=== PATIENT | female | born 1940 | race Caucasian/White ===

== ENCOUNTER → 2017-05-27 10:11 | Outpatient (CLI) | payer MEDICARE, OTHER, SELFPAY ==
[2017-05-27 11:05] LABS: AST(SGOT) 32 U/L (15-37); Alanine Aminotransfer ALT/SGPT 28 U/L (13-56); Albumin, Serum 3.4 g/dL (3.2-5.0); Alkaline Phosphatase 113 U/L (45-117); Bilirubin, Direct 0.37 mg/dL (0.00-0.30); Cholesterol 124 mg/dL (200); High Density Lipoprotein 49 mg/dL; Protein, Total 7.4 g/dL (6.4-8.2); Triglycerides 75 mg/dL; Very Low Density Lipoprotein 15 mg/dL (5-40)
== END ==
PROVIDERS: Family Provider Family Medicine; PCP Family Medicine; Visit Provider Physician Assistant Medical
DX: E78.5 Hyperlipidemia, unspecified (principal); E78.6 Lipoprotein deficiency; Z79.899 Other long term (current) drug therapy
CPT/HCPCS: 36415; 80061; 80076

== ENCOUNTER → 2018-02-17 11:39 | Outpatient (CLI) | payer MEDICARE, OTHER, SELFPAY ==
[2018-02-17 10:55] VITALS: BMI 27.2
[2018-02-17 13:39] LABS: Absolute Lymphocyte Count 1.34 X10^3/ul (0.83-4.51); Absolute Neutrophil Count 2.7 X10^3/uL (2.0-7.7); Basophil# 0.04 X10^3/uL; Basophil% 0.9 % (0-1); Eosinophil# 0.15 X10^3/uL; Eosinophils% 3.3 % (0-5); Hematocrit 37.4 % (37-47); Hemoglobin 12.2 g/dl (12.0-15.0); Lymphocyte # 1.34 X10^3/ul (4.0); Lymphocyte % 29.1 % (19-41); Mean Corp Hgb Conc 32.6 g/gl (32-36); Mean Corpuscular Hgb 30.6 pg (27.0-32.0); Mean Corpuscular Volume 93.7 fL (81-99); Mean Platelet Vol. 10.1 fl (6.2-12.0); Monocyte# 0.34 X10^3/uL; Monocyte% 7.4 % (0-10); Neutrophil # 2.73 X10^3/uL (2.7-7.7); Neutrophil % 59.1 % (47-70); Platelet Count 140 K/mm3 (150-450); RBC Distribution Width CV 13.7 % (11.6-14.6); RBC Distribution Width SD 47.4 fl (35.1-43.9); Red Blood Count 3.99 M/mm3 (4.2-5.4); White Blood Count 4.6 K/mm3 (4.4-11.0)
[2018-02-17 13:40] LABS: POSITIVE COUNT NO; POSITIVE DIFFERENTIAL NO; POSITIVE MORPHOLOGY NO
[2018-02-17 14:14] LABS: Anion Gap 6 (5-15); BUN 26 mg/dL (7-18); BUN/Creat Ratio 22.8 RATIO (10-20); Calcium,Total 9.2 mg/dL (8.5-10.1); Chloride 106 mmol/L (98-107); Creatinine, Serum 1.14 mg/dL (0.55-1.02); EST Glomerular Filtration Rate 49 mL/min (>60); Est Glom Filt Rate - Afr Amer 59 mL/min (>60); Glucose 143 mg/dL (74-106); Sodium Level 142 mmol/L (136-145)
--- OUTSIDE RECORDS SUMMARY | 2018-04-05 07:04 | XMS RPT_ITS ---
:1940 Author Organization OHIP Support Name Relationship Address Phone JOYCELYN LIEBERMAN Unavailable [address] + [place] [address] MIO BILL Unavailable . + ., . . R Unavailable Unavailable Unavailable DEBRAPEDRO REYNAENCE Unavailable [address] + [place] [address] MIO BILL Unavailable Unavailable + R Unavailable Unavailable Unavailable MIOPEDROJOYCELYN Unavailable [address] + [place] [address] MIO BILL Unavailable NA + [place], [place] R Unavailable Unavailable Unavailable DEBRAMARIBELL, JOYCELYN Unavailable [address] + [place] [address] MIO BILL Unavailable NA + [place], [place] R Unavailable Unavailable Unavailable MIOPEDROJOYCELYN Unavailable [address] + [place] [address] MIO BILL Unavailable NA + [place], [place] R Unavailable Unavailable Unavailable MIO, JOYCELYN Unavailable [address] + [place] [address] MIO BILL Unavailable NA + [place], [place] R Unavailable Unavailable Unavailable MIO, JOYCELYN Unavailable [address] + [place] [address] MIO BILL Unavailable NA + [place], [place] R Unavailable Unavailable Unavailable MIO, JOYCELYN Unavailable [address] + [place] [address] MIO BILL Unavailable NA + [place] R Unavailable Unavailable Unavailable GRASSMAN, JOYCELYN Unavailable [address] + [place] [address] MIO BILL Unavailable NA + [place], [place] R Unavailable Unavailable Unavailable JOYCELYN LIEBERMAN Unavailable [address] + [place] [address] MIO BILL Unavailable NA + [place], [place] R Unavailable Unavailable Unavailable Care Team Providers Name Role Phone Kortney Mike Attending Unavailable Cebul III, Salas Referring Unavailable Kortney Mike Attending Unavailable Kortney Mike Referring Unavailable Cebul III, Salas Primary Care Unavailable Millicent Fish Attending Unavailable Cebul III, Salas Referring Unavailable Cebul III, Salas Primary Care Unavailable Kortney Mike Attending Unavailable Kortney Mike Referring Unavailable Cebul III, Salas Primary Care Unavailable Conor Gilliland Attending Unavailable Millicent Fish Attending Unavailable Cebul III, Salas Referring Unavailable Chandu Ferro Attending Unavailable Cebul III, Salas Referring Unavailable Cebul III, Salas Primary Care Unavailable Millicent Fish Attending Unavailable Cebul III, Salas Referring Unavailable Cebul III, Salas Primary Care Unavailable Millicent Fish Attending Unavailable Cebul III, Salas Referring Unavailable Kortney Mike Attending Unavailable Cebul III, Salas Referring Unavailable PROBLEMS PROBLEMS DATE TYPE CONDITION / CODE ATTENDING STATUS SOURCE Unknown R74.8 - Abnormal levels [place] Mike 8 of other serum enzymes / [facility] R74.8(ICD-10) Hospital Repository Unknown I25.10 - Atherosclerotic Cee, Active [place] 8 heart disease of port lions [facility] coronary artery without Hospital angina pectoris / Repository I25.10(ICD-10) Unknown N18.3 - Chronic kidney Cee Active [place] 8 disease, stage 3 [facility] (moderate) / Hospital N18.3(ICD-10) Repository Unknown I48.2 - Chronic atrial Cee Active [place] 8 fibrillation / [facility] I48.2(ICD-10) Hospital Repository Unknown I50.22 - Chronic systolic Millicent Fish Active [place] (congestive) heart Community failure / I50.22(ICD-10) Hospital Repository Unknown I42.0 - Dilated Millicent Fish Active [place] cardiomyopathy / Community I42.0(ICD-10) Hospital Repository Unknown Z95.810 - Presence of Millicent Fish Active [place] automatic (implantable) Community cardiac defibrillator / Hospital Z95.810(ICD-10) Repository Unknown E78.00 - Pure Kasie, [place] Active [place] 8 hypercholesterolemia, Community unspecified / Hospital E78.00(ICD-10) Repository Unknown E78.0 - Pure Kasie, [place] Active [place] hypercholesterolemia / Community E78.0(ICD-10) Hospital Repository Unknown I10 - Essential (primary) Kasie, [place] Active [place] 8 hypertension / Community I10(ICD-10) Hospital Repository Unknown E78.5 - Hyperlipidemia, Mike, Active [place] unspecified / [facility] E78.5(ICD-10) Hospital Repository Unknown Z79.899 - Other skilled nursing Cee Active [place] 8 (current) drug therapy / [facility] Z79.899(ICD-10) Hospital Repository PROCEDURES PROCEDURES No Procedure Records FoundRESULTS RESULTS PACEMAKER CHECK Observed: 03/16/2018 Status: F Source: [place] 7:24 AM COUNT INCLUDES THE [facility] HOSPITAL REPOSITORY [facility] [address] [place] [address]. [address] [place] [address] Pacemaker Check Date of Service: 03/15/181357 MR#: [id number] Acct: [id number] Name: CHERYL LIEBERMAN Rep #: [id number] : 1940 From: Millicent Fish Age/Sex: 78/F Location: [facility] Status: Signed Billing Codes PM Device Codes: PM Dev Prog Eval, Dual 03/15/18 135 <Electronically signed by Millicent Fish > Date Millicent Fish 03/16/18 0724<Electronically signed by Chandu Ferro MD> Sun Signature: Date (if applicable) Chandu Ferro MD CC: CARDIOLOGY VISIT Observed: 02/22/2018 Status: F Source: [place] REPORT 12:54 PM [facility] REPOSITORY [facility] [address] [place] [address] OFFICE VISIT Date of Service: 02/17/18 MR#: [id number] Acct: [id number] Name: CHERYL LIEBEMRAN Rep #: [id number] : 1940 Provider: Kortney Mike Age/Sex: 78/F Location: [facility] Status: Signed HPI HPI Chief Complaint: Follow-up visit. Details: CHERYL LIEBERMAN, is a 78 F who presents to the office today for a cardiovascular follow-up. She has a history of coronary artery disease with stenting of a bifurcating LAD, 2nd diagonal vessel with a bare-metal stent in 2002. She also has a history of persistent atrial fibrillation and cardiomyopathy. She had been on aspirin and Plavix and Coumadin but had developed severe anemia and Coumadin was discontinued. Coumadin was initiated again in 2013 but developed bleeding again. She has remained on Plavix and aspirin every other day. In 2015 she underwent an ICD placement for prophylactic purposes. Patient is tolerating Eliquis without any difficulty. She is concerned about the cost of this medication. She is unaware of her atrial fibrillation. She has not had any other further symptoms that were concerning for a TIA. She does not have any chest discomfort or heaviness. She does not have any worsening shortness of breath. She does not have any lightheadedness or dizziness. She does not have any lower extremity edema. . Intake Vital Signs02/17/18 Height 5 ft 2 in 02/17/18 Weight: 149 lb 02/17/18 Body Mass Index (BMI) 27.2 02/17/18 Blood Pressure 118/54 L Intake Visit Reasons: 6 wk FU Voice Studies Director Required: No Accompanied by: None Is patient in pain?: No Allergies Jayddrl-Azm-Gqb Reductase Inhibitor Adverse Reaction (Verified 02/17/18 11:00) muscle aches warfarin [From Coumadin] Adverse Reaction (Verified 02/17/18 11:00) GI bleeds, profuse nosebleeds Medications carvedilol 12.5 mg tablet 12.5 mg PO BID #180 tab 04/22/17 [Rx Confirmed 02/17/18] furosemide 40 mg tablet 40 mg PO QDAY #90 tab 07/06/17 [Rx Confirmed 02/17/18] pravastatin 40 mg tablet 40 mg PO QDAY #90 tab 12/08/17 [Rx Confirmed 02/17/18] lisinopril 10 mg tablet 10 mg PO BID #180 tab 12/28/17 [Rx Confirmed 02/17/18] potassium chloride ER 20 mEq tablet,extended release(part/cryst) 20 meq PO DAILY #90 tab 12/28/17 [Rx Confirmed 02/17/18] apixaban 2.5 mg tablet 2.5 mg PO BID #60 tab 01/06/18 [Rx Confirmed 02/17/18] sertraline 50 mg tablet PO 30 Days #30 tab 02/17/18 [History Confirmed 02/17/18] Ejection fraction %: 25 to 29 PFSH Medical History Low serum HDL (Chronic) Chronic kidney disease, stage III (moderate) (Chronic) Atherosclerotic heart disease of port lions coronary artery without angina pectoris (Chronic) Chronic atrial fibrillation (Chronic) Chronic systolic congestive heart failure (Chronic) Bradycardia (Chronic) Dilated cardiomyopathy (Chronic) CAD (coronary artery disease) (Chronic) Hyperlipidemia (Chronic) HTN (hypertension) (Chronic) Surgical History History of coronary artery stent placement (Chronic) 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) History of varicose vein stripping (Resolved) Family History Grandfather Myocardial infarction Father Myocardial infarction Hypertension Brother Cancer Prostate cancer Sister Diabetes CVA (cerebral vascular accident) Hypertension Son Diabetes Son Hypertension Daughter Afib Social History Smoking Status: Never smoker alcohol intake: current alcohol intake frequency: 0-2 drinks per day Alcohol type: wine substance use type: does not use caffeine: Yes Type: carbonated beverages Number of servings: 1, coffee Number of servings: 1 what type of physical activity do you participate in: none seatbelt use: always do you feel safe at home: Yes ROS Const Const: Positive for fatigue; negative for body ache, fever(s), chills, night sweats, daytime sleepiness, difficulty sleeping, weight gain, weight loss, increased appetite, poor appetite, anorexia, other, frequent falls, headache(s), weakness or excessive sweating Eyes Eyes: Negative for blind spots, loss of peripheral vision, transient loss of vision, change in vision, floaters, tunnel vision, other, blurry vision or double vision ENT ENT: Negative for headache(s) or balance problems Cardio Chest Pain: No Palpitations: No Edema: Bilateral (lower extremity edema) Muscle aches with walking: None Resp Respiratory: Positive for SOB with activity; negative for SOB at rest, SOB orthopnea\SOB lying down, Cough, Coughing up blood/hemoptysis, chest congestion, pain on inspiration, snoring, stridor, wheezing, crackles, paroxysmal nocturnal dyspnea or other GI GI: Negative nausea, vomiting, heartburn, constipation, belching, bloating, cramping, vomiting blood/hematemesis, bright, red blood in stools, black,tarry stools, loose stools, Difficulty Swallowing or other : Negative for hematuria, frequent nighttime urination/ nocturia, erectile dysfunction or abnormal vaginal bleeding Musc Musc: Negative for muscle aches/ myalgia, muscle weakness, joint pain or balance problems Skin Skin: Negative redness, non-healing lesions, unusual bruising, skin ulcer, wounds, jaundice, other or rash Neuro Neuro: Negative for frequent falls, headache(s), weakness, blurry vision or double vision [place] Hematologic/Lymphatic: Negative for easy bleeding, easy bruising, enlarged lymph nodes or other Endo Endo: Positive for fatigue; negative for excessive sweating Psych Psych: Positive for anxiety and depression; negative for thoughts of harming anyone, thoughts of harming yourself, visual hallucinations, panic attacks or audible hallucinations Allergy Allergy/Immunology: Negative for rash Cardiology Exam Const Appearance: cooperative, healthy appearing, well developed, well groomed and no acute distress Nutritional Appearance: well nourished and average body habitus Orientation: alert, awake and oriented x3 Head Head: normal to inspection, normocephalic and atraumatic Ears: hearing grossly normal bilaterally and external ears normal Nose: external nose normal, nasal mucous membranes and turbinates normal, nares normal, septum normal, no nasal discharge Face and Sinus: face symmetric Mouth: oral mucosae normal, tongue normal, oropharynx normal and moist mucous membranes Teeth and gingiva: dentition normal Throat: posterior oropharynx normal, tonsils normal and uvula midline Eyes General: appearance normal, both eyes and all related structures Eyelids: eyelids normal Conjunctivae: conjunctivae normal Pupils: PERRL, normal by confrontation and accommodation normal EOM: EOM intact bilaterally Neck Neck: normal visual inspection, trachea midline and no JVD JVD: +5 Carotids: normal carotid upstroke and bounding pulses Chest Chest inspection: normal inspection of the chest, symmetric chest movement and normal respiratory effort Auscultation: Bilateral: Rales Cardio Palpation: normal PMI Rate: regular rate Rhythm: regular rhythm Heart sounds: S1 normal, S2 normal and normal, physiologic split S2; negative rub, gallop or murmur GI GI: normal to inspection, soft, no hepatosplenomegaly and bowel sounds present Neuro General: alert, awake, oriented x3, no focal sensory deficit, gait normal and moves all extremities Skin Skin: no rashes or lesions noted Extremities Lower Extremity Edema: +1: Bilateral Musculoskel Musculoskeletal: No joint tenderness Psych Psychological: normal affect Assessment AND Plan 1. Atherosclerosis of port lions coronary artery of port lions heart without angina pectoris I25.10 JONI Sandy Stable, from a cardiac standpoint patient does not have any symptoms of angina. We recommend that they continue with current aggressive medical management and risk factor modification. Orders Orders: 2. Chronic atrial fibrillation I48.2 Plan - JONI Barnes Patient will continue with her current rate limiting medication and factor Xa inhibitor. We have discussed cost of medication. Will fax over information to help with tear reduction of Eliquis. Orders Orders: 3. Essential hypertension I10 JONI Sandy Blood pressure is well controlled on current medications, we do not recommend any changes at this time. 4. Pure hypercholesterolemia E78.00 JONI Sandy Recent lipid profile has been reviewed. Patient will continue with his current dose of moderate intensity statin. 5. Dilated cardiomyopathy I42.0 Plan - JONI Barnes Patient does not have any symptoms of congestive heart failure. We will continue to monitor by history, exam and echocardiograms as deemed appropriate. 6. 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 We will continue to monitor with routine scheduled ICD interrogations. Patient has not had any discharges from their device. Plan Detail Other Orders Orders: Other Medications New: Additional Comments - JONI Barnes The above patient was discussed with Dr. Ferro, he agrees with plan of care. Thank you for allowing us to participate in patient's plan of care, if you have any questions please do not hesitate to call. This note was generated using a voice recognition system and there may be incorrect words, spelling or punctuation errors that were not noted when reviewing the office note prior to saving. Follow Up 02/17/18 (keep as is) Coding Level of Care Code Off vis,est,level 3 Diagnoses Atherosclerosis of port lions coronary artery of port lions heart without angina pectoris I25.10 [place] vs. transplanted heart: port lions heart Chronic atrial fibrillation I48.2 Essential hypertension I10 Hypertension type: essential hypertension Pure hypercholesterolemia E78.00 Hyperlipidemia type: pure hypercholesterolemia Dilated cardiomyopathy I42.0 Presence of automatic implantable cardioverter-defibrillator Z95.810 Coding Level of Care Code Off vis,est,level 3 Diagnoses Atherosclerosis of port lions coronary artery of port lions heart without angina pectoris I25.10 [place] vs. transplanted heart: port lions heart Chronic atrial fibrillation I48.2 Essential hypertension I10 Hypertension type: essential hypertension Pure hypercholesterolemia E78.00 Hyperlipidemia type: pure hypercholesterolemia Dilated cardiomyopathy I42.0 Presence of automatic implantable cardioverter-defibrillator Z95.810 02/21/18 1143 <Electronically signed by Kortney QUINONES> Date Kortney QUINONES 02/22/18 1254<Electronically signed by Chandu Ferro MD> Cosigner Signature: Date (if applicable) Chandu Ferro MD CC: [place]as Aguilar III, MD CBC W/DIFF, AUTOMATED Collected: 02/17/2018 Status: F Source: [place] 11:50 AM [facility] REPOSITORY TYPE CODE TESTS RESULT OUT OF RANGE REFERENCE UNITS LAB L100.1000 4.4-11.0 K/mm3 Normal WBC 4.6 LAB L100.1200 4.2-5.4 M/mm3 Low RBC 3.99 LAB L100.1300 12.0-15.0 g/dl Normal HGB 12.2 LAB L100.1400 37-47 % Normal HCT 37.4 LAB L100.1500 81-99 fL Normal MCV 93.7 LAB L100.1600 27.0-32.0 pg Normal MCH 30.6 LAB L100.1700 32-36 g/gl Normal MCHC 32.6 LAB L100.1810 11.6-14.6 % Normal RDW CV 13.7 LAB L100.1820 35.1-43.9 fl High RDW SD 47.4 LAB L100.1900 150-450 K/mm3 Low PLT 140 LAB L100.2000 6.2-12.0 fl Normal MPV 10.1 LAB L100.2100 47-70 % Normal NEUT% 59.1 LAB L100.2200 19-41 % Normal LY% 29.1 LAB L100.2300 0-10 % Normal MONO% 7.4 LAB L100.2400 0-5 % Normal EO% 3.3 LAB L100.2500 0-1 % Normal BASO% 0.9 LAB L100.2550 0.0-0.9 % Normal IM GRAN % 0.200 Result Comment: IG% - Immature Granulocytes (promyelocytes, myelocytes and metamyelocytes) > 1% indicates that a LEFT SHIFT is Present. LAB L100.2620 2.0-7.7 X10 3/uL Normal Absolute Neut 2.7 LAB L100.2720 0.83-4.51 X10 3/ul Normal Absolute Lymph 1.34 Performed By: #### L100.0100 #### [facility] [address] [place], [address] BASIC METABOLIC Collected: 02/17/2018 Status: F Source: [place] PROFILE (BMP) 11:50 AM [facility] REPOSITORY TYPE CODE TESTS RESULT OUT OF RANGE REFERENCE UNITS LAB L501.0100 74-106 mg/dL High GLU 143 Result Comment: Fasting Glucose result greater than or equal to 126 mg/dL suggests DIABETES MELLITUS per A.D.A. criteria. Please note revised GLUCOSE reference range effective 2017. LAB L501.1000 7-18 mg/dL High BUN 26 LAB L501.1100 0.55-1.02 mg/dL High CREAT,SERUM 1.14 Result Comment: The validity of the calculated GFR AND GFRAA in patients over 70 years has not been determined. Clinical correlation is essential. LAB L501.1110 >60 mL/min Low EST GFR 49 Result Comment: Non- GFR Calc LAB L501.1115 >60 mL/min Low EST GFR - AA 59 Result Comment: GFR Calc LAB L501.1300 10-20 RATIO High BUN/CRE 22.8 LAB L501.2200 8.5-10.1 mg/dL CA Normal 9.2 LAB L501.5300 136-145 mmol/L NA Normal 142 LAB L501.5600 3.5-5.1 mmol/L K Normal 4.0 LAB L501.5900 98-107 mmol/L CL Normal 106 LAB L501.6100 21.0-32.0 mmol/L Normal CO2 30.0 LAB L501.6200 5-15 Normal GAP 6 Performed By: #### L500.2500 #### [facility] [address] [place], [address] CARDIOLOGY VISIT Observed: 01/07/2018 Status: F Source: [place] REPORT 8:23 AM [facility] REPOSITORY [facility] [address] [place] [address] OFFICE VISIT Date of Service: 01/06/18 MR#: [id number] Acct: [id number] Name: CHERYL LIEBERMAN Rep #: [id number] : 1940 Provider: Kortney Mkie Age/Sex: 77/F Location: [facility] Status: Signed [facility] Chief Complaint: Follow-up visit. Details: CHERYL LIEBERMAN, is a 77 F who presents to the office today for a cardiovascular follow-up. She has a history of coronary artery disease with stenting of a bifurcating LAD, 2nd diagonal vessel with a bare-metal stent in 2002. She also has a history of persistent atrial fibrillation and cardiomyopathy. She had been on aspirin and Plavix and Coumadin but had developed severe anemia and Coumadin was discontinued. Coumadin was initiated again in 2013 but developed bleeding again. She has remained on Plavix and aspirin every other day. In 2015 she underwent an ICD placement for prophylactic purposes. ICD interogation does demonstrated Afib episodes. Pt sts that a few weeks ago, her family was concerned about some slurred speech. She thinks that it was related to anxiety. She sts that this lasted a few hours. She did not do anything about this. She did not note any palpitations. She did not have any lightheadedness/dizziness/syncope. She does not have any chest pain. She does not have any worsening SOB. She does have some edema. Intake Vital Signs01/06/18 Height 5 ft 2 in 01/06/18 Weight: 147 lb 01/06/18 Body Mass Index (BMI) 26.9 01/06/18 Blood Pressure 126/68 H 01/06/18 Blood Pressure Location Lt brachial Intake Visit Reasons: 6 M FU Voice Studies Director Required: No Accompanied by: Is patient in pain?: No Allergies Icsaqnd-Eyx-Mph Reductase Inhibitor Adverse Reaction (Verified 01/06/18 11:33) muscle aches warfarin [From Coumadin] Adverse Reaction (Verified 01/06/18 11:33) GI bleeds, profuse nosebleeds Medications carvedilol 12.5 mg tablet 12.5 mg PO BID #180 tab 04/22/17 [Rx Confirmed 01/06/18] furosemide 40 mg tablet 40 mg PO QDAY #90 tab 07/06/17 [Rx Confirmed 01/06/18] pravastatin 40 mg tablet 40 mg PO QDAY #90 tab 12/08/17 [Rx Confirmed 01/06/18] lisinopril 10 mg tablet 10 mg PO BID #180 tab 12/28/17 [Rx Confirmed 01/06/18] potassium chloride ER 20 mEq tablet,extended release(part/cryst) 20 meq PO DAILY #90 tab 12/28/17 [Rx Confirmed 01/06/18] apixaban 2.5 mg tablet 2.5 mg PO BID #60 tab 01/06/18 [Rx Confirmed 01/06/18] Ejection fraction %: 25 to 29 [facility] Medical History Low serum HDL (Chronic) Chronic kidney disease, stage III (moderate) (Chronic) Atherosclerotic heart disease of [place] lions coronary artery without angina pectoris (Chronic) Chronic atrial fibrillation (Chronic) Chronic systolic congestive heart failure (Chronic) Bradycardia (Chronic) Dilated cardiomyopathy (Chronic) CAD (coronary artery disease) (Chronic) Hyperlipidemia (Chronic) HTN (hypertension) (Chronic) Surgical History History of coronary artery stent placement (Chronic) 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) History of varicose vein stripping (Resolved) Family History Grandfather Myocardial infarction Father Myocardial infarction Hypertension Brother Cancer Prostate cancer Sister Diabetes CVA (cerebral vascular accident) Hypertension Son Diabetes Son Hypertension Daughter Afib Social History Smoking Status: Never smoker alcohol intake: current alcohol intake frequency: 0-2 drinks per day Alcohol type: wine substance use type: does not use caffeine: Yes Type: carbonated beverages Number of servings: 1, coffee Number of servings: 1 what type of physical activity do you participate in: none seatbelt use: always do you feel safe at home: Yes ROS Const Const: Positive for fatigue; negative for body ache, fever(s), chills, night sweats, daytime sleepiness, difficulty sleeping, weight gain, weight loss, increased appetite, poor appetite, anorexia, other, frequent falls, headache(s), weakness or excessive sweating Eyes Eyes: Negative for blind spots, loss of peripheral vision, transient loss of vision, change in vision, floaters, tunnel vision, other, blurry vision or double vision ENT ENT: Negative for headache(s) or balance problems Cardio Chest Pain: No Palpitations: No Edema: Bilateral (lower extremity edema) Muscle aches with walking: None Resp Respiratory: Positive for SOB with activity; negative for SOB at rest, SOB orthopnea\SOB lying down, Cough, Coughing up blood/hemoptysis, chest congestion, pain on inspiration, snoring, stridor, wheezing, crackles, paroxysmal nocturnal dyspnea or other GI GI: Negative nausea, vomiting, heartburn, constipation, belching, bloating, cramping, vomiting blood/hematemesis, bright, red blood in stools, black,tarry stools, loose stools, Difficulty Swallowing or other : Negative for hematuria, frequent nighttime urination/ nocturia, erectile dysfunction or abnormal vaginal bleeding Musc Musc: Negative for muscle aches/ myalgia, muscle weakness, joint pain or balance problems Skin Skin: Negative redness, non-healing lesions, unusual bruising, skin ulcer, wounds, jaundice, other or rash Neuro Neuro: Negative for frequent falls, headache(s), weakness, blurry vision or double vision [place] Hematologic/Lymphatic: Negative for easy bleeding, easy bruising, enlarged lymph nodes or other Endo Endo: Positive for fatigue; negative for excessive sweating Psych Psych: Positive for anxiety; negative for depression, thoughts of harming anyone, thoughts of harming yourself, visual hallucinations, panic attacks or audible hallucinations Allergy Allergy/Immunology: Negative for rash Cardiology Exam Const Appearance: cooperative, healthy appearing, well developed, well groomed and no acute distress Nutritional Appearance: well nourished and average body habitus Orientation: alert, awake and oriented x3 Head Head: normal to inspection, normocephalic and atraumatic Ears: hearing grossly normal bilaterally and external ears normal Nose: external nose normal, nasal mucous membranes and turbinates normal, nares normal, septum normal, no nasal discharge Face and Sinus: face symmetric Mouth: oral mucosae normal, tongue normal, oropharynx normal and moist mucous membranes Teeth and gingiva: dentition normal Throat: posterior oropharynx normal, tonsils normal and uvula midline Eyes General: appearance normal, both eyes and all related structures Eyelids: eyelids normal Conjunctivae: conjunctivae normal Pupils: PERRL, normal by confrontation and accommodation normal EOM: EOM intact bilaterally Neck Neck: normal visual inspection, trachea midline and no JVD JVD: +5 Carotids: normal carotid upstroke and bounding pulses Chest Chest inspection: normal inspection of the chest, symmetric chest movement and normal respiratory effort Auscultation: Bilateral: Rales Cardio Palpation: normal PMI Rate: regular rate Rhythm: regular rhythm Heart sounds: S1 normal, S2 normal and normal, physiologic split S2; negative rub, gallop or murmur GI GI: normal to inspection, soft, no hepatosplenomegaly and bowel sounds present Neuro General: alert, awake, oriented x3, no focal sensory deficit, gait normal and moves all extremities Skin Skin: no rashes or lesions noted Extremities Lower Extremity Edema: +1: Bilateral Musculoskel Musculoskeletal: No joint tenderness Psych Psychological: normal affect Supplemental Info Pharmacologic nuclear stress test in 2016 demonstrated evidence of small apical perfusion with no ischemia noted. Echocardiogram in 2016 demonstrated severe global left ventricular dysfunction with an ejection fraction of 25%. Severe global hypokinesis of the left ventricle. RVSP 34 mmHg Assessment AND Plan 1. Chronic atrial fibrillation I48.2 Plan - JONI Barnes Patient's slurred speech is concerning for a CVA. She did have issues with Coumadin however would like for her to stop her aspirin and Plavix and start Eliquis. This was reviewed with Dr. Ferro and he agrees with plan of care. She was advised to monitor for bleeding risks. Patient Instructions - JONI Barnes Stop your Aspirin and Plavix and start Eliquis- it will be twice a day 2. Dilated cardiomyopathy I42.0 Plan - JONI Barnes Patient does not have any symptoms of congestive heart failure. We will continue to monitor by history, exam and echocardiograms as deemed appropriate. 3. 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 We will continue to monitor with routine scheduled ICD interrogations. Patient has not had any discharges from their device. 4. Atherosclerosis of port lions coronary artery of port lions heart without angina pectoris I25.10 status post stents Plan - JONI Barnes Stable, from a cardiac standpoint patient does not have any symptoms of angina. We recommend that they continue with current aggressive medical management and risk factor modification. 5. Essential hypertension I10 Plan - JONI Barnes Blood pressure is well controlled on current medications, we do not recommend any changes at this time. 6. Pure hypercholesterolemia E78.00 Plan - JONI Barnes Patient will continue with current moderate intensity statin. Recent lipid profile demonstrates total cholesterol 124, HDL 49, LDL 60. Plan Detail Other Medications New: Additional Comments - JONI Barnes Thank you for allowing us to participate in patient's plan of care, if you have any questions please do not hesitate to call. This note was generated using a voice recognition system and there may be incorrect words, spelling or punctuation errors that were not noted when reviewing the office note prior to saving. 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 transplanted heart: port lions heart Essential hypertension I10 Hypertension type: essential hypertension Pure hypercholesterolemia E78.00 Hyperlipidemia type: pure hypercholesterolemia 01/06/18 1531 <Electronically signed by Kortney QUINONES> Date Kortney QUINONES 01/07/18 0823<Electronically signed by Chandu Ferro MD> Cosigner Signature: Date (if applicable) Chandu Ferro MD CC: Salas Aguilar III, MD PACEMAKER CHECK Observed: 12/14/2017 Status: F Source: [place] 11:00 AM [facility] [address] [place] [address]. [address] [place] [address] Pacemaker Check Date of Service: 12/13/17 1315 MR#: [id number] Acct: [id number] Name: CHERYL LIEBERMAN Rep #: [id number] : 1940 From: Millicent Fish Age/Sex: 77/F [place] [facility] [place] Status: Signed Billing Codes ICD Device Billing: ICD Dev Prog Darya, Single 12/13/17 1317 <Electronically signed by Millicent Fish > Date Millicent Fish 12/14/17 1100<Electronically signed by Chandu Ferro MD> Cosigner Signature: Date (if applicable) Chandu Ferro MD CC: PROGRESS Observed: 09/23/2017 Status: COMPLETED Source: [place] 9:30 AM [facility] REPOSITORY HNO ID: [id number] Author: Lynne Morales Service: (none) Author Type: Atmospheric Chemist Type: Progress Notes Filed: 09/23/2017 9:31 AM Note Text: Patient will call back to schedule her appointment. She taking care of that has cancer. Lynne Morales MA PROGRESS Observed: 09/20/2017 Status: COMPLETED Source: [place] 12:52 PM [facility] REPOSITORY HNO ID: [id number] Author: Lynne Morales Service: (none) Author Type: Atmospheric Chemist Type: Progress Notes Filed: 09/23/2017 9:31 AM Note Text: PHMA TEAMLET DOCUMENTATION Provider Action/FYI: Patient needs appointment, needs labs ordered, needs Foot and Eye exam. PSR Action/FYI: please schedule appointment Teamlet has identified patient by name and date of . Team: Dr. Carlo Aguilar III,, LUI Farmer, Lynne Morales MA, Kaleb Colon LPN, Suze Das, MARCELO, ? Last Office Visit:Visit date not found ? Next Office Visit: Visit date not found ? Last BP/Labs: Blood Pressure: Last 3 Encounter BP Readings: Date: BP: 02/15/2017 122/70 12/25/2016 100/72 07/22/2015 100/60 Lipids: Cholesterol, Total (mg/dL) Date Value 05/11/2013 155 12/06/2012 242 HDL Cholesterol (mg/dL) Date Value 05/11/2013 42 02/09/2013 37 LDL Cholesterol (mg/dL) Date Value 05/11/2013 82 12/06/2012 168 LDL Calculated (mg/dL) Date Value 02/09/2013 53 02/09/2013 65 Triglyceride (mg/dL) Date Value 05/11/2013 154 02/09/2013 70 HGB A1C: Lab Results Component Value Date HBA1C 7.0 07/22/2015 HBA1C 7.3 05/11/2013 HBA1C 6.5 10/24/2002 TSH: TSH (uU/mL) Date Value 12/06/2012 4.200 ) Care Gap: DM - Need Urine Albumin / NOT checked in last 12 months Needs dilated eye exam - HM overdue Plan: ? Confirm PCP / Status ? Type of appointment needed: Follow-up with Provider Kathyl ? Consultation Appointments: No patient outreach needed at this time ? Labs, HM and Immunization: Labs: Albumin Creatinine Urine CMP HGB A1C Fecal Occult Blood Test Lipids Colon Cancer Screening Diabetic Eye Exam Diabetic Foot Exam Lynne Morales MA CNPTOUTREACH Observed: 09/20/2017 Status: COMPLETED Source: [place] 12:00 AM [facility] REPOSITORY Patient Outreach (FAMPWS) CHERYL LIEBERMAN ([id number]) 1940 F Date Time Provider Department 09/20/17 LYNNE MORALES) FAMPWS During your visit today, we recorded the following information about you: Lynne Morales MA 09/23/2017 9:31 AM Signed PHMA TEAMLET DOCUMENTATION Provider Action/FYI: Patient needs appointment, needs labs ordered, needs Foot and Eye exam. PSR Action/FYI: please schedule appointment Teamlet has identified patient by name and date of . Team: Dr. Carlo Aguilar III, MD, LUI Farmer, Lynne Morales MA, Kaleb Colon LPN, Suze Das CMA, ? Last Office Visit:Visit date not found ? Next Office Visit: Visit date not found ? Last BP/Labs: Blood Pressure: Last 3 Encounter BP Readings: Date: BP: 02/15/2017 122/70 12/25/2016 100/72 07/22/2015 100/60 Lipids: Cholesterol, Total (mg/dL) Date Value 05/11/2013 155 12/06/2012 242 HDL Cholesterol (mg/dL) Date Value 05/11/2013 42 02/09/2013 37 LDL Cholesterol (mg/dL) Date Value 05/11/2013 82 12/06/2012 168 LDL Calculated (mg/dL) Date Value 02/09/2013 53 02/09/2013 65 Triglyceride (mg/dL) Date Value 05/11/2013 154 02/09/2013 70 HGB A1C: Lab Results Component Value Date HBA1C 7.0 07/22/2015 HBA1C 7.3 05/11/2013 HBA1C 6.5 10/24/2002 TSH: TSH (uU/mL) Date Value 12/06/2012 4.200 ) Care Gap: DM - Need Urine Albumin / NOT checked in last 12 months Needs dilated eye exam - HM overdue Plan: ? Confirm PCP / Status ? Type of appointment needed: Follow-up with Provider Lauren ? Consultation Appointments: No patient outreach needed at this time ? Labs, HM and Immunization: Labs: Albumin Creatinine Urine CMP HGB A1C Fecal Occult Blood Test Lipids Colon Cancer Screening Diabetic Eye Exam Diabetic Foot Exam IMANI Arzola MA 09/23/2017 9:31 AM Signed Patient will call back to schedule her appointment. She taking care of that has cancer. Lynne Morales MA Allergies As of Date: 09/20/2017 (No Known Allergies) Date Reviewed: 02/15/2017 Reviewed by: Norbert Fischer - Fully Assessed Reason for Visit: PHMA/Care Gap Outreach [[id number]] Primary Visit Diagnosis:Hyperlipidemia LDL goal <100 [E78.5] Other Visit Diagnoses:Type 2 diabetes mellitus with stage 3 chronic kidney disease, without long-term current use of insulin (HCC) [E11.22, N18.3] Essential hypertension, benign [I10] Encounter for screening fecal occult blood testing [Z12.11] Order(s):COMP METABOLIC PANEL [SQCMP] Order #: [id number] FUTURE LIPID PANEL BASIC [SQLIPB] Order #: [id number] FUTURE ALBUMIN/CREAT RATIO RND UR [SQUACR] Order #: [id number] FUTURE HGB A1C [FPTMY6O] Order #: [id number] FUTURE FECAL OCCULT BLOOD TEST [SQIFOBT] Order #: [id number] FUTURE Prescriptions as of 09/20/2017 Sig: BENZONATATE 100 MG CAPSULE Take 1 capsule by mouth three* CARVEDILOL 25 MG TABLET Take 1 tablet by mouth twice * POTASSIUM CHLORIDE ER 20 MEQ * Take 1 tablet by mouth once d* FUROSEMIDE 40 MG TABLET Take 1 tablet by mouth once d* SERTRALINE 50 MG TABLET Take 1 tablet by mouth once d* CLOPIDOGREL 75 MG TABLET Take 1 tablet by mouth once d* PRAVASTATIN 20 MG TABLET Take 1 tablet by mouth every * LISINOPRIL 20 MG-HYDROCHLOROT* Take 1 tablet by mouth as nee* NITROGLYCERIN 0.4 MG SUBLINGU* Dissolve 1 tablet under the t* ADULT LOW DOSE ASPIRIN 81 MG * Take one(1) tablet daily. Problem List As Of Date 09/20/2017 Noted Resolved BENIGN HYPERTENSION [I10] Venous (peripheral) insufficiency [I87.2] More... Hyperlipidemia LDL goal <100 [E78.5] OSTEOPOROSIS NOS [M81.0] INVALID FOR* DYSMETABOLIC SYNDROME X [E88.81] INVALID FOR* Left bundle branch block [I44.7] INVALID FOR* Impaired fasting glucose [R73.01] INVALID FOR* History of epistaxis [Z87.898] INVALID FOR* Atrial fibrillation [I48.91] INVALID FOR* CHF (congestive heart failure) [I50.9] INVALID FOR* ASHD (arteriosclerotic heart disease) [I25.10] INVALID FOR* Type 2 diabetes mellitus with stage 3 chronic k*INVALID FOR* Chronic anxiety [F41.9] INVALID FOR* Encounter Status:Closed by LYNNE MORALES on 09/23/17 PACEMAKER CHECK Observed: 09/09/2017 Status: F Source: [place] 4:34 PM [facility] REPOSITORY [facility] [address] [place] [address] Pacemaker Check Date of Service: 09/09/17 1347 MR#: [id number] Acct: [id number] Name: CHERYL LIEBERMAN Rep #: [id number] : 1940 From: Millicent Fish Age/Sex: 77/F Location: [facility] [place] Status: Signed Billing Codes ICD Device Billing: ICD Dev Prog Eval, Single 09/09/17 1348 <Electronically signed by Millicent Fish > Date Millicent Fish 09/09/17 1634<Electronically signed by Chandu Ferro MD> Cosign Signature: Date (if applicable) Chandu Ferro MD CC: CARDIOLOGY VISIT Observed: 07/06/2017 Status: F Source: [place] REPORT 11:32 AM [facility] REPOSITORY [facility] [address] [place] [address] OFFICE VISIT Date of Service: 07/06/17 MR#: [id number] Acct: [id number] Name: CHERYL LIEBERMAN Rep #: [id number] : 1940 Provider: Chandu Ferro MD Age/Sex: 77/F Location: [facility] Status: Signed [facility] Chief Complaint: Follow-up visit. Details: CHERYL LIEBERMAN, is a 77 F who presents to the office today for a follow-up visit. She is a lady with a history of coronary artery disease status post stenting of the bifurcating LAD and second diagonal vessel with a bare-metal stent in 2002. She also has a history of persistent atrial fibrillation and a cardiomyopathy. Her ejection fraction had declined from 35-25% and she underwent an ICD implantation. She says that her major complaint at this time is bilateral pitting edema and some shortness of breath with activity. She has had no neck arm or jaw discomfort suggest angina no dizziness or diaphoresis no near syncope or syncope. Her physical exam today demonstrates clear lung morris irregular regular heart rate and 1+ pitting edema. She says that her medications were changed taking out her lisinopril HCTZ. Intake Vital Signs07/06/17 Height 5 ft 2 in 07/06/17 Weight: 154 lb 07/06/17 Body Mass Index (BMI) 28.1 07/06/17 Blood Pressure 124/80 07/06/17 Blood Pressure Location Lt brachial Intake Visit Reasons: 6 M Voice Studies Director Required: No Accompanied by: Is patient in pain?: No Allergies Qyvuxpy-Twf-Usm Reductase Inhibitor Adverse Reaction (Verified 07/06/17 11:05) muscle aches warfarin [From Coumadin] Adverse Reaction (Verified 07/06/17 11:05) GI bleeds, profuse nosebleeds Medications Aspirin [Aspirin, Baby] 81 mg PO DAILY@0800 #30 tab.chew 02/06/13 [Rx Confirmed 07/06/17] carvedilol 12.5 mg tablet 12.5 mg PO BID #180 tab 04/22/17 [Rx Confirmed 07/06/17] potassium chloride ER 20 mEq tablet,extended release(part/cryst) 20 meq PO DAILY #90 tab 05/07/17 [Rx Confirmed 07/06/17] pravastatin 40 mg tablet 20 mg PO QDAY #90 tab 05/07/17 [Rx Confirmed 07/06/17] lisinopril 10 mg tablet 10 mg PO BID tab 07/02/17 [History Confirmed 07/06/17] clopidogrel 75 mg tablet 75 mg PO .COMPLEX tab 07/06/17 [History] furosemide 40 mg tablet 40 mg PO QDAY #90 tab 07/06/17 [Rx Confirmed 07/06/17] Ejection fraction %: 25 to 29 (25% per echo 03/18/2015 at [facility] Medical History Low serum HDL (Chronic) Chronic kidney disease, stage III (moderate) (Chronic) Atherosclerotic heart disease of port lions coronary artery without angina pectoris (Chronic) Chronic atrial fibrillation (Chronic) Chronic systolic congestive heart failure (Chronic) Bradycardia (Chronic) Dilated cardiomyopathy (Chronic) CAD (coronary artery disease) (Chronic) Hyperlipidemia (Chronic) HTN (hypertension) (Chronic) Surgical History History of coronary artery stent placement (Chronic) 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) Family History Grandfather Myocardial infarction Father Myocardial infarction Hypertension Brother Cancer Prostate cancer Sister Diabetes CVA (cerebral vascular accident) Hypertension Son Diabetes Son Hypertension Daughter Afib Social History Smoking Status: Never smoker alcohol intake: never substance use type: does not use caffeine: Yes Type: carbonated beverages what type of physical activity do you participate in: none seatbelt use: always do you feel safe at home: Yes ROS Const Const: Positive for fatigue; negative for body ache, fever(s), chills, night sweats, daytime sleepiness, difficulty sleeping, weight gain, weight loss, increased appetite, poor appetite, anorexia, other, frequent falls, headache(s), weakness or excessive sweating Eyes Eyes: Negative for blind spots, loss of peripheral vision, transient loss of vision, change in vision, floaters, tunnel vision, other, blurry vision or double vision ENT ENT: Negative for hearing loss, tinnitus, Nosebleed/epistaxis, post nasal drip, bleeding gums, hoarseness, neck pain, dry mouth, other, balance problems, dizziness, headache(s), tongue swelling or lip swelling Cardio Chest Pain: No Palpitations: No Edema: Bilateral (lower extremity edema) Muscle aches with walking: None Resp Respiratory: Positive for SOB with activity; negative for SOB at rest, SOB orthopnea\SOB lying down, Cough, Coughing up blood/hemoptysis, chest congestion, pain on inspiration, snoring, stridor, wheezing, crackles, paroxysmal nocturnal dyspnea or other GI GI: Negative nausea, vomiting, heartburn, constipation, belching, bloating, cramping, vomiting blood/hematemesis, bright, red blood in stools, black,tarry stools, loose stools, Difficulty Swallowing or other : Negative for hematuria, frequent nighttime urination/ nocturia, erectile dysfunction or abnormal vaginal bleeding Musc Musc: Negative for muscle aches/ myalgia, muscle weakness, joint pain or balance problems Skin Skin: Negative redness, non-healing lesions, unusual bruising, skin ulcer, wounds, jaundice, other or rash Neuro Neuro: Negative for dizziness, lightheadedness, near syncope, syncope, orthostatic symptoms, frequent falls, headache(s), weakness, confusion, memory loss, restless legs, blurry vision, double vision, vertigo, seizures, lack of coordination or other [place] Hematologic/Lymphatic: Negative for easy bleeding, easy bruising, enlarged lymph nodes or other Endo Endo: Positive for fatigue; negative for cold intolerance, heat intolerance, excessive sweating, flushing, increased thirst/drinking, increased hunger, hair loss, hair growth or other Psych Psych: Positive for anxiety; negative for depression, thoughts of harming anyone, thoughts of harming yourself, visual hallucinations, panic attacks or audible hallucinations Allergy Allergy/Immunology: Negative for throat swelling, Negative for tongue swelling, Negative for hives, Negative for rash, Negative for lip swelling Cardiology Exam Const Appearance: cooperative, healthy appearing, well developed, well groomed and no acute distress Nutritional Appearance: well nourished and average body habitus Orientation: alert, awake and oriented x3 Head Head: normal to inspection, normocephalic and atraumatic Ears: hearing grossly normal bilaterally and external ears normal Nose: external nose normal, nasal mucous membranes and turbinates normal, nares normal, septum normal, no nasal discharge Face and Sinus: face symmetric Mouth: oral mucosae normal, tongue normal, oropharynx normal and moist mucous membranes Teeth and gingiva: dentition normal Throat: posterior oropharynx normal, tonsils normal and uvula midline Eyes General: appearance normal, both eyes and all related structures Eyelids: eyelids normal Conjunctivae: conjunctivae normal Pupils: PERRL, normal by confrontation and accommodation normal EOM: EOM intact bilaterally Neck Neck: normal visual inspection, trachea midline and no JVD JVD: +5 Carotids: normal carotid upstroke and bounding pulses Chest Chest inspection: normal inspection of the chest, symmetric chest movement and normal respiratory effort Auscultation: Bilateral: Rales Cardio Palpation: normal PMI Rate: regular rate Rhythm: regular rhythm Heart sounds: S1 normal, S2 normal and normal, physiologic split S2; negative rub, gallop or murmur GI GI: normal to inspection, soft, no hepatosplenomegaly and bowel sounds present Neuro General: alert, awake, oriented x3, no focal sensory deficit, gait normal and moves all extremities Skin Skin: no rashes or lesions noted Extremities Lower Extremity Edema: +1: Bilateral Musculoskel Musculoskeletal: No joint tenderness Psych Psychological: normal affect Assessment AND Plan 1. Chronic systolic congestive heart failure I50.22 Plan She does have evidence of chronic systolic congestive heart failure with bilateral rales and pedal edema at this time my recommendation will be to increase her furosemide to 40 mg once a day continue her carvedilol at the same dose and continue her lisinopril at the same dose. 2. Chronic atrial fibrillation I48.2 Plan She does have evidence of chronic persistent atrial fibrillation she is unaware of this rhythm and as you know she has not been anticoagulated due to her history of anemia but remains on aspirin and Plavix. 3. Dilated cardiomyopathy I42.0 Plan She does have a history of a cardiomyopathy which is out of proportion to her coronary artery disease. She remains on the beta-jose eduardo and the CHARANJIT inhibitor. She is AHA class C based on her evaluation. 4. 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 Her last ICD interrogation demonstrated no evidence of VT or VF with the battery longevity of over 10 years. We will continue to monitor her closely. 5. Pure hypercholesterolemia E78.00; E78.0 Plan Her most recent lipid profile demonstrated total cholesterol 124 HDL 49 and LDL of 60. No other changes will be made. 6. Atherosclerosis of [place] lions coronary artery of [place] heart without angina pectoris I25.10 status post stents Plan She does have a history of previous coronary artery angioplasty and stenting. Her most recent stress test in July 2015 did not demonstrate any evidence of ischemia. Thank you for allowing me to participate in the care of your patient. Please don't hesitate to call if any issues arise 7. Essential hypertension I10 Plan She has been keeping track of her blood pressures and they have all been in the normotensive range she is quite meticulous about the above. Thank you for allowing me to participate in the care of your patient. Please don't hesitate to call if any issues arise Plan Detail Other Medications New: Discontinued: Follow Up 6 Months (mmm) Coding Level of Care Code Off vis,est,level 4 Diagnoses Chronic systolic congestive heart failure I50.22 Chronic atrial fibrillation I48.2 Dilated cardiomyopathy I42.0 Presence of automatic implantable cardioverter-defibrillator Z95.810 Pure hypercholesterolemia E78.00; E78.0 Hyperlipidemia type: pure hypercholesterolemia Atherosclerosis of [place] coronary artery of [place] heart without angina pectoris I25.10 Coronary Disease-Associated Artery/Lesion type: [place] artery [place] vs. transplanted heart: port lions heart Associated angina: without angina Essential hypertension I10 Hypertension type: essential hypertension Coding Level of Care Code Off vis,est,level 4 Diagnoses Chronic systolic congestive heart failure I50.22 Chronic atrial fibrillation I48.2 Dilated cardiomyopathy I42.0 Presence of automatic implantable cardioverter-defibrillator Z95.810 Pure hypercholesterolemia E78.00; E78.0 Hyperlipidemia type: pure hypercholesterolemia Atherosclerosis of [place] coronary artery of [place] heart without angina pectoris I25.10 Coronary Disease-Associated Artery/Lesion type: [place] artery [place] vs. transplanted heart: port lions heart Associated angina: without angina Essential hypertension I10 Hypertension type: essential hypertension 07/06/17 1132 <Electronically signed by Chandu Ferro MD> Date Chandu Ferro MD Cosigner Signature: Date (if applicable) CC: Salas Aguilar III, MD LIVER PROFILE Collected: 05/27/2017 Status: F Source: [place] 10:16 AM [facility] REPOSITORY Order Comment: Order Date: 11/16/16 Order Info: [id number] - *Hepatic Function Panel Order Info: [id number] - *Lipid Profile CC PCP Comments: 12 hours fasting, may have water. TYPE CODE TESTS RESULT OUT OF RANGE REFERENCE UNITS LAB L501.1500 6.4-8.2 g/dL Normal T PROT 7.4 LAB L501.1800 3.2-5.0 g/dL Normal ALB 3.4 LAB L501.1950 2.2-4.2 g/dL Normal GLOB 4.0 LAB L501.4100 15-37 U/L Normal AST 32 LAB L501.4305 45-117 U/L Normal ALK P 113 LAB L501.4405 13-56 U/L Normal ALT 28 Result Comment: Please note revised ALT reference range effective 2017. LAB L501.4600 0.20-1.00 mg/dL High T 1.20 BILI LAB L501.4700 0.00-0.30 mg/dL High D 0.37 BILI Performed By: #### L500.3400 #### [facility] [address] [place], [address] LIPID PROFILE Collected: 05/27/2017 Status: F Source: [place] 10:16 AM [facility] REPOSITORY Order Comment: Order Date: 11/16/16 Order Info: [id number] - *Hepatic Function Panel Order Info: [id number] - *Lipid Profile CC PCP Comments: 12 hours fasting, may have water. TYPE CODE TESTS RESULT OUT OF RANGE REFERENCE UNITS LAB L501.4900 200 mg/dL Normal CHOL 124 Result Comment: <200 mg/dL Desirable 200-240 mg/dL Borderline >240 mg/dL High Risk LAB L501.5000 mg/dL Normal TRIG 75 Result Comment: The drugs N-Acetylcysteine and Metamizole may falsely depress this assay. Serum Triglycerides Reference Interval Normal <150 mg/dL Borderline high 150 - 199 mg/dL High 200 - 499 mg/dL Very High > or = 500 mg/dL LAB L501.6400 mg/dL Normal HDL 49 Result Comment: The drugs N-Acetylcysteine and Metamizole may falsely depress this assay. Reference Range HDL <40 mg/dL Low HDL Cholesterol HDL >or= 60 mg/dL High HDL Cholesterol LAB L501.6500 0-130 mg/dL Normal LDL 60 LAB L501.6600 5-40 mg/dL Normal VLDL 15 Performed By: #### L500.4100 #### [facility] [address] [place], [address] PROGRESS Observed: 05/18/2017 Status: COMPLETED Source: [place] 5:55 PM [facility] REPOSITORY HNO ID: [id number] Author: Salas Aguilar III Service: (none) Author Type: Physician Type: Progress Notes Filed: 05/18/2017 5:55 PM Note Text: noted all Salas Aguilar III MD OFFICE VISIT REPORT Observed: 04/19/2017 Status: F Source: [place] 4:47 PM [facility] REPOSITORY [facility] [address] [place] [address] OFFICE VISIT Date of Service: 04/16/17 MR#: [id number] Acct: [id number] Patient: CHERYL LIEBERMAN Rep #: [id number] : 1940 Provider: Millicent Fish Age/Sex: 77/F Location: [facility] Status: Signed Comments Summary Comments: Single Chamber ICD Evaluation: Interrogation shows no VT/VF episodes since last check 11/30/16. Left pectoral pocket/incision w/o s/s of infection or erosion. Pt offers no cardiac complaints. Presenting rhythm shows atrial tachycardia @ 105 bpm. CORRECTIONAL OFFICER CHIEF=<1%. Battery longevity approx 12 yrs. Lead impedance, sensing and pace/sense threshold remain stable. No parameter changes made. Counters cleared. Next f/u appt scheduled for in 3 mos. Device Device Date Interviewed: 04/16/17 Follow-up Location: in office Interview Reason: routine follow up Professor Of Business Administration: [employer] Scientific Name: Inogen EL ICD IS-1/DF-1-VR Model: D141 Serial #: [id number] Implant Date: 08/22/15 Year(s): 1 Implant Physician: Dr. Cortes [place]ag[place]/ [facility] Patient Characteristics Atrial Indication: Atrial tachycardia (Chronic) Patient Substrate: Nonischemic cardiomyopathy Ejection fraction %: 25 to 29 (2016) By: Echo Underlying rhythm: Atrial fibrillation (chronic atrial tachycardia) Pacemaker Dependent: No Device Characteristics Device: Single Chamber Type: Implantable defibrillator Remote Follow-Up: No Device Physical Exam Yes Incision well healed Leads Lead #1 Professor Of Business Administration Lead 1: Danii Model Lead 1: 0180 Serial# Lead 1: [id number] Date Implanted Lead 1: 08/22/15 Position Lead 1: RV Diagnostics Pacing % RV Pacin Arrhythmias VF Episodes: 0 Fast VT Episodes: 0 Slow VT Episodes: 0 Non-Sust Episodes: 0 Measurements Battery Charge Time (Sec): 10 Battery Status: JULIO CESAR Predicted Remaining Longevity (months or years): 12 years RV Measurements Signal Amplitude (mV): 17.6 Impedance (Ohms): 476 Threshold Voltage: 0.7 @ PW(ms): 0.5 Shock Impedance (Ohms): 58 Tachy Settings Ventricular Fibrillation Detect Rate: 220 bpm Faster VT Detect Rate: 170 bpm Tachyarrhythmia Therapies Ventricular Fibrillation Therapy: Shock therapy Initial shock: 29 Joules Final shock: 41 Joules. Fast Ventricular Tachycardia Therapies: Antitachycardia pacing and shock therapy Initial shock: 29 Joules Final shock: 41 Joules. Tip Settings Bradycardia Mode and Timing Settings Pacemaker Mode: VVI Base Rate: 40 bpm Billing Codes ICD Device Billing: ICD Dev Prog Eval, Single Assessment AND Plan Problems 1. Chronic atrial fibrillation I48.2 2. Chronic systolic congestive heart failure I50.22 3. Bradycardia R00.1 4. Dilated cardiomyopathy I42.0 5. Presence of automatic implantable cardioverter-defibrillator Z95.810 04/18/17 1237 <Electronically signed by Millicent Fish > Date Millicent Fish 04/19/17 1647<Electronically signed by Chandu Ferro MD> Cosign Signature: Date (if applicable) Chandu Ferro MD CC: PROGRESS Observed: 03/19/2017 Status: COMPLETED Source: [place] 3:27 PM [facility] REPOSITORY HNO ID: [id number] Author: Kiran Chance (Rn) Service: (none) Author Type: Registered Nurse Type: Progress Notes Filed: 05/18/2017 5:11 PM Note Text: PRIMARY CARE COORDINATION CHART REVIEW Patient identified for Care Coordination from: [facility] High Risk Registry Last PCP office visit: 07/22/2015 Next OV: Visit date not found CHRONIC DX: DM, CHF, HTN, AFib CARE GAPS: Pcp Appt, Labs: Creat. LDL - Updated Hlth Maintenance LDL 79 UTILIZATION WITHIN THE LAST 12 MONTHS: Pt denies any any admissions in past year PRIMARY CARE COORDINATION OUTREACH PLAN: 1. Pt notes she is following up with Dr. Ferro every 6 mths- with multiple medications changes per Pt. 2. Call to Dr. Ferro's office spk with Kortney Aguirre who will fax the current medication list for Pcp review, received, forwarded to Dr. Aguilar for review 3. Pt states had [address] Mirza related to the tarry stools, the coumadin was stopped and she is on Plavix every other day, with a Baby ASA on the other days. 4. Pt confirmed Dr. Aguilar is Pcp, of course but she states keeps very busy with Dr. Ferro every 6 mths and has Defibrillator last check Apr 16 at [facility] and upcoming Appt for recheck July 232017. Encouraged a Pcp F/u, Provided Handyperson's phone number for scheduling. 5. Pt denies any Adm to hospital in past year 6. Pt states only get's out of breath, winded when she walks a long distance like going to the store. 7. Pt denies any needs or concerns at this time Thank You, Meron Beck RN March 19, 2017 4:05 PM Meron Beck RN May 18, 2017 3:31 PM CNPTOUTREAHARSHAL Observed: 03/19/2017 Status: COMPLETED Source: [place] 12:00 AM [facility] REPOSITORY Patient Outreach (FAMPWS) CHERYL LIEBERMAN ([id number]) 1940 F Date Time Provider Department 03/19/17 KIRAN CHANCE (RN) KENDELL During your visit today, we recorded the following information about you: Meron Beck RN 05/18/2017 5:11 PM Addendum PRIMARY CARE COORDINATION CHART REVIEW Patient identified for Care Coordination from: [facility] High Risk [facility] Last PCP office visit: 07/22/2015 Next OV: Visit date not found CHRONIC DX: DM, CHF, HTN, AFib CARE GAPS: Pcp Appt, Labs: Creat. LDL - Updated Hlth Maintenance LDL 79 UTILIZATION WITHIN THE LAST 12 MONTHS: Pt denies any any admissions in past year PRIMARY CARE COORDINATION OUTREACH PLAN: 1. Pt notes she is following up with Dr. Ferro every 6 mths- with multiple medications changes per Pt. 2. Call to Dr. Ferro's office spk with Kortney Aguirre who will fax the current medication list for Pcp review, received, forwarded to Dr. Aguilar for review 3. Pt states had [address] Mirza related to the tarry stools, the coumadin was stopped and she is on Plavix every other day, with a Baby ASA on the other days. 4. Pt confirmed Dr. Aguilar is Pcp, ANDquot;of courseANDquot; but she states keeps very busy with Dr. Ferro every 6 mths and has Defibrillator last check Apr 16 at [facility] and upcoming Appt for recheck July 232017. Encouraged a Pcp F/u, Provided Handyperson's phone number for scheduling. 5. Pt denies any Adm to hospital in past year 6. Pt states only get's ANDquot;out of breath, winded when she walks a long distance like going to the storeANDquot;. 7. Pt denies any needs or concerns at this time Thank You, Meron Beck RN March 19, 2017 4:05 PM Meron Beck RN May 18, 2017 3:31 PM Salas Agiular III MD 05/18/2017 5:55 PM Signed noted all Salas Aguilar III MD Allergies As of Date: 03/19/2017 (No Known Allergies) Date Reviewed: 02/15/2017 Reviewed by: Norbert Fischer - Fully Assessed Reason for Visit: Stripper [place] [facility] [3615] Cmt: [facility] HRR Prescriptions as of 03/19/2017 Sig: BENZONATATE 100 MG CAPSULE Take 1 capsule by mouth three* CARVEDILOL 25 MG TABLET Take 1 tablet by mouth twice * POTASSIUM CHLORIDE ER 20 MEQ * Take 1 tablet by mouth once d* SERTRALINE 50 MG TABLET Take 1 tablet by mouth once d* CLOPIDOGREL 75 MG TABLET Take 1 tablet by mouth once d* NITROGLYCERIN 0.4 MG SUBLINGU* Dissolve 1 tablet under the t* ADULT LOW DOSE ASPIRIN 81 MG * Take one(1) tablet daily. FUROSEMIDE 40 MG TABLET Take 1 tablet by mouth once d* PRAVASTATIN 20 MG TABLET Take 1 tablet by mouth every * LISINOPRIL 20 MG-HYDROCHLOROT* Take 1 tablet by mouth as nee* Problem List As Of Date 03/19/2017 Noted Resolved BENIGN HYPERTENSION [I10] Venous (peripheral) insufficiency [I87.2] More... Hyperlipidemia LDL goal <100 [E78.5] OSTEOPOROSIS NOS [M81.0] INVALID FOR* DYSMETABOLIC SYNDROME X [E88.81] INVALID FOR* Left bundle branch block [I44.7] INVALID FOR* Impaired fasting glucose [R73.01] INVALID FOR* History of epistaxis [Z87.898] INVALID FOR* Atrial fibrillation [I48.91] INVALID FOR* CHF (congestive heart failure) [I50.9] INVALID FOR* ASHD (arteriosclerotic heart disease) [I25.10] INVALID FOR* Type 2 diabetes mellitus with stage 3 chronic k*INVALID FOR* Chronic anxiety [F41.9] INVALID FOR* Encounter Status:Closed by ELIEZER NOONAN on 04/25/17 ALLERGIES ALLERGIES DATE TYPE / CODE NAME / CODE REACTION SEVERITY SOURCE 02/17/2018 Drug Ovdkkze-Vqo-Lfe MUSCLE ACHES Unknown Amy Allergy/416 [facility] 280511(SNOM Inhibitor/V33235 Hospital ED CT) 8183(RXNORM) Repository 02/17/2018 Drug warfarin/[id number] GI bleeds, Unknown Amy Allergy/416 084(RXNORM) [facility] 026514([facility] ED CT) Repository ENCOUNTERS ENCOUNTERS ADMIT/DISCHARGE ACCOUNT ADMITTING ENCOUNTER LOCATION SOURCE NUMBER CLASS 03/15/2018/ [id number] Ambulatory BMSBuilding:B [place] 9 4 [facility] Repository 02/17/2018 [id number] Ambulatory Amy Amy 8 [facility] ing:LAB Repository 02/17/2018/ [id number] Ambulatory BMSBuilding:B [place] 8 6 [facility] Repository 01/06/2018/ [id number] Ambulatory BMSBuilding:B [place] 8 0 [facility] Repository 12/13/2017/ [id number] Ambulatory BMSBuilding:B [place] 8 1 [facility] Repository 09/09/2017/ [id number] Ambulatory BMSBuilding:B [place] 8 5 [facility] Repository 07/06/2017/ [id number] Ambulatory BMSBuilding:B [place] 8 2 [facility] Repository 07/02/2017 [id number] Ambulatory BMSBuilding:B [place] 5 [facility] Repository 05/27/2017 [id number] Ambulatory [place] 8 [facility] ing:LAB Repository 04/16/2017/ [id number] Ambulatory BMSBuilding:B [place] 8 2 [facility] Repository PAYERS PAYERS ENCOUNTER GUARANTOR PAYER SUBSCRIBER SOURCE 03/15/2018 CHERYL Love Primary CHERYL Reyes [id number] S Insurance:MEDICARE GRASSMANDOB: [facility] [place], [facility] A [id number] [address]Yfb: Number: Repository [id number] () Date:2017-12-13 03/15/2018 Secondary CHERYL Reyes Insurance:AARPPolicy GRASSMANDOB: Community Number: [id number] Hospital [id number] Repository Date:2045-69-22AE [facility] [id number], [place] [address]SF: 03/15/2018 Tertiary NOT GIVENUNK [place] Insurance:SELF PAY [facility] Number: Effective Repository Date:2018-03-10 02/17/2018 CHERYL Love Primary CHERYL Reyes [id number] S Insurance:MEDICARE GRASSMANDOB: Community [facility], PART A [facility] [id number] Hospital [place] [address]Llh: Number: Repository [id number] (HP) Date:2018-02-17 02/17/2018 Secondary CHERYL L Amy Insurance:AARPPolicy GRASSMANDOB: Community Number: [id number] Hospital [id number] Repository Date:4860-13-60ST [address], [place] [address]YY: 02/17/2018 Tertiary NOT GIVENUNK Amy Insurance:SELF PAY [facility] Number: Effective Repository Date:2018-02-17 02/17/2018 CHERYL L Primary CHERYL Reyes [id number] S Insurance:MEDICARE GRASSMANDOB: Community FUNK PART A [facility] [id number] Number: Repository [id number]: 330 [id number] [phone] (HP) Date:2018-01-06 02/17/2018 Secondary CHERYL L Amy Insurance:AARPPolicy GRASSMANDOB: Community Number: [id number] Hospital [id number] Repository Date:7224-33-66[address], [place] [address]TN: 02/17/2018 Tertiary NOT GIVENUNK Amy Insurance:SELF PAY [facility] Number: Effective Repository Date:2018-02-17 01/06/2018 CHERYL L Primary CHERYL Reyes [id number] S Insurance:MEDICARE GRASSMANDOB: Community FUNK PART A [facility] [id number] Number: Repository [address]Vvd: 330 [id number] [phone] () Date:2017-07-06 01/06/2018 Secondary CHERYL L [place] Insurance:AARPPolicy GRASSMANDOB: Community Number: [id number] Hospital [id number] Repository Date:8261-26-11FR [facility] [address], [place] [address]ZG: 01/06/2018 Tertiary NOT GIVENUNK [place] Insurance:SELF PAY [facility] Number: Effective Repository Date:2018-01-05 12/13/2017 CHERYL L Primary CHERYL L [place] [id number] S Insurance:MEDICARE GRASSMANDOB: Community FUNK PART A [facility] [id number] Number: Repository [id number]: 330 [id number] [phone] () Date:2017-09-09 12/13/2017 Secondary CHERYL L Amy Insurance:AARPPolicy GRASSMANDOB: Community Number: [id number] Hospital [id number] Repository Date:8178-85-13[address], [place] [address]NQ: 12/13/2017 Tertiary NOT GIVENUNK [place] Insurance:SELF PAY [facility] Number: Effective Repository Date:2017-12-13 09/09/2017 CHERYL L Primary CHERYL L Amy [id number] S Insurance:MEDICARE GRASSMANDOB: Community FUNK PART A [facility] [id number] Number: Repository [address]Daf: 330 [id number] [phone] () Date:2017-04-16 09/09/2017 Secondary CHERYL L [place] Insurance:AARPPolicy GRASSMANDOB: Community Number: [id number] Hospital [id number] Repository Date:2890-09-36HB [facility] [address], [place] [address]DG: 09/09/2017 Tertiary NOT GIVENUNK [place] Insurance:SELF PAY [facility] Number: Effective Repository Date:2017-08-18 07/06/2017 CHERYL L Primary CHERYL L Amy [id number] S Insurance:MEDICARE GRASSMANDOB: Community FUNK PART A [facility] [id number] Number: Repository [id number]: [phone] [id number] [phone] (HP) Date:2017-02-15 07/06/2017 Secondary CHERYL L [place] Insurance:AARPPolicy GRASSMANDOB: Community Number: [id number] Hospital [id number] Repository Date:1856-46-70CS [facility] [address], [place] [address]KJ: 07/06/2017 Tertiary NOT GIVENUNK Amy Insurance:SELF PAY [facility] Number: Effective Repository Date:2017-07-06 07/02/2017 CHERYL L Primary CHERYL L Amy [id number] S Insurance:MEDICARE GRASSMANDOB: [facility] [id number] [facility] [address]Ikw: Number: Repository [id number] () Date:2017-07-02 07/02/2017 Secondary CHERYL L [place] Insurance:AARPPolicy GRASSMANDOB: Community Number: [id number] Hospital [id number] Repository Date:9953-43-41[address], [place] [address]WE: 07/02/2017 Tertiary NOT GIVENUNK [place] Insurance:SELF PAY [facility] Number: Effective Repository Date:2017-07-02 05/27/2017 CHERYL L Primary CHERYL L [place] [id number] S Insurance:MEDICARE GRASSMANDOB: [facility] [id number] McKinley [facility] Care Services [address]Osd: Number: Repository [id number] (HP) Date:2017-05-27 05/27/2017 Secondary CHERYL L Amy Insurance:AARPPolicy GRASSMANDOB: Community Number: [id number] Hospital [id number] Repository Date:5976-89-43[address]XW, [place] [address]IH: 05/27/2017 Tertiary NOT GIVENUNK [place] Insurance:SELF PAY [facility] Number: Effective Repository Date:2017-05-27 04/16/2017 CHERYL L Primary CHERYL Reyes [id number] S Insurance:MEDICARE GRASSMANDOB: Community [place], PART A BPolicy [id number] McKinley [facility] Health Care Services [address]Mnv: Number: Repository [id number] (HP) Date:2017-03-16 04/16/2017 Secondary CHERYL Reyes Insurance:AARPPolicy [facility]ASSHARBOR [facility] Number: [id number] Hospital [id number] Repository Date:7452-75-04MR [address]WF[place], [place] [address]PG: 04/16/2017 Tertiary NOT GIVENUNK Amy Insurance:SELF PAY [facility] Number: Effective Repository Date:2017-04-16
== END ==
PROVIDERS: Family Provider Family Medicine; PCP Family Medicine; Referring Provider Physician Assistant Medical; Visit Provider Physician Assistant Medical
DX: I25.10 Atherosclerotic heart disease of native coronary artery without angina pectoris (principal); I48.2 Chronic atrial fibrillation; N18.3 Chronic kidney disease, stage 3 (moderate); R74.8 Abnormal levels of other serum enzymes
CPT/HCPCS: 36415; 80048; 85025

== ENCOUNTER 2018-08-07 20:14 | Inpatient (IN) | payer MEDICARE, OTHER, SELFPAY ==
[2018-02-17 10:55] VITALS: BMI 27.2
[2018-08-07 20:15] VITALS: BP 150/100; PULSE 122; RESP 32; TEMP 36.9; O2SAT 97; BMI 29.7
--- NOTE | 2018-08-07 20:17 | ED.RN ---
CALLED FOR EKG PER RN REQUEST, PULLED OLD EKGS FOR
--- NOTE | 2018-08-07 20:25 | RAD_ITS ---
STUDY: X-RAY CHEST REASON FOR EXAM: Female, 78 years old. Shortness of breath and weakness TECHNIQUE: Frontal portable view of the chest was performed. COMPARISON: 22 September 2015 FINDINGS: There is severe enlargement of the cardiac silhouette, similar to prior. There is mild pulmonary edema. There is no pneumothorax or significant pleural effusions. Inspiratory volumes are low. There are no regional linear opacities. Pacemaker is present in the left upper chest with intact leads in the right ventricle. There is osteoporosis. RAD/Chest 1 View (Portable) IMPRESSION: 1. Severe cardiomegaly with mild pulmonary edema. Electronically Signed: Jose F Martinez, at 20:46 EDT Tel , Service support ,
--- NOTE | 2018-08-07 20:25 | EKG12_ITS ---
Test Reason : SOB Blood Pressure : / mmHG Vent. Rate : 122 BPM Atrial Rate : 119 BPM P-R Int : 000 ms QRS Dur : 146 ms QT Int : 308 ms P-R-T Axes : 000 -33 134 degrees QTc Int : 438 ms Atrial fibrillation with rapid ventricular response with premature ventricular or aberrantly conducte d complexes Left axis deviation Left bundle branch block Abnormal ECG Confirmed by SINTIA VALENZUELA, ENOC ([id number]), map editor ASHISH REED ([id number]) on 08/08/2018 11:53:18 AM Referred By: Francisco Birmingham Confirmed By:ENOC PATRICIO MD
[2018-08-07 20:34] VITALS: O2SAT 98
[2018-08-07 20:39] LABS: Absolute Lymphocyte Count 1.43 X10^3/ul (0.83-4.51); Absolute Neutrophil Count 6.2 X10^3/uL (2.0-7.7); Basophil# 0.02 X10^3/uL; Basophil% 0.2 % (0-1); Eosinophil# 0.05 X10^3/uL; Eosinophils% 0.5 % (0-5); Hematocrit 41.9 % (37-47); Hemoglobin 14.2 g/dl (12.0-15.0); Lymphocyte # 1.43 X10^3/ul (4.0); Lymphocyte % 15.7 % (19-41); Mean Corp Hgb Conc 33.9 g/gl (32-36); Mean Corpuscular Hgb 30.9 pg (27.0-32.0); Mean Corpuscular Volume 91.3 fL (81-99); Mean Platelet Vol. 10.6 fl (6.2-12.0); Monocyte# 1.39 X10^3/uL; Monocyte% 15.2 % (0-10); Neutrophil # 6.22 X10^3/uL (2.7-7.7); Neutrophil % 68.3 % (47-70); POSITIVE COUNT NO; POSITIVE DIFFERENTIAL NO; POSITIVE MORPHOLOGY NO; Platelet Count 170 K/mm3 (150-450); RBC Distribution Width CV 15.7 % (11.6-14.6); RBC Distribution Width SD 52.1 fl (35.1-43.9); Red Blood Count 4.59 M/mm3 (4.2-5.4); White Blood Count 9.1 K/mm3 (4.4-11.0)
[2018-08-07 20:54] LABS: Anion Gap 9 (5-15); BUN 14 mg/dL (7-18); BUN/Creat Ratio 12.5 RATIO (10-20); Calcium,Total 8.7 mg/dL (8.5-10.1); Chloride 103 mmol/L (98-107); Creatinine, Serum 1.12 mg/dL (0.55-1.02); EST Glomerular Filtration Rate 50 mL/min (>60); Est Glom Filt Rate - Afr Amer 60 mL/min (>60); Estimated Creatinine Clearance 31.69 ml/min; Glucose 182 mg/dL (74-106); Potassium 3.8 mmol/L (3.5-5.1); Sodium Level 136 mmol/L (136-145)
[2018-08-07 21:14] LABS: BNP,B-Type NATRIURETIC PEPTIDE 1354.1 pg/mL (0-100)
[2018-08-07] MEDS: Furosemide 40 MG/4 ML Vial IV (21:46)
[2018-08-07 22:25] VITALS: BP 151/107; PULSE 123; RESP 30; O2SAT 94; O2SAT 98
[2018-08-07 22:26] VITALS: O2SAT 94
[2018-08-07] MEDS: Aspirin 81 MG TAB.CHEW 324 MG PO (22:56)
[2018-08-07] MEDS: dilTIAZem 25 MG/5 ML Vial 20 MG IV BOLUS (23:00)
--- NOTE | 2018-08-07 23:08 | PCM.HP.STD ---
Problem List (1) Heart failure Status: Acute History of Present Illness Date of Admission: 08/07/18 Chief Complaint: SHORTNESS OF BREATH The patient is a 78 year old F with a significant history of chronic atrial fibrillation; CKD stage III; chronic systolic heart failure; hypertension; hyperlipidemia; CAD status post stent; ICD who presented to the emergency department with progressively worsening shortness of breath. Patient is unable to provide the exact time that shortness of breath started/reoccurred. She thinks she has been about 5 to 6 pounds in the last month. She reports orthopnea for which reason she said she sleeps in a recliner. She reports bilateral leg swelling. Patient was present to see her hand glass cutter, Dr. Ferro on August 19 2018 but she felt she could not wait this long because of her symptoms. Patient stated her symptoms is fatigue and generalized weakness. Further she reports loss of her voice. She also reports recent loss of a family member causing her to be stressed. At the emergency department patient found to have severely elevated BNP; elevated troponin and chest x-ray findings of pulmonary congestion. Patient was started on IV Lasix. On presentation patient was found in A. fib with RVR for which reason she was given Cardizem bolus with rapid heart rate into the normal range. Past Medical History Past Medical History (Chronic Problems): Chronic Problems (Last Reviewed 08/07/18 @ 23:58 by Francisco Birmingham MD) Low serum HDL (Chronic) Chronic kidney disease, stage III (moderate) (Chronic) History of coronary artery stent placement (Chronic) 01/18, PCI/bare metal stent to mid LAD and ostium of diag #2, PTCA to diag #1-02/09/13 Atherosclerotic heart disease of [place] coronary artery without angina pectoris (Chronic) Chronic atrial fibrillation (Chronic) Chronic systolic congestive heart failure (Chronic) Bradycardia (Chronic) Dilated cardiomyopathy (Chronic) 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) CAD (coronary artery disease) (Chronic) status post stents A-fib (Chronic) Hyperlipidemia (Chronic) HTN (hypertension) (Chronic) Medical History: Medical History (Last Reviewed 08/07/18 @ 23:58 by Francisco Birmingham MD) Low serum HDL (Chronic) R74.8 Chronic kidney disease, stage III (moderate) (Chronic) N18.3 Atherosclerotic heart disease of [place] coronary artery without angina pectoris (Chronic) I25.10 Chronic atrial fibrillation (Chronic) I48.2 Chronic systolic congestive heart failure (Chronic) I50.22 Bradycardia (Chronic) R00.1 Dilated cardiomyopathy (Chronic) I42.0 CAD (coronary artery disease) (Chronic) I25.10 status post stents Hyperlipidemia (Chronic) E78.5 HTN (hypertension) (Chronic) I10 Allergies Wiuasaz-Yll-Dty Reductase Inhibitor Adverse Reaction (Verified 08/07/18 20:24) muscle aches warfarin [From Coumadin] Adverse Reaction (Verified 08/07/18 20:24) GI bleeds, profuse nosebleeds Home Medications: Ambulatory Orders Medication Instructions Recorded carvedilol 12.5 mg tablet 12.5 mg PO BID #180 tab 04/22/17 pravastatin 40 mg tablet 40 mg PO QDAY #90 tab 12/08/17 lisinopril 10 mg tablet 10 mg PO BID #180 tab 12/28/17 potassium chloride ER 20 mEq 20 meq PO DAILY #90 tab 12/28/17 tablet,extended release(part/cryst) apixaban 2.5 mg tablet 2.5 mg PO BID #60 tab 01/06/18 sertraline 50 mg tablet 50 mg PO DAILY 30 Days #30 tab 02/17/18 furosemide 40 mg tablet 40 mg PO QDAY #90 tab 05/03/18 Surgical History: Surgical History (Last Reviewed 08/07/18 @ 23:58 by Francisco Birmingham MD) History of coronary artery stent placement (Chronic) Z95.5 01/18, PCI/bare metal stent to mid LAD and ostium of diag #2, PTCA to diag #1-02/09/13 Presence of automatic implantable cardioverter-defibrillator (Chronic) Onset Date: ~08/12/15 Z95.810 History of varicose vein stripping Z98.890 Surgical History: angioplasty Psychiatric History: No pertinent psych hx 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 Smoking Status: Never smoker - second handing smoking Alcohol: Occasional - *Family History Maternal Family History: Family History (Last Reviewed 08/07/18 @ 23:58 by Francisco Birmingham MD) Grandfather Myocardial infarction Father Myocardial infarction Hypertension Brother Cancer Sister Diabetes CVA (cerebral vascular accident) Hypertension Son Diabetes Son Hypertension Daughter Afib History Items: No pertinent history Paternal Family History: Family History (Last Reviewed 08/07/18 @ 23:58 by Francisco Birmingham MD) Grandfather Myocardial infarction Father Myocardial infarction Hypertension Brother Cancer Sister Diabetes CVA (cerebral vascular accident) Hypertension Son Diabetes Son Hypertension Daughter Afib History Items: No pertinent history Review of Systems Constitutional: Denies: Chills, Fever, Weight Change HEENT: Denies: Head Aches, Sinus Congestion, Sinus Drainage Cardiovascular: Denies: Chest Pain, Palpitations Respiratory: Denies: Cough, Shortness of breath at rest, Sputum production Gastrointestinal: Denies: Abdominal Pain, Nausea, Vomiting Genitourinary: Denies: Dysuria Musculoskeletal: Denies: Joint Pain, Joint Tenderness Skin: Denies: Rash, Wounds Neurological: Reports: Change in Speech - loss of voice. Denies: Focal weakness, Numbness, Tingling Psychiatric: Denies: Anxiety, Depression, Homicidal Ideations, Suicidal Ideations Hematologic/ Lymphatic: Denies: Easy Bruising, Easy Bleeding VTE Information - Inpt Only VTE Present on Admission: No VTE Mechan Device Prophylaxis: None VTE Pharm Prophylaxis ordered?: No Reason prophylaxis not ordered:: Treatment Not Indicated - Apixaban continued for Afib Patient Problems: Active and Suspected Problems (Last Reviewed 08/07/18 @ 23:58 by Francisco Birmingham MD) Congestive heart failure (Acute) Elevated troponin (Acute) Heart failure (Acute) - Physical Exam General: Alert, Oriented x3, Cooperative HEENT: Atraumatic, PERRLA, EOMI, Normocephalic Neck: Supple, No JVD, Negative Carotid Bruits Lungs: Tachypneic, - - Mild stridor Cardiovascular: Irregular Rate, Tachycardic Abdomen: Bowel Sounds Present, Soft, Non Tender Extremities: Capillary Refill Less than 3 Seconds, Edema - bilateral legs Skin: No rashes, No breakdown Musculoskeletal: No Tenderness to Palpation of Joints or Extremities Neurological: Cranial nerves II-XII grossly intact Psych/Mental Status: Normal Affect, Appropriate Vital Signs Temp Pulse Resp BP Pulse Ox 98.5 F 123 H 30 H 151/107 H 94 08/07/18 20:15 08/07/18 22:25 08/07/18 22:25 08/07/18 22:25 08/07/18 22:26 Oxygen Flow Rate (L/min) 2 Oxygen Delivery Method Nasal Cannula Weight: 73.8 kg Body Mass Index (BMI) 29.7 Laboratory Tests Past 24 Hrs 08/07/18 08/07/18 08/07/18 20:00 20:00 20:00 WBC 9.1 RBC 4.59 Hgb 14.2 Hct 41.9 MCV 91.3 MCH 30.9 MCHC 33.9 RDW 15.7 H RDW Differential 52.1 H Plt Count 170 MPV 10.6 Immature Gran % (Auto) 0.100 Neut % (Auto) 68.3 Lymph % (Auto) 15.7 L Wilkin % (Auto) 15.2 H Eos % (Auto) 0.5 Baso % (Auto) 0.2 Absolute Neuts (auto) 6.2 Absolute Lymphs (auto) 1.43 Total Counted Not Reportable Sodium 136 Potassium 3.8 Chloride 103 Carbon Dioxide 24.0 Anion Gap 9 BUN 14 Creatinine 1.12 H Estim Creat Clear Calc 31.69 Est GFR (MDRD) Af Amer 60 Est GFR (MDRD) Non-Af 50 L BUN/Creatinine Ratio 12.5 Glucose 182 H Calcium 8.7 Troponin I 0.116 H B-Natriuretic Peptide 1354.1 H Assessment/Plan All Active Problems (Last Reviewed 08/07/18 @ 23:58 by Francisco Birmingham MD) Congestive heart failure (Acute) Elevated troponin (Acute) Heart failure (Acute) The patient is a 78 year old F with a significant history of chronic atrial fibrillation; CKD stage III; chronic systolic heart failure; hypertension; hyperlipidemia; CAD status post stent; ICD who presented to the emergency department with progressively worsening shortness of breath; fatigue and generalized weakness and found to have severely elevated BNP; elevated troponin and radiographic evidence of pulmonary congestion and also was found in A. fib with RVR on presentation. Acute elevation of systolic heart failure Patient with elevated BNP and radiographic evidence of prior congestion. Received Lasix IV at the emergency department. We will schedule IV Lasix Lasix. Hold home p.o. Lasix. We will escalate home potassium supplementation. Echocardiogram ordered Strict intake and output Daily weights Ron wrap to bilateral extremity. Fluid restriction of 1500 mL's per hour 2 g cardiac diet. Consider discussing the case with Dr. Ferro since patient is a known patient of Dr. Ferro emergency room appointment scheduled on August 19, 2018. Lisinopril and Coreg continued. Pacemaker in place. A. fib with RVR Her heart rate dropped to below 100 with administration of Cardizem bolus. Admitted to PCU on telemetry TSH; and magnesium ordered. Echocardiogram as above Apixaban continued. Elevated troponin Patient received aspirin 325 mg at emergency department. Reportedly she is to be on aspirin but after starting Eliquis aspirin was stopped. Aspirin 81 mg daily for now. Trend troponin. Consider Cardiology consult. DVT prophylaxis Not indicated since patient is on apixaban for A. fib. Code Visit Inpatient E&M: 40264 Init Hosp L3
--- NOTE | 2018-08-07 23:11 | ED.DCSUM_ITS ---
- ER Visit Summary Date of Service: 08/07/18 Chief Complaint: Shortness of breath History of Present Illness: The patient is a 78 F who presents with shortness of breath that has been getting worse over the past 3 days. Patient states it is gradually gotten worse. Patient states she has gained 5 pounds over the past 3 days. Patient states her breathing is worse with any exertion. Patient admits to a cough but denies any sputum production. Patient denies any fevers or chills. Patient states she has had a recent upper respiratory infection and has a hoarse voice. Patient denies any chest pain. Patient admits to some increase in her leg swelling over the past couple days as well. Patient states this feels similar to prior episode of congestive heart failure. Physical Examination: Vital signs are stable except for tachycardia of 122 and a tachypnea of 32. Patient is afebrile. Patient is in no acute distress. Oral mucosa is pink and moist. Neck is supple. Trachea is midline. There is some JVD noted. Heart was irregularly irregular and tachycardic. Lungs showed rales in the bases bilaterally. Abdomen is soft. Bowel sounds are normal. There is no tenderness. Extremities are intact. There is 2+ edema of the lower extremities bilaterally. Cranial nerves II through XII are intact. There are no focal motor or sensory deficits noted. Test Results: EKG showed atrial fibrillation with a rate of 122. There is a left bundle branch block pattern. This was unchanged compared to previous EKG dated 07/15/2015. CBC was normal. Basic metabolic profile showed a slightly elevated creatinine of 1.12. Troponin was 0.116. BNP was elevated at 1354. Chest x-ray shows cardiomegaly with mild pulmonary edema. Emergency Department Course and Treatment: Patient was given Lasix. Patient was given a dose of Cardizem. Patient was given 4 baby aspirin. On reevaluation. Patient admitted to cutting her Lasix pills in half. Patient states she takes 1/2 pill daily. Patient states that sometimes when she remembers she takes the other half of the pill later in the day but this is not always the case. Patient states she urinated a large amount of urine but flushed it so it is unsure exactly how much she was able to diurese. Patient's heart rate improved after the Cardizem. Case was discussed with the hospitalist, Dr Birmingham. He will admit the patient to his service. Disposition: Admit to hospital Impression: 1. Congestive heart failure 2. Elevated troponin This note was generated with [employer] dictation software. It may contain incorrect words, spelling, and punctuation that were not noted in review of the chart prior to signing ED Disposition - Plan for ED Patient: Disposition: Acute Care Hospital [facility] Diagnosis: Congestive heart failure, Elevated troponin, Chronic atrial fibrillation, Chronic systolic congestive heart failure Referrals: Salas Aguilar III, MD [Primary Care Provider] -
[2018-08-08] VITALS (15 sets, daily range): BP systolic 125–159; BP diastolic 67–102; PULSE 72–90; RESP 16–27; TEMP 36.5–37.3; O2SAT 94–100; BMI 28.1; BMI 28.2
--- NOTE | 2018-08-08 00:08 | ECHOD_ITS ---
Reason For Study: DYSPNEA Procedure This was a 2D Doppler, Color Flow transthoracic echocardiogram. Exam performed portable in patient room. Left Ventricle Normal LV size. Moderate concentric left ventricular hypertrophy. The estimated ejection fraction is 25 %. Unable to assess diastolic dysfunction due to arrhythmia. There is severe global hypokinesis of the left ventricle. Right Ventricle Normal RV size. ICD or pacer leads identified within the right ventricle. Mild global right ventricular systolic dysfunction. Atria The left atrium is severely enlarged. The right atrium is severely enlarged. ICD or pacer leads identified within the right atrium. Patent foramen ovale. Mitral Valve Bileaflet diffuse mitral valve thickening. Moderate (2+) eccentric mitral valve insufficiency. Tricuspid Valve Normal tricuspid valve. Moderate (2+) tricuspid valve insufficiency. Pulmonary artery systolic pressure is 60 mmHg. Moderate pulmonary hypertension. Aortic Valve Trisinus/trileaflet aortic valve. Mild focal aortic valve calcification. Mild (1+) aortic valve insufficiency. Pulmonic Valve Normal pulmonic valve. Great Vessels Normal aortic root. The pulmonary artery is normal size. Plethoric inferior vena cava. The inferior vena cava is dilated. and does not collapse. Pericardium/Pleural Small pericardial effusion. There are no echocardiographic indications of cardiac tamponade. MMode/2D Measurements & Calculations LVIDd: 4.7 cm IVSd: 1.4 cm Ao root diam: 3.4 cm LVIDs: 4.3 cm LVPWd: 1.2 cm FS: 8.7 % LAV(MOD-bp): 131.7 ml LVAd ap4: 37.1 cm2 SV(MOD-sp4): 22.5 ml LAV(MOD-bp) Indexed: 75.2 ml/m2 EDV(MOD-sp4): 125.7 ml LAV(MOD-sp2): 146.6 ml EDV(sp4-el): 133.2 ml LAV(MOD-sp4): 118.4 ml LVAs ap4: 33.4 cm2 ESV(MOD-sp4): 103.1 ml ESV(sp4-el): 107.3 ml EF(MOD-sp4): 17.9 % EF(sp4-el): 19.4 % SV(sp4-el): 25.9 ml LA A4 area: 32.0 cm2 LA dimension(2D): 4.8 cm RA A4 area: 30.1 cm2 Doppler Measurements & Calculations Ao V2 max: 87.8 cm/sec LV V1 max: 61.2 cm/sec PA V2 max: 80.6 cm/sec Ao max P.1 mmHg LV V1 max P.5 mmHg PI end-d lucius: 129.1 cm/sec TR max lucius: 369.6 cm/sec TR max P.7 mmHg Interpretation Summary Normal LV size. Moderate concentric left ventricular hypertrophy. The estimated ejection fraction is 25 %. Unable to assess diastolic dysfunction due to arrhythmia. There is severe global hypokinesis of the left ventricle. Moderate (2+) eccentric mitral valve insufficiency. Moderate pulmonary hypertension. Small pericardial effusion. Compared to the previous the pulmonary pressures are worse Compared to previous study, the left ventricular systolic function is the same.. Ordering Physician: Francisco Birmingham Referring Physician: JUANITA CASAS Performed By: Madonna Crooks RDCS, RVT
[2018-08-08 01:02] LABS: Magnesium 1.5 mg/dL (1.6-2.6); Thyroid Stim Hormone (TSH) 2.44 uIU/mL (0.358-3.74)
[2018-08-08] MEDS: 0.9% NaCl Peripheral Flush Adult/Peds IV ×3 (06:29→18:05)
[2018-08-08 07:03] LABS: Anion Gap 8 (5-15); BUN 13 mg/dL (7-18); BUN/Creat Ratio 12.5 RATIO (10-20); Calcium,Total 8.4 mg/dL (8.5-10.1); Chloride 104 mmol/L (98-107); Creatinine, Serum 1.04 mg/dL (0.55-1.02); EST Glomerular Filtration Rate 54 mL/min (>60); Est Glom Filt Rate - Afr Amer 66 mL/min (>60); Estimated Creatinine Clearance 34.12 ml/min; Glucose 130 mg/dL (74-106); Potassium 3.7 mmol/L (3.5-5.1); Sodium Level 141 mmol/L (136-145)
[2018-08-08] MEDS: Aspirin E.C. 81 MG Tablet PO (09:13)
[2018-08-08] MEDS: Carvedilol 12.5 MG Tablet PO ×2 (09:13→21:04)
[2018-08-08] MEDS: APIXABAN 2.5 MG TABLET PO ×2 (09:14→21:04)
[2018-08-08] MEDS: Furosemide 40 MG/4 ML Vial IV ×2 (09:14→18:05)
[2018-08-08] MEDS: Lisinopril 10 MG Tablet PO ×2 (09:14→21:04)
[2018-08-08] MEDS: Sertraline 50 MG Tablet PO (09:14)
--- NOTE | 2018-08-08 09:27 | PCM.CONS.C ---
Reason for Consult Date of Consultation: 08/08/18 Reason for Consultation: Shortness of breath History of Present Illness: The patient is a 78 year old F [] CHERYL LIEBERMAN, is a 78 F who presented to the emergency room with complaints of progressive shortness of breath over the last few weeks. She has been under fair amount of stress because a grandson had a demise. She has noted that she has been short of breath with exertion and also with rest, she has developed pedal edema and has also gained 5 to 6 pounds over the previous month or so. She felt that she could not wait to have office follow-up so she presented to the emergency room. In the emergency room she was noted to be in atrial fibrillation with rapid ventricular response rate and her natruretic peptide was also noted to be elevated. She also had minimally elevated troponin elevation. She has a history of coronary artery disease with stenting of a bifurcating LAD, 2nd diagonal vessel with a bare-metal stent in 2002. She also has a history of persistent atrial fibrillation and cardiomyopathy. She had been on aspirin and Plavix and Coumadin but had developed severe anemia and Coumadin was discontinued. Coumadin was initiated again in 2013 but developed bleeding again. She has remained on Plavix and aspirin every other day. In 2015 she underwent an ICD placement for prophylactic purposes. She was subsequently placed on Eliquis. Her shortness of breath has improved marginally since admission. Past Medical History Allergies/Adverse Reactions: Allergies Hbbwwze-Tuy-Ydz Reductase Inhibitor Adverse Reaction (Verified 08/07/18 20:24) muscle aches warfarin [From Coumadin] Adverse Reaction (Verified 08/07/18 20:24) GI bleeds, profuse nosebleeds Home Medications: Ambulatory Orders Medication Instructions Recorded carvedilol 12.5 mg tablet 12.5 mg PO BID #180 tab 04/22/17 pravastatin 40 mg tablet 40 mg PO QDAY #90 tab 12/08/17 lisinopril 10 mg tablet 10 mg PO BID #180 tab 12/28/17 potassium chloride ER 20 mEq 20 meq PO DAILY #90 tab 12/28/17 tablet,extended release(part/cryst) apixaban 2.5 mg tablet 2.5 mg PO BID #60 tab 01/06/18 sertraline 50 mg tablet 50 mg PO DAILY 30 Days #30 tab 02/17/18 furosemide 40 mg tablet 40 mg PO QDAY #90 tab 05/03/18 Past Medical History (Chronic Problems): Chronic Problems (Last Reviewed 08/07/18 @ 23:58 by Francisco Birmingham MD) Low serum HDL (Chronic) Chronic kidney disease, stage III (moderate) (Chronic) History of coronary artery stent placement (Chronic) 01/18, PCI/bare metal stent to mid LAD and ostium of diag #2, PTCA to diag #1-02/09/13 Atherosclerotic heart disease of [place] coronary artery without angina pectoris (Chronic) Chronic atrial fibrillation (Chronic) Chronic systolic congestive heart failure (Chronic) Bradycardia (Chronic) Dilated cardiomyopathy (Chronic) 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) CAD (coronary artery disease) (Chronic) status post stents A-fib (Chronic) Hyperlipidemia (Chronic) HTN (hypertension) (Chronic) Surgical History: angioplasty Psychiatric History: No pertinent 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 - *Family History Maternal Family History: Family History (Last Reviewed 08/07/18 @ 23:58 by Francisco Birmingham MD) Grandfather Myocardial infarction Father Myocardial infarction Hypertension Brother Cancer Sister Diabetes CVA (cerebral vascular accident) Hypertension Son Diabetes Son Hypertension Daughter Afib History Items: No pertinent history Paternal Family History: Family History (Last Reviewed 08/07/18 @ 23:58 by Francisco Birmingham MD) Grandfather Myocardial infarction Father Myocardial infarction Hypertension Brother Cancer Sister Diabetes CVA (cerebral vascular accident) Hypertension Son Diabetes Son Hypertension Daughter Afib History Items: No pertinent history Smoking Status: Never smoker - second handing smoking Alcohol: Occasional Drugs: None Review of Systems - Review of Systems General: Reports: Fatigue. Denies: Fever, Night Sweats HEENT: Denies: Vision Change Cardiovascular: Reports: Shortness of Breath, Shortness of Breath at Rest, Shortness of Breath with Exertion, Orthopnea, Peripheral Edema. Denies: Chest Discomfort, PND, Palpitations, Lightheadedness, Dizziness, Near Syncope, Syncope Respiratory: Denies: Cough, Sputum Production, Hemoptysis Gastrointestinal: Denies: Hematemesis, Hematochezia, Melena Genitourinary: Denies: Dysuria, Hematuria Muscoloskeletal: Denies: Myalgias Skin: Denies: Rash Neurological: Denies: Dizziness Psychiatric: Denies: Anxiety Endocrine: Denies: Unexplained Weight Loss Hematologic/ Lymphatic: Reports: Anemia Subjectve: Pleasant lady in mild respiratory distress Objective: Vital Signs Temp Pulse Resp BP Pulse Ox 97.7 F L 87 24 H 159/102 H 98 08/08/18 09:02 08/08/18 09:02 08/08/18 09:02 08/08/18 09:02 08/08/18 09:02 Oxygen Flow Rate (L/min) 2 Oxygen Delivery Method Nasal Cannula Weight: 154 lb 1.65 oz Body Mass Index (BMI) 28.1 Intake and Output for Last 24 Hours 08/06/18 08/07/18 08/08/18 23:59 23:59 23:59 Intake Total 100 / 100 Output Total 300 / 300 Balance -200 / -200 General: Awake, Alert, Oriented x 3 HEENT: PERRL, EOMI, Sclera Non Icteric Neck: Supple, Good ROM, No Lymph Node Enlargement Lungs: Diminished Luis Bases Cardiovascular: Irregular Rhythm, Normal S1, Normal S2, No Murmurs, No Rubs, No Gallops Vascular: No Carotid Bruits, Normal Femoral Pulses, Normal Radial Pulses, Normal Dorsalis Pedal Pulse, Normal Posterior Tibial Pulses Abdomen: Bowel Sounds Present, Soft, Non Tender, No HSM, No Organomegaly Extremities: No Cyanosis, No Clubbing, Bilateral Edema +1 Musculoskeletal: No Erythema Skin: No Rashes Lymphatic: No Lymph Node Enlargement Neurological: No Focal Motor or Sensory Deficit Psych/Mental Status: Appropriate 08/07/18 20:00: B-Natriuretic Peptide 1354.1 H 08/07/18 20:00: WBC 9.1, RBC 4.59, Hgb 14.2, Hct 41.9, MCV 91.3, MCH 30.9, MCHC 33.9, RDW 15.7 H, RDW Differential 52.1 H, Plt Count 170, MPV 10.6, Immature Gran % (Auto) 0.100, Neut % (Auto) 68.3, Lymph % (Auto) 15.7 L, [place] % (Auto) 15.2 H, Eos % (Auto) 0.5, Baso % (Auto) 0.2, Absolute Neuts (auto) 6.2, Total Counted Not Reportable 08/07/18 20:00: Sodium 136, Potassium 3.8, Chloride 103, Carbon Dioxide 24.0, Anion Gap 9, BUN 14, Creatinine 1.12 H, Est GFR (MDRD) Af Amer 60, Est GFR (MDRD) Non-Af 50 L, BUN/Creatinine Ratio 12.5, Glucose 182 H, Calcium 8.7, Troponin I 0.116 H 08/08/18 00:20: Magnesium 1.5 L, Troponin I 0.157 H 08/08/18 03:10: Troponin I 0.178 H 08/08/18 06:00: Sodium 141, Potassium 3.7, Chloride 104, Carbon Dioxide 29.0, Anion Gap 8, BUN 13, Creatinine 1.04 H, Est GFR (MDRD) Af Amer 66, Est GFR (MDRD) Non-Af 54 L, BUN/Creatinine Ratio 12.5, Glucose 130 H, Calcium 8.4 L, Troponin I 0.167 H Rhythm: EKG: Atrial fibrillation with a rapid ventricular response rate of 122 bpm and a left bundle branch block Assessment/Plan 1. Congestive heart failure-acute systolic Appears to be in systolic heart failure. The above is likely precipitated by the atrial fibrillation with rapid ventricular response rate. Recommendation would be to control her rate further by increasing her beta-jose eduardo we may need to add oral Cardizem to this. Echocardiogram is being performed to assess left ventricular function Will need intravenous diuresis over the next 24 hours Depending on the findings further recommendations will be made. 2. Mild cardiac enzyme abnormality I suspect the above is secondary to demand ischemia. There is no significant rise and fall. We will continue to trend this at this particular time. 3. Cardiomyopathy Patient has a history of ischemic cardiomyopathy out of proportion to the amount of coronary artery disease. We will continue to optimize beta-jose eduardo and CHARANJIT inhibitor or ARB Continue diuretics 4. status post ICD implantation ICD was interrogated in June of this year and noted to be functioning well no VT or VF episodes. However patient was noted to be in persistent atrial flutter. 5. Atrial fibrillation flutter Patient still appears to be in atrial fibrillation flutter uncontrolled. The plan will be to increase the beta-jose eduardo to try and see whether one can control this. May need to add amiodarone to the regimen. Thank you for allowing me to participate in the care of your patient. Please don't hesitate to call if any issues arise
--- NOTE | 2018-08-08 09:34 | CON.PCM_ITS ---
Reason for Consult Date of Consultation: 08/08/18 Reason for Consultation: Shortness of breath History of Present Illness: The patient is a 78 year old F [] CHERYL LIEBERMAN, is a 78 F who presented to the emergency room with complaints of progressive shortness of breath over the last few weeks. She has been under fair amount of stress because a grandson had a demise. She has noted that she has been short of breath with exertion and also with rest, she has developed pe chrystal edema and has also gained 5 to 6 pounds over the previous month or so. She felt that she could not wait to have office follow-up so she presented to the emergency room. In the emergency room she was noted to be in atrial fibrillation with rapid ventricular response rate and her natruretic peptide was also noted to be elevated. She also had minimally elevated troponin elevation. She has a history of coronary artery disease with stenting of a bifurcating LAD, 2nd diagonal vessel with a bare-metal stent in 2002. She also has a history of persistent atrial fibrillation and cardiomyopathy. She had been on aspirin and Plavix and Coumadin but had developed severe anemia and Coumadin was discontinued. Coumadin was initiated again in 2013 but developed bleeding again. She has remained on Plavix and aspirin every other day. In 2015 she underwent an ICD placement for prophylactic purposes. She was subsequently placed on Eliquis. Her shortness of breath has improved marginally since admission. Past Medical History Allergies/Adverse Reactions: Allergies Dzverpl-Nrh-Wdr Reductase Inhibitor Adverse Reaction (Verified 08/07/18 20:24) muscle aches warfarin [From Coumadin] Adverse Reaction (Verified 08/07/18 20:24) GI bleeds, profuse nosebleeds Home Medications: Ambulatory Orders Medication Instructions Recorded carvedilol 12.5 mg tablet 12.5 mg PO BID #180 tab 04/22/17 pravastatin 40 mg tablet 40 mg PO QDAY #90 tab 12/08/17 lisinopril 10 mg tablet 10 mg PO BID #180 tab 12/28/17 potassium chloride ER 20 mEq 20 meq PO DAILY #90 tab 12/28/17 tablet,extended release(part/cryst) apixaban 2.5 mg tablet 2.5 mg PO BID #60 tab 01/06/18 sertraline 50 mg tablet 50 mg PO DAILY 30 Days #30 tab 02/17/18 furosemide 40 mg tablet 40 mg PO QDAY #90 tab 05/03/18 Past Medical History (Chronic Problems): Chronic Problems (Last Reviewed 08/07/18 @ 23:58 by Francisco Birmingham MD) Low serum HDL (Chronic) Chronic kidney disease, stage III (moderate) (Chronic) History of coronary artery stent placement (Chronic) 01/18, PCI/bare metal stent to mid LAD and ostium of diag #2, PTCA to diag #1-02/09/13 Atherosclerotic heart disease of [place] coronary artery without angina pectoris (Chronic) Chronic atrial fibrillation (Chronic) Chronic systolic congestive heart failure (Chronic) Bradycardia (Chronic) Dilated cardiomyopathy (Chronic) 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) CAD (coronary artery disease) (Chronic) status post stents A-fib (Chronic) Hyperlipidemia (Chronic) HTN (hypertension) (Chronic) Surgical History: angioplasty Psychiatric History: No pertinent psych hx 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 history - *Family History Maternal Family History: Family History (Last Reviewed 08/07/18 @ 23:58 by Francisco Birmingham MD) Grandfather Myocardial infarction Father Myocardial infarction Hypertension Brother Cancer Sister Diabetes CVA (cerebral vascular accident) Hypertension Son Diabetes Son Hypertension Daughter Afib History Items: No pertinent history Paternal Family History: Family History (Last Reviewed 08/07/18 @ 23:58 by Francisco Birmingham MD) Grandfather Myocardial infarction Father Myocardial infarction Hypertension Brother Cancer Sister Diabetes CVA (cerebral vascular accident) Hypertension Son Diabetes Son Hypertension Daughter Afib History Items: No pertinent history Smoking Status: Never smoker - second handing smoking Alcohol: Occasional Drugs: None Review of Systems - Review of Systems General: Reports: Fatigue. Denies: Fever, Night Sweats HEENT: Denies: Vision Change Cardiovascular: Reports: Shortness of Breath, Shortness of Breath at Rest, Shortness of Breath with Exertion, Orthopnea, Peripheral Edema. Denies: Chest Discomfort, PND, Palpitations, Lightheadedness, Dizziness, Near Syncope, Syncope Respiratory: Denies: Cough, Sputum Production, Hemoptysis Gastrointestinal: Denies: Hematemesis, Hematochezia, Melena Genitourinary: Denies: Dysuria, Hematuria Muscoloskeletal: Denies: Myalgias Skin: Denies: Rash Neurological: Denies: Dizziness Psychiatric: Denies: Anxiety Endocrine: Denies: Unexplained Weight Loss Hematologic/ Lymphatic: Reports: Anemia Subjectve: Pleasant lady in mild respiratory distress Objective: Vital Signs Temp Pulse Resp BP Pulse Ox 97.7 F L 87 24 H 159/102 H 98 08/08/18 09:02 08/08/18 09:02 08/08/18 09:02 08/08/18 09:02 08/08/18 09:02 Oxygen Flow Rate (L/min) 2 Oxygen Delivery Method Nasal Cannula Weight: 154 lb 1.65 oz Body Mass Index (BMI) 28.1 Intake and Output for Last 24 Hours 08/06/18 08/07/18 08/08/18 23:59 23:59 23:59 Intake Total 100 / 100 Output Total 300 / 300 Balance -200 / -200 General: Awake, Alert, Oriented x 3 HEENT: PERRL, EOMI, Sclera Non Icteric Neck: Supple, Good ROM, No Lymph Node Enlargement Lungs: Diminished Luis Bases Cardiovascular: Irregular Rhythm, Normal S1, Normal S2, No Murmurs, No Rubs, No Gallops Vascular: No Carotid Bruits, Normal Femoral Pulses, Normal Radial Pulses, Normal Dorsalis Pedal Pulse, Normal Posterior Tibial Pulses Abdomen: Bowel Sounds Present, Soft, Non Tender, No HSM, No Organomegaly Extremities: No Cyanosis, No Clubbing, Bilateral Edema +1 Musculoskeletal: No Erythema Skin: No Rashes Lymphatic: No Lymph Node Enlargement Neurological: No Focal Motor or Sensory Deficit Psych/Mental Status: Appropriate 08/07/18 20:00: B-Natriuretic Peptide 1354.1 H 08/07/18 20:00: WBC 9.1, RBC 4.59, Hgb 14.2, Hct 41.9, MCV 91.3, MCH 30.9, MCHC 33.9, RDW 15.7 H, RDW Differential 52.1 H, Plt Count 170, MPV 10.6, Immature Gran % (Auto) 0.100, Neut % (Auto) 68.3, Lymph % (Auto) 15.7 L, [place] % (Auto) 15.2 H, Eos % (Auto) 0.5, Baso % (Auto) 0.2, Absolute Neuts (auto) 6.2, Total Counted Not Reportable 08/07/18 20:00: Sodium 136, Potassium 3.8, Chloride 103, Carbon Dioxide 24.0, Anion Gap 9, BUN 14, Creatinine 1.12 H, Est GFR (MDRD) Af Amer 60, Est GFR (MDRD) Non-Af 50 L, BUN/Creatinine Ratio 12.5, Glucose 182 H, Calcium 8.7, Troponin I 0.116 H 08/08/18 00:20: Magnesium 1.5 L, Troponin I 0.157 H 08/08/18 03:10: Troponin I 0.178 H 08/08/18 06:00: Sodium 141, Potassium 3.7, Chloride 104, Carbon Dioxide 29.0, Anion Gap 8, BUN 13, Creatinine 1.04 H, Est GFR (MDRD) Af Amer 66, Est GFR (MDRD) Non-Af 54 L, BUN/Creatinine Ratio 12.5, Glucose 130 H, Calcium 8.4 L, Troponin I 0.167 H Rhythm: EKG: Atrial fibrillation with a rapid ventricular response rate of 122 bpm and a left bundle branch block Assessment/Plan 1. Congestive heart failure-acute systolic * Appears to be in systolic heart failure. The above is likely precipitated by the atrial fibrillation with rapid ventricular response rate. * Recommendation would be to control her rate further by increasing her beta- jose eduardo we may need to add oral Cardizem to this. * Echocardiogram is being performed to assess left ventricular function * Will need intravenous diuresis over the next 24 hours * Depending on the findings further recommendations will be made. * 2. Mild cardiac enzyme abnormality * I suspect the above is secondary to demand ischemia. There is no significant rise and fall. We will continue to trend this at this particular time. * 3. Cardiomyopathy * Patient has a history of ischemic cardiomyopathy out of proportion to the amount of coronary artery disease. * We will continue to optimize beta-jose eduardo and CHARANJIT inhibitor or ARB * Continue diuretics * 4. status post ICD implantation * ICD was interrogated in June of this year and noted to be functioning well no VT or VF episodes. However patient was noted to be in persistent atrial flutter. * * 5. Atrial fibrillation flutter * Patient still appears to be in atrial fibrillation flutter uncontrolled. The plan will be to increase the beta-jose eduardo to try and see whether one can control this. May need to add amiodarone to the regimen. * * * Thank you for allowing me to participate in the care of your patient. Please don't hesitate to call if any issues arise
--- NOTE | 2018-08-08 13:01 | CASEMGMT ---
LILIANA IVY assessment: Face to Face with patient for initial transition planning/care coordination assessment. LILIANA IVY introduced self and role at [facility], pt voices understanding and consents to assessment at this time. Pt is sitting up in bed in no distress at this time. Pt is A/Ox4 at this time and answers all questions appropriately at this time. Pt with 2 family members at bedside during assessment. Care providers, pharmacy, and demographics verified at this time. PCP: Lauren ALFORD Specialists: Kasie, sandra Preferred Pharmacy: [facility] Insurance: [facility] A/B, AARP Prescription Benefit: [employer] Living Will/HPOA: Pt states she is unsure if she has LW/HPOA at this time. Pt declines further info at this time. LNOK: Lucien Barrett, ; Mauricio Barrett, son Living Arrangements: Pt states lives in 2 story home with and states no concerns at home this time. Pt states is independent with ADL's and assists with care. Transportation: Pt states drives self and states no transportation concerns at this time. DME/HHC: Pt states has grab bars and shower chair but does not currently use. Pt states no need for any further DME at this time. Pt states that she would like to use [employer], if she would need home oxygen at discharge. Pt states no hx of HHC or SNF in the past. Pt states no concerns with going home at time of discharge. Pt states is retired. Pt states does not smoke but does drink 'a little bit wine' every night. Pt states no further concerns/needs at this time. CM to follow for home oxygen and for any further discharge planning/needs. Advised pt to ask for CM if any further questions/concerns/needs arise, voices understanding. Pt Goal: Home Plan: Home, pending PT/OT evals and home oxygen testing. [place] LILIANA IVY
--- NOTE | 2018-08-08 13:10 | PN_ITS ---
Addendum entered and electronically signed by JONI Melton 08/08/18 13:12: Code Visit add to problem list: CAD - hx of stents x 2. already on asa/statin/charanjit/bb. Original Note: <Paul Taylor - Last Filed: 08/08/18 13:11> Patient Problems: Active and Suspected Problems (Last Reviewed 08/07/18 @ 23:58 by Francisco Birmingham MD) Congestive heart failure (Acute) Elevated troponin (Acute) Heart failure (Acute) Subjective: Pt very tearful this AM, stating she has not been taking care of herself ever since her grandson of a sudden heart attack in April, in his mid 30s and in good health. She remains somewhat SOB with LE edema, SOB at rest and worse with exertion. She has flutter/fib however no sensation of palpitations, no dizziness, LH. She does report feeling pressure in her chest, midsternal. She is on eliquis for hx flutter and has an ICD - she has a known EF of 25% with mildly increased pulmonary arter pressures 34. No pacemaker. - Physical Exam General: Alert, Oriented x3, Cooperative, - - frail HEENT: Atraumatic, PERRLA, EOMI, Normocephalic Neck: Supple, No JVD, Negative Carotid Bruits Lungs: Clear to auscultation, Normal air movement Cardiovascular: No murmurs, Irregular Rate Abdomen: Bowel Sounds Present, Soft, Non Tender Extremities: Capillary Refill Less than 3 Seconds, Edema Skin: No rashes, No breakdown Musculoskeletal: No Tenderness to Palpation of Joints or Extremities Neurological: Cranial nerves II-XII grossly intact Psych/Mental Status: Depressed, Alert and oriented to time, place, person, mood and affect Vital Signs Temp Pulse Resp BP Pulse Ox 97.7 F L 87 24 H 159/102 H 98 08/08/18 09:02 08/08/18 09:02 08/08/18 09:02 08/08/18 09:02 08/08/18 09:02 Oxygen Flow Rate (L/min) 2 Oxygen Delivery Method Nasal Cannula Weight: 154 lb 1.65 oz Body Mass Index (BMI) 28.1 Intake and Output for Last 24 Hours 08/06/18 08/07/18 08/08/18 23:59 23:59 23:59 Intake Total 367 / 367 Output Total 300 / 300 Balance 67 / 67 Laboratory Tests Past 24 Hrs 08/07/18 08/07/18 08/07/18 20:00 20:00 20:00 WBC 9.1 RBC 4.59 Hgb 14.2 Hct 41.9 MCV 91.3 MCH 30.9 MCHC 33.9 RDW 15.7 H RDW Differential 52.1 H Plt Count 170 MPV 10.6 Immature Gran % (Auto) 0.100 Neut % (Auto) 68.3 Lymph % (Auto) 15.7 L [place] % (Auto) 15.2 H Eos % (Auto) 0.5 Baso % (Auto) 0.2 Absolute Neuts (auto) 6.2 Absolute Lymphs (auto) 1.43 Total Counted Not Reportable Sodium 136 Potassium 3.8 Chloride 103 Carbon Dioxide 24.0 Anion Gap 9 BUN 14 Creatinine 1.12 H Estim Creat Clear Calc 31.69 Est GFR (MDRD) Af Amer 60 Est GFR (MDRD) Non-Af 50 L BUN/Creatinine Ratio 12.5 Glucose 182 H Calcium 8.7 Magnesium Troponin I 0.116 H B-Natriuretic Peptide 1354.1 H TSH 08/08/18 08/08/18 08/08/18 00:20 03:10 06:00 WBC RBC Hgb Hct MCV MCH MCHC RDW RDW Differential Plt Count MPV Immature Gran % (Auto) Neut % (Auto) Lymph % (Auto) [place] % (Auto) Eos % (Auto) Baso % (Auto) Absolute Neuts (auto) Absolute Lymphs (auto) Total Counted Sodium 141 Potassium 3.7 Chloride 104 Carbon Dioxide 29.0 Anion Gap 8 BUN 13 Creatinine 1.04 H Estim Creat Clear Calc 34.12 Est GFR (MDRD) Af Amer 66 Est GFR (MDRD) Non-Af 54 L BUN/Creatinine Ratio 12.5 Glucose 130 H Calcium 8.4 L Magnesium 1.5 L Troponin I 0.157 H 0.178 H 0.167 H B-Natriuretic Peptide TSH 2.44 Medical Necessity - Tobacco Use Smoking Status: Never smoker - second handing smoking Assessment/Plan All Active Problems (Last Reviewed 08/07/18 @ 23:58 by Francisco Birmingham MD) Congestive heart failure (Acute) Elevated troponin (Acute) Heart failure (Acute) 1. Acute systolic CHF exacerbation, with ischemic cardiomyopathy - known EF 25%, mild pulmonary htn. Repeat echo. Continue lasix. BNP 1354. TSH normal. ICD in place. On CHARANJIT and BB already. 2. Elevated troponin with chest pressure - peak 0.178. EKG without acute is chemic changes. 3. Hx Afib/Flutter - rate has improved to <100. Eliquis on hold for possible cath. Continue beta jose eduardo, possibly add cardizem. 4. Hypomagnesemia - repleted. 5. CKD III - stable 6. HTN - somewhat elevated, will trend and adjust medications as appropriate. 7. Depression - on zoloft. DVT ppx: SCDs DC planning: needs further diuresis possibly further cardiac intervention. Pt weak and lives alone, PTOT evals. This patient was seen by Paul Taylor PA-C under the supervision of Doctor Angelica. <Nani Domignuez - Last Filed: 08/08/18 15:18> - Physical Exam Vital Signs Temp Pulse Resp BP Pulse Ox 97.7 F L 87 24 H 159/102 H 98 08/08/18 09:02 08/08/18 09:02 08/08/18 09:02 08/08/18 09:02 08/08/18 09:02 Oxygen Flow Rate (L/min) 2 Oxygen Delivery Method Nasal Cannula Weight: 154 lb 1.65 oz Body Mass Index (BMI) 28.1 Intake and Output for Last 24 Hours 08/06/18 08/07/18 08/08/18 23:59 23:59 23:59 Intake Total 367 / 367 Output Total 300 / 300 Balance 67 / 67 Laboratory Tests Past 24 Hrs 08/07/18 08/07/18 08/07/18 20:00 20:00 20:00 WBC 9.1 RBC 4.59 Hgb 14.2 Hct 41.9 MCV 91.3 MCH 30.9 MCHC 33.9 RDW 15.7 H RDW Differential 52.1 H Plt Count 170 MPV 10.6 Immature Gran % (Auto) 0.100 Neut % (Auto) 68.3 Lymph % (Auto) 15.7 L [place] % (Auto) 15.2 H Eos % (Auto) 0.5 Baso % (Auto) 0.2 Absolute Neuts (auto) 6.2 Absolute Lymphs (auto) 1.43 Total Counted Not Reportable Sodium 136 Potassium 3.8 Chloride 103 Carbon Dioxide 24.0 Anion Gap 9 BUN 14 Creatinine 1.12 H Estim Creat Clear Calc 31.69 Est GFR (MDRD) Af Amer 60 Est GFR (MDRD) Non-Af 50 L BUN/Creatinine Ratio 12.5 Glucose 182 H Calcium 8.7 Magnesium Troponin I 0.116 H B-Natriuretic Peptide 1354.1 H TSH 08/08/18 08/08/18 08/08/18 00:20 03:10 06:00 WBC RBC Hgb Hct MCV MCH MCHC RDW RDW Differential Plt Count MPV Immature Gran % (Auto) Neut % (Auto) Lymph % (Auto) [place] % (Auto) Eos % (Auto) Baso % (Auto) Absolute Neuts (auto) Absolute Lymphs (auto) Total Counted Sodium 141 Potassium 3.7 Chloride 104 Carbon Dioxide 29.0 Anion Gap 8 BUN 13 Creatinine 1.04 H Estim Creat Clear Calc 34.12 Est GFR (MDRD) Af Amer 66 Est GFR (MDRD) Non-Af 54 L BUN/Creatinine Ratio 12.5 Glucose 130 H Calcium 8.4 L Magnesium 1.5 L Troponin I 0.157 H 0.178 H 0.167 H B-Natriuretic Peptide TSH 2.44 Assessment/Plan Patient seen by Paul Taylor PA-C under my supervision Patient was admitted with a complaint of shortness of breath, orthopnea and PND and found to been acute exacerbation of heart failure with preserved ejection fraction. BNP was thousand 354 known EF is 25%. She is been diuresed with IV Lasix. Repeat echo is pending. Patient seen and examined. Shortness of breath has improved. PND has also improved and lower extremity swelling. Patient states is not been taking care of herself since she lost her grandson a few months ago. Review of systems otherwise negative. Labs and vitals reviewed. o/e: Vital Signs Height 5 ft 2 in Weight: 154 lb 1.65 oz Weight in Pounds 154.1 lbs Pulse Ox 98 Temperature 97.7 F Pulse Rate 87 Respiratory Rate 24 Blood Pressure [BP] 137/80 Blood Pressure 159/102 Blood Pressure Position [BP] Semi-Fowlers Blood Pressure Position Semi-Fowlers - Physical Exam General: Alert, Oriented x3, Cooperative HEENT: Atraumatic, PERRLA, EOMI, Normocephalic Neck: Supple, No JVD, Negative Carotid Bruits Lungs: Tachypneic, - has mildly decreased breath sounds bibasally, no wheezes or rhonchi Cardiovascular: Irregular Rate, normal S1 adn S2, no murmurs Abdomen: Bowel Sounds Present, Soft, Non Tender Extremities: Capillary Refill Less than 3 Seconds, mild bipedal pitting edema Skin: No rashes, No breakdown Musculoskeletal: No Tenderness to Palpation of Joints or Extremities Neurological: Cranial nerves II-XII grossly intact Psych/Mental Status: Normal Affect, Appropriate Plan is continue diuresing with IV Lasix. Monitor intake and output. Repeat 2D echo showed EF of 25% and unable to assess diastolic dysfunction due to arrhythmia. Severe global hypokinesis of left ventricle. Normal right ventricular size and ICD in place with a right ventricle. PA pressure 60 mmHg. Cardiology on board. Eloy currently on hold for possible cath tomorrow. She had hypomagnesemia on board which resolved with correction Rest of management as per Paul Taylor PA-C's note which I reviewed and endorsed. Code Visit Inpatient E&M: 55896 Subs Hosp L3
[2018-08-08] MEDS: Pravastatin 40 MG Tablet PO (21:04)
[2018-08-09] VITALS (10 sets, daily range): BP systolic 119–143; BP diastolic 66–85; PULSE 76–90; RESP 16–20; TEMP 36.4–36.9; O2SAT 93–99
[2018-08-09] MEDS: Acetaminophen 325 MG Tablet 650 MG PO (02:26)
--- NOTE | 2018-08-09 08:37 | PN.CARD_ITS ---
Subjectve: Patient seen and evaluated and appears to be breathing better this morning. Still somewhat short of breath though. Objective: Vital Signs Temp Pulse Resp BP Pulse Ox 98.4 F 83 20 H 143/73 H 96 08/09/18 03:00 08/09/18 07:00 08/09/18 03:00 08/09/18 03:00 08/09/18 03:00 Oxygen Flow Rate (L/min) 2 Oxygen Delivery Method Nasal Cannula Weight: 146 lb 6.191 oz Body Mass Index (BMI) 28.1 Intake and Output for Last 24 Hours 08/07/18 08/08/18 08/09/18 23:59 23:59 23:59 Intake Total 757 / 757 100 / 100 Output Total 300 / 300 Balance 457 / 457 100 / 100 General: Awake, Alert, Oriented x 3 HEENT: PERRL, EOMI, Sclera Non Icteric Neck: Supple, Good ROM, No Lymph Node Enlargement Lungs: Diminished Luis Bases Cardiovascular: Irregular Rhythm, Normal S1, Normal S2, No Murmurs, No Rubs, No Gallops Vascular: No Carotid Bruits, Normal Femoral Pulses, Normal Radial Pulses, Normal Dorsalis Pedal Pulse, Normal Posterior Tibial Pulses Abdomen: Bowel Sounds Present, Soft, Non Tender, No HSM, No Organomegaly Extremities: No Cyanosis, No Clubbing, Bilateral Edema +1 Musculoskeletal: No Erythema Skin: No Rashes Lymphatic: No Lymph Node Enlargement Neurological: No Focal Motor or Sensory Deficit Psych/Mental Status: Appropriate Rhythm: EKG: ECHO: Stress Test: Cardiac Cath: PCI: CT Surgery: Holter monitor: EPS: PPM: CXR: Chest CT Scan: Medical Necessity - Tobacco Use Smoking Status: Never smoker - second handing smoking Assessment/Plan 1. Congestive heart failure-acute systolic * Appears to be in systolic heart failure. The above is likely precipitated by the atrial fibrillation with rapid ventricular response rate. * Recommendation would be to control her rate further by increasing her beta- jose eduardo we may need to add oral Cardizem to this. * Echocardiogram demonstrated ejection fraction of 20 to 25% essentially unchanged from before. * Will need intravenous diuresis over the next 24 hours * Depending on the findings further recommendations will be made. * 2. Mild cardiac enzyme abnormality * I suspect the above is secondary to demand ischemia. There is no significant rise and fall. We will continue to trend this at this particular time. * 3. Cardiomyopathy * Patient has a history of ischemic cardiomyopathy out of proportion to the amount of coronary artery disease. * We will continue to optimize beta-jose eduardo and CHARANJIT inhibitor or ARB * Continue diuretics * 4. status post ICD implantation * ICD was interrogated in June of this year and noted to be functioning well no VT or VF episodes. However patient was noted to be in persistent atrial flutter. * * 5. Atrial fibrillation flutter * Patient still appears to be in atrial fibrillation flutter uncontrolled. The plan will be to increase the beta-jose eduardo to try and see whether one can control this. May need to add amiodarone to the regimen. * * * Thank you for allowing me to participate in the care of your patient. Please don't hesitate to call if any issues arise
[2018-08-09 09:26] LABS: Anion Gap 8 (5-15); BUN 18 mg/dL (7-18); BUN/Creat Ratio 20.2 RATIO (10-20); Calcium,Total 8.4 mg/dL (8.5-10.1); Chloride 104 mmol/L (98-107); Creatinine, Serum 0.89 mg/dL (0.55-1.02); EST Glomerular Filtration Rate 65 mL/min (>60); Est Glom Filt Rate - Afr Amer 78 mL/min (>60); Estimated Creatinine Clearance 39.87 ml/min; Glucose 144 mg/dL (74-106); Magnesium 1.8 mg/dL (1.6-2.6); Phosphorus 2.9 mg/dL (2.5-4.9); Potassium 3.2 mmol/L (3.5-5.1); Sodium Level 143 mmol/L (136-145)
[2018-08-09] MEDS: Aspirin E.C. 81 MG Tablet PO (10:31)
[2018-08-09] MEDS: Carvedilol 12.5 MG Tablet PO ×2 (10:31→21:27)
[2018-08-09] MEDS: APIXABAN 2.5 MG TABLET PO ×2 (10:32→21:28)
[2018-08-09] MEDS: Sertraline 50 MG Tablet PO (10:32)
[2018-08-09] MEDS: Lisinopril 10 MG Tablet PO ×2 (10:32→21:27)
[2018-08-09] MEDS: Furosemide 40 MG/4 ML Vial IV ×2 (10:32→17:26)
[2018-08-09] MEDS: 0.9% NaCl Peripheral Flush Adult/Peds IV ×2 (10:34→17:26)
[2018-08-09] MEDS: Amiodarone 200 MG Tablet PO ×2 (10:34→21:27)
--- NOTE | 2018-08-09 13:37 | CASEMGMT ---
SW spoke with patient as per RN she was thinking about going to TCU. Patient said she was not sure what to do. She said she is worried about her children as they are doing everything for patient's . SW asked her that if she were to go home right now would she be able to care for herself and her . She said she would not as she is too wiped out. SW told her to talk with her children. SW told her SW can put her name on the TCU list. SW explained that way if she decides to go to TCU she will have a bed. She was in agreement with this plan. VINCE called [facility] in TCU and she would have a bed for patient. SW to follow. Chantal PIZARRO MSW
--- NOTE | 2018-08-09 15:04 | PCM.PROGNOTE ---
<Paul Taylor - Last Filed: 08/09/18 15:04> Patient Problems: Active and Suspected Problems (Last Reviewed 08/07/18 @ 23:58 by Francisco Birmingham MD) Congestive heart failure (Acute) Elevated troponin (Acute) Heart failure (Acute) Subjective: Patient is resting comfortably in chair at bedside. No acute distress. Her lower extremity edema has significantly improved. She also has had almost full resolution of her at rest shortness of breath. She still remains short of breath with mild exertion, walking to the bathroom in the room. She denies chest pain, tightness, heaviness, pressure, lightheadedness or dizziness, palpitations. - Physical Exam General: Alert, Oriented x3, Cooperative, - - Frail HEENT: Atraumatic, PERRLA, EOMI, Normocephalic Neck: Supple, No JVD, Negative Carotid Bruits Lungs: Rales - Diffuse rales throughout on posterior exam Cardiovascular: Regular rate, No murmurs Abdomen: Bowel Sounds Present, Soft, Non Tender Extremities: Capillary Refill Less than 3 Seconds, Edema - 1-2+ pitting edema bilateral lower extremities Skin: No rashes, No breakdown Musculoskeletal: No Tenderness to Palpation of Joints or Extremities Neurological: Cranial nerves II-XII grossly intact Psych/Mental Status: Normal Affect, Appropriate, Alert and oriented to time, place, person, mood and affect Vital Signs Temp Pulse Resp BP Pulse Ox 97.7 F L 90 18 134/66 H 99 08/09/18 10:00 08/09/18 15:00 08/09/18 10:00 08/09/18 10:00 08/09/18 10:00 Oxygen Flow Rate (L/min) 2 Oxygen Delivery Method Nasal Cannula Weight: 146 lb 6.191 oz Body Mass Index (BMI) 28.1 Intake and Output for Last 24 Hours 08/07/18 08/08/18 08/09/18 23:59 23:59 23:59 Intake Total 757 / 757 340 / 340 Output Total 300 / 300 Balance 457 / 457 339 / 339 Laboratory Tests Past 24 Hrs 08/09/18 08:55 Sodium 143 Potassium 3.2 L Chloride 104 Carbon Dioxide 31.0 Anion Gap 8 BUN 18 Creatinine 0.89 Estim Creat Clear Calc 39.87 Est GFR (MDRD) Af Amer 78 Est GFR (MDRD) Non-Af 65 BUN/Creatinine Ratio 20.2 H Glucose 144 H Calcium 8.4 L Phosphorus 2.9 Magnesium 1.8 Medical Necessity - Tobacco Use Smoking Status: Never smoker - second handing smoking Assessment/Plan All Active Problems (Last Reviewed 08/07/18 @ 23:58 by Francisco Birmingham MD) Congestive heart failure (Acute) Elevated troponin (Acute) Heart failure (Acute) 1. Acute systolic CHF exacerbation, with ischemic cardiomyopathy - known EF 25%, mild pulmonary htn. Repeat echo demonstrates EF of 25%, severe global hypokinesis of the left ventricle, severely enlarged left atrium, 2+ TBI with PASP of 60 mmHg consistent with pulmonary hypertension, mild 1+ SHELBY. Continue lasix. BNP 1354. TSH normal. ICD in place. On CHARANJIT and BB already. Diuresing well with good improvement in her symptoms day-to-day. 2. Elevated troponin with chest pressure - peak 0.178. EKG without acute ischemic changes. Probably secondary to acute systolic CHF exacerbation and underlying CKD stage III 3. Hx Afib/Flutter -on Eliquis, amiodarone, Coreg. Rate less than 100 now.. 4. Hypomagnesemia and hypokalemia- repleted. 5. CKD III - stable 6. HTN -stable 7. Depression - on zoloft. DVT ppx: SCDs DC planning: Pt weak and lives alone, PTOT evals. This patient was seen by Paul Taylor PA-C under the supervision of Doctor Angelica. <Nani Dominguez - Last Filed: 08/09/18 16:13> - Physical Exam Vital Signs Temp Pulse Resp BP Pulse Ox 97.6 F L 84 16 119/85 H 99 08/09/18 15:44 08/09/18 15:44 08/09/18 15:44 08/09/18 15:44 08/09/18 15:44 Oxygen Flow Rate (L/min) 2 Oxygen Delivery Method Nasal Cannula Weight: 146 lb 6.191 oz Body Mass Index (BMI) 28.1 Intake and Output for Last 24 Hours 08/07/18 08/08/18 08/09/18 23:59 23:59 23:59 Intake Total 757 / 757 340 / 340 Output Total 300 / 300 Balance 457 / 457 339 / 339 Laboratory Tests Past 24 Hrs 08/09/18 08:55 Sodium 143 Potassium 3.2 L Chloride 104 Carbon Dioxide 31.0 Anion Gap 8 BUN 18 Creatinine 0.89 Estim Creat Clear Calc 39.87 Est GFR (MDRD) Af Amer 78 Est GFR (MDRD) Non-Af 65 BUN/Creatinine Ratio 20.2 H Glucose 144 H Calcium 8.4 L Phosphorus 2.9 Magnesium 1.8 Assessment/Plan Patient seen by Paul Taylor PA-C under my supervision Patient seen and examined today. Shortness of breath has improved after she remains on 2 L of oxygen. Denies any palpitations or dizziness and swelling her lower extremities has gone down. Review of systems otherwise negative. Labs and vitals reviewed. Weight is noted to be down to 146 pounds from 162 pounds on admission. o/e: Vital Signs Height 5 ft 2 in Weight: 146 lb 6.191 oz Weight in Pounds 146.4 lbs Pulse Ox 99 Temperature 97.6 F Pulse Rate 84 Respiratory Rate 16 Blood Pressure [BP] 137/80 Blood Pressure 119/85 Blood Pressure Position [BP] Semi-Fowlers Blood Pressure Position Sitting General: Alert, Oriented x3, Cooperative HEENT: Atraumatic, PERRLA, EOMI, Normocephalic Neck: Supple, No JVD, Negative Carotid Bruits Lungs: Tachypneic, - has mildly decreased breath sounds bibasally, no wheezes or rhonchi Cardiovascular: Irregular Rate, normal S1 and S2, no murmurs Abdomen: Bowel Sounds Present, Soft, Non Tender Extremities: Capillary Refill Less than 3 Seconds, mild bipedal pitting edema Skin: No rashes, No breakdown Musculoskeletal: No Tenderness to Palpation of Joints or Extremities Neurological: Cranial nerves II-XII grossly intact Psych/Mental Status: Normal Affect, Appropriate Plan is continue diuresing with IV Lasix. Monitor intake and output. Repeat 2D echo showed EF of 25% and unable to assess diastolic dysfunction due to arrhythmia. Severe global hypokinesis of left ventricle. Normal right ventricular size and ICD in place with a right ventricle. PA pressure 60 mmHg. Cardiology on board. Eliquis currently on hold for possible cath by cardiology. Rest of management as per Paul Taylor PA-C's note which I reviewed and endorsed. Code Visit Inpatient E&M: 57552 Subs Hosp L2
[2018-08-09] MEDS: Magnesium Oxide 400 MG Tablet 800 MG PO (16:02)
[2018-08-09] MEDS: Pravastatin 40 MG Tablet PO (21:27)
[2018-08-10] VITALS (8 sets, daily range): BP systolic 119–123; BP diastolic 65; PULSE 76–92; RESP 18; TEMP 36.6–36.9; O2SAT 89–96
[2018-08-10] MEDS: Acetaminophen 325 MG Tablet 650 MG PO (00:36)
[2018-08-10] MEDS: Aspirin E.C. 81 MG Tablet PO (08:11)
[2018-08-10 08:27] LABS: Anion Gap 5 (5-15); BUN 21 mg/dL (7-18); BUN/Creat Ratio 25.6 RATIO (10-20); Calcium,Total 8.7 mg/dL (8.5-10.1); Chloride 104 mmol/L (98-107); Creatinine, Serum 0.82 mg/dL (0.55-1.02); EST Glomerular Filtration Rate 71 mL/min (>60); Est Glom Filt Rate - Afr Amer 86 mL/min (>60); Estimated Creatinine Clearance 43.28 ml/min; Glucose 148 mg/dL (74-106); Potassium 3.7 mmol/L (3.5-5.1); Sodium Level 140 mmol/L (136-145)
[2018-08-10] MEDS: Amiodarone 200 MG Tablet PO (09:47)
[2018-08-10] MEDS: APIXABAN 2.5 MG TABLET PO (09:47)
[2018-08-10] MEDS: Sertraline 50 MG Tablet PO (09:47)
[2018-08-10] MEDS: Carvedilol 12.5 MG Tablet PO (09:47)
[2018-08-10] MEDS: Lisinopril 10 MG Tablet PO (09:48)
[2018-08-10] MEDS: Furosemide 40 MG/4 ML Vial IV (09:48)
--- NOTE | 2018-08-10 10:39 | PCM.EXTCARCO ---
- Diet 08/08/18 09:28 Diet: 2 Gram Sodium Is pt able to select menu?: Yes - Routine Orders/Code Status Suppository Type: Dulcolax 10mg Suppository Frequency: Daily PRN O2 Frequency: PRN Keep PO Greater than or Equal to (%): 90 Routine Lab Work: CBC - 1 week, BMP - 3 days - Therapies Physical Therapy: Eval and Treat Occupational Therapy: Eval and Treat - Problem/Diagnosis (1) Congestive heart failure Status: Acute Current Visit: Yes (2) Elevated troponin Status: Chronic Current Visit: Yes (3) Chronic atrial fibrillation Status: Chronic Current Visit: Yes (4) CAD (coronary artery disease) Status: Chronic Comment: status post stents Current Visit: No (5) Chronic kidney disease, stage III (moderate) Status: Chronic Current Visit: No (6) Dilated cardiomyopathy Status: Chronic Current Visit: No (7) HTN (hypertension) Status: Chronic Current Visit: No (8) History of coronary artery stent placement Status: Chronic Comment: 01/18, PCI/bare metal stent to mid LAD and ostium of diag #2, PTCA to diag #1-02/09/13 Current Visit: No (9) Hyperlipidemia Status: Chronic Current Visit: No (10) Presence of automatic implantable cardioverter-defibrillator Status: Chronic Current Visit: No - Allergies/Procedures Done in Hospital Allergies/Adverse Reactions: Allergies Tlkoxak-Tqd-Aoo Reductase Inhibitor Adverse Reaction (Verified 08/07/18 20:24) muscle aches warfarin [From Coumadin] Adverse Reaction (Verified 08/07/18 20:24) GI bleeds, profuse nosebleeds Procedures: 2-D Echocardiogram - Type of Care/Length of Stay Estimated LOS: Convalescent Care Less Than 30 days Type of Care Needed: Skilled Rehab Potential: Fair Prognosis: Fair - Additional Orders/Day of Discharge Day of Discharge: 08/10/18 - Dietary and Speech Recommendations Dietitian Recommendations/Changes: Suggest diet change to Cardiac/low sodium. Continue ensure enlive on medpass as tolerated. - Follow Up Care Primary Care Physician: Salas Aguilar III, MD [Primary Care Provider] - Please follow up with your Primary Care Physician in: 1-2 weeks Please Follow Up With: Chandu Ferro MD When: as directed
--- NOTE | 2018-08-10 13:09 | DS.PCM_ITS ---
<Paul Taylor - Last Filed: 08/10/18 13:03> Discharge Date and Diagnosis Date of Admission: 08/07/18 Date of Discharge: 08/10/18 - Primary Discharge Diagnosis Active and Suspected Problems (Last Reviewed 08/07/18 @ 23:58 by Francisco Birmingham MD) Acute exacerbation of chronic systolic congestive heart failure Ischemic cardiomyopathy Elevated troponin secondary to CHF exacerbation and CKD stage III Chronic atrial fibrillation/flutter Hypomagnesemia, hypokalemia Hypertension Depression - Secondary Discharge Diagnosis Chronic Problems (Last Reviewed 08/07/18 @ 23:58 by Francisco Birmingham MD) Elevated troponin (Chronic) Low serum HDL (Chronic) Chronic kidney disease, stage III (moderate) (Chronic) History of coronary artery stent placement (Chronic) 01/18, PCI/bare metal stent to mid LAD and ostium of diag #2, PTCA to diag #1-02/09/13 Atherosclerotic heart disease of [place] coronary artery without angina pectoris (Chronic) Chronic atrial fibrillation (Chronic) Chronic systolic congestive heart failure (Chronic) Bradycardia (Chronic) Dilated cardiomyopathy (Chronic) 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) CAD (coronary artery disease) (Chronic) status post stents A-fib (Chronic) Hyperlipidemia (Chronic) HTN (hypertension) (Chronic) Hospital Course and Treatment Imaging Results: RAD/Chest 1 View (Portable) IMPRESSION: 1. Severe cardiomegaly with mild pulmonary edema. Echo: Interpretation Summary Normal LV size. Moderate concentric left ventricular hypertrophy. The estimated ejection fraction is 25 %. Unable to assess diastolic dysfunction due to arrhythmia. There is severe global hypokinesis of the left ventricle. Moderate (2+) eccentric mitral valve insufficiency. Moderate pulmonary hypertension. Small pericardial effusion. Compared to the previous the pulmonary pressures are worse Compared to previous study, the left ventricular systolic function is the same.. Consults: Kasie - Cardiology Operations: None Procedures: 2-D Echocardiogram Summary of Care Provided: [facility]: The patient is a 78 year old F with a past medical history of systolic congestive heart failure, cardiomyopathy with a known EF of 30% and ICD in place, hypertension, CKD stage III, who presented to the emergency room with complaints of increased shortness of breath at home. Heart rate was rapid at 122, respiratory rate was 32, she maintain good sats on 2 L/min oxygen. Her chest x-ray was consistent with congestive heart failure, and she had severe lower extremity edema. She was admitted to the PCU and placed on telemetry, given IV Lasix. She had some chest pressure and mildly elevated troponins so cardiology was consulted. EKG was unremarkable, no events on telemetry. The patient improved with IV Lasix with significant diuresis, improvement in her breathing, decreased oxygen demand, and decreased lower extremity edema, no further chest discomfort. Repeat echocardiogram was obtained which demonstrated EF of 25% again, normal LV size, LVH, severe global hypokinesis, 2+ TBI, moderate pulmonary hypertension with a PASP of 60 mmHg. TSH was normal. Cardiology did not feel that further invasive cardiac work-up was needed. The patient remained significantly debilitated and required PRN oxygen. We recommended residential, she was agreeable, and she was discharged to residential in stable condition. She will need follow-up blood work to assess her electrolytes and kidney function in the next 3 days, and possibly need her Lasix further adjusted. I recommend she follow-up with her PCP in 1 to 2 weeks, and follow-up with cardiology as directed. This patient was seen by Paul Taylor PA-C under the supervision of Doctor Prasad. [] - Physical Exam General: Alert, Oriented x3, Cooperative HEENT: Atraumatic, PERRLA, EOMI, Normocephalic Neck: Supple, No JVD, Negative Carotid Bruits Lungs: Rales Cardiovascular: Regular rate, No murmurs Abdomen: Bowel Sounds Present, Soft, Non Tender Extremities: Capillary Refill Less than 3 Seconds, Edema Skin: No rashes, No breakdown Musculoskeletal: No Tenderness to Palpation of Joints or Extremities Neurological: Cranial nerves II-XII grossly intact Psych/Mental Status: Normal Affect, Appropriate, Alert and oriented to time, place, person, mood and affect Vital Signs Temp Pulse Resp BP Pulse Ox 98.5 F 92 18 123/65 H 96 08/10/18 12:58 08/10/18 12:58 08/10/18 12:58 08/10/18 12:58 08/10/18 12:58 Oxygen Flow Rate (L/min) 1 Oxygen Delivery Method Nasal Cannula Weight: 145 lb 15.136 oz Body Mass Index (BMI) 28.1 Intake and Output for Last 24 Hours 08/08/18 08/09/18 08/10/18 23:59 23:59 23:59 Intake Total 757 / 757 640 / 640 240 / 240 Output Total 300 / 300 2 / 2 250 / 250 Balance 457 / 457 638 / 638 -10 / -10 Laboratory Tests Past 24 Hrs 08/10/18 08:00 Sodium 140 Potassium 3.7 Chloride 104 Carbon Dioxide 31.0 Anion Gap 5 BUN 21 H Creatinine 0.82 Estim Creat Clear Calc 43.28 Est GFR (MDRD) Af Amer 86 Est GFR (MDRD) Non-Af 71 BUN/Creatinine Ratio 25.6 H Glucose 148 H Calcium 8.7 Discharge Diet: Low fat/ Low Cholesterol, 2000 mg Sodium Diet Discharge Activity: Return to Normal Activity Home Medications: Medications to take at Discharge sertraline 50 mg tablet 50 mg PO DAILY 30 Days #30 tab 02/17/18 Acetaminophen [Tylenol Tablet] 650 mg PO Q6H PRN PRN tablet 08/10/18 Amiodarone HCl [Cordarone] 200 mg PO BID 08/10/18 Apixaban [Eliquis] 2.5 mg PO BID 08/10/18 Aspirin E.C. [Ecotrin] 81 mg PO DAILY@0800 08/10/18 Carvedilol 12.5 mg PO BID 08/10/18 Ensure Enlive 60 ml PO 4X/DAY 08/10/18 Lisinopril [Prinivil] 10 mg PO BID 08/10/18 Potassium Chloride [K-Dur] 40 meq PO DAILYCM 08/10/18 Pravastatin Sodium 40 mg PO QDAY 08/10/18 Primary Care Physician: Salas Aguilar III, MD [Primary Care Provider] - Please follow up with your Primary Care Physician in: 1-2 weeks Please Follow Up With: Chandu Ferro MD When: as directed Disposition: [facility] facility Minutes spent on discharge:: 35 Patient Condition:: Stable Medical Necessity - Tobacco Use Smoking Status: Never smoker - second handing smoking Meaningful Use Info Meaningful Use Diagnoses (Choose all that apply): CHF - CHF CHARANJIT/ARB ordered at discharge?: Yes Documented LVEF (%): 25 <Nani Dominguez - Last Filed: 08/10/18 15:00> Discharge Date and Diagnosis - Secondary Discharge Diagnosis Chronic Problems (Last Reviewed 08/07/18 @ 23:58 by Francisco Birmingham MD) Elevated troponin (Chronic) Low serum HDL (Chronic) Chronic kidney disease, stage III (moderate) (Chronic) History of coronary artery stent placement (Chronic) 01/18, PCI/bare metal stent to mid LAD and ostium of diag #2, PTCA to diag #1-02/09/13 Atherosclerotic heart disease of [place] coronary artery without angina pectoris (Chronic) Chronic atrial fibrillation (Chronic) Chronic systolic congestive heart failure (Chronic) Bradycardia (Chronic) Dilated cardiomyopathy (Chronic) 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) CAD (coronary artery disease) (Chronic) status post stents A-fib (Chronic) Hyperlipidemia (Chronic) HTN (hypertension) (Chronic) Hospital Course and Treatment Summary of Care Provided: Patient seen by Paul Taylor PA-C under my supervision The patient is a 78 year old F with a past medical history as listed. She was admitted to the ED with a complaint of shortness of breath with assisted orthopnea and PND. BNP was markedly elevated at over thousand 600. She was admitted and managed for acute exacerbation of heart failure with reduced ejection fraction as well as acute hypoxic respiratory insufficiency due to heart failure exacerbation. Patient had a known EF of 30% with an ICD in place. Patient was diuresed with IV Lasix. Repeat echocardiogram showed EF of 25% with severe global hypokinesis and pulmonary artery systolic pressure of 60 mmHg. Cardiology was consulted but did not feel that any further invasive work- up was needed. At time of discharge, patient was noted to desaturate to 89% on room air went up to 95% on 1 L of oxygen. She therefore qualify for home oxygen. She remained stable and was discharged to a snf with 1 L of oxygen and with a prescription for p.o. Lasix 48 mg twice daily. Her stay was also completed by hypokalemia which resolved with replacement. She is to follow-up with her primary care doctor and cardiology. Patient seen and examined prior to discharge. Shortness of breath had improved significantly though she remained on 1 L of oxygen. She denied any fever chills, palpitations or dizziness, chest pain, diarrhea vomiting. Patient was into mind about going home going to a rehab unit because she feels she had to take care of her at home. However family convinced patient that she had to take care of herself and goes to the rehab unit to get her strength back. Review of systems otherwise negative. Labs and vitals reviewed. Home medication reviewed on and reconciled. o/e: Vital Signs Height 5 ft 2 in Weight: 145 lb 15.136 oz Weight in Pounds 145.9 lbs Pulse Ox 96 Temperature 98.5 F Pulse Rate 92 Respiratory Rate 18 Blood Pressure [BP] 137/80 Blood Pressure 123/65 Blood Pressure Position [BP] Semi-Fowlers Blood Pressure Position Sitting [] General: Alert, Oriented x3, Cooperative HEENT: Atraumatic, PERRLA, EOMI, Normocephalic Neck: Supple, No JVD, Negative Carotid Bruits Lungs: Tachypneic, - has mildly decreased breath sounds bibasally, no wheezes or rhonchi Cardiovascular: Irregular Rate, normal S1 and S2, no murmurs Abdomen: Bowel Sounds Present, Soft, Non Tender Extremities: Capillary Refill Less than 3 Seconds, mild bipedal pitting edema Skin: No rashes, No breakdown Musculoskeletal: No Tenderness to Palpation of Joints or Extremities Neurological: Cranial nerves II-XII grossly intact Psych/Mental Status: Normal Affect, Appropriate Plan as above. Rest of management as per Paul Taylor PA-C's note which I have reviewed and endorsed. - Physical Exam Vital Signs Temp Pulse Resp BP Pulse Ox 98.5 F 92 18 123/65 H 96 08/10/18 12:58 08/10/18 12:58 08/10/18 12:58 08/10/18 12:58 08/10/18 12:58 Oxygen Flow Rate (L/min) 1 Oxygen Delivery Method Nasal Cannula Weight: 145 lb 15.136 oz Body Mass Index (BMI) 28.1 Intake and Output for Last 24 Hours 08/08/18 08/09/18 08/10/18 23:59 23:59 23:59 Intake Total 757 / 757 640 / 640 240 / 240 Output Total 300 / 300 2 / 2 250 / 250 Balance 457 / 457 638 / 638 -10 / -10 Laboratory Tests Past 24 Hrs 08/10/18 08:00 Sodium 140 Potassium 3.7 Chloride 104 Carbon Dioxide 31.0 Anion Gap 5 BUN 21 H Creatinine 0.82 Estim Creat Clear Calc 43.28 Est GFR (MDRD) Af Amer 86 Est GFR (MDRD) Non-Af 71 BUN/Creatinine Ratio 25.6 H Glucose 148 H Calcium 8.7 Code Visit Inpatient E&M: 24739 Disch Hosp
== END 2018-08-10 13:16 | disposition skilled nursing facility (03) | DRG 291 ==
LOC: ED 23:11 → PCU 23:42
PROVIDERS: Physician Assistant; Admitting Provider Hospitalist; Emergency Provider Emergency Medicine; Family Provider Family Medicine; PCP Family Medicine; Referring Provider Hospitalist; Visit Provider Student in an Organized Health Care Education/Training Program
DX: I13.0 Hypertensive heart and chronic kidney disease with heart failure and stage 1 through stage 4 chronic kidney disease, or unspecified chronic kidney disease (principal); I50.23 Acute on chronic systolic (congestive) heart failure; I48.92 Unspecified atrial flutter; N18.3 Chronic kidney disease, stage 3 (moderate); I48.2 Chronic atrial fibrillation; I25.10 Atherosclerotic heart disease of native coronary artery without angina pectoris; Z95.5 Presence of coronary angioplasty implant and graft; E78.5 Hyperlipidemia, unspecified; I42.0 Dilated cardiomyopathy; I43 Cardiomyopathy in diseases classified elsewhere; Z95.810 Presence of automatic (implantable) cardiac defibrillator; Z79.899 Other long term (current) drug therapy; Z79.02 Long term (current) use of antithrombotics/antiplatelets; R74.8 Abnormal levels of other serum enzymes; I25.5 Ischemic cardiomyopathy; I27.20 Pulmonary hypertension, unspecified; E83.42 Hypomagnesemia; F32.9 Major depressive disorder, single episode, unspecified; E87.6 Hypokalemia; R06.89 Other abnormalities of breathing
CPT/HCPCS: 36415; 71045; 80048; 83735; 83880; 84100; 84443; 84484; 85025; 93005; 93306; 97162; 97166; 97530; 97802; 99285; J7030; J7040; A4216; J1940

== ENCOUNTER 2018-08-10 13:32 | Inpatient (IN) | payer MEDICARE, OTHER, SELFPAY ==
[2018-08-08 00:24] VITALS: BMI 28.1
[2018-08-10 13:44] VITALS: BP 135/75; PULSE 68; RESP 20; RESP 22; TEMP 35.8; O2SAT 98; BMI 26.6
--- NOTE | 2018-08-10 14:15 | NURSING ---
Patient admitted to room 8 via wheelchair from PCU. Oriented to room and call light system explained.
[2018-08-10] MEDS: Lisinopril 10 MG Tablet PO (17:08)
[2018-08-10] MEDS: APIXABAN 2.5 MG TABLET PO (17:08)
[2018-08-10] MEDS: Amiodarone 200 MG Tablet PO (17:08)
[2018-08-10] MEDS: Carvedilol 12.5 MG Tablet PO (17:08)
--- NOTE | 2018-08-10 18:02 | RAD_ITS ---
STUDY: X-RAY CHEST REASON FOR EXAM: Female, 78 years old. cough TECHNIQUE: PA and lateral views of the chest COMPARISON: None. FINDINGS: Left chest pacemaker is present. There is no consolidation. Bibasilar alectasis is present. There are trace bilateral pleural effusions. There is no pneumothorax. The heart is enlarged. The visualized osseous structures are within normal limits. RAD/Chest PA and Lateral IMPRESSION: No acute thoracic pathology. Cardiomegaly. Bibasilar atelectasis. Trace bilateral pleural effusions. Electronically Signed: Zac Romero, at 21:24 EDT Tel , Service support ,
--- NOTE | 2018-08-10 19:18 | NURSING ---
Patient came with a black purse with $600 dollars, refused to have nursing staff lock up in safe. Daughter came in, took most of money. Patient still has $88 dollars in purse.
[2018-08-10] MEDS: Magnesium Citrate 300 ML PO (20:34)
[2018-08-10] MEDS: Pravastatin 40 MG Tablet PO (20:34)
--- NOTE | 2018-08-10 21:00 | PCM.HP.STD ---
Problem List (1) Shortness of breath Status: Acute (2) Acute on chronic systolic (congestive) heart failure Status: Acute (3) Atrial fibrillation with rapid ventricular response Status: Acute (4) Coronary artery disease Status: Chronic (5) Hypokalemia Status: Chronic (6) Depression Status: Chronic (7) Bronchitis Status: Acute (8) Chronic kidney disease, stage III (moderate) Status: Chronic (9) Hyperlipidemia Status: Chronic Qualifiers: (10) HTN (hypertension) Status: Chronic Qualifiers: History of Present Illness Date of Admission: 08/10/18 Chief Complaint: Here for rehabilitation, strengthening, prior to discharge home with spouse. The patient is a 78 year old Female with below past medical history presented to [facility] Emergency Department 08/07/2018 with shortness of breath. 08/07/2018 EKG atrial fibrillation with rapid ventricular response, premature ventricular or aberrantly conducted complexes, left axis deviation, left bundle branch block. Shortness of breath x 3 days, 5 pound weight gain. Dyspnea on exertion, recent upper respiratory infection. Increasing leg edema, feels like congestive heart failure. CBC okay, BMP Cr 1.12, Troponin 0.116, BNP 1354. Chest X-ray showed cardiomegaly, mild pulmonary edema. Lasix, Cardizem, Aspirin given, heart rate improved. 08/07/2018 Admit to Hospital. IV Lasix, fluid restriction for systolic congestive heart failure. CHARANJIT wraps to bilateral lower extremity. Consider cardiology consult for elevated troponin. 08/08/2018 Dr. Ferro thought elevated troponin secondary to demand ischemia. Invasive cardiac evaluation not warranted. 08/08/2018 Echo Normal LV size Moderate concentric LVH. EF 25%. Severe global hypokinesis of LV. Moderate pulmonary hypertension. IV Lasix helpful. Patient now requiring oxygen to maintain saturations. 08/10/2018 Admit to TCU with debility, here for rehabilitation, strengthening, prior to discharge home with spouse. Resident with cough productive of yellow, red sputum. Antibiotics, steroids, aerosols ordered. Magnesium citrate 300ML PO x 1 dose for constipation, incomplete evacuation. Past Medical History Past Medical History (Chronic Problems): Chronic Problems (Last Reviewed 08/07/18 @ 23:58 by Francisco Birmingham MD) Elevated troponin (Chronic) Coronary artery disease (Chronic) Hypokalemia (Chronic) Depression (Chronic) Low serum HDL (Chronic) Chronic kidney disease, stage III (moderate) (Chronic) History of coronary artery stent placement (Chronic) 01/18, PCI/bare metal stent to mid LAD and ostium of diag #2, PTCA to diag #1-02/09/13 Atherosclerotic heart disease of [place] coronary artery without angina pectoris (Chronic) Chronic atrial fibrillation (Chronic) Chronic systolic congestive heart failure (Chronic) Bradycardia (Chronic) Dilated cardiomyopathy (Chronic) 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) CAD (coronary artery disease) (Chronic) status post stents A-fib (Chronic) Hyperlipidemia (Chronic) HTN (hypertension) (Chronic) Medical History: Medical History (Last Reviewed 08/07/18 @ 23:58 by Francisco Birmingham MD) Low serum HDL (Chronic) R74.8 Chronic kidney disease, stage III (moderate) (Chronic) N18.3 Atherosclerotic heart disease of [place] coronary artery without angina pectoris (Chronic) I25.10 Chronic atrial fibrillation (Chronic) I48.2 Chronic systolic congestive heart failure (Chronic) I50.22 Bradycardia (Chronic) R00.1 Dilated cardiomyopathy (Chronic) I42.0 CAD (coronary artery disease) (Chronic) I25.10 status post stents Hyperlipidemia (Chronic) E78.5 HTN (hypertension) (Chronic) I10 Allergies Olyfrlq-Awq-Pmg Reductase Inhibitor Adverse Reaction (Verified 08/07/18 20:24) muscle aches warfarin [From Coumadin] Adverse Reaction (Verified 08/07/18 20:24) GI bleeds, profuse nosebleeds Home Medications: Ambulatory Orders Medication Instructions Recorded sertraline 50 mg tablet 50 mg PO DAILY 30 Days #30 tab 02/17/18 Acetaminophen [Tylenol Tablet] 650 mg PO Q6H PRN PRN tablet 08/10/18 Amiodarone HCl [Cordarone] 200 mg PO BID 08/10/18 Apixaban [Eliquis] 2.5 mg PO BID 08/10/18 Aspirin E.C. [Ecotrin] 81 mg PO DAILY@0800 08/10/18 Carvedilol 12.5 mg PO BID 08/10/18 Ensure Enlive 60 ml PO 4X/DAY 08/10/18 Lisinopril [Prinivil] 10 mg PO BID 08/10/18 Potassium Chloride [K-Dur] 40 meq PO DAILYCM 08/10/18 Pravastatin Sodium 40 mg PO QDAY 08/10/18 Surgical History: Surgical History (Last Reviewed 08/07/18 @ 23:58 by Francisco Birmingham MD) History of coronary artery stent placement (Chronic) Z95.5 01/18, PCI/bare metal stent to mid LAD and ostium of diag #2, PTCA to diag #1-02/09/13 Presence of automatic implantable cardioverter-defibrillator (Chronic) Onset Date: ~08/12/15 Z95.810 History of varicose vein stripping Z98.890 Surgical History: angioplasty, - - ICD. 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 Tobacco Use: Non-smoker Alcohol: Occasional Drugs: None - *Family History Maternal Family History: Family History (Last Reviewed 08/07/18 @ 23:58 by Francisco Birmingham MD) Grandfather Myocardial infarction Father Myocardial infarction Hypertension Brother Cancer Sister Diabetes CVA (cerebral vascular accident) Hypertension Son Diabetes Son Hypertension Daughter Afib History Items: No pertinent history Paternal Family History: Family History (Last Reviewed 08/07/18 @ 23:58 by Francisco Birmingham MD) Grandfather Myocardial infarction Father Myocardial infarction Hypertension Brother Cancer Sister Diabetes CVA (cerebral vascular accident) Hypertension Son Diabetes Son Hypertension Daughter Afib History Items: No pertinent history Review of Systems Constitutional: Reports: Weakness. Denies: Chills, Fever, Weight Change HEENT: Denies: Head Aches, Sinus Congestion, Sinus Drainage Cardiovascular: Denies: Chest Pain, Palpitations Respiratory: Reports: Cough, Shortness of breath at rest, Shortness of breath upon exertion, Sputum production Gastrointestinal: Denies: Abdominal Pain, Nausea, Vomiting Genitourinary: Denies: Dysuria Musculoskeletal: Denies: Joint Pain, Joint Tenderness Skin: Denies: Rash, Wounds Neurological: Denies: Numbness, Tingling, Focal weakness Psychiatric: Denies: Anxiety, Depression, Homicidal Ideations, Suicidal Ideations Hematologic/ Lymphatic: Denies: Easy Bruising, Easy Bleeding VTE Information - Inpt Only VTE Present on Admission: No VTE Mechan Device Prophylaxis: Knee High COLETTE Hose VTE Pharm Prophylaxis ordered?: No Reason prophylaxis not ordered:: Treatment Not Indicated Patient Problems: Active and Suspected Problems (Last Reviewed 08/07/18 @ 23:58 by Francisco Birmingham MD) Shortness of breath (Acute) Acute on chronic systolic (congestive) heart failure (Acute) Atrial fibrillation with rapid ventricular response (Acute) Bronchitis (Acute) - Physical Exam General: Alert, Oriented x3, Cooperative HEENT: Atraumatic, PERRLA, EOMI, Normocephalic Neck: Supple, No JVD, Negative Carotid Bruits Lungs: Normal air movement, Rales - Left mid lung field, bibasilar crackles. Cardiovascular: Regular rate, No murmurs Abdomen: Bowel Sounds Present, Soft, Non Tender Extremities: Capillary Refill Less than 3 Seconds, Edema - 1+ pitting edema. Skin: No rashes, No breakdown Musculoskeletal: No Tenderness to Palpation of Joints or Extremities Neurological: Cranial nerves II-XII grossly intact Psych/Mental Status: Normal Affect, Appropriate Vital Signs Temp Pulse Resp BP Pulse Ox 96.5 F L 68 20 H 135/75 H 98 08/10/18 13:44 08/10/18 13:44 08/10/18 13:44 08/10/18 13:44 08/10/18 13:44 Oxygen Flow Rate (L/min) 2 Oxygen Delivery Method Nasal Cannula Weight: 66.2 kg Body Mass Index (BMI) 26.6 Assessment/Plan All Active Problems (Last Reviewed 08/07/18 @ 23:58 by Francisco Birmingham MD) Congestive heart failure (Acute) Heart failure (Acute) Shortness of breath (Acute) Acute on chronic systolic (congestive) heart failure (Acute) Atrial fibrillation with rapid ventricular response (Acute) Bronchitis (Acute) 78 year old female with below past medical history hospitalized for acute on chronic systolic congestive heart failure secondary to atrial fibrillation with rapid ventricular response, complicated by NSTEMI from demand ischemia, admitted to TCU with debility, here for rehabilitation, strengthening, prior to discharge home with spouse. Debility - PT/OT. Pain - Tylenol 1000MG Q6H PRN mild pain. Bowel - Miralax 17GM daily, Senna/colace 1 tablet BID, Dulcolax 10MG daily PRN, Magnesium citrate 300ML PO x 1 dose. Pneumonia vaccination - Administer Prevnar 13 and/or Pneumovax 23 as necessary. DVT prophylaxis - Not necessary, already on Eliquis. Acute bronchitis - Cefdinir 300MG Q12H thru 08/18/2018, Medrol Dose pack, Duoneb 3ML Q6HWA, Albuterol 2.5MG Q2H PRN. Atrial Fibrillation - Coreg 12.5MG twice daily, Amiodarone 200MG twice daily, Eliquis 2.5MG twice daily. Coronary artery disease status post - Coreg 12.5MG twice daily, Lisinopril 10MG twice daily, Aspirin 81MG daily (risk of bleeding outweigh risk of blockage, consider stopping aspirin) Acute on chronic systolic congestive heart failure EF 25%, Coreg 12.5MG twice daily, Lisinopril 10MG twice daily, Lasix 40MG daily, contact Dr. Ferro to consider stopping Lisinopril and starting low dose Entresto to decrease risk of sudden , hospitalization from systolic congestive heart failure, resident is monitored closely on TCU, and would be a safe place to try new medication. Nutrition - Ensure Enlive 60ML 4x/day. Hypokalemia - KCL 40MEQ daily. Depression - Sertraline 50MG daily.
--- NOTE | 2018-08-10 21:09 | HP.PCM_ITS ---
Problem List (1) Shortness of breath Status: Acute (2) Acute on chronic systolic (congestive) heart failure Status: Acute (3) Atrial fibrillation with rapid ventricular response Status: Acute (4) Coronary artery disease Status: Chronic (5) Hypokalemia Status: Chronic (6) Depression Status: Chronic (7) Bronchitis Status: Acute (8) Chronic kidney disease, stage III (moderate) Status: Chronic (9) Hyperlipidemia Status: Chronic Qualifiers: (10) HTN (hypertension) Status: Chronic Qualifiers: History of Present Illness Date of Admission: 08/10/18 Chief Complaint: Here for rehabilitation, strengthening, prior to discharge home with spouse. The patient is a 78 year old Female with below past medical history presented to [facility] Emergency Department 08/07/2018 with shortness of breath. 08/07/2018 EKG atrial fibrillation with rapid ventricular response, premature ventricular or aberrantly conducted complexes, left axis deviation, left bundle branch block. Shortness of breath x 3 days, 5 pound weight gain. Dyspnea on exertion, recent upper respiratory infection. Increasing leg edema, feels like congestive heart failure. CBC okay, BMP Cr 1.12, Troponin 0.116, BNP 1354. Chest X-ray showed cardiomegaly, mild pulmonary edema. Lasix, Cardizem, Aspirin given, heart rate improved. 08/07/2018 Admit to Hospital. IV Lasix, fluid restriction for systolic congestive heart failure. CHARANJIT wraps to bilateral lower extremity. Consider cardiology consult for elevated troponin. 08/08/2018 Dr. Ferro thought elevated troponin secondary to demand ischemia. Invasive cardiac evaluation not warranted. 08/08/2018 Echo Normal LV size Moderate concentric LVH. EF 25%. Severe global hypokinesis of LV. Moderate pulmonary hypertension. IV Lasix helpful. Patient now requiring oxygen to maintain saturations. 08/10/2018 Admit to TCU with debility, here for rehabilitation, strengthening, prior to discharge home with spouse. Resident with cough productive of yellow, red sputum. Antibiotics, steroids, aerosols ordered. Magnesium citrate 300ML PO x 1 dose for constipation, incomplete evacuation. Past Medical History Past Medical History (Chronic Problems): Chronic Problems (Last Reviewed 08/07/18 @ 23:58 by Francisco Birmingham MD) Elevated troponin (Chronic) Coronary artery disease (Chronic) Hypokalemia (Chronic) Depression (Chronic) Low serum HDL (Chronic) Chronic kidney disease, stage III (moderate) (Chronic) History of coronary artery stent placement (Chronic) 01/18, PCI/bare metal stent to mid LAD and ostium of diag #2, PTCA to diag #1-02/09/13 Atherosclerotic heart disease of [place] coronary artery without angina pectoris (Chronic) Chronic atrial fibrillation (Chronic) Chronic systolic congestive heart failure (Chronic) Bradycardia (Chronic) Dilated cardiomyopathy (Chronic) 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) CAD (coronary artery disease) (Chronic) status post stents A-fib (Chronic) Hyperlipidemia (Chronic) HTN (hypertension) (Chronic) Medical History: Medical History (Last Reviewed 08/07/18 @ 23:58 by Francisco Birmingham MD) Low serum HDL (Chronic) R74.8 Chronic kidney disease, stage III (moderate) (Chronic) N18.3 Atherosclerotic heart disease of [place] coronary artery without angina pectoris (Chronic) I25.10 Chronic atrial fibrillation (Chronic) I48.2 Chronic systolic congestive heart failure (Chronic) I50.22 Bradycardia (Chronic) R00.1 Dilated cardiomyopathy (Chronic) I42.0 CAD (coronary artery disease) (Chronic) I25.10 status post stents Hyperlipidemia (Chronic) E78.5 HTN (hypertension) (Chronic) I10 Allergies Fkauoro-Jft-Iqt Reductase Inhibitor Adverse Reaction (Verified 08/07/18 20:24) muscle aches warfarin [From Coumadin] Adverse Reaction (Verified 08/07/18 20:24) GI bleeds, profuse nosebleeds Home Medications: Ambulatory Orders Medication Instructions Recorded sertraline 50 mg tablet 50 mg PO DAILY 30 Days #30 tab 02/17/18 Acetaminophen [Tylenol Tablet] 650 mg PO Q6H PRN PRN tablet 08/10/18 Amiodarone HCl [Cordarone] 200 mg PO BID 08/10/18 Apixaban [Eliquis] 2.5 mg PO BID 08/10/18 Aspirin E.C. [Ecotrin] 81 mg PO DAILY@0800 08/10/18 Carvedilol 12.5 mg PO BID 08/10/18 Ensure Enlive 60 ml PO 4X/DAY 08/10/18 Lisinopril [Prinivil] 10 mg PO BID 08/10/18 Potassium Chloride [K-Dur] 40 meq PO DAILYCM 08/10/18 Pravastatin Sodium 40 mg PO QDAY 08/10/18 Surgical History: Surgical History (Last Reviewed 08/07/18 @ 23:58 by Francisco Birmingham MD) History of coronary artery stent placement (Chronic) Z95.5 01/18, PCI/bare metal stent to mid LAD and ostium of diag #2, PTCA to diag #1-02/09/13 Presence of automatic implantable cardioverter-defibrillator (Chronic) Onset Date: ~08/12/15 Z95.810 History of varicose vein stripping Z98.890 Surgical History: angioplasty, - - ICD. 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 Tobacco Use: Non-smoker Alcohol: Occasional Drugs: None - *Family History Maternal Family History: Family History (Last Reviewed 08/07/18 @ 23:58 by Francisco Birmingham MD) Grandfather Myocardial infarction Father Myocardial infarction Hypertension Brother Cancer Sister Diabetes CVA (cerebral vascular accident) Hypertension Son Diabetes Son Hypertension Daughter Afib History Items: No pertinent history Paternal Family History: Family History (Last Reviewed 08/07/18 @ 23:58 by Francisco Birmingham MD) Grandfather Myocardial infarction Father Myocardial infarction Hypertension Brother Cancer Sister Diabetes CVA (cerebral vascular accident) Hypertension Son Diabetes Son Hypertension Daughter Afib History Items: No pertinent history Review of Systems Constitutional: Reports: Weakness. Denies: Chills, Fever, Weight Change HEENT: Denies: Head Aches, Sinus Congestion, Sinus Drainage Cardiovascular: Denies: Chest Pain, Palpitations Respiratory: Reports: Cough, Shortness of breath at rest, Shortness of breath upon exertion, Sputum production Gastrointestinal: Denies: Abdominal Pain, Nausea, Vomiting Genitourinary: Denies: Dysuria Musculoskeletal: Denies: Joint Pain, Joint Tenderness Skin: Denies: Rash, Wounds Neurological: Denies: Numbness, Tingling, Focal weakness Psychiatric: Denies: Anxiety, Depression, Homicidal Ideations, Suicidal Ideations Hematologic/ Lymphatic: Denies: Easy Bruising, Easy Bleeding VTE Information - Inpt Only VTE Present on Admission: No VTE Mechan Device Prophylaxis: Knee High COLETTE Hose VTE Pharm Prophylaxis ordered?: No Reason prophylaxis not ordered:: Treatment Not Indicated Patient Problems: Active and Suspected Problems (Last Reviewed 08/07/18 @ 23:58 by Francisco Birmingham MD) Shortness of breath (Acute) Acute on chronic systolic (congestive) heart failure (Acute) Atrial fibrillation with rapid ventricular response (Acute) Bronchitis (Acute) - Physical Exam General: Alert, Oriented x3, Cooperative HEENT: Atraumatic, PERRLA, EOMI, Normocephalic Neck: Supple, No JVD, Negative Carotid Bruits Lungs: Normal air movement, Rales - Left mid lung field, bibasilar crackles. Cardiovascular: Regular rate, No murmurs Abdomen: Bowel Sounds Present, Soft, Non Tender Extremities: Capillary Refill Less than 3 Seconds, Edema - 1+ pitting edema. Skin: No rashes, No breakdown Musculoskeletal: No Tenderness to Palpation of Joints or Extremities Neurological: Cranial nerves II-XII grossly intact Psych/Mental Status: Normal Affect, Appropriate Vital Signs Temp Pulse Resp BP Pulse Ox 96.5 F L 68 20 H 135/75 H 98 08/10/18 13:44 08/10/18 13:44 08/10/18 13:44 08/10/18 13:44 08/10/18 13:44 Oxygen Flow Rate (L/min) 2 Oxygen Delivery Method Nasal Cannula Weight: 66.2 kg Body Mass Index (BMI) 26.6 Assessment/Plan All Active Problems (Last Reviewed 08/07/18 @ 23:58 by Francisco Birmingham MD) Congestive heart failure (Acute) Heart failure (Acute) Shortness of breath (Acute) Acute on chronic systolic (congestive) heart failure (Acute) Atrial fibrillation with rapid ventricular response (Acute) Bronchitis (Acute) 78 year old female with below past medical history hospitalized for acute on chronic systolic congestive heart failure secondary to atrial fibrillation with rapid ventricular response, complicated by NSTEMI from demand ischemia, admitted to TCU with debility, here for rehabilitation, strengthening, prior to discharge home with spouse. * Debility - PT/OT. * Pain - Tylenol 1000MG Q6H PRN mild pain. * Bowel - Miralax 17GM daily, Senna/colace 1 tablet BID, Dulcolax 10MG daily PRN, Magnesium citrate 300ML PO x 1 dose. * Pneumonia vaccination - Administer Prevnar 13 and/or Pneumovax 23 as necessar y. * DVT prophylaxis - Not necessary, already on Eliquis. * Acute bronchitis - Cefdinir 300MG Q12H thru 08/18/2018, Medrol Dose pack, Duoneb 3ML Q6HWA, Albuterol 2.5MG Q2H PRN. * Atrial Fibrillation - Coreg 12.5MG twice daily, Amiodarone 200MG twice daily, Eliquis 2.5MG twice daily. * Coronary artery disease status post - Coreg 12.5MG twice daily, Lisinopril 10MG twice daily, Aspirin 81MG daily (risk of bleeding outweigh risk of blockage, consider stopping aspirin) * Acute on chronic systolic congestive heart failure EF 25%, Coreg 12.5MG twice daily, Lisinopril 10MG twice daily, Lasix 40MG daily, contact Dr. Ferro to consider stopping Lisinopril and starting low dose Entresto to decrease risk of sudden , hospitalization from systolic congestive heart failure, resident is monitored closely on TCU, and would be a safe place to try new medication. * Nutrition - Ensure Enlive 60ML 4x/day. * Hypokalemia - KCL 40MEQ daily. * Depression - Sertraline 50MG daily.
[2018-08-10] MEDS: MethylPREDNISolone DosePak 4 MG BOX PO (21:44)
[2018-08-11 05:53] LABS: Anion Gap 5 (5-15); BUN 26 mg/dL (7-18); BUN/Creat Ratio 25.7 RATIO (10-20); Calcium,Total 8.7 mg/dL (8.5-10.1); Chloride 102 mmol/L (98-107); Creatinine, Serum 1.01 mg/dL (0.55-1.02); EST Glomerular Filtration Rate 56 mL/min (>60); Est Glom Filt Rate - Afr Amer 68 mL/min (>60); Estimated Creatinine Clearance 35.14 ml/min; Glucose 256 mg/dL (74-106); Potassium 4.4 mmol/L (3.5-5.1); Sodium Level 140 mmol/L (136-145)
[2018-08-11 06:17] LABS: Absolute Lymphocyte Count 0.58 X10^3/ul (0.83-4.51); Absolute Neutrophil Count 3.8 X10^3/uL (2.0-7.7); Basophil# 0.01 X10^3/uL; Basophil% 0.2 % (0-1); Hematocrit 41.3 % (37-47); Hemoglobin 13.2 g/dl (12.0-15.0); Lymphocyte # 0.58 X10^3/ul (4.0); Lymphocyte % 12.2 % (19-41); Mean Corpuscular Hgb 29.9 pg (27.0-32.0); Mean Corpuscular Volume 93.4 fL (81-99); Mean Platelet Vol. 10.8 fl (6.2-12.0); Monocyte% 8.4 % (0-10); Neutrophil # 3.76 X10^3/uL (2.7-7.7); Platelet Count 137 K/mm3 (150-450); RBC Distribution Width CV 15.7 % (11.6-14.6); RBC Distribution Width SD 52.3 fl (35.1-43.9); Red Blood Count 4.42 M/mm3 (4.2-5.4); White Blood Count 4.8 K/mm3 (4.4-11.0)
[2018-08-11] MEDS: Amiodarone 200 MG Tablet PO ×2 (06:19→16:52)
[2018-08-11] MEDS: Senna/Docusate Sodium 1 Tablet PO ×2 (06:19→16:53)
[2018-08-11] MEDS: Sertraline 50 MG Tablet PO (06:19)
[2018-08-11] MEDS: Lisinopril 10 MG Tablet PO (06:19)
[2018-08-11] MEDS: Cefdinir 300 MG Capsule PO ×2 (06:19→16:53)
[2018-08-11] MEDS: Furosemide 40 MG Tablet PO (06:19)
[2018-08-11] MEDS: APIXABAN 2.5 MG TABLET PO ×2 (06:19→16:53)
[2018-08-11] MEDS: Polyethylene Glycol 3350 17 GM PACKET PO (06:20)
[2018-08-11 06:26] LABS: Differential Indicated SCAN CRITERIA MET; POSITIVE COUNT NO; POSITIVE DIFFERENTIAL YES; POSITIVE MORPHOLOGY NO
--- NOTE | 2018-08-11 06:44 | NURSING ---
Pt noted to have purple bracelet on with DNRCC. Pt A&Ox4. This nurse discussed code status with pt. Pt wishing to be a DNRCC. Paper signed.
[2018-08-11] MEDS: MethylPREDNISolone DosePak 4 MG BOX PO ×4 (08:42→21:03)
[2018-08-11] MEDS: Aspirin E.C. 81 MG Tablet PO (08:44)
[2018-08-11] MEDS: Carvedilol 12.5 MG Tablet PO ×2 (08:45→16:52)
[2018-08-11 10:00] VITALS: PULSE 76; RESP 20; O2SAT 96
--- NOTE | 2018-08-11 12:42 | PCM.PN.RX ---
<Rick Frye D - Last Filed: 08/11/18 12:42> Progress Note - Pharmacy Subjective: TCU Admission Objective: Allergies Birzgfd-Skw-Itu Reductase Inhibitor Adverse Reaction (Verified 08/07/18 20:24) muscle aches warfarin [From Coumadin] Adverse Reaction (Verified 08/07/18 20:24) GI bleeds, profuse nosebleeds Current Medications Generic Name Dose Route Start Last Admin Trade Name Freq PRN Reason Stop Dose Admin Acetaminophen 1,000 mg 08/10/18 21:22 Tylenol PO Q6H PRN PRN MILD PAIN (1-310) Albuterol Sulfate 2.5 mg 08/10/18 19:43 Ventolin Aerosols INHALATION Q2H PRN PRN SHORTNESS OF BREATH Albuterol/Ipratropium 3 ml 08/10/18 19:45 08/11/18 07:05 Duoneb INHALATION Not Given Q6HWA.RT RAHUL Amiodarone HCl 200 mg 08/10/18 18:00 08/11/18 06:19 Cordarone PO 200 mg BID RAHUL Administration Apixaban 2.5 mg 08/10/18 18:00 08/11/18 06:19 Eliquis PO 2.5 mg BID RAHUL Administration Aspirin 81 mg 08/11/18 08:00 08/11/18 08:44 Ecotrin PO 81 mg DAILY@0800 RAHUL Administration Bisacodyl 10 mg 08/10/18 14:28 Dulcolax PO DAILY PRN Constipation Carvedilol 12.5 mg 08/10/18 17:00 08/11/18 08:45 Coreg PO 12.5 mg BIDCM RAHUL Administration Cefdinir 300 mg 08/11/18 06:00 08/11/18 06:19 Omnicef [Equiv] PO 08/18/18 06:01 300 mg Q12 RAHUL Administration Furosemide 40 mg 08/11/18 06:00 08/11/18 06:19 Lasix PO 40 mg DAILY RAHUL Administration Methylprednisolone 4 mg 08/10/18 22:00 08/11/18 12:10 Medrol Dosepak PO 08/15/18 08:59 4 mg 0800,1200,1700 RAHUL Administration Taper Nutritional Formula (Lactose Free) 60 ml 08/10/18 17:00 08/11/18 11:15 Ensure Enlive PO Not Given 4X/DAY RAHUL Polyethylene Glycol 17 gm 08/11/18 06:00 08/11/18 06:20 Miralax PO 17 gm DAILY RAHUL Administration Potassium Chloride 40 meq 08/11/18 08:00 08/11/18 08:43 K-Dur PO 40 meq DAILYCM RAHUL Administration Pravastatin Sodium 40 mg 08/10/18 22:00 08/10/18 20:34 Pravachol PO 40 mg QHS RAHUL Administration Senna/Docusate Sodium 1 tablet 08/11/18 06:00 08/11/18 06:19 Senokot-S, Gissel-Colace PO 1 tablet BID RAHUL Administration Sertraline HCl 50 mg 08/11/18 06:00 08/11/18 06:19 Zoloft PO 50 mg DAILY RAHUL Administration Tuberculin PPD 5 tu 08/18/18 10:00 Tubersol, Aplisol, Ppd ID 08/18/18 10:01 X1 ONE Problem List (Last Reviewed 08/07/18 @ 23:58 by Francisco Birmingham MD) Shortness of breath (Acute) Acute on chronic systolic (congestive) heart failure (Acute) Atrial fibrillation with rapid ventricular response (Acute) Coronary artery disease (Chronic) Hypokalemia (Chronic) Depression (Chronic) Bronchitis (Acute) Vital Signs Temp Pulse Resp BP Pulse Ox 96.5 F L 68 20 H 135/75 H 98 08/10/18 13:44 08/10/18 13:44 08/10/18 13:44 08/10/18 13:44 08/10/18 13:44 Oxygen Flow Rate (L/min) 2 Oxygen Delivery Method Nasal Cannula Weight: 66.2 kg Body Mass Index (BMI) 26.6 Sodium 140 mmol/L (136-145) 08/11/18 05:15 Potassium 4.4 mmol/L (3.5-5.1) 08/11/18 05:15 Chloride 102 mmol/L (98-107) 08/11/18 05:15 Carbon Dioxide 33.0 mmol/L (21.0-32.0) H 08/11/18 05:15 Anion Gap 5 (5-15) 08/11/18 05:15 BUN 26 mg/dL (7-18) H 08/11/18 05:15 Creatinine 1.01 mg/dL (0.55-1.02) 08/11/18 05:15 Est GFR (MDRD) Af Amer 68 mL/min (>60) 08/11/18 05:15 Est GFR (MDRD) Non-Af 56 mL/min (>60) L 08/11/18 05:15 BUN/Creatinine Ratio 25.7 RATIO (10-20) H 08/11/18 05:15 Glucose 256 mg/dL (74-106) H 08/11/18 05:15 Assessment/Plan: 1) Pain APAP for mild pain. Continue to monitor prn medication use, daily pain scores. 2) Pulm Duoneb aerosols scheduled, prn albuterol, Medrol pack, cefdinir thru 08/18. Continue to monitor prn medication use, for shortness of breath. 3) AFib/CHF/ASA Amiodarone, apixaban, ASA, carvedilol, Entresto, pravastatin, furosemide/KCl. Continue to monitor electrolytes, swelling, BP/HR, renal function, for bleeding/clot. Psychotropic Medications: 4) Depression Sertraline. Continue to monitor s/s depression. Unnecessary Medications: None Bowel Regimen: 5) Senna/s, PEG, prn bisacodyl. Continue to monitor prn medication use, for constipation/diarrhea. Date of Note:: 08/11/18 - Provider Comments Provider responsibility: Provider responsible to enter orders to implement recommendations <Santy Ortega Chi - Last Filed: 08/11/18 17:53> Progress Note - Pharmacy Subjective: [] Objective: Allergies Bkygvdt-Jdh-Zvq Reductase Inhibitor Adverse Reaction (Verified 08/07/18 20:24) muscle aches warfarin [From Coumadin] Adverse Reaction (Verified 08/07/18 20:24) GI bleeds, profuse nosebleeds Current Medications Generic Name Dose Route Start Last Admin Trade Name Freq PRN Reason Stop Dose Admin Acetaminophen 1,000 mg 08/10/18 21:22 Tylenol PO Q6H PRN PRN MILD PAIN (1-3/10) Albuterol Sulfate 2.5 mg 08/10/18 19:43 Ventolin Aerosols INHALATION Q2H PRN PRN SHORTNESS OF BREATH Albuterol/Ipratropium 3 ml 08/10/18 19:45 08/11/18 13:30 Duoneb INHALATION 3 ml Q6HWA.RT RAHUL Administration Amiodarone HCl 200 mg 08/10/18 18:00 08/11/18 16:52 Cordarone PO 200 mg BID RAHUL Administration Apixaban 2.5 mg 08/10/18 18:00 08/11/18 16:53 Eliquis PO 2.5 mg BID RAHUL Administration Aspirin 81 mg 08/11/18 08:00 08/11/18 08:44 Ecotrin PO 81 mg DAILY@0800 RAHUL Administration Bisacodyl 10 mg 08/10/18 14:28 Dulcolax PO DAILY PRN Constipation Carvedilol 12.5 mg 08/10/18 17:00 08/11/18 16:52 Coreg PO 12.5 mg BIDCM RAHUL Administration Cefdinir 300 mg 08/11/18 06:00 08/11/18 16:53 Omnicef [Equiv] PO 08/18/18 06:01 300 mg Q12 RAHUL Administration Furosemide 40 mg 08/11/18 06:00 08/11/18 06:19 Lasix PO 40 mg DAILY RAHUL Administration Methylprednisolone 4 mg 08/10/18 22:00 08/11/18 16:51 Medrol Dosepak PO 08/15/18 08:59 4 mg 0800,1200,1700 RAHUL Administration Taper Polyethylene Glycol 17 gm 08/11/18 06:00 08/11/18 06:20 Miralax PO 17 gm DAILY RAHUL Administration Potassium Chloride 40 meq 08/11/18 08:00 08/11/18 08:43 K-Dur PO 40 meq DAILYCM RAHUL Administration Pravastatin Sodium 40 mg 08/10/18 22:00 08/10/18 20:34 Pravachol PO 40 mg QHS RAHUL Administration Senna/Docusate Sodium 1 tablet 08/11/18 06:00 08/11/18 16:53 Senokot-S, Gissel-Colace PO 1 tablet BID RAHUL Administration Sertraline HCl 50 mg 08/11/18 06:00 08/11/18 06:19 Zoloft PO 50 mg DAILY RAHUL Administration Tuberculin PPD 5 tu 08/18/18 10:00 Tubersol, Aplisol, Ppd ID 08/18/18 10:01 X1 ONE Problem List (Last Reviewed 08/07/18 @ 23:58 by Francisco Birmingham MD) Shortness of breath (Acute) Acute on chronic systolic (congestive) heart failure (Acute) Atrial fibrillation with rapid ventricular response (Acute) Coronary artery disease (Chronic) Hypokalemia (Chronic) Depression (Chronic) Bronchitis (Acute) Vital Signs Temp Pulse Resp BP Pulse Ox 97.3 F L 73 16 124/73 H 96 08/11/18 15:59 08/11/18 15:59 08/11/18 15:59 08/11/18 15:59 08/11/18 15:59 Oxygen Flow Rate (L/min) 2 Oxygen Delivery Method Room Air Weight: 66.253 kg Body Mass Index (BMI) 26.6 Sodium 140 mmol/L (136-145) 08/11/18 05:15 Potassium 4.4 mmol/L (3.5-5.1) 08/11/18 05:15 Chloride 102 mmol/L (98-107) 08/11/18 05:15 Carbon Dioxide 33.0 mmol/L (21.0-32.0) H 08/11/18 05:15 Anion Gap 5 (5-15) 08/11/18 05:15 BUN 26 mg/dL (7-18) H 08/11/18 05:15 Creatinine 1.01 mg/dL (0.55-1.02) 08/11/18 05:15 Est GFR (MDRD) Af Amer 68 mL/min (>60) 08/11/18 05:15 Est GFR (MDRD) Non-Af 56 mL/min (>60) L 08/11/18 05:15 BUN/Creatinine Ratio 25.7 RATIO (10-20) H 08/11/18 05:15 Glucose 256 mg/dL (74-106) H 08/11/18 05:15 Assessment/Plan: Psychotropic Medications: Unnecessary Medications: Bowel Regimen: - Provider Comments Provider responsibility: Provider responsible to enter orders to implement recommendations Provider Comments to Recommendations by Pharmacy: Agree
[2018-08-11 13:30] VITALS: PULSE 84; RESP 18; O2SAT 95
[2018-08-11] MEDS: Ipratropium/Albuterol Sulfate 3 ML AMPUL.NEB INHALATION ×2 (13:30→19:38)
[2018-08-11] MEDS: Tuberculin,Purif.prot.deriv. 50 TU/ML Vial 5 ML ID (13:38)
[2018-08-11 15:59] VITALS: BP 124/73; PULSE 73; RESP 16; TEMP 36.3; O2SAT 96
[2018-08-11 19:38] VITALS: PULSE 69; RESP 17
[2018-08-11] MEDS: Pravastatin 40 MG Tablet PO (21:04)
[2018-08-12] VITALS (7 sets, daily range): BP systolic 129–144; BP diastolic 91–92; PULSE 76–95; RESP 16–18; TEMP 36.6; O2SAT 94–98
[2018-08-12] MEDS: Polyethylene Glycol 3350 17 GM PACKET PO (05:58)
[2018-08-12] MEDS: Cefdinir 300 MG Capsule PO ×2 (05:58→17:02)
[2018-08-12] MEDS: Amiodarone 200 MG Tablet PO ×2 (05:58→17:02)
[2018-08-12] MEDS: Furosemide 40 MG Tablet PO (05:59)
[2018-08-12] MEDS: APIXABAN 2.5 MG TABLET PO ×2 (05:59→17:02)
[2018-08-12] MEDS: Senna/Docusate Sodium 1 Tablet PO (05:59)
[2018-08-12] MEDS: Sertraline 50 MG Tablet PO (05:59)
[2018-08-12] MEDS: Ipratropium/Albuterol Sulfate 3 ML AMPUL.NEB INHALATION ×3 (06:45→20:15)
[2018-08-12] MEDS: Carvedilol 12.5 MG Tablet PO ×2 (08:34→17:02)
[2018-08-12] MEDS: Aspirin E.C. 81 MG Tablet PO (08:34)
[2018-08-12] MEDS: MethylPREDNISolone DosePak 4 MG BOX PO ×4 (08:34→21:00)
--- NOTE | 2018-08-12 09:38 | NURSING ---
PT STATED TO THIS NURSE THAT SHE HAS BEEN HAVING DIARRHEA AND IS REALLY THIRSTY BUT EVERY TIME SHE EATS OR DRINKS SHE IS RUNNING TO THE BATH ROOM FOR A BM. REPORTED TO LILIANA SALDANA
--- NOTE | 2018-08-12 16:27 | NURSING ---
PT HAD SMALL NOSE BLEED. PT STATED HER NOSE WAS DRY. THIS NURSE APPLIED MOISTURE TO O2. REPORTED TO LILIANA SALDANA
[2018-08-12] MEDS: Pravastatin 40 MG Tablet PO (21:02)
[2018-08-13] MEDS: Sertraline 50 MG Tablet PO (06:11)
[2018-08-13] MEDS: Cefdinir 300 MG Capsule PO ×2 (06:12→17:52)
[2018-08-13] MEDS: Amiodarone 200 MG Tablet PO ×2 (06:12→17:52)
[2018-08-13] MEDS: APIXABAN 2.5 MG TABLET PO ×2 (06:12→17:52)
[2018-08-13] MEDS: SACUBITRIL/VALSARTAN 24/26 MG TABLET 1 EACH PO ×2 (06:13→17:52)
[2018-08-13] MEDS: Furosemide 40 MG Tablet PO (06:13)
[2018-08-13 07:01] VITALS: PULSE 79; RESP 20; O2SAT 97
[2018-08-13] MEDS: Ipratropium/Albuterol Sulfate 3 ML AMPUL.NEB INHALATION ×3 (07:01→19:25)
[2018-08-13 07:25] VITALS: PULSE 80; RESP 20; O2SAT 98
[2018-08-13] MEDS: Carvedilol 12.5 MG Tablet PO ×2 (08:35→17:52)
[2018-08-13] MEDS: MethylPREDNISolone DosePak 4 MG BOX PO ×3 (08:35→20:13)
[2018-08-13] MEDS: Aspirin E.C. 81 MG Tablet PO (08:35)
[2018-08-13 13:15] VITALS: PULSE 73; RESP 16
[2018-08-13 15:09] VITALS: BP 135/66; PULSE 79; RESP 18; TEMP 37.1; O2SAT 95
[2018-08-13 19:30] VITALS: PULSE 75; RESP 18
[2018-08-13] MEDS: Pravastatin 40 MG Tablet PO (20:16)
[2018-08-14] MEDS: Furosemide 40 MG Tablet PO (06:07)
[2018-08-14] MEDS: Cefdinir 300 MG Capsule PO ×2 (06:07→17:30)
[2018-08-14] MEDS: Amiodarone 200 MG Tablet PO ×2 (06:07→17:30)
[2018-08-14] MEDS: SACUBITRIL/VALSARTAN 24/26 MG TABLET 1 EACH PO ×2 (06:07→17:30)
[2018-08-14] MEDS: APIXABAN 2.5 MG TABLET PO ×2 (06:07→17:30)
[2018-08-14] MEDS: Sertraline 50 MG Tablet PO (06:07)
[2018-08-14 06:34] VITALS: PULSE 70; RESP 22; O2SAT 94
[2018-08-14] MEDS: Ipratropium/Albuterol Sulfate 3 ML AMPUL.NEB INHALATION ×3 (06:34→18:31)
[2018-08-14] MEDS: Aspirin E.C. 81 MG Tablet PO (07:53)
[2018-08-14] MEDS: Carvedilol 12.5 MG Tablet PO ×2 (07:53→17:29)
[2018-08-14] MEDS: MethylPREDNISolone DosePak 4 MG BOX PO ×2 (07:54→20:11)
[2018-08-14 10:00] VITALS: PULSE 84; RESP 18; O2SAT 97
[2018-08-14 13:12] VITALS: PULSE 69; RESP 18
[2018-08-14 14:58] VITALS: BP 143/72; PULSE 66; RESP 16; TEMP 36.5; O2SAT 97
[2018-08-14 18:31] VITALS: PULSE 88; RESP 16; O2SAT 97
[2018-08-14 19:52] VITALS: O2SAT 89
[2018-08-14] MEDS: Pravastatin 40 MG Tablet PO (20:11)
[2018-08-14] MEDS: Menthol/Lanolin/Calamine/Znox 113 GM Tube 1 APPLIC TOPICAL (20:19)
[2018-08-15] MEDS: Cefdinir 300 MG Capsule PO ×2 (06:02→17:49)
[2018-08-15] MEDS: SACUBITRIL/VALSARTAN 24/26 MG TABLET 1 EACH PO ×2 (06:02→17:48)
[2018-08-15] MEDS: Sertraline 50 MG Tablet PO (06:02)
[2018-08-15] MEDS: Furosemide 40 MG Tablet PO (06:02)
[2018-08-15] MEDS: Amiodarone 200 MG Tablet PO ×2 (06:02→17:49)
[2018-08-15] MEDS: APIXABAN 2.5 MG TABLET PO ×2 (06:03→17:48)
[2018-08-15] MEDS: Menthol/Lanolin/Calamine/Znox 113 GM Tube 1 APPLIC TOPICAL ×3 (06:03→20:50)
[2018-08-15 06:39] VITALS: PULSE 87; RESP 18
[2018-08-15] MEDS: Ipratropium/Albuterol Sulfate 3 ML AMPUL.NEB INHALATION ×2 (06:39→13:10)
[2018-08-15] MEDS: Carvedilol 12.5 MG Tablet PO ×2 (08:39→17:49)
[2018-08-15] MEDS: MethylPREDNISolone DosePak 4 MG BOX PO (08:39)
[2018-08-15] MEDS: Aspirin E.C. 81 MG Tablet PO (08:39)
[2018-08-15 08:42] VITALS: BP 125/74; PULSE 91
[2018-08-15 13:10] VITALS: PULSE 82; RESP 16; O2SAT 95
[2018-08-15 15:13] VITALS: BP 126/65; PULSE 74; RESP 17; TEMP 36.8; O2SAT 94
[2018-08-15] MEDS: Pravastatin 40 MG Tablet PO (20:50)
[2018-08-15 21:00] VITALS: PULSE 67; RESP 18; O2SAT 96
[2018-08-16] MEDS: Sertraline 50 MG Tablet PO (06:21)
[2018-08-16] MEDS: APIXABAN 2.5 MG TABLET PO ×2 (06:21→17:21)
[2018-08-16] MEDS: SACUBITRIL/VALSARTAN 24/26 MG TABLET 1 EACH PO ×2 (06:21→17:20)
[2018-08-16] MEDS: Amiodarone 200 MG Tablet PO ×2 (06:21→17:21)
[2018-08-16] MEDS: Furosemide 40 MG Tablet PO (06:21)
[2018-08-16] MEDS: Menthol/Lanolin/Calamine/Znox 113 GM Tube 1 APPLIC TOPICAL ×3 (06:22→20:00)
[2018-08-16] MEDS: Cefdinir 300 MG Capsule PO ×2 (06:23→17:21)
[2018-08-16] MEDS: Ipratropium/Albuterol Sulfate 3 ML AMPUL.NEB INHALATION ×3 (06:47→18:25)
[2018-08-16 06:48] VITALS: PULSE 82; RESP 20; O2SAT 93
[2018-08-16] MEDS: Carvedilol 12.5 MG Tablet PO ×2 (09:18→17:21)
[2018-08-16] MEDS: Aspirin E.C. 81 MG Tablet PO (09:18)
[2018-08-16 09:19] VITALS: BP 133/61; PULSE 83; O2SAT 98
[2018-08-16 13:37] VITALS: PULSE 60; RESP 20
[2018-08-16 16:00] VITALS: BP 124/66; PULSE 80; RESP 16; TEMP 36.4; O2SAT 99
[2018-08-16 17:55] VITALS: PULSE 74; RESP 16
[2018-08-16 18:25] VITALS: PULSE 82; RESP 20
[2018-08-16] MEDS: Pravastatin 40 MG Tablet PO (20:00)
[2018-08-17] MEDS: Acetaminophen 500 MG Tablet 1000 MG PO (06:24)
[2018-08-17] MEDS: Furosemide 40 MG Tablet PO (06:25)
[2018-08-17] MEDS: SACUBITRIL/VALSARTAN 24/26 MG TABLET 1 EACH PO ×2 (06:25→17:36)
[2018-08-17] MEDS: Sertraline 50 MG Tablet PO (06:25)
[2018-08-17] MEDS: Amiodarone 200 MG Tablet PO ×2 (06:25→17:36)
[2018-08-17] MEDS: Cefdinir 300 MG Capsule PO ×2 (06:25→17:36)
[2018-08-17] MEDS: APIXABAN 2.5 MG TABLET PO ×2 (06:26→17:36)
[2018-08-17] MEDS: Menthol/Lanolin/Calamine/Znox 113 GM Tube 1 APPLIC TOPICAL ×3 (06:27→21:49)
[2018-08-17 06:42] VITALS: PULSE 70; RESP 16; O2SAT 97
[2018-08-17] MEDS: Ipratropium/Albuterol Sulfate 3 ML AMPUL.NEB INHALATION (06:42)
[2018-08-17] MEDS: Carvedilol 12.5 MG Tablet PO ×2 (08:37→17:36)
[2018-08-17] MEDS: Aspirin E.C. 81 MG Tablet PO (08:37)
--- NOTE | 2018-08-17 09:57 | CASEMGMT ---
Social Work IDT met with patient and all 4 children for care plan meeting. Patient continuing to progress well with therapy - supervision with ADLs, walking without a device and completed 5 steps. Patient reporting depressive symptoms and grief from loss of grandchild in March. Pt on medication. Nursing educated patient on preventing CHF exacerbation, taking medications regularly at home, and allowing children to assist with laundry, etc. at home. Pt reluctantly agreed and understood. Provided counseling resources for depression and grief. Have seen pt several times throughout stay and provided emotional support for grief - allowing time for pt to express feelings. Discharge planning remains ongoing. Will continue to follow. ASHANTI BenedictW
[2018-08-17 16:00] VITALS: BP 104/64; PULSE 66; RESP 18; TEMP 36.3; O2SAT 95
--- NOTE | 2018-08-17 17:39 | NURSING ---
This nurse monitored SpO2 throughout shift. Pt fluctuating between 96-97% on RA. Will continue to monitor.
[2018-08-17] MEDS: Pravastatin 40 MG Tablet PO (21:38)
[2018-08-17 22:46] VITALS: PULSE 76; RESP 18; O2SAT 97
[2018-08-18] MEDS: Cefdinir 300 MG Capsule PO (05:36)
[2018-08-18] MEDS: Amiodarone 200 MG Tablet PO ×2 (05:36→17:27)
[2018-08-18] MEDS: Sertraline 50 MG Tablet PO (05:36)
[2018-08-18] MEDS: APIXABAN 2.5 MG TABLET PO ×2 (05:36→17:27)
[2018-08-18] MEDS: SACUBITRIL/VALSARTAN 24/26 MG TABLET 1 EACH PO ×2 (05:36→17:27)
[2018-08-18] MEDS: Furosemide 40 MG Tablet PO (05:37)
[2018-08-18] MEDS: Menthol/Lanolin/Calamine/Znox 113 GM Tube 1 APPLIC TOPICAL ×3 (05:38→21:02)
[2018-08-18 05:46] LABS: Absolute Lymphocyte Count 1.54 X10^3/ul (0.83-4.51); Absolute Neutrophil Count 7.2 X10^3/uL (2.0-7.7); Basophil# 0.01 X10^3/uL; Basophil% 0.1 % (0-1); Eosinophil# 0.17 X10^3/uL; Eosinophils% 1.7 % (0-5); Hematocrit 42.8 % (37-47); Hemoglobin 14.3 g/dl (12.0-15.0); Lymphocyte # 1.54 X10^3/ul (4.0); Lymphocyte % 15.3 % (19-41); Mean Corp Hgb Conc 33.4 g/gl (32-36); Mean Corpuscular Hgb 30.4 pg (27.0-32.0); Mean Corpuscular Volume 91.1 fL (81-99); Mean Platelet Vol. 10.1 fl (6.2-12.0); Monocyte# 0.94 X10^3/uL; Monocyte% 9.3 % (0-10); Neutrophil # 7.18 X10^3/uL (2.7-7.7); Neutrophil % 71.4 % (47-70); Platelet Count 202 K/mm3 (150-450); RBC Distribution Width CV 15.3 % (11.6-14.6); RBC Distribution Width SD 50.3 fl (35.1-43.9); White Blood Count 10.1 K/mm3 (4.4-11.0)
[2018-08-18 06:08] LABS: Anion Gap 5 (5-15); BUN 27 mg/dL (7-18); BUN/Creat Ratio 24.3 RATIO (10-20); Calcium,Total 8.8 mg/dL (8.5-10.1); Chloride 101 mmol/L (98-107); Creatinine, Serum 1.11 mg/dL (0.55-1.02); EST Glomerular Filtration Rate 50 mL/min (>60); Est Glom Filt Rate - Afr Amer 61 mL/min (>60); Estimated Creatinine Clearance 31.97 ml/min; Glucose 185 mg/dL (74-106); POSITIVE COUNT YES; POSITIVE DIFFERENTIAL NO; POSITIVE MORPHOLOGY YES; Sodium Level 139 mmol/L (136-145)
[2018-08-18 06:50] VITALS: O2SAT 93
[2018-08-18] MEDS: Aspirin E.C. 81 MG Tablet PO (08:10)
[2018-08-18] MEDS: Carvedilol 12.5 MG Tablet PO ×2 (08:10→17:27)
[2018-08-18] MEDS: Tuberculin,Purif.prot.deriv. 50 TU/ML Vial 5 ML ID (09:52)
[2018-08-18 13:32] LABS: Pathologist Review Reviewed
[2018-08-18 14:04] VITALS: BP 116/51; PULSE 79; RESP 16; TEMP 37.3; O2SAT 94
--- NOTE | 2018-08-18 16:15 | CHAPLAIN ---
Type of Pastoral Visit _x__ Initial Visit ___ Follow-up Visit ___ On-call Visit ___ General Patient Visit ___ Spiritual Assessment ___ Family Conference ___ Bereavement ___ Rapid Response ___ Code Blue ___ Other (describe below) Pastoral Care Referral From _x__ Patient ___ Family ___ Nurse ___ Physician ___ Plastic Mould Maker ___ Analytical Laboratory Technician ___ Other (describe below) Sacrament/Intervention _x__ Active listening ___ Anointing ___ Pentecostalism ___ Bereavement ___ Communion ___ Tracy exploration ___ _x__ Life review _x__ Prayer ___ Reconciliation ___ Sacrament of Sick ___ Supportive presence ___ Wedding ___ Other (describe below) Pastoral Comments good life review time
[2018-08-18] MEDS: Pravastatin 40 MG Tablet PO (21:02)
[2018-08-19] MEDS: Sertraline 50 MG Tablet PO (05:12)
[2018-08-19] MEDS: Amiodarone 200 MG Tablet PO ×2 (05:12→17:32)
[2018-08-19] MEDS: SACUBITRIL/VALSARTAN 24/26 MG TABLET 1 EACH PO ×2 (05:12→17:32)
[2018-08-19] MEDS: APIXABAN 2.5 MG TABLET PO ×2 (05:12→17:32)
[2018-08-19] MEDS: Furosemide 40 MG Tablet PO ×2 (05:12→17:32)
[2018-08-19] MEDS: Senna/Docusate Sodium 1 Tablet PO (05:14)
[2018-08-19] MEDS: Menthol/Lanolin/Calamine/Znox 113 GM Tube 1 APPLIC TOPICAL ×3 (05:16→20:52)
[2018-08-19 06:32] VITALS: O2SAT 91
[2018-08-19] MEDS: Carvedilol 12.5 MG Tablet PO ×2 (08:29→17:32)
[2018-08-19] MEDS: Aspirin E.C. 81 MG Tablet PO (08:29)
[2018-08-19 08:32] VITALS: BP 119/53; PULSE 85; O2SAT 97
--- NOTE | 2018-08-19 11:59 | NURSING ---
PT REFUSED TEDHOSE.
[2018-08-19 13:10] VITALS: PULSE 73; RESP 18; O2SAT 95
[2018-08-19 15:32] VITALS: BP 122/76; PULSE 65; RESP 18; O2SAT 94
[2018-08-19] MEDS: Pravastatin 40 MG Tablet PO (20:51)
[2018-08-20] MEDS: Sertraline 50 MG Tablet PO (04:59)
[2018-08-20] MEDS: Amiodarone 200 MG Tablet PO ×2 (04:59→17:06)
[2018-08-20] MEDS: SACUBITRIL/VALSARTAN 24/26 MG TABLET 1 EACH PO ×2 (05:00→17:07)
[2018-08-20] MEDS: APIXABAN 2.5 MG TABLET PO ×2 (05:00→17:06)
[2018-08-20] MEDS: Menthol/Lanolin/Calamine/Znox 113 GM Tube 1 APPLIC TOPICAL ×3 (05:02→20:49)
[2018-08-20 07:12] VITALS: O2SAT 94
[2018-08-20] MEDS: Carvedilol 12.5 MG Tablet PO ×2 (09:53→17:06)
[2018-08-20] MEDS: Furosemide 40 MG Tablet PO ×2 (09:53→17:07)
[2018-08-20] MEDS: Aspirin E.C. 81 MG Tablet PO (09:54)
[2018-08-20 16:00] VITALS: BP 112/64; PULSE 68; RESP 18; TEMP 36.5; O2SAT 96
[2018-08-20] MEDS: Pravastatin 40 MG Tablet PO (20:49)
[2018-08-21] MEDS: SACUBITRIL/VALSARTAN 24/26 MG TABLET 1 EACH PO ×2 (06:01→17:00)
[2018-08-21] MEDS: Amiodarone 200 MG Tablet PO ×2 (06:01→17:00)
[2018-08-21] MEDS: APIXABAN 2.5 MG TABLET PO ×2 (06:02→17:01)
[2018-08-21] MEDS: Menthol/Lanolin/Calamine/Znox 113 GM Tube 1 APPLIC TOPICAL ×3 (06:02→20:45)
[2018-08-21] MEDS: Sertraline 50 MG Tablet PO (06:03)
[2018-08-21] MEDS: Furosemide 40 MG Tablet PO ×2 (08:15→17:05)
[2018-08-21] MEDS: Carvedilol 12.5 MG Tablet PO ×2 (08:15→17:00)
[2018-08-21] MEDS: Aspirin E.C. 81 MG Tablet PO (08:15)
[2018-08-21 15:58] VITALS: BP 115/66; PULSE 69; RESP 16; TEMP 36.2; O2SAT 97
[2018-08-21] MEDS: Pravastatin 40 MG Tablet PO (20:44)
[2018-08-21 21:00] VITALS: PULSE 76; RESP 17; O2SAT 95
[2018-08-22] MEDS: Menthol/Lanolin/Calamine/Znox 113 GM Tube 1 APPLIC TOPICAL ×3 (06:50→20:44)
[2018-08-22] MEDS: Amiodarone 200 MG Tablet PO ×2 (06:50→17:03)
[2018-08-22] MEDS: SACUBITRIL/VALSARTAN 24/26 MG TABLET 1 EACH PO ×2 (06:50→17:03)
[2018-08-22] MEDS: APIXABAN 2.5 MG TABLET PO ×2 (06:50→17:03)
[2018-08-22] MEDS: Sertraline 50 MG Tablet PO (06:50)
[2018-08-22] MEDS: Carvedilol 12.5 MG Tablet PO ×2 (08:24→17:03)
[2018-08-22] MEDS: Aspirin E.C. 81 MG Tablet PO (08:24)
[2018-08-22 10:00] VITALS: O2SAT 96
[2018-08-22] MEDS: Furosemide 40 MG Tablet PO ×2 (10:07→17:03)
--- NOTE | 2018-08-22 10:35 | MDS.RN ---
Information for the mds was obtained from review of the clinical record, interview of resident, staff, and direct observation of resident's care.
[2018-08-22 15:13] VITALS: BP 109/50; PULSE 67; RESP 18; TEMP 36.6; O2SAT 98
[2018-08-22] MEDS: Pravastatin 40 MG Tablet PO (20:45)
[2018-08-23] MEDS: Amiodarone 200 MG Tablet PO ×2 (05:30→17:11)
[2018-08-23] MEDS: SACUBITRIL/VALSARTAN 24/26 MG TABLET 1 EACH PO ×2 (05:30→17:11)
[2018-08-23] MEDS: APIXABAN 2.5 MG TABLET PO ×2 (05:30→17:11)
[2018-08-23] MEDS: Menthol/Lanolin/Calamine/Znox 113 GM Tube 1 APPLIC TOPICAL ×3 (05:30→21:00)
[2018-08-23] MEDS: Sertraline 50 MG Tablet PO (05:30)
[2018-08-23] MEDS: Carvedilol 12.5 MG Tablet PO ×2 (08:06→17:11)
[2018-08-23] MEDS: Aspirin E.C. 81 MG Tablet PO (08:06)
[2018-08-23 08:08] VITALS: BP 117/76; PULSE 74
[2018-08-23] MEDS: Furosemide 40 MG Tablet PO ×2 (09:08→17:11)
--- NOTE | 2018-08-23 13:58 | CASEMGMT ---
Social Work IDT recommending pt discharge 08/26 with outpatient PT. No DME needs. Spoke with pt about DC date - patient satisfied and ready to go home with spouse. Children to support with any needs. Pt agreeable to [facility]. Plan: DC home with spouse and [facility] 08/26. ASHANTI BenedictW
[2018-08-23 15:08] VITALS: O2SAT 91
[2018-08-23 15:22] VITALS: BP 130/58; PULSE 65; RESP 16; TEMP 36.4; O2SAT 95
[2018-08-23 20:45] VITALS: BP 123/60; PULSE 59; RESP 18; TEMP 36.9; O2SAT 100
--- NOTE | 2018-08-23 20:55 | PCM.DC ---
- Discharge Diagnoses Current Active Problems: Current Active and Chronic Problems (Last Reviewed 08/19/18 @ 14:29 by Chandu Ferro MD) Shortness of breath (Acute) Acute on chronic systolic (congestive) heart failure (Acute) Atrial fibrillation with rapid ventricular response (Acute) Coronary artery disease (Chronic) Hypokalemia (Chronic) Depression (Chronic) Bronchitis (Acute) You will use the following diet at home:: No restrictions, Regular Your food should be the consistency of: Regular Your liquids should be the consistency of: Regular/Thin Discharge Activity: Return to Normal Activity, May Shower, Use Walker Weight Bearing Status: Weight bearing as tolerated Call your doctor if you observe: Fever of 101 or Higher, Inability to urinate, Inability to have a bowel movement, Shortness of breath, Chest pain, Uncontrolled pain Allergies/Adverse Reactions: Allergies Tnjprux-Pjo-Utu Reductase Inhibitor Adverse Reaction (Verified 08/19/18 13:46) muscle aches warfarin [From Coumadin] Adverse Reaction (Verified 08/19/18 13:46) GI bleeds, profuse nosebleeds Medications to take at Discharge sertraline 50 mg tablet 50 mg PO DAILY 30 Days #30 tab 02/17/18 Apixaban [Eliquis] 2.5 mg PO BID 08/10/18 Aspirin E.C. [Ecotrin] 81 mg PO DAILY@0800 08/10/18 Carvedilol 12.5 mg PO BID 08/10/18 Potassium Chloride [K-Dur] 40 meq PO DAILYCM 08/10/18 Pravastatin Sodium 40 mg PO QDAY 08/10/18 Acetaminophen [Tylenol] 1,000 mg PO Q6H PRN PRN tablet 08/23/18 Amiodarone HCl [Cordarone] 200 mg PO BID #60 tab 08/23/18 Furosemide [Lasix] 40 mg PO BID@1000,1800 #60 tab 08/23/18 Menthol/Lanolin/Calamine/Znox [Calmoseptine Ointment] 1 applic TOPICAL TID tube 08/23/18 Sacubitril/Valsartan 49-51 mg [Entresto 49 mg-51 mg Tablet] 1 ea PO BID #30 tab 08/23/18 The following prescriptions were given: Amiodarone HCl [Cordarone] 200 mg PO BID #60 tab Transmission Status: Pending to [facility]30 Sacubitril/Valsartan 49-51 mg [Entresto 49 mg-51 mg Tablet] 1 ea PO BID #30 tab Transmission Status: Pending to [facility] #30 Furosemide [Lasix] 40 mg PO BID@1000,1800 #60 tab Transmission Status: Pending to [facility] #30 Primary Care Physician: Salas Aguilar III, MD [Primary Care Provider] - Please follow up with your Primary Care Physician in: 1 week. Test Results: Test results from this visit will be discussed in further detail at your follow-up appointment, if applicable. Please Follow Up With: Dr. Aguilar PCP Please Follow Up With: Dr. Ferro Please Follow Up With: [facility] When: Office will call to schedule Proposed Discharge Date: 08/26/18
--- NOTE | 2018-08-23 20:56 | DS.PCM_ITS ---
Discharge Date and Diagnosis - Problem List Patient Problems: Active and Suspected Problems (Last Reviewed 08/19/18 @ 14:29 by Chandu Ferro MD) Shortness of breath (Acute) Acute on chronic systolic (congestive) heart failure (Acute) Atrial fibrillation with rapid ventricular response (Acute) Bronchitis (Acute) Date of Admission: 08/10/18 Date of Discharge: 08/26/18 - Primary Discharge Diagnosis Active and Suspected Problems (Last Reviewed 08/19/18 @ 14:29 by Chandu Ferro MD) Shortness of breath (Acute) Acute on chronic systolic (congestive) heart failure (Acute) Atrial fibrillation with rapid ventricular response (Acute) Bronchitis (Acute) - Secondary Discharge Diagnosis Chronic Problems (Last Reviewed 08/19/18 @ 14:29 by Chandu Ferro MD) Elevated troponin (Chronic) Coronary artery disease (Chronic) Hypokalemia (Chronic) Depression (Chronic) Low serum HDL (Chronic) Chronic kidney disease, stage III (moderate) (Chronic) History of coronary artery stent placement (Chronic) 01/18, PCI/bare metal stent to mid LAD and ostium of diag #2, PTCA to diag #1-02/09/13 Atherosclerotic heart disease of [place] coronary artery without angina pectoris (Chronic) Chronic atrial fibrillation (Chronic) Chronic systolic congestive heart failure (Chronic) Bradycardia (Chronic) Dilated cardiomyopathy (Chronic) 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) CAD (coronary artery disease) (Chronic) status post stents A-fib (Chronic) Hyperlipidemia (Chronic) HTN (hypertension) (Chronic) Hospital Course and Treatment Imaging Results: 08/10/18 14:26 Diet: Cardiac/Low Cholesterol Food consistency:: Regular Liquid Consistency:: Regular/Thin Is pt able to select menu?: Yes Diet Comments: 2 gram sodium Clinical Impression(s) from Imaging Studies Chest X-Ray 08/10/18 18:02 IMPRESSION: No acute thoracic pathology. Cardiomegaly. Bibasilar atelectasis. Trace bilateral pleural effusions. Electronically Signed: Zac Romero, at 21:24 EDT Tel , Service support , Operations: None Procedures: None Summary of Care Provided: The patient is a 78 year old Female with below past medical history hospitalized for acute on chronic systolic congestive heart failure secondary to atrial fibrillation with rapid ventricular response, complicated by NSTEMI from demand ischemia, admitted to TCU with debility, here for rehabilitation, strengthening, prior to discharge home with spouse. Amiodarone added for rate/rhythm control. On TCU, Dr. Ferro increased Lasix to 40MG twice daily for improved diuresis. Resident started on Entresto for systolic heart failure to decrease risk of sudden , decrease risk of hospitalization, and improve her functional status. Resident will be discharged on Entresto 49/51MG twice daily thru 09/11/2018. Recommend titrating Entresto to 97/103MG twice daily starting 09/12/2018. Discharge home with spouse, outpatient PT at [facility] 08/26/2018. Patient Problems: Active and Suspected Problems (Last Reviewed 08/19/18 @ 14:29 by Chandu Ferro MD) Shortness of breath (Acute) Acute on chronic systolic (congestive) heart failure (Acute) Atrial fibrillation with rapid ventricular response (Acute) Bronchitis (Acute) - Physical Exam Vital Signs Temp Pulse Resp BP Pulse Ox 97.5 F L 65 16 130/58 H 95 08/23/18 15:22 08/23/18 15:22 08/23/18 15:22 08/23/18 15:22 08/23/18 15:22 Oxygen Flow Rate (L/min) 1 Oxygen Delivery Method Room Air Weight: 63.616 kg Body Mass Index (BMI) 26.6 Intake and Output for Last 24 Hours 08/21/18 08/22/18 08/23/18 23:59 23:59 23:59 Intake Total 1080 / 1080 1320 / 1320 1220 / 1220 Balance 1080 / 1080 1320 / 1320 1220 / 1220 Discharge Diet: No Restrictions Discharge Activity: Return to Normal Activity, May Shower, Use Walker Weight Bearing Status: Weight bearing as tolerated Call your doctor if you observe: Fever of 101 or Higher, Inability to urinate, Inability to have a bowel movement, Shortness of breath, Chest pain, Uncontrolled pain Home Medications: Medications to take at Discharge sertraline 50 mg tablet 50 mg PO DAILY 30 Days #30 tab 02/17/18 Apixaban [Eliquis] 2.5 mg PO BID 08/10/18 Aspirin E.C. [Ecotrin] 81 mg PO DAILY@0800 08/10/18 Carvedilol 12.5 mg PO BID 08/10/18 Potassium Chloride [K-Dur] 40 meq PO DAILYCM 08/10/18 Pravastatin Sodium 40 mg PO QDAY 08/10/18 Acetaminophen [Tylenol] 1,000 mg PO Q6H PRN PRN tablet 08/23/18 Amiodarone HCl [Cordarone] 200 mg PO BID #60 tab 08/23/18 Furosemide [Lasix] 40 mg PO BID@1000,1800 #60 tab 08/23/18 Menthol/Lanolin/Calamine/Znox [Calmoseptine Ointment] 1 applic TOPICAL TID tube 08/23/18 Sacubitril/Valsartan 49-51 mg [Entresto 49 mg-51 mg Tablet] 1 ea PO BID #30 tab 08/23/18 Following Prescrptions Were Given to Patient: Amiodarone HCl [Cordarone] 200 mg PO BID #60 tab Transmission Status: Pending to [facility] #30 Sacubitril/Valsartan 49-51 mg [Entresto 49 mg-51 mg Tablet] 1 ea PO BID #30 tab Transmission Status: Pending to [facility] #30 Furosemide [Lasix] 40 mg PO BID@1000,1800 #60 tab Transmission Status: Pending to [facility] #30 Primary Care Physician: Salas Aguilar III, MD [Primary Care Provider] - Please follow up with your Primary Care Physician in: 1 week. Please Follow Up With: Dr. Aguilar PCP Please Follow Up With: Dr. Ferro Please Follow Up With: [facility] When: Office will call to schedule Disposition: Home Minutes spent on discharge:: 30 Patient Condition:: Stable Medical Necessity - Tobacco Use Smoking Status: Never smoker Tobacco Use: Non-smoker Meaningful Use Info Meaningful Use Diagnoses (Choose all that apply): None applicable
[2018-08-23] MEDS: Pravastatin 40 MG Tablet PO (20:57)
[2018-08-24] MEDS: Sertraline 50 MG Tablet PO (05:53)
[2018-08-24] MEDS: Amiodarone 200 MG Tablet PO ×2 (05:53→17:09)
[2018-08-24] MEDS: SACUBITRIL/VALSARTAN 24/26 MG TABLET 1 EACH PO ×2 (05:53→17:09)
[2018-08-24] MEDS: APIXABAN 2.5 MG TABLET PO ×2 (05:53→17:09)
[2018-08-24] MEDS: Menthol/Lanolin/Calamine/Znox 113 GM Tube 1 APPLIC TOPICAL ×3 (05:56→21:22)
[2018-08-24 07:48] VITALS: BP 141/82; PULSE 67; O2SAT 96
[2018-08-24] MEDS: Aspirin E.C. 81 MG Tablet PO (07:48)
[2018-08-24] MEDS: Carvedilol 12.5 MG Tablet PO ×2 (07:49→17:09)
[2018-08-24] MEDS: Furosemide 40 MG Tablet PO ×2 (09:54→17:09)
[2018-08-24 14:30] VITALS: BP 121/57; PULSE 63; RESP 16; TEMP 36.9; O2SAT 94
[2018-08-24] MEDS: Pravastatin 40 MG Tablet PO (21:21)
[2018-08-24 21:23] VITALS: O2SAT 96
[2018-08-25] MEDS: Sertraline 50 MG Tablet PO (05:10)
[2018-08-25] MEDS: SACUBITRIL/VALSARTAN 24/26 MG TABLET 1 EACH PO ×2 (05:10→17:45)
[2018-08-25] MEDS: APIXABAN 2.5 MG TABLET PO ×2 (05:11→17:45)
[2018-08-25] MEDS: Amiodarone 200 MG Tablet PO ×2 (05:11→17:44)
[2018-08-25] MEDS: Menthol/Lanolin/Calamine/Znox 113 GM Tube 1 APPLIC TOPICAL ×3 (05:12→20:41)
[2018-08-25 06:17] LABS: Absolute Lymphocyte Count 1.52 X10^3/ul (0.83-4.51); Absolute Neutrophil Count 3.5 X10^3/uL (2.0-7.7); Basophil# 0.02 X10^3/uL; Basophil% 0.3 % (0-1); Eosinophil# 0.14 X10^3/uL; Eosinophils% 2.4 % (0-5); Hemoglobin 12.8 g/dl (12.0-15.0); Lymphocyte # 1.52 X10^3/ul (4.0); Lymphocyte % 26.4 % (19-41); Mean Corp Hgb Conc 32.8 g/gl (32-36); Mean Corpuscular Hgb 29.8 pg (27.0-32.0); Mean Corpuscular Volume 90.9 fL (81-99); Mean Platelet Vol. 10.5 fl (6.2-12.0); Monocyte# 0.53 X10^3/uL; Monocyte% 9.2 % (0-10); Neutrophil # 3.52 X10^3/uL (2.7-7.7); Neutrophil % 61.4 % (47-70); Platelet Count 203 K/mm3 (150-450); RBC Distribution Width CV 15.4 % (11.6-14.6); RBC Distribution Width SD 50.9 fl (35.1-43.9); Red Blood Count 4.29 M/mm3 (4.2-5.4); White Blood Count 5.8 K/mm3 (4.4-11.0)
[2018-08-25 06:18] LABS: POSITIVE COUNT NO; POSITIVE DIFFERENTIAL NO; POSITIVE MORPHOLOGY NO
[2018-08-25 06:30] LABS: Anion Gap 7 (5-15); BUN 29 mg/dL (7-18); BUN/Creat Ratio 24.6 RATIO (10-20); Calcium,Total 8.6 mg/dL (8.5-10.1); Chloride 103 mmol/L (98-107); Creatinine, Serum 1.18 mg/dL (0.55-1.02); EST Glomerular Filtration Rate 47 mL/min (>60); Est Glom Filt Rate - Afr Amer 57 mL/min (>60); Estimated Creatinine Clearance 30.07 ml/min; Glucose 153 mg/dL (74-106); Potassium 3.8 mmol/L (3.5-5.1); Sodium Level 140 mmol/L (136-145)
[2018-08-25] MEDS: Carvedilol 12.5 MG Tablet PO ×2 (07:46→17:44)
[2018-08-25] MEDS: Aspirin E.C. 81 MG Tablet PO (07:46)
[2018-08-25] MEDS: Furosemide 40 MG Tablet PO ×2 (07:46→17:45)
[2018-08-25 07:49] VITALS: BP 127/1; PULSE 79
[2018-08-25 15:52] VITALS: BP 119/59; PULSE 74; RESP 16; TEMP 37.1; O2SAT 97
--- NOTE | 2018-08-25 18:12 | NURSING ---
Beautician notified this nurse of pt having lump size of quarter raised to back of neck. Dr singh updated, NNO's just monitor.
[2018-08-25 20:30] VITALS: PULSE 71; RESP 18; O2SAT 97
[2018-08-25] MEDS: Pravastatin 40 MG Tablet PO (20:40)
[2018-08-26] MEDS: SACUBITRIL/VALSARTAN 24/26 MG TABLET 1 EACH PO (05:27)
[2018-08-26] MEDS: Amiodarone 200 MG Tablet PO (05:27)
[2018-08-26] MEDS: Sertraline 50 MG Tablet PO (05:27)
[2018-08-26] MEDS: APIXABAN 2.5 MG TABLET PO (05:27)
[2018-08-26] MEDS: Menthol/Lanolin/Calamine/Znox 113 GM Tube 1 APPLIC TOPICAL (05:29)
[2018-08-26 05:44] VITALS: PULSE 71; RESP 18; O2SAT 97
[2018-08-26] MEDS: Carvedilol 12.5 MG Tablet PO (07:40)
[2018-08-26] MEDS: Aspirin E.C. 81 MG Tablet PO (07:40)
[2018-08-26] MEDS: Furosemide 40 MG Tablet PO (09:19)
[2018-08-26 11:08] VITALS: BP 121/56; PULSE 76; RESP 18; TEMP 37; O2SAT 95
== END 2018-08-26 11:12 | disposition home or self-care (01) | DRG 947 ==
PROVIDERS: Admitting Provider Family Medicine Geriatric Medicine; Family Provider Family Medicine; PCP Family Medicine; Referring Provider Family Medicine Geriatric Medicine; Visit Provider Family Medicine Geriatric Medicine
DX: R53.81 Other malaise (principal); I21.A1 Myocardial infarction type 2; I50.22 Chronic systolic (congestive) heart failure; I13.0 Hypertensive heart and chronic kidney disease with heart failure and stage 1 through stage 4 chronic kidney disease, or unspecified chronic kidney disease; F32.9 Major depressive disorder, single episode, unspecified; E87.6 Hypokalemia; I25.10 Atherosclerotic heart disease of native coronary artery without angina pectoris; J20.9 Acute bronchitis, unspecified; N18.3 Chronic kidney disease, stage 3 (moderate); E78.5 Hyperlipidemia, unspecified; I48.2 Chronic atrial fibrillation
CPT/HCPCS: 36415; 71046; 80048; 85025; 92610; 94640; 97110; 97116; 97163; 97166; 97530; 97535; 97802

== ENCOUNTER → 2018-08-29 | Outpatient (CLI) | payer MEDICARE, OTHER, SELFPAY ==
[2018-08-19 13:46] VITALS: BMI 26.5
[2018-08-29 16:05] LABS: Absolute Lymphocyte Count 1.79 X10^3/ul (0.83-4.51); Absolute Neutrophil Count 3.2 X10^3/uL (2.0-7.7); Basophil# 0.03 X10^3/uL; Basophil% 0.5 % (0-1); Eosinophil# 0.19 X10^3/uL; Eosinophils% 3.3 % (0-5); Hematocrit 38.9 % (37-47); Hemoglobin 12.7 g/dl (12.0-15.0); Lymphocyte # 1.79 X10^3/ul (4.0); Lymphocyte % 30.7 % (19-41); Mean Corp Hgb Conc 32.6 g/gl (32-36); Mean Corpuscular Hgb 30.2 pg (27.0-32.0); Mean Corpuscular Volume 92.4 fL (81-99); Mean Platelet Vol. 10.4 fl (6.2-12.0); Monocyte# 0.62 X10^3/uL; Monocyte% 10.6 % (0-10); Neutrophil % 54.7 % (47-70); Platelet Count 195 K/mm3 (150-450); RBC Distribution Width CV 15.5 % (11.6-14.6); RBC Distribution Width SD 52.6 fl (35.1-43.9); Red Blood Count 4.21 M/mm3 (4.2-5.4); White Blood Count 5.8 K/mm3 (4.4-11.0)
[2018-08-29 16:10] LABS: POSITIVE COUNT NO; POSITIVE DIFFERENTIAL NO; POSITIVE MORPHOLOGY NO
[2018-08-29 16:26] LABS: ALB/GLOB Ratio 0.7 RATIO (0.9-2.4); AST(SGOT) 33 U/L (15-37); Alanine Aminotransfer ALT/SGPT 47 U/L (13-56); Alkaline Phosphatase 135 U/L (45-117); Anion Gap 9 (5-15); BUN 25 mg/dL (7-18); BUN/Creat Ratio 17.2 RATIO (10-20); Calcium,Total 8.3 mg/dL (8.5-10.1); Chloride 103 mmol/L (98-107); Creatinine, Serum 1.45 mg/dL (0.55-1.02); EST Glomerular Filtration Rate 37 mL/min (>60); Est Glom Filt Rate - Afr Amer 45 mL/min (>60); Globulin 4.2 g/dL (2.2-4.2); Glucose 154 mg/dL (74-106); Potassium 3.9 mmol/L (3.5-5.1); Protein, Total 7.2 g/dL (6.4-8.2); Sodium Level 140 mmol/L (136-145)
== END | disposition home or self-care (01) ==
LOC: POLAB3 13:33
PROVIDERS: Family Provider Family Medicine; PCP Family Medicine; Visit Provider Family Medicine Geriatric Medicine
DX: I10 Essential (primary) hypertension (principal); E55.9 Vitamin D deficiency, unspecified
CPT/HCPCS: 36415; 80053; 82306; 84443; 85025

== ENCOUNTER → 2018-09-09 | Outpatient (CLI) | payer MEDICARE, OTHER, SELFPAY ==
[2018-08-19 13:46] VITALS: BMI 26.5
[2018-09-09 13:09] LABS: Anion Gap 9 (5-15); BUN 16 mg/dL (7-18); BUN/Creat Ratio 12.9 RATIO (10-20); Calcium,Total 8.9 mg/dL (8.5-10.1); Chloride 105 mmol/L (98-107); Creatinine, Serum 1.24 mg/dL (0.55-1.02); EST Glomerular Filtration Rate 44 mL/min (>60); Est Glom Filt Rate - Afr Amer 53 mL/min (>60); Glucose 199 mg/dL (74-106); Potassium 3.8 mmol/L (3.5-5.1); Sodium Level 142 mmol/L (136-145)
== END | disposition home or self-care (01) ==
LOC: POLAB3 11:44
PROVIDERS: Family Provider Family Medicine; PCP Family Medicine; Visit Provider Family Medicine Geriatric Medicine
DX: E03.9 Hypothyroidism, unspecified (principal); E87.6 Hypokalemia
CPT/HCPCS: 36415; 80048; 84443

== ENCOUNTER → 2018-09-27 | Outpatient (CLI) | payer MEDICARE, OTHER, SELFPAY ==
[2018-08-19 13:46] VITALS: BMI 26.5
[2018-09-27 13:08] LABS: Thyroid Stim Hormone (TSH) 8.57 uIU/mL (0.358-3.74)
== END | disposition home or self-care (01) ==
LOC: POLAB3 11:51
PROVIDERS: Family Provider Family Medicine; PCP Family Medicine; Visit Provider Family Medicine Geriatric Medicine
DX: E03.9 Hypothyroidism, unspecified (principal)
CPT/HCPCS: 36415; 84443

== ENCOUNTER 2018-09-28 15:00 | Outpatient (RCR) | payer MEDICARE, OTHER, SELFPAY ==
[2018-08-19 13:46] VITALS: BMI 26.5
--- NOTE | 2018-09-01 16:52 | HP.PTEVAL_ITS ---
Patient's Visit Information CHERYL LIEBERMAN is a 78 year old F referred to Physical Therapy by Santy Ortega MD with a diagnosis of ACUTE EXACERBATION CHF. Date of Evaluation: 09/01/18 Physical Therapist: Donato Winter, PT, Cert MDT, OCS - Visit Plan Frequency: 2x /Week Duration: 3 Weeks Plan: PT INTERVENTION WITH PROGRESSIVE BALANCE PROGRAM ,STRENGTHENING EX'S BLE,ENDURANCE PROGRAM - Subjective Findings: This 78 y/o female presents to physical therapy with acute exacerbation of CHF. Patient admiited to [facility] due to CHF with weakness founf also to found to have bronchitis. Patient was on PCU then transferred to TCU for 08/10/18 Rehab then d/c 08/23/18 to home. Patient recommended PT for strengthening. Pateint major concerns with weakness and generalized fatigue with ADL'S and housework task. Patient does do steps on step time. Condition affects QOL and function. PMH: Diffibulator/pacemaker,stents. SOCIAL: . VOCATION: retired - Objective POSTURE: mild foward posture. GAIT: ambulates with reciprocal pattern slow alejandro. NEURO: denies parathesai/tingling,intact. EDEMA: 2+ lower legs. MMT: quads/hams /hip flexion 4-/5,hip abd 3+/5 hipa abd ,4/5 DF. BALANCE: good -. STAIRS: one step at time with rail - Balance Scores Functional Gait Assessment Score: 17 % Disability: 43.3400 CATSIB Score (Max score 120 seconds): 75 - Goals Goal 1:: Independant with HEP. Goal Time Frame: 4-6 Weeks Goal 2:: Patient to improve functional endurance to good, Goal Time Frame: 4-6 Weeks Goal 3:: Patient increase BLE strengtg quads/hams/hip 4/5 to improve function. Goal Time Frame: 4-6 Weeks Goal 4:: Patient function gait assessment score by 5 points to improve gait Goal Time Frame: 4-6 Weeks Goal 5:: Patient to inmprove LFES score by 5 points to improve QOL. - Rehabilitation Potential Physical Therapy Diagnosis: This patient is deconditioned for ADL'S and generalized weakness impairs gait and housework tasks thus benifit from skiled PT Rehabilitation Potential: Good - Anticipated Interventions Patient/Client Instruction: Educate patient on: Condition, Plan of Care For the Purpose of:: To improve muscle performance and motor function, To improve ability to perform ADL's, To increase tolerance to activity/condition/position, To improve performance and independence with ADL's, To improve ability of physical actions for home/community/work/leisure, To improve gait and locomotor functions, To improve endurance, To improve balance, To improve ability to perform tasks related to life management Therapeutic Exercise to Include: Strength training, Endurance training, Balance training, Flexibilty training Comment: BLE For the Purpose of:: To improve muscle performance and motor function, To improve ability to perform ADL's, To increase tolerance to activity/condition/position, To improve performance and independence with ADL's, To improve ability of physical actions for home/community/work/leisure, To improve endurance, To improve balance, To improve ability to perform tasks related to life management Thank you for the opportunity to evaluate your patient. For Medicare and Medicare HMO plans, please review the plan of care and approve it. It will need to be FAXED BACK to us at [phone] for Medicare purposes. For Medicare only, by signing this I certify the plan of care. Please let me know if there are questions or concerns regarding this plan of care. Physician Swathi meraz: Date:
--- NOTE | 2018-09-28 15:30 | HP.PTDCSUM ---
HP - PT D/C Summary It has been my pleasure to treat CHERYL LIEBERMAN under orders from Santy Ortega MD, for the diagnosis of ACUTE EXACERBATION CHF for a total of 7 visit(s). Discharge Date: 09/28/18 Please see the following information for a summary of their discharge status. - Subjective Subjective: Patient reports alot better able to do more ADL'S with yardwork and housework tasks.Cooler weather helps.Seen DR [facility]. - Overall Improvement % Improvement: 80 - Objective Objective/Function: POSTURE: WFL. EDEMA: 1+ edema. GAIT: normal alejandro reciprocal pattern. MMT: quads/hams/hip 4/5,ankle 4/5 - Goals Goal 1:: Independant with HEP. Goal Progress: Goal Met Goal 2:: Patient to improve functional endurance to good, Goal Progress: Goal Met Goal 3:: Patient increase BLE strengtg quads/hams/hip 4/5 to improve function. Goal Progress: Goal Met Goal 4:: Patient function gait assessment score by 5 points to improve gait Goal Progress: Goal Met Goal 5:: Patient to inmprove LFES score by 5 points to improve QOL. Goal Progress: Goal Met - Plan Plan: D/C to HEP - D/C Information Discharge Comments: [facility] If there are questions or concerns regarding this patient's physical therapy, please feel free to call me at [phone]. Thank you for the referral of this patient. Sincerely, Donato Winter, PT, Cert MDT, OCS
== END 2018-09-28 19:00 | disposition home or self-care (01) ==
LOC: PT 15:00
PROVIDERS: Family Provider Family Medicine; PCP Family Medicine; Referring Provider Family Medicine Geriatric Medicine; Visit Provider Family Medicine Geriatric Medicine
DX: I50.9 Heart failure, unspecified (principal)
CPT/HCPCS: 97110; 97162; 97530

== ENCOUNTER 2018-11-05 19:27 | Inpatient (IN) | payer MEDICARE, OTHER, SELFPAY ==
[2018-08-19 13:46] VITALS: BMI 26.5
[2018-11-05 19:28] VITALS: BP 166/100; PULSE 114; RESP 24; TEMP 37.8; O2SAT 92; BMI 26.6
--- NOTE | 2018-11-05 19:46 | EKG12_ITS ---
Test Reason : SOB Blood Pressure : / mmHG Vent. Rate : 114 BPM Atrial Rate : 055 BPM P-R Int : 000 ms QRS Dur : 162 ms QT Int : 392 ms P-R-T Axes : 000 -44 112 degrees QTc Int : 540 ms Atrial fibrillation with rapid ventricular response Left axis deviation Left bundle branch block Abnormal ECG Confirmed by FLY VALENZUELA, FELA ([id number]), video effects editor [place]O ([id number]) on 11/08/2018 11:04:57 AM Referred By: MARKO Confirmed By:FELA BILL MD
--- NOTE | 2018-11-05 19:55 | RAD_ITS ---
STUDY: X-RAY CHEST REASON FOR EXAM: Female, 78 years old. Fatigue and nausea TECHNIQUE: Single AP portable view of the chest. COMPARISON: 08/10/2018 FINDINGS: There is hyperinflation of the lungs consistent with chronic obstructive lung disease (COPD). No acute airspace disease. Stable mild chronic interstitial thickening. There is mild cardiac enlargement. Stable left chest wall pacing device. Normal mediastinum and maribel. Normal visualized pulmonary arteries. Normal visualized aortic arch and descending thoracic aorta. Normal visualized thoracic spine. Normal visualized ribs, clavicles, and shoulders. There is no demonstrated abnormality of the visualized soft tissue structures of the upper abdomen. RAD/Chest 1 View (Portable) IMPRESSION: No acute cardiopulmonary disease Electronically Signed: Jose Deluca DO at 20:16 EDT Tel , Service support ,
[2018-11-05 19:57] LABS: Absolute Lymphocyte Count 1.65 X10^3/uL (0.83-4.51); Absolute Neutrophil Count 7.5 X10^3/uL (2.0-7.7); Basophil# 0.06 X10^3/uL; Basophil% 0.6 % (0-1); Eosinophil# 0.41 X10^3/uL; Eosinophils% 3.8 % (0-5); Hematocrit 34.7 % (37-47); Hemoglobin 11.6 g/dL (12.0-15.0); Lymphocyte # 1.65 X10^3/ul (4.0); Lymphocyte % 15.3 % (19-41); Mean Corp Hgb Conc 33.4 g/dL (32-36); Mean Corpuscular Hgb 30.6 pg (27.0-32.0); Mean Corpuscular Volume 91.6 fL (81-99); Mean Platelet Vol. 9.7 fl (6.2-12.0); Monocyte# 1.05 X10^3/uL; Monocyte% 9.7 % (0-10); NRBC Flagged by Analyzer 0 % (0-5); Neutrophil # 7.53 X10^3/uL (2.7-7.7); Neutrophil % 69.6 % (47-70); Platelet Count 238 K/mm3 (150-450); RBC Distribution Width CV 14.5 % (11.6-14.6); RBC Distribution Width SD 48.7 fl (35.1-43.9); Red Blood Count 3.79 M/mm3 (4.2-5.4); White Blood Count 10.8 K/mm3 (4.4-11.0)
[2018-11-05] MEDS: 0.9% Normal Saline 1,000 ML 15 ML IV (20:06)
[2018-11-05 20:17] LABS: Anion Gap 9 (5-15); BUN 21 mg/dL (7-18); BUN/Creat Ratio 17.6 RATIO (10-20); Calcium,Total 8.8 mg/dL (8.5-10.1); Chloride 102 mmol/L (98-107); Creatinine, Serum 1.19 mg/dL (0.55-1.02); EST Glomerular Filtration Rate 46 mL/min (>60); Est Glom Filt Rate - Afr Amer 56 mL/min (>60); Estimated Creatinine Clearance 28.45 ml/min; Glucose 231 mg/dL (74-106); Potassium 4.1 mmol/L (3.5-5.1); Sodium Level 135 mmol/L (136-145)
[2018-11-05 20:19] LABS: Color, Urine Yellow (Yellow); Glucose, Dipstick Normal (Normal); Ketone-Dipstick Negative (Negative); Leukocyte Esterase-Dipstick 100 /ul (Negative); Nitrite-Dipstick Negative (Negative); Occult Blood-Urine 50 /ul (Negative); Protein-Dipstick 100 mg/dl (Negative); Specific Gravity, Urine 1.015 (1.002-1.030); Urine Bilirubin Dipstick Negative (Negative); Urine Clarity Clear (Clear); Urine Urobilinogen 4 mg/dl (Normal)
[2018-11-05 20:22] LABS: Lactic Acid 2.6 mmol/L (0.4-2.0)
[2018-11-05 21:08] VITALS: BP 148/83; PULSE 97; RESP 20; TEMP 37.7; O2SAT 96
--- NOTE | 2018-11-05 21:29 | PCM.HP.STD ---
Problem List (1) SIRS (systemic inflammatory response syndrome) Status: Acute (2) Congestive heart failure Status: Chronic Qualifiers: Heart failure type: systolic Heart failure chronicity: chronic Qualified Code(s): I50.22 - Chronic systolic (congestive) heart failure (3) Coronary artery disease Status: Chronic Qualifiers: Coronary Disease-Associated Artery/Lesion type: unspecified vessel or lesion type [place] vs. transplanted heart: unspecified whether [place] or transplanted heart Associated angina: angina presence unspecified Qualified Code(s): I25.10 - Atherosclerotic heart disease of [place] coronary artery without angina pectoris (4) Chronic kidney disease, stage III (moderate) Status: Chronic (5) History of coronary artery stent placement Status: Chronic Comment: 01/18, PCI/bare metal stent to mid LAD and ostium of diag #2, PTCA to diag #1-02/09/13 (6) Chronic atrial fibrillation Status: Chronic (7) Chronic systolic congestive heart failure Status: Chronic (8) Dilated cardiomyopathy Status: Chronic (9) Presence of automatic implantable cardioverter-defibrillator Status: Chronic (10) Hyperlipidemia Status: Chronic Qualifiers: Hyperlipidemia type: moderate mixed hyperlipidemia not requiring statin therapy Qualified Code(s): E78.2 - Mixed hyperlipidemia (11) HTN (hypertension) Status: Chronic Qualifiers: Hypertension type: essential hypertension History of Present Illness Date of Admission: 11/05/18 Chief Complaint: Fatigue, malaise, nausea The patient is a 78 y/o F w/ PMHx: CAD s/p PCI, Chronic Atrial Fibrillation, HTN, HLD, Chronic Systolic CHF/Dilated Cardiomyopathy s/p AICD, CKD stage III, Hypothyroidism, Anxiety and Depression who presents to the [facility] ED on 11/05/18 with several day history of progressively worsening fatigue, weakness, poor oral intake secondary to nausea in addition to hoarse voice but no markedly productive cough and worsening dyspnea. She denies any recent market weight gain, lower extremity edema and notes that she chronically sleeps upright in a chair and has for nearly 2 decades. 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 She also admits to having been feverish x 48 hours. Work-up in the ED included T1 100.1, heart rate 114, BP 166/100, respiratory rate 24, 92% on room air, CBC with W BC 10.8, hemoglobin 11.6, platelet 238 without market left shift evident, BMP with sodium 135, BUN/creatinine 21/1.19, glucose 231, lactic acid 2.6, troponin 0.45, urinalysis with specific gravity 1.015, protein 100, occult blood 50, urobilinogen 4, leukocyte esterase 100 with pending RBC, WBC, scams epithelial cell components, chest x-ray with no acute cardioulmonary findings, blood culture x2 pending per ED. in the ED patient administered normal saline as well as 12.5 mg p.o. x1 Coreg regimen. Past Medical History Past Medical History (Chronic Problems): Chronic Problems (Last Reviewed 08/19/18 @ 14:29 by Chandu Ferro MD) Congestive heart failure (Chronic) Elevated troponin (Chronic) Coronary artery disease (Chronic) Hypokalemia (Chronic) Depression (Chronic) Low serum HDL (Chronic) Chronic kidney disease, stage III (moderate) (Chronic) History of coronary artery stent placement (Chronic) 01/18, PCI/bare metal stent to mid LAD and ostium of diag #2, PTCA to diag #1-02/09/13 Atherosclerotic heart disease of [place] coronary artery without angina pectoris (Chronic) Chronic atrial fibrillation (Chronic) Chronic systolic congestive heart failure (Chronic) Bradycardia (Chronic) Dilated cardiomyopathy (Chronic) 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) CAD (coronary artery disease) (Chronic) status post stents A-fib (Chronic) Hyperlipidemia (Chronic) HTN (hypertension) (Chronic) Medical History: Medical History (Last Reviewed 08/19/18 @ 14:29 by Chandu Ferro MD) Low serum HDL (Chronic) R74.8 Chronic kidney disease, stage III (moderate) (Chronic) N18.3 Atherosclerotic heart disease of [place] coronary artery without angina pectoris (Chronic) I25.10 Chronic atrial fibrillation (Chronic) I48.2 Chronic systolic congestive heart failure (Chronic) I50.22 Bradycardia (Chronic) R00.1 Dilated cardiomyopathy (Chronic) I42.0 CAD (coronary artery disease) (Chronic) I25.10 status post stents Hyperlipidemia (Chronic) E78.5 HTN (hypertension) (Chronic) I10 Allergies Axabtnd-Oct-Psm Reductase Inhibitor Adverse Reaction (Verified 08/19/18 13:46) muscle aches warfarin [From Coumadin] Adverse Reaction (Verified 08/19/18 13:46) GI bleeds, profuse nosebleeds Home Medications: Ambulatory Orders Medication Instructions Recorded sertraline 50 mg tablet 50 mg PO DAILY 30 Days #30 tab 02/17/18 Apixaban [Eliquis] 2.5 mg PO BID 08/10/18 Acetaminophen [Tylenol] 1,000 mg PO Q6H PRN PRN tab 08/23/18 Amiodarone HCl [Cordarone] 200 mg PO BID #60 tab 08/23/18 Furosemide [Lasix] 40 mg PO BID@1000,1800 #60 tab 08/23/18 Menthol/Lanolin/Calamine/Znox 1 applic TOPICAL TID tube 08/23/18 [Calmoseptine Ointment] Sacubitril/Valsartan 49-51 mg 1 ea PO BID #30 tab 08/23/18 [Entresto 49 mg-51 mg Tablet] carvedilol 12.5 mg tablet 12.5 mg PO BID #180 tab 09/09/18 pravastatin 40 mg tablet 40 mg PO QDAY #90 tab 10/14/18 Levothyroxine [Synthroid] 25 mcg PO DAILY 11/05/18 Potassium Chloride 40 meq PO BID 11/05/18 Surgical History: Surgical History (Last Reviewed 08/19/18 @ 14:29 by Chandu Ferro MD) History of coronary artery stent placement (Chronic) Z95.5 01/18, PCI/bare metal stent to mid LAD and ostium of diag #2, PTCA to diag #1-02/09/13 Presence of automatic implantable cardioverter-defibrillator (Chronic) Onset Date: ~08/12/15 Z95.810 History of varicose vein stripping Z98.890 Surgical History: angioplasty, - - ICD. 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 Paternal Family History: Family History (Last Reviewed 08/19/18 @ 14:29 by Chandu Ferro MD) Grandfather Myocardial infarction Father Myocardial infarction Hypertension Brother Cancer Sister Diabetes CVA (cerebral vascular accident) Hypertension Son Diabetes Son Hypertension Daughter Afib History Items: Heart Disease, Hypertension Sibling Family History: Family History (Last Reviewed 08/19/18 @ 14:29 by Chandu Ferro MD) Grandfather Myocardial infarction Father Myocardial infarction Hypertension Brother Cancer Sister Diabetes CVA (cerebral vascular accident) Hypertension Son Diabetes Son Hypertension Daughter Afib History Items: Cancer, Diabetes, Heart Disease, Stroke Offspring Family History: Family History (Last Reviewed 08/19/18 @ 14:29 by Chandu Ferro MD) Grandfather Myocardial infarction Father Myocardial infarction Hypertension Brother Cancer Sister Diabetes CVA (cerebral vascular accident) Hypertension Son Diabetes Son Hypertension Daughter Afib History Items: Diabetes, Heart Disease, Hypertension Review of Systems Constitutional: Reports: Anorexia, Fever, Malaise, Weakness, Fatigue. Denies: Chills, Weight Change HEENT: Reports: Visual Changes, - - Hoarse voice.. Denies: Head Aches, Sinus Congestion, Sinus Drainage Cardiovascular: Denies: Chest Pain, Light Headedness, Orthopnea, Palpitations, Syncope Respiratory: Reports: Shortness of Breath, Shortness of breath at rest, Shortness of breath upon exertion. Denies: Cough, Sputum production, Wheezing Gastrointestinal: Reports: Nausea, Vomiting. Denies: Abdominal Pain, Diarrhea Genitourinary: Reports: - - Decreased urine output.. Denies: Dysuria Musculoskeletal: Reports: Joint Pain. Denies: Joint Tenderness Skin: Denies: Rash, Wounds Neurological: Denies: Numbness, Tingling, Focal weakness Psychiatric: Denies: Anxiety, Depression, Homicidal Ideations, Suicidal Ideations Hematologic/ Lymphatic: Reports: Easy Bruising, Easy Bleeding VTE Information - Inpt Only VTE Present on Admission: No VTE Mechan Device Prophylaxis: SCD's VTE Pharm Prophylaxis ordered?: No Reason prophylaxis not ordered:: Treatment Not Indicated - Patient already on anticoagulant therapy for chronic atrial fibrillation, will continue. Patient Problems: Active and Suspected Problems (Last Reviewed 08/19/18 @ 14:29 by Chandu Ferro MD) SIRS (systemic inflammatory response syndrome) (Acute) Subjective: Seated upright in the ED bed, fatigued appearance, mildly ill-appearing, holding emesis bag. Objective: Physical Examination: General: awake, alert, oriented x 3 and cooperative, seated upright in the ED bed, fatigued and ill-appearing. Skin: normal color, turgor, no icterus, cyanosis. HEENT: AT/NC, EOMI, PERRLA, dry MM, no carotid bruits or JVD noted, mildly hoarse voice, normal appearing OP. Lungs: Mildly diminished breath sounds bases, moderate effort, mild rales bilateral bases, no rhonchi or wheezing, mildly hoarse voice. Heart: Irregular regular; no gallop, rub audible. Abdomen: soft, NTTP, ND, normal BS, no HSM. Extremities: no cyanosis, clubbing, mild ankle edema chronic, stable per patient discussion. Neurological: patient awake, alert, oriented x 3; cognitive function intact; pupils equally reactive to light and accomodation; cranial nerves II-XII grossly normal, moving all 4 extremities, no focal deficits, strength severely global decrease secondary to acute presentation. Psychiatric: affect appears fatigued, ill-appearing, no acute evidence of depressive or anxiety feelings. - Physical Exam Vital Signs Temp Pulse Resp BP Pulse Ox 99.9 F H 97 20 H 148/83 H 96 11/05/18 21:08 11/05/18 21:08 11/05/18 21:08 11/05/18 21:08 11/05/18 21:08 Oxygen Flow Rate (L/min) 2 Oxygen Delivery Method Nasal Cannula Weight: 140 lb 14.006 oz Body Mass Index (BMI) 26.6 Laboratory Tests Past 24 Hrs 11/05/18 11/05/18 11/05/18 19:35 19:35 19:35 WBC 10.8 RBC 3.79 L Hgb 11.6 L Hct 34.7 L MCV 91.6 MCH 30.6 MCHC 33.4 RDW Std Deviation 48.7 H RDW Coeff of Elton 14.5 Plt Count 238 MPV 9.7 Immature Gran % (Auto) 1.000 H Neut % (Auto) 69.6 Lymph % (Auto) 15.3 L [place] % (Auto) 9.7 Eos % (Auto) 3.8 Baso % (Auto) 0.6 Absolute Neuts (auto) 7.5 Absolute Lymphs (auto) 1.65 Nucleated RBC % 0 Sodium 135 L Potassium 4.1 Chloride 102 Carbon Dioxide 24.0 Anion Gap 9 BUN 21 H Creatinine 1.19 H Estim Creat Clear Calc 28.45 Est GFR (MDRD) Af Amer 56 L Est GFR (MDRD) Non-Af 46 L BUN/Creatinine Ratio 17.6 Glucose 231 H Lactic Acid 2.6 H Calcium 8.8 Troponin I 0.045 Urine Color Urine Clarity Urine pH Ur Specific [place] Urine Protein Urine Glucose (UA) Urine Ketones Urine Occult Blood Urine Nitrite Urine Bilirubin Urine Urobilinogen Ur Leukocyte Esterase Urine RBC Urine WBC Ur Squamous Epith Cells Ur Transition Epith Cell Ur Renal Epithelial Cell Calcium Oxalate Crystal Uric Acid Crystals Triple Phos Crystals Other Crystals Amorphous Sediment Urine Bacteria Hyaline Casts Fine Granular Casts Coarse Granular Casts Waxy Casts RBC Casts WBC Casts Urine Mucus Urine Trichomonas Urine Yeast 11/05/18 20:00 WBC RBC Hgb Hct MCV MCH MCHC RDW Std Deviation RDW Coeff of [place] Plt Count MPV Immature Gran % (Auto) Neut % (Auto) Lymph % (Auto) [place] % (Auto) Eos % (Auto) Baso % (Auto) Absolute Neuts (auto) Absolute Lymphs (auto) Nucleated RBC % Sodium Potassium Chloride Carbon Dioxide Anion Gap BUN Creatinine Estim Creat Clear Calc Est GFR (MDRD) Af Amer Est GFR (MDRD) Non-Af BUN/Creatinine Ratio Glucose Lactic Acid Calcium Troponin I Urine Color Yellow Urine Clarity Clear Urine pH 5.0 Ur Specific [place] 1.015 Urine Protein 100 H Urine Glucose (UA) Normal Urine Ketones Negative Urine Occult Blood 50 H Urine Nitrite Negative Urine Bilirubin Negative Urine Urobilinogen 4 H Ur Leukocyte Esterase 100 H Urine RBC Cancelled Urine WBC Cancelled Ur Squamous Epith Cells Cancelled Ur Transition Epith Cell Cancelled Ur Renal Epithelial Cell Cancelled Calcium Oxalate Crystal Cancelled Uric Acid Crystals Cancelled Triple Phos Crystals Cancelled Other Crystals Cancelled Amorphous Sediment Cancelled Urine Bacteria Cancelled Hyaline Casts Cancelled Fine Granular Casts Cancelled Coarse Granular Casts Cancelled Waxy Casts Cancelled RBC Casts Cancelled WBC Casts Cancelled Urine Mucus Cancelled Urine Trichomonas Cancelled Urine Yeast Cancelled Assessment/Plan All Active Problems (Last Reviewed 08/19/18 @ 14:29 by Chandu Ferro MD) Heart failure (Acute) Shortness of breath (Acute) Acute on chronic systolic (congestive) heart failure (Acute) Atrial fibrillation with rapid ventricular response (Acute) Bronchitis (Acute) SIRS (systemic inflammatory response syndrome) (Acute) The patient is a 78 y/o F w/ PMHx: CAD s/p PCI, Chronic Atrial Fibrillation, HTN, HLD, Chronic Systolic CHF/Dilated Cardiomyopathy s/p AICD, CKD stage III, Hypothyroidism, Anxiety and Depression who presents to the [facility] ED on 11/05/18 with several day history of progressively worsening fatigue, weakness, poor oral intake secondary to nausea in addition to hoarse voice but no markedly productive cough and worsening dyspnea, episode of worsened dyspnea, nausea with emesis, diaphoresis as well as fever x 48 hours. The patient is a 78 y/o F w/ PMHx: CAD s/p PCI, Chronic Atrial Fibrillation, HTN, HLD, Chronic Systolic CHF/Dilated Cardiomyopathy s/p AICD, CKD stage III, Hypothyroidism, Anxiety and Depression who presents to the [facility] ED on 11/05/18 with several day history of progressively worsening fatigue, weakness, poor oral intake secondary to nausea in addition to hoarse voice but no markedly productive cough and worsening dyspnea. She denies any recent market weight gain, lower extremity edema and notes that she chronically sleeps upright in a chair and has for nearly 2 decades. 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 She also admits to having been feverish x 48 hours. Work-up in the ED included T1 100.1, heart rate 114, BP 166/100, respiratory rate 24, 92% on room air, CBC with W BC 10.8, hemoglobin 11.6, platelet 238 without market left shift evident, BMP with sodium 135, BUN/creatinine 21/1.19, glucose 231, lactic acid 2.6, troponin 0.45, urinalysis with specific gravity 1.015, protein 100, occult blood 50, urobilinogen 4, leukocyte esterase 100 with pending RBC, WBC, scams epithelial cell components, chest x-ray with no acute cardioulmonary findings, blood culture x2 pending per ED. in the ED patient administered normal saline as well as 12.5 mg p.o. x1 Coreg regimen. 1. SIRS, Unclear Specific Etiology with Possible Early Developing PNA versus UTI (complete UA unable to be obtained secondary to poor volume sample): Will admit to PCU given atypical presentation, unclear exact diagnosis, maintain on oxygen with wean as tolerated to room air, PRN albuterol, maintained on IV Rocephin and Azithromycin w/ de-escalation if repeat CXR in AM without overt findings following overnight hydration and repeat UA with attempted complete sample, HOB, IS parameters, requested respiratory viral panel, sputum cultures and urine antigens. Bld cx x 2 obtained in the ED. BNP pending although lower suspicion for CHF exacerbation as dyspnea etiology. 2. Hyperglycemia: Admission glucose 231, possibly stress response but notably elevated, hemoglobin A1c pending. 3. Chronic Atrial Fibrillation: Rate increased to 114 in the ED, given her evening coreg regimen. Will continue home Eliquis, amiodarone, Coreg regimen. 4. CAD: 01/18 PCI/bare metal stent to mid LAD and ostium of diag #2, 02/17 PTCA to diag #1, will maintain on home Eliquis, Coreg, Entresto, pravastatin. 5. Hypertension: Continue home regimen including Coreg, Lasix, Entresto, PRN hydralazine. 6. Hyperlipidemia: Continue home statin regimen. 7. Chronic Systolic CHF/Dilated Cardiomyopathy: s/p AICD, will continue home regimen Eliquis, Coreg, Lasix, Entresto. 10/08/18 ECHO w/ normal LV size, moderate concentric LVH, EF 25%, severe global hypokinesis LV, moderate MVI, moderate pulmonary hypertension, small pericardial effusion noted to be worsened than prior study. 8. Chronic Kidney Disease Stage III: Admission BUN/Cr 28/03., baseline renal function 1.1-1.3, stable although mildly increased SG in UA, repeat BMP in AM. 9. Hypothyroidism: Continue home synthroid regimen, TSH and FT4 pending. 10. Anxiety and Depression: Continue home sertraline regimen. 11. DVT prophylaxis: SCDs, continue home Eliquis regimen. 12. CODE status: Son present for conversations. Encourage patient to have healthcare power of sausage grinder set up as well as living will. Discussed CODE status at length including difference between FULL code, DNR-CCA and DNR-CC status. Following discussions about the differences in these status, requested DNR-CCA, no intubation status. Advanced Care Planning Face to Face Time: 16 minutes. Code Visit Inpatient E&M: 44537 Init Hosp L3 Procedures: 06566 Advncd Care Plan 30 Min
--- NOTE | 2018-11-05 21:30 | ED.VISSUMM ---
- ER Visit Summary Date of Service: 11/05/18 Chief Complaint: [Shortness of breath] History of Present Illness: The patient is a 78 F [presents to the emergency department not feeling well for about an hour. Patient states that she has been feeling somewhat short of breath over the last 2 months. Patient was admitted recently for CHF and was started on Entresto. Patient today went to the restroom and upon coming out was very short of breath and diaphoretic. Patient felt like she needed to vomit. She denied syncope or feeling like she was in a pass out. She denies any chest pain. Patient tells me she has history of coronary artery disease with prior cardiac stent. Patient has history of A. fib and CHF. She denies recent travel or surgery.] Patient has not been gaining weight. She has been compliant with her medications. Physical Examination: [HEENT-PERRLA, EOMI. Cranial nerves II through XII grossly intact. TMs clear. Mucous membranes moist. No adenopathy. Cardiovascular-regular rate and rhythm without murmur or ectopy Lungs-good aeration bilaterally with few faint rales in the bases. No accessory muscle use or retractions. Abdomen-normoactive bowel sounds, soft, nontender, no rebound or rigidity, no peritoneal signs. Extremities-intact ?4, normal range of motion, normal pulses, atraumatic] Test Results: [EKG obtained on arrival showed atrial fibrillation with a rapid ventricular response of 114 bpm. Patient was noted to have a left bundle branch block. CBC with differential obtained showed a white count of 10.8, hemoglobin 11.6, hematocrit 35, placed 238. History is unremarkable. BUN was 21 creatinine 1.19. Troponin was 0.045. Lactate was 2.6. Blood cultures ordered and pending. Urinalysis pending.] Emergency Department Course and Treatment: [IV line was established at KVO. Patient was placed on a cardiac catheterization technologist. She was ordered carvedilol 12.5 mg p.o.] Treatment Plan: [Admit] Disposition: [Admit] Impression: [Dyspnea-rule out acute coronary syndrome A. fib RVR] This note was generated with [employer] software. It may contain incorrect words, spelling, and punctuation that were not noted in review of the chart prior to signing ED Disposition - Plan for ED Patient: Referrals: Santy Ortega Chi, MD [Primary Care Provider] -
[2018-11-05 21:55] VITALS: BP 156/99; PULSE 110; RESP 18; O2SAT 98
[2018-11-05] MEDS: Carvedilol 12.5 MG Tablet PO ×2 (22:13→23:34)
[2018-11-05 22:30] VITALS: BMI 24.9
[2018-11-05 22:34] VITALS: PULSE 100
[2018-11-05 22:45] VITALS: BMI 24.9
[2018-11-05 22:58] LABS: Magnesium 1.8 mg/dL (1.6-2.6); T4 Free Direct 1.91 ng/dL (0.76-1.46); Thyroid Stim Hormone (TSH) 5.23 uIU/mL (0.358-3.74)
[2018-11-05 23:05] VITALS: BP 127/50; PULSE 79; RESP 22; TEMP 37; O2SAT 98
[2018-11-05 23:07] VITALS: BP 110/57
[2018-11-05] MEDS: 0.9% Normal Saline 1,000 ML 100 ML IV (23:13)
[2018-11-05] MEDS: Ceftriaxone 1 GM/50 ML BAG IV (23:14)
[2018-11-05 23:20] LABS: Hemoglobin A1c 8.2 % (4.2-6.3)
[2018-11-05] MEDS: 0.9% NaCl Peripheral Flush Adult/Peds IV (23:31)
[2018-11-05] MEDS: APIXABAN 2.5 MG TABLET PO (23:34)
[2018-11-05] MEDS: Amiodarone 200 MG Tablet PO (23:34)
[2018-11-05] MEDS: Pravastatin 40 MG Tablet PO (23:35)
[2018-11-05 23:53] LABS: Reflex Lactate? Y
[2018-11-06] VITALS (13 sets, daily range): BP systolic 103–136; BP diastolic 52–72; PULSE 57–82; RESP 16–20; TEMP 36.3–36.7; O2SAT 96–100
[2018-11-06 00:37] LABS: Lactic Acid 1.3 mmol/L (0.4-2.0)
[2018-11-06] MEDS: 0.9% Normal Saline 1,000 ML 75 ML IV (02:12)
--- NOTE | 2018-11-06 05:55 | EKG12_ITS ---
Test Reason : AM Blood Pressure : / mmHG Vent. Rate : 053 BPM Atrial Rate : 044 BPM P-R Int : 000 ms QRS Dur : 164 ms QT Int : 532 ms P-R-T Axes : 000 -41 161 degrees QTc Int : 499 ms Atrial fibrillation with slow ventricular response with occasional ventricular-paced complexes Left axis deviation Left bundle branch block Abnormal ECG When compared with ECG of 05-NOV-2018 19:36, MANUAL COMPARISON REQUIRED, DATA IS UNCONFIRMED Confirmed by GWYN PATTERSON ([id number]), editor city [place] ([id number]) on 11/10/2018 1:58:38 PM Referred By: KAJAL Confirmed By:GWYN PATTERSON
--- NOTE | 2018-11-06 06:00 | RAD_ITS ---
STUDY: X-RAY CHEST REASON FOR EXAM: Female, 78 years old. Shortness of breath. TECHNIQUE: Single AP portable view of the chest. COMPARISON: None. FINDINGS: Left pacer placement with leads overlying the right ventricle. Chronic interstitial markings are present with likely underlying COPD related changes. There is no demonstrated pleural abnormality. There is moderate cardiac enlargement. Normal mediastinum and maribel. Normal visualized pulmonary arteries. There is atherosclerotic calcification of the aortic arch with tortuosity. There is demineralization of the osseous structures. Normal visualized ribs, clavicles, and shoulders. There is no demonstrated abnormality of the visualized soft tissue structures of the upper abdomen. RAD/Chest PA and Lateral IMPRESSION: Chronic interstitial markings and likely underlying COPD related changes. Underlying superimposed areas of basilar airspace disease cannot be completely excluded. Electronically Signed: Willian Ivory DO at 13:37 EDT , Service support ,
[2018-11-06 06:55] LABS: Absolute Lymphocyte Count 1.07 X10^3/uL (0.83-4.51); Basophil# 0.03 X10^3/uL; Basophil% 0.4 % (0-1); Eosinophil# 0.05 X10^3/uL; Eosinophils% 0.7 % (0-5); Hematocrit 29.5 % (37-47); Hemoglobin 9.6 g/dL (12.0-15.0); Lymphocyte # 1.07 X10^3/ul (4.0); Lymphocyte % 15.7 % (19-41); Mean Corp Hgb Conc 32.5 g/dL (32-36); Mean Corpuscular Volume 92.2 fL (81-99); Mean Platelet Vol. 10.1 fl (6.2-12.0); Monocyte# 0.57 X10^3/uL; Monocyte% 8.3 % (0-10); NRBC Flagged by Analyzer 0 % (0-5); Neutrophil # 5.03 X10^3/uL (2.7-7.7); Neutrophil % 73.7 % (47-70); Platelet Count 174 K/mm3 (150-450); RBC Distribution Width CV 14.6 % (11.6-14.6); RBC Distribution Width SD 49.4 fl (35.1-43.9); White Blood Count 6.8 K/mm3 (4.4-11.0)
[2018-11-06] MEDS: Insulin Lispro 100 UNIT/ML INSULN.PEN SC ×4 (06:59→22:06)
[2018-11-06] MEDS: Levothyroxine 25 MCG TABLET PO (06:59)
[2018-11-06 07:14] LABS: ALB/GLOB Ratio 0.6 RATIO (0.9-2.4); AST(SGOT) 69 U/L (15-37); Alanine Aminotransfer ALT/SGPT 52 U/L (13-56); Albumin, Serum 2.3 g/dL (3.2-5.0); Alkaline Phosphatase 153 U/L (45-117); Anion Gap 7 (5-15); BUN 18 mg/dL (7-18); BUN/Creat Ratio 17.5 RATIO (10-20); Calcium,Total 8.2 mg/dL (8.5-10.1); Chloride 106 mmol/L (98-107); Creatinine, Serum 1.03 mg/dL (0.55-1.02); EST Glomerular Filtration Rate 55 mL/min (>60); Est Glom Filt Rate - Afr Amer 66 mL/min (>60); Estimated Creatinine Clearance 34.45 ml/min; Globulin 3.7 g/dL (2.2-4.2); Glucose 193 mg/dL (74-106); Potassium 4.2 mmol/L (3.5-5.1); Sodium Level 138 mmol/L (136-145)
[2018-11-06 07:30] LABS: Bedside Glucose 176 mg/dL (70-110)
[2018-11-06 07:53] LABS: Bacteria 0 SEEN /hpf (None Seen); Mucous, Urine 0 SEEN /hpf (<or=2+); Red Blood Cells-Urine 0 SEEN /hpf (0-5); Squamous Epithelial Cells - UA 0 SEEN /hpf (5-10)
[2018-11-06 07:59] LABS: Color, Urine Yellow (Yellow); Glucose, Dipstick Normal (Normal); Ketone-Dipstick 5 mg/dl (Negative); Leukocyte Esterase-Dipstick 100 /ul (Negative); Nitrite-Dipstick Negative (Negative); Occult Blood-Urine 10 /ul (Negative); Protein-Dipstick 30 mg/dl (Negative); Urine Bilirubin Dipstick Negative (Negative); Urine Clarity Sl. Cloudy (Clear); Urine Urobilinogen 1 mg/dl (Normal)
[2018-11-06 08:07] LABS: White Blood Cells 0-5 SEEN /hpf (0-5)
[2018-11-06] MEDS: APIXABAN 2.5 MG TABLET PO ×2 (09:10→22:05)
[2018-11-06] MEDS: Amiodarone 200 MG Tablet PO ×2 (09:10→22:05)
[2018-11-06] MEDS: Carvedilol 12.5 MG Tablet PO ×2 (09:10→22:05)
[2018-11-06] MEDS: Furosemide 40 MG Tablet PO (09:12)
[2018-11-06] MEDS: Sertraline 50 MG Tablet PO ×2 (09:12→22:08)
[2018-11-06] MEDS: 0.9% NaCl Peripheral Flush Adult/Peds IV ×2 (09:52→17:03)
[2018-11-06] MEDS: SACUBITRIL/VALSARTAN 97-103 MG TABLET 1 EACH PO ×2 (09:52→22:08)
[2018-11-06] MEDS: Furosemide 100 MG/10 ML Vial 60 MG IV (09:52)
--- NOTE | 2018-11-06 11:04 | PN_ITS ---
<Jaclyn Marley - Last Filed: 11/06/18 11:25> Patient Problems: Active and Suspected Problems (Last Reviewed 08/19/18 @ 14:29 by Chandu Ferro MD) SIRS (systemic inflammatory response syndrome) (Acute) Subjective: Patient seen and examined. Continues to complain of shortness of breath. Denies cough, fever or chills. Reports she feels rundown. - Physical Exam General: Alert, Oriented x3, Cooperative HEENT: Atraumatic, PERRLA, EOMI, Normocephalic Neck: Supple, No JVD, Negative Carotid Bruits Lungs: Diminished, Rales Cardiovascular: - - Atrial fibrillation, rate controlled. Abdomen: Bowel Sounds Present, Soft, Non Tender, Non-Distended Extremities: No clubbing, No cyanosis, No edema, Capillary Refill Less than 3 Seconds Skin: No rashes, No breakdown Musculoskeletal: No Tenderness to Palpation of Joints or Extremities Neurological: Cranial nerves II-XII grossly intact, Neuro grossly intact Psych/Mental Status: Normal Affect, Appropriate Vital Signs Temp Pulse Resp BP Pulse Ox 97.3 F L 78 16 113/52 L 100 11/06/18 10:20 11/06/18 10:20 11/06/18 10:20 11/06/18 10:20 11/06/18 10:20 Oxygen Flow Rate (L/min) 2 Oxygen Delivery Method Nasal Cannula Weight: 138 lb 10.732 oz Body Mass Index (BMI) 24.9 Intake and Output for Last 24 Hours 11/04/18 11/05/18 11/06/18 23:59 23:59 23:59 Intake Total 496.42 / 496.42 965.42 / 965.42 Output Total 0 / 0 Balance 496.42 / 496.42 965.42 / 965.42 Microbiology Past 72 Hours 11/06/18 07:37 Legionella Antigen - Final Urine, Clean Catch 11/06/18 07:37 Streptococcus pneumoniae Antigen (M - Final Urine, Clean Catch Laboratory Tests Past 24 Hrs 11/05/18 11/05/18 11/05/18 19:35 19:35 19:35 WBC 10.8 RBC 3.79 L Hgb 11.6 L Hct 34.7 L MCV 91.6 MCH 30.6 MCHC 33.4 RDW Std Deviation 48.7 H RDW Coeff of Elton 14.5 Plt Count 238 MPV 9.7 Immature Gran % (Auto) 1.000 H Neut % (Auto) 69.6 Lymph % (Auto) 15.3 L Scott % (Auto) 9.7 Eos % (Auto) 3.8 Baso % (Auto) 0.6 Absolute Neuts (auto) 7.5 Absolute Lymphs (auto) 1.65 Nucleated RBC % 0 Sodium 135 L Potassium 4.1 Chloride 102 Carbon Dioxide 24.0 Anion Gap 9 BUN 21 H Creatinine 1.19 H Estim Creat Clear Calc 28.45 Est GFR (MDRD) Af Amer 56 L Est GFR (MDRD) Non-Af 46 L BUN/Creatinine Ratio 17.6 Glucose 231 H Hemoglobin A1c Lactic Acid 2.6 H Calcium 8.8 Magnesium Total Bilirubin AST ALT Alkaline Phosphatase Troponin I 0.045 B-Natriuretic Peptide Total Protein Albumin Globulin Albumin/Globulin Ratio TSH Free T4 Urine Color Urine Clarity Urine pH Ur Specific [place] Urine Protein Urine Glucose (UA) Urine Ketones Urine Occult Blood Urine Nitrite Urine Bilirubin Urine Urobilinogen Ur Leukocyte Esterase Urine RBC Urine WBC Ur Squamous Epith Cells Ur Transition Epith Cell Ur Renal Epithelial Cell Calcium Oxalate Crystal Uric Acid Crystals Triple Phos Crystals Other Crystals Amorphous Sediment Urine Bacteria Hyaline Casts Fine Granular Casts Coarse Granular Casts Waxy Casts RBC Casts WBC Casts Urine Mucus Urine Trichomonas Urine Yeast 11/05/18 11/05/18 11/05/18 19:35 19:35 20:00 WBC RBC Hgb Hct MCV MCH MCHC RDW Std Deviation RDW Coeff of Elton Plt Count MPV Immature Gran % (Auto) Neut % (Auto) Lymph % (Auto) Scott % (Auto) Eos % (Auto) Baso % (Auto) Absolute Neuts (auto) Absolute Lymphs (auto) Nucleated RBC % Sodium Potassium Chloride Carbon Dioxide Anion Gap BUN Creatinine Estim Creat Clear Calc Est GFR (MDRD) Af Amer Est GFR (MDRD) Non-Af BUN/Creatinine Ratio Glucose Hemoglobin A1c Lactic Acid Calcium Magnesium 1.8 Total Bilirubin AST ALT Alkaline Phosphatase Troponin I B-Natriuretic Peptide 1681.8 H Total Protein Albumin Globulin Albumin/Globulin Ratio TSH 5.23 H Free T4 1.91 H Urine Color Yellow Urine Clarity Clear Urine pH 5.0 Ur Specific [place] 1.015 Urine Protein 100 H Urine Glucose (UA) Normal Urine Ketones Negative Urine Occult Blood 50 H Urine Nitrite Negative Urine Bilirubin Negative Urine Urobilinogen 4 H Ur Leukocyte Esterase 100 H Urine RBC Cancelled Urine WBC Cancelled Ur Squamous Epith Cells Cancelled Ur Transition Epith Cell Cancelled Ur Renal Epithelial Cell Cancelled Calcium Oxalate Crystal Cancelled Uric Acid Crystals Cancelled Triple Phos Crystals Cancelled Other Crystals Cancelled Amorphous Sediment Cancelled Urine Bacteria Cancelled Hyaline Casts Cancelled Fine Granular Casts Cancelled Coarse Granular Casts Cancelled Waxy Casts Cancelled RBC Casts Cancelled WBC Casts Cancelled Urine Mucus Cancelled Urine Trichomonas Cancelled Urine Yeast Cancelled 11/05/18 11/05/18 11/06/18 22:40 22:40 00:03 WBC RBC Hgb Hct MCV MCH MCHC RDW Std Deviation RDW Coeff of El[place] Plt Count MPV Immature Gran % (Auto) Neut % (Auto) Lymph % (Auto) Scott % (Auto) Eos % (Auto) Baso % (Auto) Absolute Neuts (auto) Absolute Lymphs (auto) Nucleated RBC % Sodium Potassium Chloride Carbon Dioxide Anion Gap BUN Creatinine Estim Creat Clear Calc Est GFR (MDRD) Af Amer Est GFR (MDRD) Non-Af BUN/Creatinine Ratio Glucose Hemoglobin A1c 8.2 H Lactic Acid 1.3 Calcium Magnesium Total Bilirubin AST ALT Alkaline Phosphatase Troponin I 0.078 H B-Natriuretic Peptide Total Protein Albumin Globulin Albumin/Globulin Ratio TSH Free T4 Urine Color Urine Clarity Urine pH Ur Specific [place] Urine Protein Urine Glucose (UA) Urine Ketones Urine Occult Blood Urine Nitrite Urine Bilirubin Urine Urobilinogen Ur Leukocyte Esterase Urine RBC Urine WBC Ur Squamous Epith Cells Ur Transition Epith Cell Ur Renal Epithelial Cell Calcium Oxalate Crystal Uric Acid Crystals Triple Phos Crystals Other Crystals Amorphous Sediment Urine Bacteria Hyaline Casts Fine Granular Casts Coarse Granular Casts Waxy Casts RBC Casts WBC Casts Urine Mucus Urine Trichomonas Urine Yeast 11/06/18 11/06/18 11/06/18 01:35 05:15 05:15 WBC 6.8 RBC 3.20 L Hgb 9.6 L Hct 29.5 L MCV 92.2 MCH 30.0 MCHC 32.5 RDW Std Deviation 49.4 H RDW Coeff of Elton 14.6 Plt Count 174 MPV 10.1 Immature Gran % (Auto) 1.200 H Neut % (Auto) 73.7 H Lymph % (Auto) 15.7 L Scott % (Auto) 8.3 Eos % (Auto) 0.7 Baso % (Auto) 0.4 Absolute Neuts (auto) 5.0 Absolute Lymphs (auto) 1.07 Nucleated RBC % 0 Sodium 138 Potassium 4.2 Chloride 106 Carbon Dioxide 25.0 Anion Gap 7 BUN 18 Creatinine 1.03 H Estim Creat Clear Calc 34.45 Est GFR (MDRD) Af Amer 66 Est GFR (MDRD) Non-Af 55 L BUN/Creatinine Ratio 17.5 Glucose 193 H Hemoglobin A1c Lactic Acid Calcium 8.2 L Magnesium Total Bilirubin 0.80 AST 69 H ALT 52 Alkaline Phosphatase 153 H Troponin I 0.095 H B-Natriuretic Peptide Total Protein 6.0 L Albumin 2.3 L Globulin 3.7 Albumin/Globulin Ratio 0.6 L TSH Free T4 Urine Color Urine Clarity Urine pH Ur Specific [place] Urine Protein Urine Glucose (UA) Urine Ketones Urine Occult Blood Urine Nitrite Urine Bilirubin Urine Urobilinogen Ur Leukocyte Esterase Urine RBC Urine WBC Ur Squamous Epith Cells Ur Transition Epith Cell Ur Renal Epithelial Cell Calcium Oxalate Crystal Uric Acid Crystals Triple Phos Crystals Other Crystals Amorphous Sediment Urine Bacteria Hyaline Casts Fine Granular Casts Coarse Granular Casts Waxy Casts RBC Casts WBC Casts Urine Mucus Urine Trichomonas Urine Yeast 11/06/18 07:37 WBC RBC Hgb Hct MCV MCH MCHC RDW Std Deviation RDW Coeff of [place] Plt Count MPV Immature Gran % (Auto) Neut % (Auto) Lymph % (Auto) Scott % (Auto) Eos % (Auto) Baso % (Auto) Absolute Neuts (auto) Absolute Lymphs (auto) Nucleated RBC % Sodium Potassium Chloride Carbon Dioxide Anion Gap BUN Creatinine Estim Creat Clear Calc Est GFR (MDRD) Af Amer Est GFR (MDRD) Non-Af BUN/Creatinine Ratio Glucose Hemoglobin A1c Lactic Acid Calcium Magnesium Total Bilirubin AST ALT Alkaline Phosphatase Troponin I B-Natriuretic Peptide Total Protein Albumin Globulin Albumin/Globulin Ratio TSH Free T4 Urine Color Yellow Urine Clarity Sl. Cloudy Urine pH 5.0 Ur Specific [place] 1.020 Urine Protein 30 H Urine Glucose (UA) Normal Urine Ketones 5 H Urine Occult Blood 10 H Urine Nitrite Negative Urine Bilirubin Negative Urine Urobilinogen 1 H Ur Leukocyte Esterase 100 H Urine RBC 0 SEEN Urine WBC 0-5 SEEN Ur Squamous Epith Cells 0 SEEN Ur Transition Epith Cell Ur Renal Epithelial Cell Calcium Oxalate Crystal Uric Acid Crystals Triple Phos Crystals Other Crystals Amorphous Sediment Urine Bacteria 0 SEEN Hyaline Casts Fine Granular Casts Coarse Granular Casts Waxy Casts RBC Casts WBC Casts Urine Mucus 0 SEEN Urine Trichomonas Urine Yeast POC Glucose 11/06/18 06:54 POC Glucose 176 H Medical Necessity - Tobacco Use Smoking Status: Never smoker Tobacco Use: Secondhand Assessment/Plan All Active Problems (Last Reviewed 08/19/18 @ 14:29 by Chandu Ferro MD) Heart failure (Acute) Shortness of breath (Acute) Acute on chronic systolic (congestive) heart failure (Acute) Atrial fibrillation with rapid ventricular response (Acute) Bronchitis (Acute) SIRS (systemic inflammatory response syndrome) (Acute) 1. Acute on chronic systolic CHF/dilated cardiomyopathy status post AICD- echocardiogram 10/08/2018 with moderate concentric LVH, EF 25%, severe global hypokinesis left ventricle, moderate MVI, moderate pulmonary hypertension and small pericardial effusion. BNP on admission 1681. Chest x-ray admission without acute process, repeat chest x-ray pending. Patient reports shortness of breath and general fatigue. Denies cough, fever, chills. No leukocytosis. Fever resolved. Pneumonia/sepsis ruled out. Discontinue antibiotics. IV Lasix 40 mg twice daily. Strict I&O. 2. Elevated troponin, suspect demand ischemia as a result of #1-denies chest pain. No EKG changes. History of elevated troponin with previous CHF exacerbation. Troponin in August 2018 as high as 0.17. 3. New diagnosis type 2 diabetes mellitus-hemoglobin A1c 8.2%. Accu-Cheks before meals at bedtime with sliding scale insulin. 4. CAD with history of stents-continue statin, beta-jose eduardo, Entresto. 5. Chronic atrial fibrillation-rate controlled. Continue Eliquis, amiodarone, Coreg regimen. 6. Chronic kidney disease stage III-at baseline, trend BMP. 7. Hypertension-stable, continue home Coreg, Lasix, Entresto regimen. 8. Anxiety/Depression-continue Zoloft regimen. 9. Hypothyroidism-continue home Synthroid regimen. TSH 5.23. Free T4 1.91. Recommend repeat labs as outpatient. 10. Hyperlipidemia-continue statin regimen. DVT prophylaxis-Eliquis This patient was seen by GONZALEZ Lam under the supervision of Dr. Prasad. <Blayne Prasad - Last Filed: 11/06/18 11:30> - Physical Exam Vital Signs Temp Pulse Resp BP Pulse Ox 97.3 F L 78 16 113/52 L 100 11/06/18 10:20 11/06/18 10:20 11/06/18 10:20 11/06/18 10:20 11/06/18 10:20 Oxygen Flow Rate (L/min) 2 Oxygen Delivery Method Nasal Cannula Weight: 62.9 kg Body Mass Index (BMI) 24.9 Intake and Output for Last 24 Hours 11/04/18 11/05/18 11/06/18 23:59 23:59 23:59 Intake Total 496.42 / 496.42 965.42 / 965.42 Output Total 0 / 0 Balance 496.42 / 496.42 965.42 / 965.42 Microbiology Past 72 Hours 11/06/18 07:37 Legionella Antigen - Final Urine, Clean Catch 11/06/18 07:37 Streptococcus pneumoniae Antigen (M - Final Urine, Clean Catch Laboratory Tests Past 24 Hrs 11/05/18 11/05/18 11/05/18 19:35 19:35 19:35 WBC 10.8 RBC 3.79 L Hgb 11.6 L Hct 34.7 L MCV 91.6 MCH 30.6 MCHC 33.4 RDW Std Deviation 48.7 H RDW Coeff of Elton 14.5 Plt Count 238 MPV 9.7 Immature Gran % (Auto) 1.000 H Neut % (Auto) 69.6 Lymph % (Auto) 15.3 L Scott % (Auto) 9.7 Eos % (Auto) 3.8 Baso % (Auto) 0.6 Absolute Neuts (auto) 7.5 Absolute Lymphs (auto) 1.65 Nucleated RBC % 0 Sodium 135 L Potassium 4.1 Chloride 102 Carbon Dioxide 24.0 Anion Gap 9 BUN 21 H Creatinine 1.19 H Estim Creat Clear Calc 28.45 Est GFR (MDRD) Af Amer 56 L Est GFR (MDRD) Non-Af 46 L BUN/Creatinine Ratio 17.6 Glucose 231 H Hemoglobin A1c Lactic Acid 2.6 H Calcium 8.8 Magnesium Total Bilirubin AST ALT Alkaline Phosphatase Troponin I 0.045 B-Natriuretic Peptide Total Protein Albumin Globulin Albumin/Globulin Ratio TSH Free T4 Urine Color Urine Clarity Urine pH Ur Specific [place] Urine Protein Urine Glucose (UA) Urine Ketones Urine Occult Blood Urine Nitrite Urine Bilirubin Urine Urobilinogen Ur Leukocyte Esterase Urine RBC Urine WBC Ur Squamous Epith Cells Ur Transition Epith Cell Ur Renal Epithelial Cell Calcium Oxalate Crystal Uric Acid Crystals Triple Phos Crystals Other Crystals Amorphous Sediment Urine Bacteria Hyaline Casts Fine Granular Casts Coarse Granular Casts Waxy Casts RBC Casts WBC Casts Urine Mucus Urine Trichomonas Urine Yeast 11/05/18 11/05/18 11/05/18 19:35 19:35 20:00 WBC RBC Hgb Hct MCV MCH MCHC RDW Std Deviation RDW Coeff of [place] Plt Count MPV Immature Gran % (Auto) Neut % (Auto) Lymph % (Auto) Scott % (Auto) Eos % (Auto) Baso % (Auto) Absolute Neuts (auto) Absolute Lymphs (auto) Nucleated RBC % Sodium Potassium Chloride Carbon Dioxide Anion Gap BUN Creatinine Estim Creat Clear Calc Est GFR (MDRD) Af Amer Est GFR (MDRD) Non-Af BUN/Creatinine Ratio Glucose Hemoglobin A1c Lactic Acid Calcium Magnesium 1.8 Total Bilirubin AST ALT Alkaline Phosphatase Troponin I B-Natriuretic Peptide 1681.8 H Total Protein Albumin Globulin Albumin/Globulin Ratio TSH 5.23 H Free T4 1.91 H Urine Color Yellow Urine Clarity Clear Urine pH 5.0 Ur Specific [place] 1.015 Urine Protein 100 H Urine Glucose (UA) Normal Urine Ketones Negative Urine Occult Blood 50 H Urine Nitrite Negative Urine Bilirubin Negative Urine Urobilinogen 4 H Ur Leukocyte Esterase 100 H Urine RBC Cancelled Urine WBC Cancelled Ur Squamous Epith Cells Cancelled Ur Transition Epith Cell Cancelled Ur Renal Epithelial Cell Cancelled Calcium Oxalate Crystal Cancelled Uric Acid Crystals Cancelled Triple Phos Crystals Cancelled Other Crystals Cancelled Amorphous Sediment Cancelled Urine Bacteria Cancelled Hyaline Casts Cancelled Fine Granular Casts Cancelled Coarse Granular Casts Cancelled Waxy Casts Cancelled RBC Casts Cancelled WBC Casts Cancelled Urine Mucus Cancelled Urine Trichomonas Cancelled Urine Yeast Cancelled 11/05/18 11/05/18 11/06/18 22:40 22:40 00:03 WBC RBC Hgb Hct MCV MCH MCHC RDW Std Deviation RDW Coeff of El[place] Plt Count MPV Immature Gran % (Auto) Neut % (Auto) Lymph % (Auto) Scott % (Auto) Eos % (Auto) Baso % (Auto) Absolute Neuts (auto) Absolute Lymphs (auto) Nucleated RBC % Sodium Potassium Chloride Carbon Dioxide Anion Gap BUN Creatinine Estim Creat Clear Calc Est GFR (MDRD) Af Amer Est GFR (MDRD) Non-Af BUN/Creatinine Ratio Glucose Hemoglobin A1c 8.2 H Lactic Acid 1.3 Calcium Magnesium Total Bilirubin AST ALT Alkaline Phosphatase Troponin I 0.078 H B-Natriuretic Peptide Total Protein Albumin Globulin Albumin/Globulin Ratio TSH Free T4 Urine Color Urine Clarity Urine pH Ur Specific [place] Urine Protein Urine Glucose (UA) Urine Ketones Urine Occult Blood Urine Nitrite Urine Bilirubin Urine Urobilinogen Ur Leukocyte Esterase Urine RBC Urine WBC Ur Squamous Epith Cells Ur Transition Epith Cell Ur Renal Epithelial Cell Calcium Oxalate Crystal Uric Acid Crystals Triple Phos Crystals Other Crystals Amorphous Sediment Urine Bacteria Hyaline Casts Fine Granular Casts Coarse Granular Casts Waxy Casts RBC Casts WBC Casts Urine Mucus Urine Trichomonas Urine Yeast 11/06/18 11/06/18 11/06/18 01:35 05:15 05:15 WBC 6.8 RBC 3.20 L Hgb 9.6 L Hct 29.5 L MCV 92.2 MCH 30.0 MCHC 32.5 RDW Std Deviation 49.4 H RDW Coeff of Elton 14.6 Plt Count 174 MPV 10.1 Immature Gran % (Auto) 1.200 H Neut % (Auto) 73.7 H Lymph % (Auto) 15.7 L Scott % (Auto) 8.3 Eos % (Auto) 0.7 Baso % (Auto) 0.4 Absolute Neuts (auto) 5.0 Absolute Lymphs (auto) 1.07 Nucleated RBC % 0 Sodium 138 Potassium 4.2 Chloride 106 Carbon Dioxide 25.0 Anion Gap 7 BUN 18 Creatinine 1.03 H Estim Creat Clear Calc 34.45 Est GFR (MDRD) Af Amer 66 Est GFR (MDRD) Non-Af 55 L BUN/Creatinine Ratio 17.5 Glucose 193 H Hemoglobin A1c Lactic Acid Calcium 8.2 L Magnesium Total Bilirubin 0.80 AST 69 H ALT 52 Alkaline Phosphatase 153 H Troponin I 0.095 H B-Natriuretic Peptide Total Protein 6.0 L Albumin 2.3 L Globulin 3.7 Albumin/Globulin Ratio 0.6 L TSH Free T4 Urine Color Urine Clarity Urine pH Ur Specific [place] Urine Protein Urine Glucose (UA) Urine Ketones Urine Occult Blood Urine Nitrite Urine Bilirubin Urine Urobilinogen Ur Leukocyte Esterase Urine RBC Urine WBC Ur Squamous Epith Cells Ur Transition Epith Cell Ur Renal Epithelial Cell Calcium Oxalate Crystal Uric Acid Crystals Triple Phos Crystals Other Crystals Amorphous Sediment Urine Bacteria Hyaline Casts Fine Granular Casts Coarse Granular Casts Waxy Casts RBC Casts WBC Casts Urine Mucus Urine Trichomonas Urine Yeast 11/06/18 07:37 WBC RBC Hgb Hct MCV MCH MCHC RDW Std Deviation RDW Coeff of [place] Plt Count MPV Immature Gran % (Auto) Neut % (Auto) Lymph % (Auto) Scott % (Auto) Eos % (Auto) Baso % (Auto) Absolute Neuts (auto) Absolute Lymphs (auto) Nucleated RBC % Sodium Potassium Chloride Carbon Dioxide Anion Gap BUN Creatinine Estim Creat Clear Calc Est GFR (MDRD) Af Amer Est GFR (MDRD) Non-Af BUN/Creatinine Ratio Glucose Hemoglobin A1c Lactic Acid Calcium Magnesium Total Bilirubin AST ALT Alkaline Phosphatase Troponin I B-Natriuretic Peptide Total Protein Albumin Globulin Albumin/Globulin Ratio TSH Free T4 Urine Color Yellow Urine Clarity Sl. Cloudy Urine pH 5.0 Ur Specific [place] 1.020 Urine Protein 30 H Urine Glucose (UA) Normal Urine Ketones 5 H Urine Occult Blood 10 H Urine Nitrite Negative Urine Bilirubin Negative Urine Urobilinogen 1 H Ur Leukocyte Esterase 100 H Urine RBC 0 SEEN Urine WBC 0-5 SEEN Ur Squamous Epith Cells 0 SEEN Ur Transition Epith Cell Ur Renal Epithelial Cell Calcium Oxalate Crystal Uric Acid Crystals Triple Phos Crystals Other Crystals Amorphous Sediment Urine Bacteria 0 SEEN Hyaline Casts Fine Granular Casts Coarse Granular Casts Waxy Casts RBC Casts WBC Casts Urine Mucus 0 SEEN Urine Trichomonas Urine Yeast POC Glucose 11/06/18 06:54 POC Glucose 176 H Assessment/Plan This patient was seen in conjunction with GONZALEZ Lam . I have independently interviewed and examined the patient and reviewed pertinent historical, laboratory, and other data. Please refer to GONZALEZ Lam note for details of this patient's presentation, findings, and recommendations. I have reviewed GONZALEZ Lam note and concur with documented findings. In brief, patient is an 78-year-old lady admitted with progressive shortness of breath and generalized weakness. An assessment of acute on chronic systolic heart failure made admitted to a monitored bed where patient is currently being managed. There was an initial suspicion of an infectious etiology however work- up is so far been negative patient antibiotics discontinued. Did receive additional doses of Lasix in view of worsening respiratory status as a result of having received fluids for suspected sepsis Physical Examination: GENERAL: Dyspneic at rest HEENT: Atraumatic; EYES; Anicteric, a NECK; supple, normal thyroid, RESPIRATORY: Diminished to auscultation with bilateral rhonchi CARDIOVASCULAR: Irregular S1 S2, GI: soft, non-tender, normoactive bowel sounds, : No Renal angle tenderness; EXTREMITIES: trace edema, no clubbing, no cyanosis. NEURO: Awake; no lateralizing signs. SKIN: No Rash PSYCH; Normal affect Assessment: 1. Acute on chronic systolic heart failure 2. Demand ischemia with elevated troponin 3. Dyslipidemia 4. Hypothyroidism 5. Acute bronchitis 6. Newly diagnosed diabetes mellitus type 2 7. Chronic A. fib 8. Coronary artery disease with previous stent placement Recommendations: 1. I have discussed the results of my overview and impressions with the patient 2. Options for management were reviewed Code Visit Inpatient E&M: 16764 Subs Hosp L3
[2018-11-06] MEDS: Glucerna Shake 120 ML LIQUID PO ×2 (11:45→17:03)
[2018-11-06 12:41] LABS: Bedside Glucose 160 mg/dL (70-110)
[2018-11-06 16:41] LABS: Bedside Glucose 209 mg/dL (70-110)
[2018-11-06] MEDS: Furosemide 40 MG/4 ML Vial IV (17:03)
[2018-11-06] MEDS: Pravastatin 40 MG Tablet PO (22:07)
[2018-11-06 22:20] LABS: Bedside Glucose 184 mg/dL (70-110)
[2018-11-07] VITALS (9 sets, daily range): BP systolic 116–145; BP diastolic 57–76; PULSE 78–92; RESP 16–18; TEMP 36.6–36.9; O2SAT 95–98
[2018-11-07 05:29] LABS: Absolute Lymphocyte Count 1.18 X10^3/uL (0.83-4.51); Absolute Neutrophil Count 6.4 X10^3/uL (2.0-7.7); Basophil# 0.05 X10^3/uL; Basophil% 0.6 % (0-1); Eosinophil# 0.36 X10^3/uL; Eosinophils% 4.1 % (0-5); Hematocrit 34.4 % (37-47); Hemoglobin 11.2 g/dL (12.0-15.0); Lymphocyte # 1.18 X10^3/ul (4.0); Lymphocyte % 13.3 % (19-41); Mean Corp Hgb Conc 32.6 g/dL (32-36); Mean Corpuscular Hgb 30.4 pg (27.0-32.0); Mean Corpuscular Volume 93.5 fL (81-99); Mean Platelet Vol. 9.7 fl (6.2-12.0); Monocyte# 0.75 X10^3/uL; Monocyte% 8.5 % (0-10); NRBC Flagged by Analyzer 0 % (0-5); Neutrophil # 6.44 X10^3/uL (2.7-7.7); Neutrophil % 72.5 % (47-70); Platelet Count 198 K/mm3 (150-450); RBC Distribution Width CV 14.7 % (11.6-14.6); RBC Distribution Width SD 50.4 fl (35.1-43.9); Red Blood Count 3.68 M/mm3 (4.2-5.4); White Blood Count 8.9 K/mm3 (4.4-11.0)
[2018-11-07 05:46] LABS: Anion Gap 8 (5-15); BUN 23 mg/dL (7-18); BUN/Creat Ratio 22.5 RATIO (10-20); Calcium,Total 8.6 mg/dL (8.5-10.1); Chloride 108 mmol/L (98-107); Creatinine, Serum 1.02 mg/dL (0.55-1.02); EST Glomerular Filtration Rate 55 mL/min (>60); Est Glom Filt Rate - Afr Amer 67 mL/min (>60); Estimated Creatinine Clearance 34.79 ml/min; Glucose 190 mg/dL (74-106); Magnesium 1.8 mg/dL (1.6-2.6); Potassium 4.4 mmol/L (3.5-5.1); Sodium Level 142 mmol/L (136-145)
[2018-11-07] MEDS: Levothyroxine 25 MCG TABLET PO (06:40)
[2018-11-07] MEDS: Insulin Lispro 100 UNIT/ML INSULN.PEN SC ×3 (06:40→21:27)
[2018-11-07 06:51] LABS: Bedside Glucose 174 mg/dL (70-110)
[2018-11-07] MEDS: Sertraline 50 MG Tablet PO ×2 (09:22→21:27)
[2018-11-07] MEDS: Carvedilol 12.5 MG Tablet PO ×2 (09:22→21:28)
[2018-11-07] MEDS: APIXABAN 2.5 MG TABLET PO ×2 (09:22→21:27)
[2018-11-07] MEDS: SACUBITRIL/VALSARTAN 97-103 MG TABLET 1 EACH PO ×2 (09:22→21:27)
[2018-11-07] MEDS: Furosemide 40 MG/4 ML Vial IV ×2 (09:22→17:11)
[2018-11-07] MEDS: Amiodarone 200 MG Tablet PO ×2 (09:22→21:27)
[2018-11-07] MEDS: Glucerna Shake 120 ML LIQUID PO ×2 (09:25→17:11)
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
[2018-11-07 11:50] LABS: Bedside Glucose 259 mg/dL (70-110)
[2018-11-07 17:25] LABS: Bedside Glucose 132 mg/dL (70-110)
[2018-11-07] MEDS: Pravastatin 40 MG Tablet PO (21:27)
[2018-11-08 00:11] LABS: Bedside Glucose 207 mg/dL (70-110)
[2018-11-08 02:47] VITALS: PULSE 75
[2018-11-08] MEDS: 0.9% NaCl Peripheral Flush Adult/Peds IV (03:13)
[2018-11-08] MEDS: Levothyroxine 25 MCG TABLET PO (03:13)
[2018-11-08 03:15] VITALS: BP 130/79; PULSE 87; RESP 16; TEMP 36.6; O2SAT 97
[2018-11-08] MEDS: Insulin Lispro 100 UNIT/ML INSULN.PEN SC ×2 (06:41→12:34)
[2018-11-08 06:46] LABS: Anion Gap 8 (5-15); BUN 22 mg/dL (7-18); BUN/Creat Ratio 21.4 RATIO (10-20); Calcium,Total 8.9 mg/dL (8.5-10.1); Chloride 107 mmol/L (98-107); Creatinine, Serum 1.03 mg/dL (0.55-1.02); EST Glomerular Filtration Rate 55 mL/min (>60); Est Glom Filt Rate - Afr Amer 66 mL/min (>60); Estimated Creatinine Clearance 34.45 ml/min; Glucose 159 mg/dL (74-106); Potassium 4.4 mmol/L (3.5-5.1); Sodium Level 142 mmol/L (136-145)
[2018-11-08 07:01] LABS: Bedside Glucose 165 mg/dL (70-110)
[2018-11-08 07:04] VITALS: O2SAT 91
[2018-11-08 07:11] VITALS: PULSE 90
[2018-11-08] MEDS: Glucerna Shake 120 ML LIQUID PO ×2 (08:48→12:40)
[2018-11-08 09:15] VITALS: BP 125/51; PULSE 67; RESP 16; TEMP 36.8; O2SAT 94
[2018-11-08] MEDS: Sertraline 50 MG Tablet PO (10:44)
[2018-11-08] MEDS: SACUBITRIL/VALSARTAN 97-103 MG TABLET 1 EACH PO (10:44)
[2018-11-08] MEDS: Amiodarone 200 MG Tablet PO (10:45)
[2018-11-08] MEDS: Furosemide 40 MG Tablet PO (10:45)
[2018-11-08] MEDS: APIXABAN 2.5 MG TABLET PO (10:45)
[2018-11-08] MEDS: Carvedilol 12.5 MG Tablet PO (10:45)
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
--- NOTE | 2018-11-08 11:46 | PCM.EXTCARCO ---
- Diet 11/06/18 09:32 Diabetic [Diet: Calorie Controlled] Is pt able to select menu?: Yes How many daily calories?: 1800 calorie - Routine Orders/Code Status Enema Type: Fleetz Enema Frequency: Daily PRN Suppository Type: Dulcolax 10mg Suppository Frequency: Daily PRN O2 Liters per Minute: 1-2 O2 Frequency: Continuous Keep PO Greater than or Equal to (%): 90 - Amb pulse O2 prior to DC Routine Lab Work: CBC, BMP, - - Q Week Code Status: DNRCC-A - Suggestions for Active Care Change Position every (hours): 2 Times a day to sit in chair: 3 - Therapies Physical Therapy: Eval and Treat Occupational Therapy: Eval and Treat - Problem/Diagnosis (1) Acute on chronic systolic (congestive) heart failure Status: Acute Current Visit: Yes (2) Atrial fibrillation with rapid ventricular response Status: Chronic Current Visit: No (3) Coronary artery disease Status: Chronic Current Visit: No (4) Depression Status: Chronic Current Visit: No (5) Hyperlipidemia Status: Chronic Current Visit: No (6) HTN (hypertension) Status: Chronic Current Visit: No - Allergies/Procedures Done in Hospital Allergies/Adverse Reactions: Allergies Yrjakiw-Dvt-Vuv Reductase Inhibitor Adverse Reaction (Verified 08/19/18 13:46) muscle aches warfarin [From Coumadin] Adverse Reaction (Verified 08/19/18 13:46) GI bleeds, profuse nosebleeds Procedures: None - Type of Care/Length of Stay Estimated LOS: Convalescent Care Less Than 30 days Type of Care Needed: Skilled Rehab Potential: Fair Prognosis: Fair - Additional Orders/Day of Discharge H&P will serve as current which was dated: 11/05/18 Day of Discharge: 11/08/18 - Dietary and Speech Recommendations Dietitian Recommendations/Changes: Recommend diet change to 1600 calorie controlled, low sodium w/ fluid restriction as indicated. Continue Glucerna 120 mL TID. - Follow Up Care Primary Care Physician: Santy Ortega Chi, MD [Primary Care Provider] - Please follow up with your Primary Care Physician in: 1 Week Please Follow Up With: Chandu Ferro MD When: As scheduled, 11/22/2018
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
--- NOTE | 2018-11-08 11:54 | NURSING ---
Called behavioral health and let them know that the MD would like for one of the counselers to see her. She will be moving to [facility] so they can follow up with her there.
[2018-11-08] MEDS: Furosemide 20 MG/2 ML VIAL IV (12:36)
[2018-11-08 12:41] LABS: Bedside Glucose 196 mg/dL (70-110)
--- NOTE | 2018-11-08 13:21 | NURSING ---
Called report to TCU RN, no questions, OK to send to bed 15.
--- NOTE | 2018-11-08 14:14 | NURSING ---
Reviewed Mikala Bean's charting.
== END 2018-11-08 13:41 | disposition skilled nursing facility (03) | DRG 291 ==
LOC: ED 21:44 → PCU 21:58
PROVIDERS: Internal Medicine; Admitting Provider Family Medicine; Emergency Provider Emergency Medicine; Family Provider Family Medicine Geriatric Medicine; PCP Family Medicine Geriatric Medicine; Visit Provider Internal Medicine
DX: I13.0 Hypertensive heart and chronic kidney disease with heart failure and stage 1 through stage 4 chronic kidney disease, or unspecified chronic kidney disease (principal); I50.23 Acute on chronic systolic (congestive) heart failure; I24.8 Other forms of acute ischemic heart disease; I42.0 Dilated cardiomyopathy; I25.10 Atherosclerotic heart disease of native coronary artery without angina pectoris; I48.2 Chronic atrial fibrillation; Z95.5 Presence of coronary angioplasty implant and graft; Z79.01 Long term (current) use of anticoagulants; Z95.810 Presence of automatic (implantable) cardiac defibrillator; N18.3 Chronic kidney disease, stage 3 (moderate); E03.9 Hypothyroidism, unspecified; E11.22 Type 2 diabetes mellitus with diabetic chronic kidney disease; F32.9 Major depressive disorder, single episode, unspecified; F41.9 Anxiety disorder, unspecified
CPT/HCPCS: 36415; 71045; 71046; 80048; 80053; 81001; 81002; 82962; 83036; 83605; 83735; 83880; 84439; 84443; 84484; 85025; 87040; 87449; 87633; 93005; 97162; 97165; 97530; 97802; 99285; J7030; J7050; A4216; J1940

== ENCOUNTER 2018-11-08 13:50 | Inpatient (IN) | payer MEDICARE, OTHER, SELFPAY ==
[2018-11-08 14:01] VITALS: BP 116/73; PULSE 94; RESP 16; TEMP 36.8; O2SAT 97
[2018-11-08 14:21] VITALS: BMI 25.9
[2018-11-08 14:25] VITALS: BMI 25.9
[2018-11-08 14:53] VITALS: BP 114/71; PULSE 85; RESP 18; TEMP 36.6; O2SAT 98
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
[2018-11-08 15:19] VITALS: PULSE 84
[2018-11-08 15:24] VITALS: O2SAT 97
--- NOTE | 2018-11-08 15:34 | NURSING ---
ALL CARE PROVIDED IN ROOM D/T DROPLET PRECAUTIONS.
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
[2018-11-08 16:56] LABS: Bedside Glucose 206 mg/dL (70-110)
[2018-11-08] MEDS: metFORMIN (XR) 500 MG Tablet PO (17:22)
[2018-11-08] MEDS: Furosemide 40 MG Tablet PO (17:22)
[2018-11-08] MEDS: Amiodarone 200 MG Tablet PO (17:22)
[2018-11-08] MEDS: SACUBITRIL/VALSARTAN 97-103 MG TABLET 1 EACH PO (17:22)
[2018-11-08] MEDS: Carvedilol 12.5 MG Tablet PO (17:22)
[2018-11-08] MEDS: Sertraline 50 MG Tablet PO (17:22)
[2018-11-08] MEDS: APIXABAN 2.5 MG TABLET PO (17:23)
[2018-11-08] MEDS: Pravastatin 40 MG Tablet PO (20:15)
[2018-11-08] MEDS: Menthol/Lanolin/Calamine/Znox 113 GM Tube 1 APPLIC TOPICAL (20:18)
[2018-11-08] MEDS: Nystatin Powder 15gm Bottle 1 APPLIC TOPICAL (20:18)
[2018-11-08 21:11] LABS: Bedside Glucose 247 mg/dL (70-110)
--- NOTE | 2018-11-08 21:11 | PCM.HP.STD ---
Problem List (1) Diabetes mellitus Status: Acute (2) Shortness of breath Status: Acute (3) Acute on chronic systolic (congestive) heart failure Status: Acute (4) Atrial fibrillation with rapid ventricular response Status: Acute (5) Coronary artery disease Status: Chronic Qualifiers: (6) Hypokalemia Status: Chronic (7) Depression Status: Chronic (8) SIRS (systemic inflammatory response syndrome) Status: Acute (9) Hyperlipidemia Status: Chronic Qualifiers: (10) HTN (hypertension) Status: Chronic Qualifiers: History of Present Illness Date of Admission: 11/08/18 Chief Complaint: Here for rehabilitation, strengthening, prior to discharge to Assisted Living Facility. The patient is a 78 year old Female with below past medical history presented to [facility] Emergency Department 11/05/2018 with shortness of breath. 11/05/2018 EKG showed atrial fibrillation with rapid ventricular response, left axis deviation, right bundle branch block. Shortness of breath x 2 months, worse over 1 hour. Recent admission for CHF, started on Entresto. WBC 10.8, Hemoglobin 11.6, Hematocrit 35, Platelet 238. Fever 100.1 BUN 21, Cr 1.19, Troponin 0.045, Lactate 2.6. Blood culture sent, UA pending. Coreg 12.5MG PO x 1 dose given. 11/05/2018 Admit to Hospital. Rocephin IV, Zithromax IV given for pneumonia versus urinary tract infection. Pneumonia/sepsis ruled out. BNP 1681, but patient on Entresto which can elevated BNP. Shortness of breath improved with IV Lasix, transitioned to PO Lasix. Elevated troponin secondary to demand ischemia New onset Diabetes Mellitus II, A1c 8.2, Metformin 500MG daily started. 11/08/2018 Admit to TCU with debility, here for rehabilitation, strengthening, prior to discharge to Assisted Living Facility. She has 3cm abscess under left scapula, not currently draining, nontender, will treat with warm compresses every shift. Past Medical History Past Medical History (Chronic Problems): Chronic Problems (Last Reviewed 08/19/18 @ 14:29 by Chandu Ferro MD) Congestive heart failure (Chronic) Elevated troponin (Chronic) Coronary artery disease (Chronic) Hypokalemia (Chronic) Depression (Chronic) Low serum HDL (Chronic) Chronic kidney disease, stage III (moderate) (Chronic) History of coronary artery stent placement (Chronic) 01/18, PCI/bare metal stent to mid LAD and ostium of diag #2, PTCA to diag #1-02/09/13 Atherosclerotic heart disease of [place] coronary artery without angina pectoris (Chronic) Chronic atrial fibrillation (Chronic) Chronic systolic congestive heart failure (Chronic) Bradycardia (Chronic) Dilated cardiomyopathy (Chronic) 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0 CAD (coronary artery disease) (Chronic) I25.10 status post stents Hyperlipidemia (Chronic) E78.5 HTN (hypertension) (Chronic) I10 Allergies [place]-Lhj-Tlm Reductase Inhibitor Adverse Reaction (Verified 08/19/18 13:46) muscle aches warfarin [From Coumadin] Adverse Reaction (Verified 08/19/18 13:46) GI bleeds, profuse nosebleeds Home Medications: Ambulatory Orders Medication Instructions Recorded Apixaban [Eliquis] 2.5 mg PO BID 08/10/18 Acetaminophen [Tylenol] 1,000 mg PO Q6H PRN PRN tab 08/23/18 Amiodarone HCl [Cordarone] 200 mg PO BID #60 tab 08/23/18 carvedilol 12.5 mg tablet 12.5 mg PO BID #180 tab 09/09/18 pravastatin 40 mg tablet 40 mg PO QDAY #90 tab 10/14/18 Levothyroxine [Synthroid] 25 mcg PO DAILY 11/05/18 Potassium Chloride 40 meq PO BID 11/05/18 Sacubitril/Valsartan 97-103 mg 1 tab PO BID 11/05/18 [Entresto 97 mg-103 mg Tablet] Albuterol Aerosols [Ventolin 2.5 mg INHALATION Q2H PRN PRN 11/08/18 Aerosols] vial.neb. Furosemide [Lasix] 40 mg PO BID@1000,1800 11/08/18 Menthol/Lanolin/Calamine/Znox 1 applic TOPICAL TID 11/08/18 [Calmoseptine Ointment] Sertraline HCl [Zoloft] 50 mg PO BID #30 tab 11/08/18 metFORMIN (XR) [Glucophage Xr] 500 mg PO DAILY 11/08/18 Surgical History: Surgical History (Last Reviewed 08/19/18 @ 14:29 by Chandu Ferro MD) History of coronary artery stent placement (Chronic) Z95.5 01/18, PCI/bare metal stent to mid LAD and ostium of diag #2, PTCA to diag #1-02/09/13 Presence of automatic implantable cardioverter-defibrillator (Chronic) Onset Date: ~08/12/15 Z95.810 History of varicose vein stripping Z98.890 Surgical History: angioplasty - Stent., - - ICD, varicose vein stripping. 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 Tobacco Use: Non-smoker Alcohol: Occasional Drugs: None - *Family History Maternal Family History: Family History (Last Reviewed 08/19/18 @ 14:29 by Chandu Ferro MD) Grandfather Myocardial infarction Father Myocardial infarction Hypertension Brother Cancer Sister Diabetes CVA (cerebral vascular accident) Hypertension Son Diabetes Son Hypertension Daughter Afib History Items: - - Patient with no market maternal family history including heart disease, diabetes or cancer. Paternal Family History: Family History (Last Reviewed 08/19/18 @ 14:29 by Chandu Ferro MD) Grandfather Myocardial infarction Father Myocardial infarction Hypertension Brother Cancer Sister Diabetes CVA (cerebral vascular accident) Hypertension Son Diabetes Son Hypertension Daughter Afib History Items: Heart Disease, Hypertension Sibling Family History: Family History (Last Reviewed 08/19/18 @ 14:29 by Chandu Ferro MD) Grandfather Myocardial infarction Father Myocardial infarction Hypertension Brother Cancer Sister Diabetes CVA (cerebral vascular accident) Hypertension Son Diabetes Son Hypertension Daughter Afib History Items: Cancer, Diabetes, Heart Disease, Stroke Offspring Family History: Family History (Last Reviewed 08/19/18 @ 14:29 by Chandu Ferro MD) Grandfather Myocardial infarction Father Myocardial infarction Hypertension Brother Cancer Sister Diabetes CVA (cerebral vascular accident) Hypertension Son Diabetes Son Hypertension Daughter Afib History Items: Diabetes, Heart Disease, Hypertension Review of Systems Constitutional: Denies: Chills, Fever, Weight Change HEENT: Denies: Head Aches, Sinus Congestion, Sinus Drainage Cardiovascular: Denies: Chest Pain, Palpitations Respiratory: Denies: Cough, Shortness of breath at rest, Sputum production Gastrointestinal: Denies: Abdominal Pain, Nausea, Vomiting Genitourinary: Denies: Dysuria Musculoskeletal: Denies: Joint Pain, Joint Tenderness Skin: Denies: Rash, Wounds Neurological: Denies: Numbness, Tingling, Focal weakness Psychiatric: Denies: Anxiety, Depression, Homicidal Ideations, Suicidal Ideations Hematologic/ Lymphatic: Denies: Easy Bruising, Easy Bleeding VTE Information - Inpt Only VTE Present on Admission: No VTE Mechan Device Prophylaxis: Knee High COLETTE Hose VTE Pharm Prophylaxis ordered?: No Reason prophylaxis not ordered:: Treatment Not Indicated Patient Problems: Active and Suspected Problems (Last Reviewed 08/19/18 @ 14:29 by Chandu Ferro MD) Diabetes mellitus (Acute) - Physical Exam General: Alert, Oriented x3, Cooperative HEENT: Atraumatic, PERRLA, EOMI, Normocephalic Neck: Supple, No JVD, Negative Carotid Bruits Lungs: Normal air movement, Rhonchi - Bibasilar. Cardiovascular: Regular rate, No murmurs Abdomen: Bowel Sounds Present, Soft, Non Tender Extremities: No edema, Capillary Refill Less than 3 Seconds Skin: No rashes, No breakdown Musculoskeletal: No Tenderness to Palpation of Joints or Extremities Neurological: Cranial nerves II-XII grossly intact Psych/Mental Status: Normal Affect, Appropriate Vital Signs Temp Pulse Resp BP Pulse Ox 97.9 F 84 18 114/71 97 11/08/18 14:53 11/08/18 15:19 11/08/18 14:53 11/08/18 14:53 11/08/18 15:24 Oxygen Flow Rate (L/min) 1 Oxygen Delivery Method Nasal Cannula Weight: 62.142 kg Body Mass Index (BMI) 25.9 Intake and Output for Last 24 Hours 11/06/18 11/07/18 11/08/18 23:59 23:59 23:59 Intake Total 480 / 480 Balance 480 / 480 POC Glucose 11/08/18 16:51 POC Glucose 206 H Assessment/Plan All Active Problems (Last Reviewed 08/19/18 @ 14:29 by Chandu Ferro MD) Diabetes mellitus (Acute) Heart failure (Acute) Shortness of breath (Acute) Acute on chronic systolic (congestive) heart failure (Acute) Atrial fibrillation with rapid ventricular response (Acute) Bronchitis (Acute) SIRS (systemic inflammatory response syndrome) (Acute) 78 year old female with below past medical history hospitalized for shortness of breath secondary to acute on chronic systolic congestive heart failure, complicated by atrial fibrillation with rapid ventricular response, elevated troponin secondary to demand ischemia, new onset diabetes mellitus, sepsis ruled out, admitted to TCU with debility, here for rehabilitation, strengthening, prior to discharge to assisted living facility. Debility - PT/OT. Pain - Tylenol 1000MG Q6H PRN mild pain. Bowel - Miralax 17GM daily, Senna/colace 1 tablet BID, Dulcolax 10MG [place] daily PRN. Pneumonia vaccination - Administer Prevnar 13 and/or Pneumovax 23 as necessary. DVT prophylaxis - Not necessary, already on Eliquis. Shortness of breath - Albuterol 2.MG Q2H PRN. Atrial Fibrillation - Coreg 12.5MG BID, Amiodarone 200MG BID, Eliquis 2.5MG BID. Coronary Artery Disease - Coreg 12.5MG BID, Eliquis 2.5MG BID. Chronic systolic congestive heart failure - Coreg 12.5MG BID, Entresto 97/103MG BID, Lasix 40MG BID. Nutrition - Glucerna 120ML TIDCM. Hypothyroidism - Levothyroxine 25MCG daily. Skin irritation - Calmoseptine TID. New onset Diabetes Mellitus II - A1c 8.2, Metformin 500MG daily, may need insulin if her pancreas no longer makes insulin. Tinea Corporis - Nystatin powder BID. Hypokalemia - K-Dur 40MEQ BID. Hyperlipidemia - Pravastatin 40MG QHS. Depression - Sertraline 50MG BID.
[2018-11-09 05:17] VITALS: BP 132/67; PULSE 75
[2018-11-09] MEDS: Sertraline 50 MG Tablet PO ×2 (05:32→17:13)
[2018-11-09] MEDS: SACUBITRIL/VALSARTAN 97-103 MG TABLET 1 EACH PO ×2 (05:32→17:15)
[2018-11-09] MEDS: Levothyroxine 25 MCG TABLET PO (05:32)
[2018-11-09] MEDS: Carvedilol 12.5 MG Tablet PO ×2 (05:33→17:15)
[2018-11-09] MEDS: APIXABAN 2.5 MG TABLET PO ×2 (05:33→17:15)
[2018-11-09] MEDS: Nystatin Powder 15gm Bottle 1 APPLIC TOPICAL ×2 (05:34→17:20)
[2018-11-09] MEDS: Menthol/Lanolin/Calamine/Znox 113 GM Tube 1 APPLIC TOPICAL ×3 (05:34→20:49)
[2018-11-09] MEDS: Amiodarone 200 MG Tablet PO ×2 (05:34→17:15)
[2018-11-09 06:08] LABS: Absolute Lymphocyte Count 1.57 X10^3/uL (0.83-4.51); Absolute Neutrophil Count 5.7 X10^3/uL (2.0-7.7); Basophil# 0.07 X10^3/uL; Basophil% 0.8 % (0-1); Eosinophil# 0.49 X10^3/uL; Eosinophils% 5.6 % (0-5); Hematocrit 35.2 % (37-47); Hemoglobin 11.3 g/dL (12.0-15.0); Lymphocyte # 1.57 X10^3/ul (4.0); Lymphocyte % 18.1 % (19-41); Mean Corp Hgb Conc 32.1 g/dL (32-36); Mean Corpuscular Hgb 30.4 pg (27.0-32.0); Mean Corpuscular Volume 94.6 fL (81-99); Mean Platelet Vol. 9.5 fl (6.2-12.0); Monocyte# 0.74 X10^3/uL; Monocyte% 8.5 % (0-10); NRBC Flagged by Analyzer 0 % (0-5); Neutrophil # 5.69 X10^3/uL (2.7-7.7); Neutrophil % 65.5 % (47-70); Platelet Count 214 K/mm3 (150-450); RBC Distribution Width CV 14.8 % (11.6-14.6); RBC Distribution Width SD 51.5 fl (35.1-43.9); Red Blood Count 3.72 M/mm3 (4.2-5.4); White Blood Count 8.7 K/mm3 (4.4-11.0)
[2018-11-09 06:25] LABS: Anion Gap 6 (5-15); BUN 20 mg/dL (7-18); BUN/Creat Ratio 17.9 RATIO (10-20); Calcium,Total 8.5 mg/dL (8.5-10.1); Chloride 106 mmol/L (98-107); Creatinine, Serum 1.12 mg/dL (0.55-1.02); EST Glomerular Filtration Rate 50 mL/min (>60); Est Glom Filt Rate - Afr Amer 60 mL/min (>60); Estimated Creatinine Clearance 30.23 ml/min; Glucose 155 mg/dL (74-106); Potassium 4.1 mmol/L (3.5-5.1); Sodium Level 142 mmol/L (136-145)
[2018-11-09 06:31] LABS: Bedside Glucose 154 mg/dL (70-110)
--- NOTE | 2018-11-09 06:49 | NURSING ---
ALL CARE PROVIDED IN ROOM D/T DROPLET PRECAUTIONS.
[2018-11-09 07:04] VITALS: O2SAT 96
[2018-11-09] MEDS: Furosemide 40 MG Tablet PO ×2 (09:09→17:15)
[2018-11-09] MEDS: Glucerna Shake 120 ML LIQUID PO ×3 (09:10→17:19)
[2018-11-09] MEDS: Tuberculin,Purif.prot.deriv. 50 TU/ML Vial 5 ML ID (09:12)
--- NOTE | 2018-11-09 15:28 | CHAPLAIN ---
Type of Pastoral Visit _x__ Initial Visit ___ Follow-up Visit ___ On-call Visit ___ General Patient Visit ___ Spiritual Assessment ___ Family Conference ___ Bereavement ___ Rapid Response ___ Code Blue ___ Other (describe below) Pastoral Care Referral From _x__ Patient ___ Family ___ Nurse ___ Physician ___ Doctor Of Chiropractic ___ [employer]inerator [employer] General Supervisor ___ Other (describe below) Sacrament/Intervention _x__ Active listening ___ Anointing ___ Advent ___ Bereavement ___ Communion ___ Tracy exploration ___ _x__ Life review _x__ Prayer ___ Reconciliation ___ Sacrament of Sick _x__ Supportive presence ___ Wedding ___ Other (describe below) Pastoral Comments 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
[2018-11-09 16:00] VITALS: BP 134/70; PULSE 84; RESP 18; TEMP 37.3; O2SAT 97
--- NOTE | 2018-11-09 16:31 | CON.PCM_ITS ---
Reason for Consult Date of Consultation: 11/09/18 Reason for Consultation: Toenails History of Present Illness: The patient is a 78 year old female with elongated, thickened painful toenails 1-5 bilateral and needs to be reduced. Patient also relates to a chronic callus on the bottom of the right foot which sometimes causes her pain when it builds up, she relates she reduces it herself normally but has not recently. No other foot/ankle complaints. Past Medical History Past Medical History (Chronic Problems): Chronic Problems (Last Reviewed 08/19/18 @ 14:29 by Chandu Ferro MD) Congestive heart failure (Chronic) Elevated troponin (Chronic) Coronary artery disease (Chronic) Hypokalemia (Chronic) Depression (Chronic) Low serum HDL (Chronic) Chronic kidney disease, stage III (moderate) (Chronic) History of coronary artery stent placement (Chronic) 01/18, PCI/bare metal stent to mid LAD and ostium of diag #2, PTCA to diag #1-02/09/13 Atherosclerotic heart disease of [place] coronary artery without angina pectoris (Chronic) Chronic atrial fibrillation (Chronic) Chronic systolic congestive heart failure (Chronic) Bradycardia (Chronic) Dilated cardiomyopathy (Chronic) 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) CAD (coronary artery disease) (Chronic) status post stents A-fib (Chronic) Hyperlipidemia (Chronic) HTN (hypertension) (Chronic) Medical History: Medical History (Last Reviewed 08/19/18 @ 14:29 by Chandu Ferro MD) Low serum HDL (Chronic) R74.8 Chronic kidney disease, stage III (moderate) (Chronic) N18.3 Atherosclerotic heart disease of [place] coronary artery without angina pectoris (Chronic) I25.10 Chronic atrial fibrillation (Chronic) I48.2 Chronic systolic congestive heart failure (Chronic) I50.22 Bradycardia (Chronic) R00.1 Dilated cardiomyopathy (Chronic) I42.0 CAD (coronary artery disease) (Chronic) I25.10 status post stents Hyperlipidemia (Chronic) E78.5 HTN (hypertension) (Chronic) I10 Allergies Jfqoflq-Tfu-Jdb Reductase Inhibitor Adverse Reaction (Verified 08/19/18 13:46) muscle aches warfarin [From Coumadin] Adverse Reaction (Verified 08/19/18 13:46) GI bleeds, profuse nosebleeds Home Medications: Ambulatory Orders Medication Instructions Recorded Apixaban [Eliquis] 2.5 mg PO BID 08/10/18 Acetaminophen [Tylenol] 1,000 mg PO Q6H PRN PRN tab 08/23/18 Amiodarone HCl [Cordarone] 200 mg PO BID #60 tab 08/23/18 carvedilol 12.5 mg tablet 12.5 mg PO BID #180 tab 09/09/18 pravastatin 40 mg tablet 40 mg PO QDAY #90 tab 10/14/18 Levothyroxine [Synthroid] 25 mcg PO DAILY 11/05/18 Potassium Chloride 40 meq PO BID 11/05/18 Sacubitril/Valsartan 97-103 mg 1 tab PO BID 11/05/18 [Entresto 97 mg-103 mg Tablet] Albuterol Aerosols [Ventolin 2.5 mg INHALATION Q2H PRN PRN 11/08/18 Aerosols] vial.neb. Furosemide [Lasix] 40 mg PO BID@1000,1800 11/08/18 Menthol/Lanolin/Calamine/Znox 1 applic TOPICAL TID 11/08/18 [Calmoseptine Ointment] Sertraline HCl [Zoloft] 50 mg PO BID #30 tab 11/08/18 metFORMIN (XR) [Glucophage Xr] 500 mg PO DAILY 11/08/18 Surgical History: Surgical History (Last Reviewed 08/19/18 @ 14:29 by Chandu Ferro MD) History of coronary artery stent placement (Chronic) Z95.5 01/18, PCI/bare metal stent to mid LAD and ostium of diag #2, PTCA to diag #1-02/09/13 Presence of automatic implantable cardioverter-defibrillator (Chronic) Onset Date: ~08/12/15 Z95.810 History of varicose vein stripping Z98.890 Surgical History: angioplasty - Stent., - - ICD, varicose vein stripping. 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 Tobacco Use: Non-smoker Alcohol: Occasional Drugs: None - *Family History Maternal Family History: Family History (Last Reviewed 08/19/18 @ 14:29 by Chandu Ferro MD) Grandfather Myocardial infarction Father Myocardial infarction Hypertension Brother Cancer Sister Diabetes CVA (cerebral vascular accident) Hypertension Son Diabetes Son Hypertension Daughter Afib History Items: - - Patient with no market maternal family history including heart disease, diabetes or cancer. Paternal Family History: Family History (Last Reviewed 08/19/18 @ 14:29 by Chandu Ferro MD) Grandfather Myocardial infarction Father Myocardial infarction Hypertension Brother Cancer Sister Diabetes CVA (cerebral vascular accident) Hypertension Son Diabetes Son Hypertension Daughter Afib History Items: Heart Disease, Hypertension Sibling Family History: Family History (Last Reviewed 08/19/18 @ 14:29 by Chandu Ferro MD) Grandfather Myocardial infarction Father Myocardial infarction Hypertension Brother Cancer Sister Diabetes CVA (cerebral vascular accident) Hypertension Son Diabetes Son Hypertension Daughter Afib History Items: Cancer, Diabetes, Heart Disease, Stroke Offspring Family History: Family History (Last Reviewed 08/19/18 @ 14:29 by Chandu Ferro MD) Grandfather Myocardial infarction Father Myocardial infarction Hypertension Brother Cancer Sister Diabetes CVA (cerebral vascular accident) Hypertension Son Diabetes Son Hypertension Daughter Afib History Items: Diabetes, Heart Disease, Hypertension Review of Systems Constitutional: Denies: Chills, Fever Gastrointestinal: Denies: Nausea, Vomiting Musculoskeletal: Reports: Foot Pain - toenails and callus as noted above, otherwise no other foot/ankle pain. Denies: Joint Pain, Leg Pain, Muscle pain Patient Problems: Active and Suspected Problems (Last Reviewed 08/19/18 @ 14:29 by Chandu Ferro MD) Diabetes mellitus (Acute) - Physical Exam General: Alert, Oriented x3, Cooperative, No apparent distress Extremities: No clubbing, Capillary Refill Less than 3 Seconds, No Calf Tenderness, - - Toenails 1-5 bilateral are elongated, thickened, dystrophic, yellow with subungual debris and painful. There is a callus lesion plantar forefoot under metatarsal head right foot. There are no open lesions, no erythema, no ecchymosis, no cyanosis, no fluctuance, no streaking, no crepitus, no maloder bilateral foot/ankle. CFT < 2 seconds to all toes, normal temperatre to foot bilateral. No evidence of acute ischemia to the foot or ankle. Sensation intact to light touch bilateral foot. Skin is thin and atrophic c/w patient's age bilateral foot. No m/s POP or pain on ROM to the foot/ankle bilateral. Musculoskeletal: No Tenderness to Palpation of Joints or Extremities Psych/Mental Status: Normal Affect, Alert and oriented to time, place, person, mood and affect Vital Signs Temp Pulse Resp BP Pulse Ox 97.9 F 75 18 132/67 H 96 11/08/18 14:53 11/09/18 05:17 11/08/18 14:53 11/09/18 05:17 11/09/18 07:04 Oxygen Flow Rate (L/min) 1 Oxygen Delivery Method Nasal Cannula Weight: 62.142 kg Body Mass Index (BMI) 25.9 Intake and Output for Last 24 Hours 11/07/18 11/08/18 11/09/18 23:59 23:59 23:59 Intake Total 480 / 480 480 / 480 Balance 480 / 480 480 / 480 Laboratory Tests Past 24 Hrs 11/09/18 11/09/18 05:40 05:40 WBC 8.7 RBC 3.72 L Hgb 11.3 L Hct 35.2 L MCV 94.6 MCH 30.4 MCHC 32.1 RDW Std Deviation 51.5 H RDW Coeff of [place] 14.8 H Plt Count 214 MPV 9.5 Immature Gran % (Auto) 1.500 H Neut % (Auto) 65.5 Lymph % (Auto) 18.1 L [place] % (Auto) 8.5 Eos % (Auto) 5.6 H Baso % (Auto) 0.8 Absolute Neuts (auto) 5.7 Absolute Lymphs (auto) 1.57 Nucleated RBC % 0 Sodium 142 Potassium 4.1 Chloride 106 Carbon Dioxide 30.0 Anion Gap 6 BUN 20 H Creatinine 1.12 H Estim Creat Clear Calc 30.23 Est GFR (MDRD) Af Amer 60 Est GFR (MDRD) Non-Af 50 L BUN/Creatinine Ratio 17.9 Glucose 155 H Calcium 8.5 POC Glucose 11/09/18 11/08/18 11/08/18 06:11 21:03 16:51 POC Glucose 154 H 247 H 206 H Assessment/Plan All Active Problems (Last Reviewed 08/19/18 @ 14:29 by Chandu Ferro MD) Diabetes mellitus (Acute) Heart failure (Acute) Shortness of breath (Acute) Acute on chronic systolic (congestive) heart failure (Acute) Atrial fibrillation with rapid ventricular response (Acute) Bronchitis (Acute) SIRS (systemic inflammatory response syndrome) (Acute) Onychomyosis/Dystrophic toenails 1-5 bilateral Callus plantar right foot Pain in toe right and left Reviewed conditions and treatment options. Debrided toenails 1-5 bilateral using a nail nipper, this was done without incident. Debrided callus from the plantar right foot using a 15 blade, this was done without incident. Reviewed proper foot care. Patient to follow up at [facility] for [facility] care in 2 months, sooner if needed.
[2018-11-09 17:11] LABS: Bedside Glucose 144 mg/dL (70-110)
[2018-11-09] MEDS: buPROPion 75 MG Tablet PO (17:13)
[2018-11-09] MEDS: metFORMIN (XR) 500 MG Tablet PO (17:14)
[2018-11-09] MEDS: Pravastatin 40 MG Tablet PO (20:47)
[2018-11-09 21:11] LABS: Bedside Glucose 248 mg/dL (70-110)
[2018-11-10] MEDS: buPROPion 75 MG Tablet PO ×2 (05:54→17:10)
[2018-11-10] MEDS: Levothyroxine 25 MCG TABLET PO (05:54)
[2018-11-10] MEDS: SACUBITRIL/VALSARTAN 97-103 MG TABLET 1 EACH PO ×2 (05:55→17:09)
[2018-11-10] MEDS: APIXABAN 2.5 MG TABLET PO ×2 (05:55→17:10)
[2018-11-10] MEDS: Amiodarone 200 MG Tablet PO ×2 (05:55→17:09)
[2018-11-10] MEDS: Sertraline 50 MG Tablet PO ×2 (05:55→17:10)
[2018-11-10] MEDS: Carvedilol 12.5 MG Tablet PO ×2 (05:55→17:09)
[2018-11-10 05:56] VITALS: BP 120/74; PULSE 86
[2018-11-10] MEDS: Menthol/Lanolin/Calamine/Znox 113 GM Tube 1 APPLIC TOPICAL ×3 (05:57→20:41)
[2018-11-10] MEDS: Nystatin Powder 15gm Bottle 1 APPLIC TOPICAL ×2 (05:57→17:08)
[2018-11-10 06:25] LABS: Bedside Glucose 175 mg/dL (70-110)
[2018-11-10 07:15] VITALS: O2SAT 97
[2018-11-10] MEDS: Furosemide 40 MG Tablet PO ×2 (07:48→17:09)
[2018-11-10] MEDS: Glucerna Shake 120 ML LIQUID PO (07:49)
[2018-11-10 11:16] LABS: Bedside Glucose 279 mg/dL (70-110)
[2018-11-10 15:30] VITALS: BP 117/67; PULSE 73; RESP 18; TEMP 37.2; O2SAT 98
[2018-11-10 16:55] LABS: Bedside Glucose 135 mg/dL (70-110)
[2018-11-10] MEDS: metFORMIN (XR) 500 MG Tablet PO (17:10)
[2018-11-10] MEDS: Pravastatin 40 MG Tablet PO (20:41)
[2018-11-10 22:41] LABS: Bedside Glucose 117 mg/dL (70-110)
[2018-11-11 06:00] LABS: Bedside Glucose 130 mg/dL (70-110)
[2018-11-11] MEDS: Menthol/Lanolin/Calamine/Znox 113 GM Tube 1 APPLIC TOPICAL ×2 (06:15→20:17)
[2018-11-11] MEDS: APIXABAN 2.5 MG TABLET PO ×2 (06:16→17:45)
[2018-11-11] MEDS: buPROPion 75 MG Tablet PO ×2 (06:16→17:45)
[2018-11-11] MEDS: Nystatin Powder 15gm Bottle 1 APPLIC TOPICAL ×2 (06:16→17:49)
[2018-11-11] MEDS: SACUBITRIL/VALSARTAN 97-103 MG TABLET 1 EACH PO ×2 (06:17→17:44)
[2018-11-11] MEDS: Amiodarone 200 MG Tablet PO ×2 (06:17→17:46)
[2018-11-11] MEDS: Levothyroxine 25 MCG TABLET PO (06:17)
[2018-11-11] MEDS: Sertraline 50 MG Tablet PO ×2 (06:17→17:46)
[2018-11-11] MEDS: Carvedilol 12.5 MG Tablet PO ×2 (06:17→17:45)
[2018-11-11] MEDS: Glucerna Shake 120 ML LIQUID PO ×3 (08:38→17:48)
[2018-11-11] MEDS: Furosemide 40 MG Tablet PO ×2 (08:39→17:44)
--- NOTE | 2018-11-11 11:03 | PCM.PN.RX ---
<Mati Flores C - Last Filed: 11/14/18 08:16> Progress Note - Pharmacy Subjective: [] TCU Admission Objective: Allergies Bdzfzof-Pwo-Mkr Reductase Inhibitor Adverse Reaction (Verified 08/19/18 13:46) muscle aches warfarin [From Coumadin] Adverse Reaction (Verified 08/19/18 13:46) GI bleeds, profuse nosebleeds Current Medications Generic Name Dose Route Start Last Admin Trade Name Freq PRN Reason Stop Dose Admin Acetaminophen 1,000 mg 11/08/18 14:23 Tylenol PO Q6H PRN PRN MILD PAIN (1-10) Albuterol Sulfate 2.5 mg 11/08/18 14:23 Ventolin Aerosols INHALATION Q2H PRN PRN dyspnea, wheezing Amiodarone HCl 200 mg 11/08/18 18:00 11/11/18 06:17 Cordarone PO 200 mg BID RAHUL Administration Apixaban 2.5 mg 11/08/18 18:00 11/11/18 06:16 Eliquis PO 2.5 mg BID RAHUL Administration Bisacodyl 10 mg 11/08/18 14:28 Dulcolax RECTAL DAILY PRN Constipation Bupropion HCl 75 mg 11/09/18 18:00 11/11/18 06:16 Wellbutrin Tablets PO 75 mg BID RAHUL Administration Calamine/Phenol 1 applic 11/08/18 22:00 11/11/18 06:15 Calmoseptine Ointment TOPICAL 1 applicatio TID RAHUL Administration Protocol Carvedilol 12.5 mg 11/08/18 18:00 11/11/18 06:17 Coreg PO 12.5 mg BID RAHUL Administration Furosemide 40 mg 11/08/18 18:00 11/11/18 08:39 Lasix PO 40 mg BID@1000,1800 RAHUL Administration Levothyroxine Sodium 25 mcg 11/09/18 06:00 11/11/18 06:17 Synthroid PO 25 mcg DAILY RAHUL Administration Metformin HCl 500 mg 11/08/18 17:00 11/10/18 17:10 Glucophage Xr PO 500 mg DAILY@1700 RAHUL Administration Nutritional Formula (Lactose Free) 120 ml 11/08/18 17:45 11/11/18 08:38 Glucerna Shake PO 120 ml TIDCM RAHUL Administration Nystatin 1 applic 11/08/18 22:00 11/11/18 06:16 Mycostatin Powder TOPICAL 1 applicatio BID RAHUL Administration Protocol Potassium Chloride 40 meq 11/08/18 17:00 11/11/18 08:38 K-Dur PO 40 meq BIDCM RAHUL Administration Pravastatin Sodium 40 mg 11/08/18 22:00 11/10/18 20:41 Pravachol PO 40 mg QHS RAHUL Administration Sacubitril/Valsartan 1 each 11/08/18 18:00 11/11/18 06:17 Entresto 97 Mg-103 Mg Tablet PO 1 each BID RAHUL Administration Sertraline HCl 50 mg 11/08/18 18:00 11/11/18 06:17 Zoloft PO 50 mg BID RAHUL Administration Problem List (Last Reviewed 08/19/18 @ 14:29 by Chandu Ferro MD) Diabetes mellitus (Acute) Vital Signs Temp Pulse Resp BP Pulse Ox 98.9 F 73 18 117/67 98 11/10/18 15:30 11/10/18 15:30 11/10/18 15:30 11/10/18 15:30 11/10/18 15:30 Oxygen Flow Rate (L/min) 2 Oxygen Delivery Method Nasal Cannula Weight: 62.142 kg Body Mass Index (BMI) 25.9 Sodium 142 mmol/L (136-145) 11/09/18 05:40 Potassium 4.1 mmol/L (3.5-5.1) 11/09/18 05:40 Chloride 106 mmol/L (98-107) 11/09/18 05:40 Carbon Dioxide 30.0 mmol/L (21.0-32.0) 11/09/18 05:40 Anion Gap 6 (5-15) 11/09/18 05:40 BUN 20 mg/dL (7-18) H 11/09/18 05:40 Creatinine 1.12 mg/dL (0.55-1.02) H 11/09/18 05:40 Est GFR (MDRD) Af Amer 60 mL/min (>60) 11/09/18 05:40 Est GFR (MDRD) Non-Af 50 mL/min (>60) L 11/09/18 05:40 BUN/Creatinine Ratio 17.9 RATIO (10-20) 11/09/18 05:40 Glucose 155 mg/dL (74-106) H 11/09/18 05:40 Assessment/Plan: 1) Pain: Acetaminophen 1000mg po q6h prn for mild pain. Please continue to monitor prn usage and for signs/symptoms of increased/decreased pain *2) Hyperlipidemia: Pravastatin 40mg po qhs. I could not find a recent Lipid panel in the pt's chart. Please consider a yearly Lipid panel while the pt is taking a statin. Thanks 3) Hypothyroidism: Levothyroxine 25mcg po daily. Pt's last TSH was slightly elevated. Please continue to monitor 4) AFib, CAD: Coreg 12.5mg po bid, Eliquis 2.5mg po bid, Amiodarone 200mg po bid. Pt's pulse is irregular. Please continue to monitor. Pt's blood pressure is 122.2/70.3. Please continue to monitor. 5) CHF: Coreg 12.5mg po bid, Entresto 97/103mg bid, Lasix 40mg po bid. Pt's Na is 142, K+ is 4.1, SrCr is 1.12. Please continue to monitor. Pt's weight is currently steady at 62kg. Please continue to monitor. Psychotropic Medications: Sertraline 50mg po bid for depression. GDR not appropriate at this time due to ongoing depression. Buproprion 75mg po bid added 11/09/18 due to ongoing/increased depression Unnecessary Medications: Bowel Regimen: Bisacodyl 10mg rectally daily prn for constipation. Please continue to monitor prn usage and for signs/symptoms of constipation/diarrhea Date of Note:: 11/11/18 - Provider Comments Provider responsibility: Provider responsible to enter orders to implement recommendations <Santy Ortega Chi - Last Filed: 11/14/18 17:09> Progress Note - Pharmacy Subjective: [] Objective: Allergies Ixfvife-Bpa-Oai Reductase Inhibitor Adverse Reaction (Verified 08/19/18 13:46) muscle aches warfarin [From Coumadin] Adverse Reaction (Verified 08/19/18 13:46) GI bleeds, profuse nosebleeds Current Medications Generic Name Dose Route Start Last Admin Trade Name Freq PRN Reason Stop Dose Admin Acetaminophen 1,000 mg 11/08/18 14:23 Tylenol PO Q6H PRN PRN MILD PAIN (1-3/10) Albuterol Sulfate 2.5 mg 11/08/18 14:23 Ventolin Aerosols INHALATION Q2H PRN PRN dyspnea, wheezing Amiodarone HCl 200 mg 11/08/18 18:00 11/14/18 04:48 Cordarone PO 200 mg BID RAHUL Administration Apixaban 2.5 mg 11/08/18 18:00 11/14/18 04:48 Eliquis PO 2.5 mg BID RAHUL Administration Bisacodyl 10 mg 11/08/18 14:28 Dulcolax RECTAL DAILY PRN Constipation Bupropion HCl 75 mg 11/09/18 18:00 11/14/18 04:48 Wellbutrin Tablets PO 75 mg BID RAHUL Administration Calamine/Phenol 1 applic 11/12/18 18:00 11/14/18 04:48 Calmoseptine Ointment TOPICAL 1 applicatio BID RAHUL Administration Protocol Carvedilol 12.5 mg 11/08/18 18:00 11/14/18 04:48 Coreg PO 12.5 mg BID RAHUL Administration Furosemide 40 mg 11/08/18 18:00 11/14/18 08:32 Lasix PO 40 mg BID@1000,1800 RAHUL Administration Levothyroxine Sodium 25 mcg 11/09/18 06:00 11/14/18 04:48 Synthroid PO 25 mcg DAILY RAHUL Administration Metformin HCl 500 mg 11/08/18 17:00 11/13/18 16:49 Glucophage Xr PO 500 mg DAILY@1700 RAHUL Administration Nutritional Formula (Lactose Free) 120 ml 11/08/18 17:45 11/14/18 12:59 Glucerna Shake PO 120 ml TIDCM RAHUL Administration Nystatin 1 applic 11/08/18 22:00 11/14/18 04:48 Mycostatin Powder TOPICAL 1 applicatio BID RAHUL Administration Protocol Potassium Chloride 40 meq 11/08/18 17:00 11/14/18 08:32 K-Dur PO 40 meq BIDCM RAHUL Administration Pravastatin Sodium 40 mg 11/08/18 22:00 11/13/18 20:15 Pravachol PO 40 mg QHS RAHUL Administration Sacubitril/Valsartan 1 each 11/08/18 18:00 11/14/18 04:48 Entresto 97 Mg-103 Mg Tablet PO 1 each BID RAHUL Administration Sertraline HCl 50 mg 11/08/18 18:00 11/14/18 04:48 Zoloft PO 50 mg BID RAHUL Administration Problem List (Last Reviewed 08/19/18 @ 14:29 by Chandu Ferro MD) Diabetes mellitus (Acute) Vital Signs Temp Pulse Resp BP Pulse Ox 98.3 F 75 18 102/62 96 11/14/18 15:46 11/14/18 15:46 11/14/18 15:46 11/14/18 15:46 11/14/18 15:46 Oxygen Flow Rate (L/min) 0.5 Oxygen Delivery Method Room Air Weight: 62.142 kg Body Mass Index (BMI) 25.9 Sodium 142 mmol/L (136-145) 11/09/18 05:40 Potassium 4.1 mmol/L (3.5-5.1) 11/09/18 05:40 Chloride 106 mmol/L (98-107) 11/09/18 05:40 Carbon Dioxide 30.0 mmol/L (21.0-32.0) 11/09/18 05:40 Anion Gap 6 (5-15) 11/09/18 05:40 BUN 20 mg/dL (7-18) H 11/09/18 05:40 Creatinine 1.12 mg/dL (0.55-1.02) H 11/09/18 05:40 Est GFR (MDRD) Af Amer 60 mL/min (>60) 11/09/18 05:40 Est GFR (MDRD) Non-Af 50 mL/min (>60) L 11/09/18 05:40 BUN/Creatinine Ratio 17.9 RATIO (10-20) 11/09/18 05:40 Glucose 155 mg/dL (74-106) H 11/09/18 05:40 Assessment/Plan: Psychotropic Medications: Unnecessary Medications: Bowel Regimen: - Provider Comments Provider responsibility: Provider responsible to enter orders to implement recommendations Provider Comments to Recommendations by Pharmacy: Agree
[2018-11-11 11:06] LABS: Bedside Glucose 176 mg/dL (70-110)
[2018-11-11 12:44] VITALS: O2SAT 96
--- NOTE | 2018-11-11 13:44 | MDS.RN ---
Pain interview for maryam 11/15/18 completed.
[2018-11-11 15:04] VITALS: BP 114/67; PULSE 76; RESP 18; TEMP 36.6; O2SAT 98
--- NOTE | 2018-11-11 16:01 | CHAPLAIN ---
Type of Pastoral Visit ___ Initial Visit _x__ Follow-up Visit ___ On-call Visit ___ General Patient Visit ___ Spiritual Assessment ___ Family Conference ___ Bereavement ___ Rapid Response ___ Code Blue ___ Other (describe below) Pastoral Care Referral From _x__ Patient ___ Family ___ Nurse ___ Physician ___ Maintenance Supervisor 2Nd Shift ___ Gear Room Keeper ___ Other (describe below) Sacrament/Intervention _x__ Active listening ___ Anointing ___ Pentecostalism ___ Bereavement ___ Communion ___ Tracy exploration ___ _x__ Life review _x__ Prayer ___ Reconciliation ___ Sacrament of Sick _x__ Supportive presence ___ Wedding ___ Other (describe below) Pastoral Comments
[2018-11-11 17:16] LABS: Bedside Glucose 101 mg/dL (70-110)
[2018-11-11] MEDS: metFORMIN (XR) 500 MG Tablet PO (17:46)
[2018-11-11] MEDS: Pravastatin 40 MG Tablet PO (20:16)
[2018-11-12] MEDS: SACUBITRIL/VALSARTAN 97-103 MG TABLET 1 EACH PO ×2 (05:14→17:29)
[2018-11-12] MEDS: Sertraline 50 MG Tablet PO ×2 (05:14→17:29)
[2018-11-12] MEDS: Carvedilol 12.5 MG Tablet PO ×2 (05:14→17:28)
[2018-11-12] MEDS: buPROPion 75 MG Tablet PO ×2 (05:14→17:29)
[2018-11-12] MEDS: Levothyroxine 25 MCG TABLET PO (05:14)
[2018-11-12] MEDS: APIXABAN 2.5 MG TABLET PO ×2 (05:14→17:30)
[2018-11-12] MEDS: Amiodarone 200 MG Tablet PO ×2 (05:15→17:29)
[2018-11-12] MEDS: Nystatin Powder 15gm Bottle 1 APPLIC TOPICAL (05:25)
[2018-11-12] MEDS: Menthol/Lanolin/Calamine/Znox 113 GM Tube 1 APPLIC TOPICAL ×3 (05:26→18:37)
[2018-11-12 06:41] LABS: Bedside Glucose 152 mg/dL (70-110)
[2018-11-12 06:50] VITALS: O2SAT 96
[2018-11-12] MEDS: Glucerna Shake 120 ML LIQUID PO ×2 (08:12→12:20)
[2018-11-12] MEDS: Furosemide 40 MG Tablet PO ×2 (08:12→17:29)
[2018-11-12 12:50] LABS: Bedside Glucose 165 mg/dL (70-110)
[2018-11-12 13:23] VITALS: RESP 18; O2SAT 97
[2018-11-12 16:00] VITALS: BP 122/74; PULSE 80; RESP 18; TEMP 36.2; O2SAT 98
[2018-11-12 17:16] LABS: Bedside Glucose 97 mg/dL (70-110)
[2018-11-12] MEDS: metFORMIN (XR) 500 MG Tablet PO (17:30)
[2018-11-12] MEDS: Pravastatin 40 MG Tablet PO (20:22)
[2018-11-12 21:06] LABS: Bedside Glucose 173 mg/dL (70-110)
[2018-11-13] MEDS: buPROPion 75 MG Tablet PO ×2 (04:49→16:51)
[2018-11-13] MEDS: Carvedilol 12.5 MG Tablet PO ×2 (04:49→16:50)
[2018-11-13] MEDS: Sertraline 50 MG Tablet PO ×2 (04:49→16:52)
[2018-11-13] MEDS: APIXABAN 2.5 MG TABLET PO ×2 (04:50→16:51)
[2018-11-13] MEDS: Amiodarone 200 MG Tablet PO ×2 (04:50→16:50)
[2018-11-13] MEDS: SACUBITRIL/VALSARTAN 97-103 MG TABLET 1 EACH PO ×2 (04:50→16:51)
[2018-11-13] MEDS: Levothyroxine 25 MCG TABLET PO (04:50)
[2018-11-13] MEDS: Nystatin Powder 15gm Bottle 1 APPLIC TOPICAL ×2 (04:51→16:53)
[2018-11-13] MEDS: Menthol/Lanolin/Calamine/Znox 113 GM Tube 1 APPLIC TOPICAL ×2 (04:51→16:53)
[2018-11-13 06:26] LABS: Bedside Glucose 103 mg/dL (70-110)
[2018-11-13 07:00] VITALS: O2SAT 96
[2018-11-13] MEDS: Furosemide 40 MG Tablet PO ×2 (07:27→16:51)
[2018-11-13] MEDS: Glucerna Shake 120 ML LIQUID PO ×3 (07:27→16:49)
[2018-11-13 11:36] LABS: Bedside Glucose 129 mg/dL (70-110)
--- NOTE | 2018-11-13 15:08 | NURSING ---
pt assisted to BR then back to chair, O2 was at 0.5liters, sat 96-97%. removed and checked pt on room air after return to recliner sat 95% on Room air will cont to monitor.
[2018-11-13 15:25] VITALS: PULSE 78; RESP 18; O2SAT 98
--- NOTE | 2018-11-13 15:42 | NURSING ---
Warm compress to abscess just below LT scapula applied per order.
[2018-11-13 16:00] VITALS: BP 103/62; PULSE 76; RESP 18; TEMP 36.8; O2SAT 95
[2018-11-13 16:31] LABS: Bedside Glucose 102 mg/dL (70-110)
[2018-11-13] MEDS: metFORMIN (XR) 500 MG Tablet PO (16:49)
[2018-11-13] MEDS: Pravastatin 40 MG Tablet PO (20:15)
[2018-11-13 21:16] LABS: Bedside Glucose 137 mg/dL (70-110)
[2018-11-14] MEDS: APIXABAN 2.5 MG TABLET PO ×2 (04:48→17:46)
[2018-11-14] MEDS: buPROPion 75 MG Tablet PO ×2 (04:48→17:46)
[2018-11-14] MEDS: Amiodarone 200 MG Tablet PO ×2 (04:48→17:46)
[2018-11-14] MEDS: SACUBITRIL/VALSARTAN 97-103 MG TABLET 1 EACH PO ×2 (04:48→17:46)
[2018-11-14] MEDS: Nystatin Powder 15gm Bottle 1 APPLIC TOPICAL ×2 (04:48→20:07)
[2018-11-14] MEDS: Carvedilol 12.5 MG Tablet PO ×2 (04:48→17:46)
[2018-11-14] MEDS: Levothyroxine 25 MCG TABLET PO (04:48)
[2018-11-14] MEDS: Menthol/Lanolin/Calamine/Znox 113 GM Tube 1 APPLIC TOPICAL ×2 (04:48→17:49)
[2018-11-14] MEDS: Sertraline 50 MG Tablet PO ×2 (04:48→17:46)
[2018-11-14 06:36] LABS: Bedside Glucose 144 mg/dL (70-110)
[2018-11-14] MEDS: Furosemide 40 MG Tablet PO ×2 (08:32→17:46)
[2018-11-14] MEDS: Glucerna Shake 120 ML LIQUID PO ×3 (08:32→17:47)
[2018-11-14 11:55] LABS: Bedside Glucose 121 mg/dL (70-110)
--- NOTE | 2018-11-14 13:23 | CASEMGMT ---
Social Work BIMS and PHQ-9 completed for MDS assessment. Devorah De La Rosa, BLOCK PRESS OPERATOR FARO DEALER
[2018-11-14 15:46] VITALS: BP 102/62; PULSE 75; RESP 18; TEMP 36.8; O2SAT 96
[2018-11-14 17:01] LABS: Bedside Glucose 103 mg/dL (70-110)
[2018-11-14] MEDS: metFORMIN (XR) 500 MG Tablet PO (17:46)
[2018-11-14] MEDS: Pravastatin 40 MG Tablet PO (20:06)
[2018-11-14 21:15] LABS: Bedside Glucose 165 mg/dL (70-110)
[2018-11-15 04:51] VITALS: BP 125/77; PULSE 75
[2018-11-15] MEDS: Sertraline 50 MG Tablet PO ×2 (04:52→17:02)
[2018-11-15] MEDS: SACUBITRIL/VALSARTAN 97-103 MG TABLET 1 EACH PO ×2 (04:52→17:02)
[2018-11-15] MEDS: Levothyroxine 25 MCG TABLET PO (04:52)
[2018-11-15] MEDS: Amiodarone 200 MG Tablet PO ×2 (04:52→17:02)
[2018-11-15] MEDS: APIXABAN 2.5 MG TABLET PO ×2 (04:53→17:02)
[2018-11-15] MEDS: buPROPion 75 MG Tablet PO ×2 (04:53→17:02)
[2018-11-15] MEDS: Carvedilol 12.5 MG Tablet PO ×2 (04:53→17:02)
[2018-11-15] MEDS: Nystatin Powder 15gm Bottle 1 APPLIC TOPICAL ×2 (04:55→17:04)
[2018-11-15] MEDS: Menthol/Lanolin/Calamine/Znox 113 GM Tube 1 APPLIC TOPICAL ×2 (04:55→17:03)
[2018-11-15 05:52] LABS: Cholesterol 111 mg/dL (200); High Density Lipoprotein 49 mg/dL; Triglycerides 87 mg/dL; Very Low Density Lipoprotein 17 mg/dL (5-40)
[2018-11-15 06:40] LABS: Bedside Glucose 112 mg/dL (70-110)
[2018-11-15] MEDS: Glucerna Shake 120 ML LIQUID PO ×3 (09:14→17:03)
[2018-11-15] MEDS: Furosemide 40 MG Tablet PO ×2 (09:15→17:02)
[2018-11-15 11:21] LABS: Bedside Glucose 157 mg/dL (70-110)
[2018-11-15 16:00] VITALS: BP 129/76; PULSE 69; RESP 18; TEMP 36.9; O2SAT 97
[2018-11-15 17:00] LABS: Bedside Glucose 124 mg/dL (70-110)
[2018-11-15] MEDS: metFORMIN (XR) 500 MG Tablet PO (17:02)
[2018-11-15] MEDS: Pravastatin 40 MG Tablet PO (20:41)
[2018-11-15 21:11] LABS: Bedside Glucose 158 mg/dL (70-110)
[2018-11-16] MEDS: Levothyroxine 25 MCG TABLET PO (05:23)
[2018-11-16] MEDS: APIXABAN 2.5 MG TABLET PO ×2 (05:23→17:40)
[2018-11-16] MEDS: Sertraline 50 MG Tablet PO ×2 (05:23→17:40)
[2018-11-16] MEDS: Menthol/Lanolin/Calamine/Znox 113 GM Tube 1 APPLIC TOPICAL ×2 (05:23→17:46)
[2018-11-16] MEDS: Carvedilol 12.5 MG Tablet PO ×2 (05:23→17:41)
[2018-11-16] MEDS: Amiodarone 200 MG Tablet PO ×2 (05:23→17:40)
[2018-11-16] MEDS: buPROPion 75 MG Tablet PO ×2 (05:23→17:41)
[2018-11-16] MEDS: SACUBITRIL/VALSARTAN 97-103 MG TABLET 1 EACH PO ×2 (05:23→17:41)
[2018-11-16] MEDS: Nystatin Powder 15gm Bottle 1 APPLIC TOPICAL ×2 (05:24→17:47)
[2018-11-16 06:06] LABS: Absolute Lymphocyte Count 1.33 X10^3/uL (0.83-4.51); Absolute Neutrophil Count 4.5 X10^3/uL (2.0-7.7); Basophil# 0.04 X10^3/uL; Basophil% 0.6 % (0-1); Eosinophil# 0.27 X10^3/uL; Hematocrit 33.8 % (37-47); Hemoglobin 10.8 g/dL (12.0-15.0); Lymphocyte # 1.33 X10^3/ul (4.0); Lymphocyte % 19.6 % (19-41); Mean Corpuscular Hgb 30.1 pg (27.0-32.0); Mean Corpuscular Volume 94.2 fL (81-99); Mean Platelet Vol. 10.1 fl (6.2-12.0); Monocyte# 0.52 X10^3/uL; Monocyte% 7.7 % (0-10); NRBC Flagged by Analyzer 0 % (0-5); Neutrophil # 4.53 X10^3/uL (2.7-7.7); Neutrophil % 66.9 % (47-70); Platelet Count 204 K/mm3 (150-450); RBC Distribution Width CV 15.1 % (11.6-14.6); RBC Distribution Width SD 51.8 fl (35.1-43.9); Red Blood Count 3.59 M/mm3 (4.2-5.4); White Blood Count 6.8 K/mm3 (4.4-11.0)
[2018-11-16 06:20] LABS: Bedside Glucose 119 mg/dL (70-110)
[2018-11-16 06:28] LABS: Anion Gap 4 (5-15); BUN 33 mg/dL (7-18); BUN/Creat Ratio 24.4 RATIO (10-20); Calcium,Total 8.9 mg/dL (8.5-10.1); Chloride 107 mmol/L (98-107); Creatinine, Serum 1.35 mg/dL (0.55-1.02); EST Glomerular Filtration Rate 40 mL/min (>60); Est Glom Filt Rate - Afr Amer 48 mL/min (>60); Estimated Creatinine Clearance 25.08 ml/min; Glucose 133 mg/dL (74-106); Potassium 4.1 mmol/L (3.5-5.1); Sodium Level 141 mmol/L (136-145)
[2018-11-16] MEDS: Furosemide 40 MG Tablet PO ×2 (07:49→17:40)
[2018-11-16] MEDS: Glucerna Shake 120 ML LIQUID PO ×3 (07:49→17:47)
[2018-11-16 11:16] LABS: Bedside Glucose 116 mg/dL (70-110)
--- NOTE | 2018-11-16 14:04 | CASEMGMT ---
Social Work IDT met with patient and daughter for care plan meeting. Discussed patient's progress in therapy. Patient is adlib and requires no device to walk or assistance with ADLs. Discussed patient accepting help with housekeeping tasks from children or aides, pt refuses to accept assistance. Pt is choosing to discharge home. Denies needs for HHC or outpatient or DME. Plan: DC home with 11/22 with no needs. ASHANTI BenedictW
[2018-11-16 16:00] VITALS: BP 119/63; PULSE 74; RESP 18; TEMP 36.7; O2SAT 96
[2018-11-16 16:51] LABS: Bedside Glucose 90 mg/dL (70-110)
[2018-11-16] MEDS: metFORMIN (XR) 500 MG Tablet PO (17:41)
[2018-11-16] MEDS: Pravastatin 40 MG Tablet PO (19:56)
--- NOTE | 2018-11-16 20:08 | DCINST_ITS ---
- Discharge Diagnoses Current Active Problems: Current Active and Chronic Problems (Last Reviewed 08/19/18 @ 14:29 by Chandu Ferro MD) Diabetes mellitus (Acute) You will use the following diet at home:: No restrictions, Regular Your food should be the consistency of: Regular Your liquids should be the consistency of: Regular/Thin Discharge Activity: Return to Normal Activity Weight Bearing Status: Weight bearing as tolerated Call your doctor if you observe: Fever of 101 or Higher, Inability to urinate, Inability to have a bowel movement, Shortness of breath, Chest pain, Uncontrolled pain Allergies/Adverse Reactions: Allergies Bkasazy-Jqf-Bxc Reductase Inhibitor Adverse Reaction (Verified 08/19/18 13:46) muscle aches warfarin [From Coumadin] Adverse Reaction (Verified 08/19/18 13:46) GI bleeds, profuse nosebleeds Medications to take at Discharge Apixaban [Eliquis] 2.5 mg PO BID 08/10/18 Acetaminophen [Tylenol] 1,000 mg PO Q6H PRN PRN tab 08/23/18 Amiodarone HCl [Cordarone] 200 mg PO BID #60 tab 08/23/18 carvedilol 12.5 mg tablet 12.5 mg PO BID #180 tab 09/09/18 pravastatin 40 mg tablet 40 mg PO QDAY #90 tab 10/14/18 Levothyroxine [Synthroid] 25 mcg PO DAILY 11/05/18 Potassium Chloride 40 meq PO BID 11/05/18 Sacubitril/Valsartan 97-103 mg [Entresto 97 mg-103 mg Tablet] 1 tab PO BID 11/05/18 Furosemide [Lasix] 40 mg PO BID@1000,1800 11/08/18 Menthol/Lanolin/Calamine/Znox [Calmoseptine Ointment] 1 applic TOPICAL TID 11/08/18 Sertraline HCl [Zoloft] 50 mg PO BID #30 tab 11/08/18 Nystatin Powder [Mycostatin Powder] 1 applic TOPICAL BID bottle 11/16/18 buPROPion tablets [Wellbutrin tablets] 75 mg PO BID #60 tab 11/16/18 metFORMIN (XR) [Glucophage Xr] 500 mg PO DAILY #30 tab 11/16/18 The following prescriptions were given: metFORMIN (XR) [Glucophage Xr] 500 mg PO DAILY #30 tab Transmission Status: Pending to [facility] #30 buPROPion tablets [Wellbutrin tablets] 75 mg PO BID #60 tab Transmission Status: Pending to [facility] #30 Primary Care Physician: Santy Ortega Chi, MD [Primary Care Provider] - Please follow up with your Primary Care Physician in: 1 week. Test Results: Test results from this visit will be discussed in further detail at your follow- up appointment, if applicable. Please Follow Up With: Chandu Ferro MD Please Follow Up With: Santy Ortega Chi, MD Proposed Discharge Date: 11/22/18
--- NOTE | 2018-11-16 20:10 | PCM.DC.SUM ---
Discharge Date and Diagnosis - Problem List Patient Problems: Active and Suspected Problems (Last Reviewed 08/19/18 @ 14:29 by Chandu Ferro MD) Diabetes mellitus (Acute) Date of Admission: 11/08/18 Date of Discharge: 11/22/18 - Primary Discharge Diagnosis Active and Suspected Problems (Last Reviewed 08/19/18 @ 14:29 by Chandu Ferro MD) Diabetes mellitus (Acute) - Secondary Discharge Diagnosis Chronic Problems (Last Reviewed 08/19/18 @ 14:29 by Chandu Ferro MD) Congestive heart failure (Chronic) Elevated troponin (Chronic) Coronary artery disease (Chronic) Hypokalemia (Chronic) Depression (Chronic) Low serum HDL (Chronic) Chronic kidney disease, stage III (moderate) (Chronic) History of coronary artery stent placement (Chronic) 01/18, PCI/bare metal stent to mid LAD and ostium of diag #2, PTCA to diag #1-02/09/13 Atherosclerotic heart disease of [place] coronary artery without angina pectoris (Chronic) Chronic atrial fibrillation (Chronic) Chronic systolic congestive heart failure (Chronic) Bradycardia (Chronic) Dilated cardiomyopathy (Chronic) 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) CAD (coronary artery disease) (Chronic) status post stents A-fib (Chronic) Hyperlipidemia (Chronic) HTN (hypertension) (Chronic) Hospital Course and Treatment Imaging Results: 11/08/18 14:28 Diabetic [Diet: Calorie Controlled] Food consistency:: Regular Liquid Consistency:: Regular/Thin Is pt able to select menu?: Yes How many daily calories?: 1800 calorie Labs (Last 48 Hours) 11/14/18 11/15/18 11/15/18 21:08 05:05 06:34 WBC RBC Hgb Hct MCV MCH MCHC RDW Std Deviation RDW Coeff of [place] Plt Count MPV Immature Gran % (Auto) Neut % (Auto) Lymph % (Auto) [place] % (Auto) Eos % (Auto) Baso % (Auto) Absolute Neuts (auto) Absolute Lymphs (auto) Nucleated RBC % Sodium Potassium Chloride Carbon Dioxide Anion Gap BUN Creatinine Estim Creat Clear Calc Est GFR (MDRD) Af Amer Est GFR (MDRD) Non-Af BUN/Creatinine Ratio Glucose Calcium Triglycerides 87 Cholesterol 111 LDL Cholesterol 45 VLDL Cholesterol 17 HDL Cholesterol 49 POC Glucose 165 H 112 H 11/15/18 11/15/18 11/15/18 11:15 16:56 21:02 WBC RBC Hgb Hct MCV MCH MCHC RDW Std Deviation RDW Coeff of [place] Plt Count MPV Immature Gran % (Auto) Neut % (Auto) Lymph % (Auto) [place] % (Auto) Eos % (Auto) Baso % (Auto) Absolute Neuts (auto) Absolute Lymphs (auto) Nucleated RBC % Sodium Potassium Chloride Carbon Dioxide Anion Gap BUN Creatinine Estim Creat Clear Calc Est GFR (MDRD) Af Amer Est GFR (MDRD) Non-Af BUN/Creatinine Ratio Glucose Calcium Triglycerides Cholesterol LDL Cholesterol VLDL Cholesterol HDL Cholesterol POC Glucose 157 H 124 H 158 H 11/16/18 11/16/18 11/16/18 05:33 05:33 06:09 WBC 6.8 RBC 3.59 L Hgb 10.8 L Hct 33.8 L MCV 94.2 MCH 30.1 MCHC 32.0 RDW Std Deviation 51.8 H RDW Coeff of [place] 15.1 H Plt Count 204 MPV 10.1 Immature Gran % (Auto) 1.200 H Neut % (Auto) 66.9 Lymph % (Auto) 19.6 [place] % (Auto) 7.7 Eos % (Auto) 4.0 Baso % (Auto) 0.6 Absolute Neuts (auto) 4.5 Absolute Lymphs (auto) 1.33 Nucleated RBC % 0 Sodium 141 Potassium 4.1 Chloride 107 Carbon Dioxide 30.0 Anion Gap 4 L BUN 33 H Creatinine 1.35 H Estim Creat Clear Calc 25.08 Est GFR (MDRD) Af Amer 48 L Est GFR (MDRD) Non-Af 40 L BUN/Creatinine Ratio 24.4 H Glucose 133 H Calcium 8.9 Triglycerides Cholesterol LDL Cholesterol VLDL Cholesterol HDL Cholesterol POC Glucose 119 H 11/16/18 11/16/18 11:11 16:45 WBC RBC Hgb Hct MCV MCH MCHC RDW Std Deviation RDW Coeff of [place] Plt Count MPV Immature Gran % (Auto) Neut % (Auto) Lymph % (Auto) [place] % (Auto) Eos % (Auto) Baso % (Auto) Absolute Neuts (auto) Absolute Lymphs (auto) Nucleated RBC % Sodium Potassium Chloride Carbon Dioxide Anion Gap BUN Creatinine Estim Creat Clear Calc Est GFR (MDRD) Af Amer Est GFR (MDRD) Non-Af BUN/Creatinine Ratio Glucose Calcium Triglycerides Cholesterol LDL Cholesterol VLDL Cholesterol HDL Cholesterol POC Glucose 116 H 90 Operations: None Procedures: None Summary of Care Provided: The patient is a 78 year old Female with below past medical history hospitalized for shortness of breath secondary to acute on chronic systolic congestive heart failure, complicated by atrial fibrillation with rapid ventricular response, elevated troponin secondary to demand ischemia, new onset diabetes mellitus, sepsis ruled out, admitted to TCU with debility, here for rehabilitation, strengthening, prior to discharge to assisted living facility. [] Discharge home with spouse. Patient Problems: Active and Suspected Problems (Last Reviewed 08/19/18 @ 14:29 by Chandu Ferro MD) Diabetes mellitus (Acute) - Physical Exam Vital Signs Temp Pulse Resp BP Pulse Ox 98.1 F 74 18 119/63 96 11/16/18 16:00 11/16/18 16:00 11/16/18 16:00 11/16/18 16:00 11/16/18 16:00 Oxygen Flow Rate (L/min) 0.5 Oxygen Delivery Method Room Air Weight: 59.959 kg Body Mass Index (BMI) 25.9 Intake and Output for Last 24 Hours 11/14/18 11/15/18 11/16/18 23:59 23:59 23:59 Intake Total 960 / 960 1200 / 1200 600 / 600 Balance 960 / 960 1200 / 1200 600 / 600 Laboratory Tests Past 24 Hrs 11/16/18 11/16/18 05:33 05:33 WBC 6.8 RBC 3.59 L Hgb 10.8 L Hct 33.8 L MCV 94.2 MCH 30.1 MCHC 32.0 RDW Std Deviation 51.8 H RDW Coeff of [place] 15.1 H Plt Count 204 MPV 10.1 Immature Gran % (Auto) 1.200 H Neut % (Auto) 66.9 Lymph % (Auto) 19.6 [place] % (Auto) 7.7 Eos % (Auto) 4.0 Baso % (Auto) 0.6 Absolute Neuts (auto) 4.5 Absolute Lymphs (auto) 1.33 Nucleated RBC % 0 Sodium 141 Potassium 4.1 Chloride 107 Carbon Dioxide 30.0 Anion Gap 4 L BUN 33 H Creatinine 1.35 H Estim Creat Clear Calc 25.08 Est GFR (MDRD) Af Amer 48 L Est GFR (MDRD) Non-Af 40 L BUN/Creatinine Ratio 24.4 H Glucose 133 H Calcium 8.9 POC Glucose 11/16/18 11/16/18 11/16/18 16:45 11:11 06:09 POC Glucose 90 116 H 119 H 11/15/18 21:02 POC Glucose 158 H Discharge Diet: No Restrictions Discharge Activity: Return to Normal Activity Weight Bearing Status: Weight bearing as tolerated Call your doctor if you observe: Fever of 101 or Higher, Inability to urinate, Inability to have a bowel movement, Shortness of breath, Chest pain, Uncontrolled pain Home Medications: Medications to take at Discharge Apixaban [Eliquis] 2.5 mg PO BID 08/10/18 Acetaminophen [Tylenol] 1,000 mg PO Q6H PRN PRN tab 08/23/18 Amiodarone HCl [Cordarone] 200 mg PO BID #60 tab 08/23/18 carvedilol 12.5 mg tablet 12.5 mg PO BID #180 tab 09/09/18 pravastatin 40 mg tablet 40 mg PO QDAY #90 tab 10/14/18 Levothyroxine [Synthroid] 25 mcg PO DAILY 11/05/18 Potassium Chloride 40 meq PO BID 11/05/18 Sacubitril/Valsartan 97-103 mg [Entresto 97 mg-103 mg Tablet] 1 tab PO BID 11/05/18 Furosemide [Lasix] 40 mg PO BID@1000,1800 11/08/18 Menthol/Lanolin/Calamine/Znox [Calmoseptine Ointment] 1 applic TOPICAL TID 11/08/18 Sertraline HCl [Zoloft] 50 mg PO BID #30 tab 11/08/18 Nystatin Powder [Mycostatin Powder] 1 applic TOPICAL BID bottle 11/16/18 buPROPion tablets [Wellbutrin tablets] 75 mg PO BID #60 tab 11/16/18 metFORMIN (XR) [Glucophage Xr] 500 mg PO DAILY #30 tab 11/16/18 Following Prescrptions Were Given to Patient: metFORMIN (XR) [Glucophage Xr] 500 mg PO DAILY #30 tab Transmission Status: Pending to [facility] #30 buPROPion tablets [Wellbutrin tablets] 75 mg PO BID #60 tab Transmission Status: Pending to [facility] #30 Primary Care Physician: Santy Ortega Chi, MD [Primary Care Provider] - Please follow up with your Primary Care Physician in: 1 week. Please Follow Up With: Chandu Ferro MD Please Follow Up With: Santy Ortega Chi, MD Disposition: Home Minutes spent on discharge:: 30 Patient Condition:: Good Medical Necessity - Tobacco Use Smoking Status: Never smoker - 2nd hand smoke exposure. Tobacco Use: Non-smoker Meaningful Use Info Meaningful Use Diagnoses (Choose all that apply): None applicable
[2018-11-16 21:41] LABS: Bedside Glucose 172 mg/dL (70-110)
[2018-11-17] MEDS: Menthol/Lanolin/Calamine/Znox 113 GM Tube 1 APPLIC TOPICAL ×2 (05:12→17:06)
[2018-11-17] MEDS: Sertraline 50 MG Tablet PO ×2 (05:13→17:03)
[2018-11-17] MEDS: buPROPion 75 MG Tablet PO ×2 (05:13→17:02)
[2018-11-17] MEDS: SACUBITRIL/VALSARTAN 97-103 MG TABLET 1 EACH PO ×2 (05:13→17:02)
[2018-11-17] MEDS: APIXABAN 2.5 MG TABLET PO ×2 (05:13→17:02)
[2018-11-17] MEDS: Levothyroxine 25 MCG TABLET PO (05:13)
[2018-11-17] MEDS: Carvedilol 12.5 MG Tablet PO ×2 (05:13→17:02)
[2018-11-17] MEDS: Nystatin Powder 15gm Bottle 1 APPLIC TOPICAL ×2 (05:13→17:05)
[2018-11-17] MEDS: Amiodarone 200 MG Tablet PO ×2 (05:13→17:03)
[2018-11-17 05:14] VITALS: BP 121/69; PULSE 89
[2018-11-17 06:45] LABS: Bedside Glucose 118 mg/dL (70-110)
[2018-11-17 07:23] VITALS: O2SAT 94
[2018-11-17] MEDS: Glucerna Shake 120 ML LIQUID PO ×3 (07:44→17:01)
[2018-11-17] MEDS: Furosemide 40 MG Tablet PO ×2 (07:44→17:02)
--- NOTE | 2018-11-17 12:08 | MDS.RN ---
Information for the mds was obtained from review of the clinical record, interview of resident, staff, and direct observation of resident's care.
[2018-11-17 16:00] VITALS: BP 115/57; PULSE 71; RESP 16; TEMP 36.5; O2SAT 96
[2018-11-17] MEDS: metFORMIN (XR) 500 MG Tablet PO (17:02)
[2018-11-17] MEDS: Pravastatin 40 MG Tablet PO (19:38)
[2018-11-18] MEDS: Sertraline 50 MG Tablet PO ×2 (05:32→17:11)
[2018-11-18] MEDS: APIXABAN 2.5 MG TABLET PO ×2 (05:32→17:10)
[2018-11-18] MEDS: Amiodarone 200 MG Tablet PO ×2 (05:32→17:11)
[2018-11-18] MEDS: Nystatin Powder 15gm Bottle 1 APPLIC TOPICAL ×2 (05:32→17:13)
[2018-11-18] MEDS: SACUBITRIL/VALSARTAN 97-103 MG TABLET 1 EACH PO ×2 (05:32→17:10)
[2018-11-18] MEDS: buPROPion 75 MG Tablet PO ×2 (05:32→17:11)
[2018-11-18] MEDS: Levothyroxine 25 MCG TABLET PO (05:32)
[2018-11-18] MEDS: Carvedilol 12.5 MG Tablet PO ×2 (05:32→17:11)
[2018-11-18] MEDS: Menthol/Lanolin/Calamine/Znox 113 GM Tube 1 APPLIC TOPICAL ×2 (05:33→17:13)
[2018-11-18 06:36] LABS: Bedside Glucose 99 mg/dL (70-110)
[2018-11-18 07:18] VITALS: O2SAT 94
[2018-11-18] MEDS: Glucerna Shake 120 ML LIQUID PO ×3 (08:25→17:10)
[2018-11-18] MEDS: Furosemide 40 MG Tablet PO ×2 (08:26→17:11)
[2018-11-18 15:31] VITALS: BP 103/64; PULSE 80; RESP 18; TEMP 36.7; O2SAT 96
[2018-11-18] MEDS: metFORMIN (XR) 500 MG Tablet PO (17:11)
[2018-11-18] MEDS: Pravastatin 40 MG Tablet PO (20:06)
[2018-11-19] MEDS: APIXABAN 2.5 MG TABLET PO ×2 (06:36→17:41)
[2018-11-19] MEDS: Amiodarone 200 MG Tablet PO ×2 (06:36→17:41)
[2018-11-19] MEDS: SACUBITRIL/VALSARTAN 97-103 MG TABLET 1 EACH PO ×2 (06:36→17:41)
[2018-11-19] MEDS: Levothyroxine 25 MCG TABLET PO (06:36)
[2018-11-19] MEDS: buPROPion 75 MG Tablet PO ×2 (06:36→17:41)
[2018-11-19] MEDS: Sertraline 50 MG Tablet PO ×2 (06:36→17:41)
[2018-11-19] MEDS: Carvedilol 12.5 MG Tablet PO ×2 (06:37→17:41)
[2018-11-19] MEDS: Menthol/Lanolin/Calamine/Znox 113 GM Tube 1 APPLIC TOPICAL ×2 (06:38→17:44)
[2018-11-19] MEDS: Nystatin Powder 15gm Bottle 1 APPLIC TOPICAL (06:38)
[2018-11-19 06:50] LABS: Bedside Glucose 138 mg/dL (70-110)
[2018-11-19] MEDS: Glucerna Shake 120 ML LIQUID PO ×3 (08:32→17:40)
[2018-11-19] MEDS: Furosemide 40 MG Tablet PO ×2 (08:32→17:41)
[2018-11-19 15:44] VITALS: BP 115/58; PULSE 78; RESP 18; TEMP 36.7; O2SAT 97
[2018-11-19] MEDS: metFORMIN (XR) 500 MG Tablet PO (17:41)
--- NOTE | 2018-11-19 18:48 | NURSING ---
Dr. Ortega says pt should just buy the glucerna OTC, no prescription
[2018-11-19] MEDS: Pravastatin 40 MG Tablet PO (20:03)
[2018-11-20 05:25] VITALS: BP 133/77; PULSE 82
[2018-11-20] MEDS: Menthol/Lanolin/Calamine/Znox 113 GM Tube 1 APPLIC TOPICAL (05:25)
[2018-11-20] MEDS: APIXABAN 2.5 MG TABLET PO ×2 (05:26→16:44)
[2018-11-20] MEDS: Levothyroxine 25 MCG TABLET PO (05:27)
[2018-11-20] MEDS: Carvedilol 12.5 MG Tablet PO ×2 (05:27→16:44)
[2018-11-20] MEDS: Amiodarone 200 MG Tablet PO ×2 (05:27→16:44)
[2018-11-20] MEDS: buPROPion 75 MG Tablet PO ×2 (05:27→16:44)
[2018-11-20] MEDS: Sertraline 50 MG Tablet PO ×2 (05:27→16:44)
[2018-11-20] MEDS: SACUBITRIL/VALSARTAN 97-103 MG TABLET 1 EACH PO ×2 (05:27→16:44)
[2018-11-20] MEDS: Nystatin Powder 15gm Bottle 1 APPLIC TOPICAL ×2 (05:29→16:45)
[2018-11-20 06:51] LABS: Bedside Glucose 119 mg/dL (70-110)
[2018-11-20] MEDS: Furosemide 40 MG Tablet PO ×2 (08:02→16:44)
[2018-11-20] MEDS: Glucerna Shake 120 ML LIQUID PO ×3 (08:03→16:44)
[2018-11-20 16:00] VITALS: BP 117/53; PULSE 68; RESP 18; TEMP 36.9; O2SAT 98
[2018-11-20] MEDS: metFORMIN (XR) 500 MG Tablet PO (16:44)
[2018-11-20] MEDS: Pravastatin 40 MG Tablet PO (20:42)
[2018-11-21] MEDS: APIXABAN 2.5 MG TABLET PO ×2 (04:40→17:06)
[2018-11-21] MEDS: Menthol/Lanolin/Calamine/Znox 113 GM Tube 1 APPLIC TOPICAL (04:40)
[2018-11-21] MEDS: Sertraline 50 MG Tablet PO ×2 (04:40→17:07)
[2018-11-21] MEDS: Levothyroxine 25 MCG TABLET PO (04:40)
[2018-11-21] MEDS: buPROPion 75 MG Tablet PO ×2 (04:41→17:07)
[2018-11-21] MEDS: SACUBITRIL/VALSARTAN 97-103 MG TABLET 1 EACH PO ×2 (04:41→17:07)
[2018-11-21] MEDS: Carvedilol 12.5 MG Tablet PO ×2 (04:41→17:06)
[2018-11-21] MEDS: Nystatin Powder 15gm Bottle 1 APPLIC TOPICAL (04:41)
[2018-11-21] MEDS: Amiodarone 200 MG Tablet PO ×2 (04:41→17:07)
[2018-11-21 06:10] LABS: Bedside Glucose 111 mg/dL (70-110)
[2018-11-21] MEDS: Furosemide 40 MG Tablet PO ×2 (09:26→17:08)
[2018-11-21] MEDS: Glucerna Shake 120 ML LIQUID PO ×3 (09:27→17:06)
[2018-11-21 16:00] VITALS: BP 125/60; PULSE 75; RESP 17; TEMP 36.7; O2SAT 96
[2018-11-21] MEDS: metFORMIN (XR) 500 MG Tablet PO (17:07)
[2018-11-21] MEDS: Pravastatin 40 MG Tablet PO (20:32)
[2018-11-22] MEDS: SACUBITRIL/VALSARTAN 97-103 MG TABLET 1 EACH PO (05:17)
[2018-11-22] MEDS: Levothyroxine 25 MCG TABLET PO (05:18)
[2018-11-22] MEDS: Amiodarone 200 MG Tablet PO (05:18)
[2018-11-22] MEDS: Sertraline 50 MG Tablet PO (05:18)
[2018-11-22] MEDS: Nystatin Powder 15gm Bottle 1 APPLIC TOPICAL (05:18)
[2018-11-22] MEDS: buPROPion 75 MG Tablet PO (05:18)
[2018-11-22] MEDS: Menthol/Lanolin/Calamine/Znox 113 GM Tube 1 APPLIC TOPICAL (05:18)
[2018-11-22] MEDS: Carvedilol 12.5 MG Tablet PO (05:18)
[2018-11-22] MEDS: APIXABAN 2.5 MG TABLET PO (05:18)
[2018-11-22 06:26] LABS: Bedside Glucose 126 mg/dL (70-110)
[2018-11-22] MEDS: Furosemide 40 MG Tablet PO (08:00)
[2018-11-22] MEDS: Glucerna Shake 120 ML LIQUID PO (08:00)
--- NOTE | 2018-11-22 12:22 | NURSING ---
Addendum entered by Karla Dixon 11/22/18 12:30: updated pt and changed on DC orders. Original Note: pt returned from Dr Ferro appt, new order to change coreg to 25mg BID & Amiodarone 200mg daily
[2018-11-22 12:36] VITALS: BP 136/60; PULSE 67; RESP 16; TEMP 36.5; O2SAT 95
== END 2018-11-22 13:09 | disposition home or self-care (01) | DRG 948 ==
PROVIDERS: Admitting Provider Family Medicine Geriatric Medicine; Family Provider Family Medicine Geriatric Medicine; PCP Family Medicine Geriatric Medicine; Visit Provider Family Medicine Geriatric Medicine
DX: R53.81 Other malaise (principal); I13.0 Hypertensive heart and chronic kidney disease with heart failure and stage 1 through stage 4 chronic kidney disease, or unspecified chronic kidney disease; I50.22 Chronic systolic (congestive) heart failure; E78.5 Hyperlipidemia, unspecified; E11.22 Type 2 diabetes mellitus with diabetic chronic kidney disease; F32.9 Major depressive disorder, single episode, unspecified; I25.10 Atherosclerotic heart disease of native coronary artery without angina pectoris; E87.6 Hypokalemia; N18.3 Chronic kidney disease, stage 3 (moderate); Z95.810 Presence of automatic (implantable) cardiac defibrillator; I48.2 Chronic atrial fibrillation; E03.9 Hypothyroidism, unspecified; F41.9 Anxiety disorder, unspecified; B35.4 Tinea corporis
CPT/HCPCS: 36415; 80048; 80061; 82962; 85025; 97110; 97116; 97162; 97166; 97530; 97535; 97802

== ENCOUNTER → 2018-11-29 11:47 | Outpatient (CLI) | payer MEDICARE, OTHER, SELFPAY ==
[2018-11-22 10:43] VITALS: BMI 23.9
[2018-11-29 13:34] LABS: Absolute Lymphocyte Count 1.62 X10^3/uL (0.83-4.51); Absolute Neutrophil Count 4.3 X10^3/uL (2.0-7.7); Basophil# 0.03 X10^3/uL; Basophil% 0.4 % (0-1); Eosinophil# 0.17 X10^3/uL; Eosinophils% 2.5 % (0-5); Hematocrit 38.2 % (37-47); Hemoglobin 12.4 g/dL (12.0-15.0); Lymphocyte # 1.62 X10^3/ul (4.0); Lymphocyte % 24.1 % (19-41); Mean Corp Hgb Conc 32.5 g/dL (32-36); Mean Corpuscular Volume 95.5 fL (81-99); Mean Platelet Vol. 10.4 fl (6.2-12.0); Monocyte% 7.5 % (0-10); NRBC Flagged by Analyzer 0 % (0-5); Neutrophil # 4.32 X10^3/uL (2.7-7.7); Neutrophil % 64.5 % (47-70); Platelet Count 190 K/mm3 (150-450); RBC Distribution Width CV 15.1 % (11.6-14.6); RBC Distribution Width SD 52.3 fl (35.1-43.9); White Blood Count 6.7 K/mm3 (4.4-11.0)
[2018-11-29 13:56] LABS: Vitamin D,25 Hydroxy 28.3 ng/mL (29.95-100.01)
[2018-11-29 13:57] LABS: ALB/GLOB Ratio 0.7 RATIO (0.9-2.4); AST(SGOT) 39 U/L (15-37); Alanine Aminotransfer ALT/SGPT 50 U/L (13-56); Albumin, Serum 3.4 g/dL (3.2-5.0); Alkaline Phosphatase 131 U/L (45-117); Anion Gap 10 (5-15); BUN 33 mg/dL (7-18); BUN/Creat Ratio 15.9 RATIO (10-20); Calcium,Total 9.1 mg/dL (8.5-10.1); Chloride 101 mmol/L (98-107); Creatinine, Serum 2.07 mg/dL (0.55-1.02); EST Glomerular Filtration Rate 24 mL/min (>60); Est Glom Filt Rate - Afr Amer 30 mL/min (>60); Globulin 4.6 g/dL (2.2-4.2); Glucose 188 mg/dL (74-106); Sodium Level 139 mmol/L (136-145); Thyroid Stim Hormone (TSH) 9.24 uIU/mL (0.358-3.74)
== END ==
PROVIDERS: Family Provider Family Medicine Geriatric Medicine; PCP Family Medicine; Visit Provider Family Medicine Geriatric Medicine
DX: R53.83 Other fatigue (principal)
CPT/HCPCS: 36415; 80053; 82306; 84443; 85025

== ENCOUNTER → 2018-11-29 | Outpatient (CLI) | payer MEDICARE, OTHER, SELFPAY ==
[2018-11-22 10:43] VITALS: BMI 23.9
--- NOTE | 2018-11-29 12:57 | CT_ITS ---
STUDY: CT BRAIN WITHOUT CONTRAST REASON FOR EXAM: Female, 78 years old. Multiple facial abrasions and bruising secondary to a fall. No loss of consciousness. The patient is on blood thinners. RADIATION DOSAGE (If Supplied By Facility): CTDIvol = ( 60.81 ) mGy, DLP = ( 1067.08 ) mGycm TECHNIQUE: Transaxial CT imaging of the brain was performed without administration of intravenous contrast material. Individualized dose optimization techniques were used for this CT. COMPARISON: No relevant priors. FINDINGS: Normal soft tissue structures. There is hyperostosis frontalis internus. There is mild cerebral atrophy with widening of the extra-axial spaces and ventricular dilatation. There are areas of decreased attenuation within the white matter tracts of the supratentorial brain, consistent with microvascular disease changes. Normal basal ganglia and thalami. Normal brainstem. Normal cerebellum. There is no intracranial hemorrhage. There are no findings of an acute ischemic infarction. Normal visualized paranasal sinuses. CT/Brain/Head without Contrast IMPRESSION: Chronic involutional changes of the brain. Electronically Signed: Bernard Figueroa, at 14:03 EDT , Service support ,
== END | disposition home or self-care (01) ==
PROVIDERS: Family Provider Family Medicine Geriatric Medicine; PCP Family Medicine Geriatric Medicine; Referring Provider Family Medicine Geriatric Medicine; Visit Provider Family Medicine Geriatric Medicine
DX: E55.9 Vitamin D deficiency, unspecified (principal); R53.83 Other fatigue; S09.90XA Unspecified injury of head, initial encounter
CPT/HCPCS: 36415; 70450; 80053; 82306; 84443; 85025

== ENCOUNTER → 2019-01-12 | Outpatient (CLI) | payer MEDICARE, OTHER, SELFPAY ==
[2018-11-22 10:43] VITALS: BMI 23.9
[2019-01-12 15:49] LABS: Thyroid Stim Hormone (TSH) 3.96 uIU/mL (0.358-3.74)
== END | disposition home or self-care (01) ==
LOC: POLAB3 13:42
PROVIDERS: Family Provider Family Medicine Geriatric Medicine; PCP Family Medicine Geriatric Medicine; Visit Provider Family Medicine Geriatric Medicine
DX: E03.9 Hypothyroidism, unspecified (principal)
CPT/HCPCS: 36415; 84443

== ENCOUNTER → 2019-03-14 10:34 | Outpatient (CLI) | payer MEDICARE, OTHER, SELFPAY ==
[2019-02-20 13:07] VITALS: BMI 25.0
[2019-03-14 11:58] LABS: Anion Gap 3 (5-15); BUN 28 mg/dL (7-18); BUN/Creat Ratio 16.4 RATIO (10-20); Calcium,Total 9.7 mg/dL (8.5-10.1); Chloride 105 mmol/L (98-107); Creatinine, Serum 1.71 mg/dL (0.55-1.02); EST Glomerular Filtration Rate 30 mL/min (>60); Est Glom Filt Rate - Afr Amer 37 mL/min (>60); Glucose 162 mg/dL (74-106); Potassium 4.4 mmol/L (3.5-5.1); Sodium Level 139 mmol/L (136-145)
== END ==
PROVIDERS: Family Provider Family Medicine Geriatric Medicine; PCP Family Medicine Geriatric Medicine; Referring Provider Physician Assistant Medical; Visit Provider Physician Assistant Medical
DX: I42.8 Other cardiomyopathies (principal)
CPT/HCPCS: 36415; 80048

== ENCOUNTER → 2019-04-06 | Outpatient (CLI) | payer MEDICARE, OTHER, SELFPAY ==
[2019-02-20 13:07] VITALS: BMI 25.0
[2019-04-06 12:26] LABS: Absolute Lymphocyte Count 1.37 X10^3/uL (0.83-4.51); Absolute Neutrophil Count 3.2 X10^3/uL (2.0-7.7); Basophil# 0.05 X10^3/uL; Eosinophil# 0.07 X10^3/uL; Eosinophils% 1.4 % (0-5); Hematocrit 33.7 % (37-47); Hemoglobin 11.2 g/dL (12.0-15.0); Lymphocyte # 1.37 X10^3/ul (4.0); Lymphocyte % 27.2 % (19-41); Mean Corp Hgb Conc 33.2 g/dL (32-36); Mean Corpuscular Hgb 32.7 pg (27.0-32.0); Mean Corpuscular Volume 98.3 fL (81-99); Mean Platelet Vol. 10.6 fl (6.2-12.0); Monocyte# 0.36 X10^3/uL; Monocyte% 7.2 % (0-10); NRBC Flagged by Analyzer 0 % (0-5); Neutrophil # 3.15 X10^3/uL (2.7-7.7); Neutrophil % 62.6 % (47-70); Platelet Count 154 K/mm3 (150-450); RBC Distribution Width CV 13.2 % (11.6-14.6); RBC Distribution Width SD 47.5 fl (35.1-43.9); Red Blood Count 3.43 M/mm3 (4.2-5.4)
[2019-04-06 12:47] LABS: Vitamin D,25 Hydroxy 17.6 ng/mL (29.95-100.01)
[2019-04-06 13:00] LABS: ALB/GLOB Ratio 0.9 RATIO (0.9-2.4); AST(SGOT) 30 U/L (15-37); Alanine Aminotransfer ALT/SGPT 42 U/L (13-56); Albumin, Serum 3.7 g/dL (3.2-5.0); Alkaline Phosphatase 67 U/L (45-117); Anion Gap 7 (5-15); BUN 57 mg/dL (7-18); BUN/Creat Ratio 20.5 RATIO (10-20); Calcium,Total 9.4 mg/dL (8.5-10.1); Chloride 100 mmol/L (98-107); Creatinine, Serum 2.78 mg/dL (0.55-1.02); EST Glomerular Filtration Rate 17 mL/min (>60); Est Glom Filt Rate - Afr Amer 21 mL/min (>60); Globulin 3.9 g/dL (2.2-4.2); Glucose 197 mg/dL (74-106); Potassium 4.3 mmol/L (3.5-5.1); Protein, Total 7.6 g/dL (6.4-8.2); Sodium Level 135 mmol/L (136-145)
== END | disposition home or self-care (01) ==
LOC: POLAB3 11:28
PROVIDERS: PCP Family Medicine Geriatric Medicine; Visit Provider Family Medicine Geriatric Medicine
DX: E11.65 Type 2 diabetes mellitus with hyperglycemia (principal); E55.9 Vitamin D deficiency, unspecified; R53.83 Other fatigue
CPT/HCPCS: 36415; 80053; 82306; 84443; 85025

== ENCOUNTER → 2019-04-10 | Outpatient (CLI) | payer MEDICARE, OTHER, SELFPAY ==
[2019-02-20 13:07] VITALS: BMI 25.0
[2019-04-10 12:31] LABS: Absolute Lymphocyte Count 1.14 X10^3/uL (0.83-4.51); Absolute Neutrophil Count 3.5 X10^3/uL (2.0-7.7); Basophil# 0.04 X10^3/uL; Basophil% 0.8 % (0-1); Eosinophil# 0.08 X10^3/uL; Eosinophils% 1.5 % (0-5); Hematocrit 31.9 % (37-47); Hemoglobin 10.4 g/dL (12.0-15.0); Lymphocyte # 1.14 X10^3/ul (4.0); Lymphocyte % 21.6 % (19-41); Mean Corp Hgb Conc 32.6 g/dL (32-36); Mean Corpuscular Hgb 32.3 pg (27.0-32.0); Mean Corpuscular Volume 99.1 fL (81-99); Mean Platelet Vol. 10.3 fl (6.2-12.0); Monocyte# 0.43 X10^3/uL; Monocyte% 8.2 % (0-10); NRBC Flagged by Analyzer 0 % (0-5); Neutrophil # 3.54 X10^3/uL (2.7-7.7); Neutrophil % 67.1 % (47-70); Platelet Count 143 K/mm3 (150-450); RBC Distribution Width CV 13.3 % (11.6-14.6); RBC Distribution Width SD 48.2 fl (35.1-43.9); Red Blood Count 3.22 M/mm3 (4.2-5.4); White Blood Count 5.3 K/mm3 (4.4-11.0)
[2019-04-10 12:47] LABS: Anion Gap 3 (5-15); BUN 33 mg/dL (7-18); BUN/Creat Ratio 20.6 RATIO (10-20); Calcium,Total 9.6 mg/dL (8.5-10.1); Chloride 107 mmol/L (98-107); EST Glomerular Filtration Rate 33 mL/min (>60); Est Glom Filt Rate - Afr Amer 40 mL/min (>60); Glucose 170 mg/dL (74-106); Potassium 4.9 mmol/L (3.5-5.1); Sodium Level 137 mmol/L (136-145)
== END | disposition home or self-care (01) ==
LOC: POLAB3 10:29
PROVIDERS: PCP Family Medicine Geriatric Medicine; Visit Provider Family Medicine Geriatric Medicine
DX: N17.0 Acute kidney failure with tubular necrosis (principal)
CPT/HCPCS: 36415; 80048; 85025

== ENCOUNTER → 2019-04-18 | Outpatient (CLI) | payer MEDICARE, OTHER, SELFPAY ==
[2019-02-20 13:07] VITALS: BMI 25.0
[2019-04-18 13:26] LABS: Hemoglobin A1c 6.8 % (4.2-6.3)
[2019-04-18 13:35] LABS: Anion Gap 6 (5-15); BUN 28 mg/dL (7-18); BUN/Creat Ratio 17.6 RATIO (10-20); Calcium,Total 8.9 mg/dL (8.5-10.1); Chloride 105 mmol/L (98-107); Creatinine, Serum 1.59 mg/dL (0.55-1.02); EST Glomerular Filtration Rate 33 mL/min (>60); Est Glom Filt Rate - Afr Amer 40 mL/min (>60); Glucose 169 mg/dL (74-106); Potassium 3.7 mmol/L (3.5-5.1); Sodium Level 138 mmol/L (136-145)
== END | disposition home or self-care (01) ==
LOC: POLAB3 11:27
PROVIDERS: PCP Family Medicine Geriatric Medicine; Visit Provider Family Medicine Geriatric Medicine
DX: E11.9 Type 2 diabetes mellitus without complications (principal); N17.9 Acute kidney failure, unspecified
CPT/HCPCS: 36415; 80048; 83036

== ENCOUNTER → 2019-04-24 | Outpatient (CLI) | payer MEDICARE, OTHER, SELFPAY ==
[2019-02-20 13:07] VITALS: BMI 25.0
[2019-04-24 12:59] LABS: Anion Gap 4 (5-15); BUN 28 mg/dL (7-18); BUN/Creat Ratio 18.7 RATIO (10-20); Chloride 105 mmol/L (98-107); EST Glomerular Filtration Rate 35 mL/min (>60); Est Glom Filt Rate - Afr Amer 43 mL/min (>60); Glucose 148 mg/dL (74-106); Potassium 4.2 mmol/L (3.5-5.1); Sodium Level 139 mmol/L (136-145)
== END | disposition home or self-care (01) ==
LOC: POLAB3 11:12
PROVIDERS: PCP Family Medicine Geriatric Medicine; Visit Provider Family Medicine Geriatric Medicine
DX: N17.9 Acute kidney failure, unspecified (principal)
CPT/HCPCS: 36415; 80048

== ENCOUNTER → 2019-08-31 11:23 | Outpatient (CLI) | payer MEDICARE, OTHER, SELFPAY ==
[2019-02-20 13:07] VITALS: BMI 25.0
[2019-08-31 12:27] LABS: Absolute Neutrophil Count 3.9 X10^3/uL (2.0-7.7); Basophil# 0.05 X10^3/uL; Basophil% 0.8 % (0-1); Eosinophil# 0.22 X10^3/uL; Eosinophils% 3.6 % (0-5); Hematocrit 32.9 % (37-47); Lymphocyte % 21.1 % (19-41); Mean Corp Hgb Conc 33.4 g/dL (32-36); Mean Corpuscular Hgb 32.4 pg (27.0-32.0); Mean Corpuscular Volume 97.1 fL (81-99); Mean Platelet Vol. 10.2 fl (6.2-12.0); Monocyte# 0.63 X10^3/uL; Monocyte% 10.2 % (0-10); NRBC Flagged by Analyzer 0 % (0-5); Neutrophil % 63.5 % (47-70); Platelet Count 185 K/mm3 (150-450); RBC Distribution Width CV 13.2 % (11.6-14.6); RBC Distribution Width SD 47.3 fl (35.1-43.9); Red Blood Count 3.39 M/mm3 (4.2-5.4); White Blood Count 6.2 K/mm3 (4.4-11.0)
[2019-08-31 12:41] LABS: Vitamin D,25 Hydroxy 67.4 ng/mL
[2019-08-31 12:54] LABS: ALB/GLOB Ratio 0.8 RATIO (0.9-2.4); AST(SGOT) 25 U/L (15-37); Alanine Aminotransfer ALT/SGPT 36 U/L (13-56); Albumin, Serum 3.4 g/dL (3.2-5.0); Alkaline Phosphatase 93 U/L (45-117); Anion Gap 7 (5-15); BUN 37 mg/dL (7-18); BUN/Creat Ratio 17.9 RATIO (10-20); Calcium,Total 9.2 mg/dL (8.5-10.1); Chloride 101 mmol/L (98-107); Creatinine, Serum 2.07 mg/dL (0.55-1.02); EST Glomerular Filtration Rate 24 mL/min (>60); Est Glom Filt Rate - Afr Amer 30 mL/min (>60); Globulin 4.3 g/dL (2.2-4.2); Glucose 138 mg/dL (74-106); Protein, Total 7.7 g/dL (6.4-8.2); Sodium Level 136 mmol/L (136-145); Thyroid Stim Hormone (TSH) 0.97 uIU/mL (0.358-3.74)
== END ==
PROVIDERS: PCP Family Medicine Geriatric Medicine; Visit Provider Family Medicine Geriatric Medicine
DX: E11.65 Type 2 diabetes mellitus with hyperglycemia (principal); E55.9 Vitamin D deficiency, unspecified; R53.83 Other fatigue
CPT/HCPCS: 36415; 80053; 82306; 84443; 85025

== ENCOUNTER → 2019-11-29 10:54 | Outpatient (CLI) | payer MEDICARE, OTHER, SELFPAY ==
[2019-09-05 13:49] VITALS: BMI 25.6
[2019-11-29 12:44] LABS: Basophil# 0.05 X10^3/uL; Eosinophil# 0.11 X10^3/uL; Eosinophils% 2.1 % (0-5); Hematocrit 34.3 % (37-47); Mean Corp Hgb Conc 32.1 g/dL (32-36); Mean Corpuscular Hgb 31.5 pg (27.0-32.0); Mean Corpuscular Volume 98.3 fL (81-99); Mean Platelet Vol. 10.6 fl (6.2-12.0); Monocyte# 0.57 X10^3/uL; NRBC Flagged by Analyzer 0 % (0-5); Neutrophil # 3.04 X10^3/uL (2.7-7.7); Neutrophil % 58.5 % (47-70); Platelet Count 167 K/mm3 (150-450); RBC Distribution Width CV 13.7 % (11.6-14.6); RBC Distribution Width SD 49.5 fl (35.1-43.9); Red Blood Count 3.49 M/mm3 (4.2-5.4); White Blood Count 5.2 K/mm3 (4.4-11.0)
[2019-11-29 13:07] LABS: Vitamin D,25 Hydroxy 55.6 ng/mL
[2019-11-29 13:08] LABS: PTHIN 102.8 pg/mL (18.4-80.1)
[2019-11-29 13:17] LABS: ALB/GLOB Ratio 0.9 RATIO (0.9-2.4); AST(SGOT) 21 U/L (15-37); Alanine Aminotransfer ALT/SGPT 25 U/L (13-56); Albumin, Serum 3.7 g/dL (3.2-5.0); Alkaline Phosphatase 72 U/L (45-117); Anion Gap 4 (5-15); BUN 38 mg/dL (7-18); BUN/Creat Ratio 19.5 RATIO (10-20); Calcium,Total 9.6 mg/dL (8.5-10.1); Chloride 104 mmol/L (98-107); Creatinine, Serum 1.95 mg/dL (0.55-1.02); EST Glomerular Filtration Rate 26 mL/min (>60); Est Glom Filt Rate - Afr Amer 32 mL/min (>60); Globulin 3.9 g/dL (2.2-4.2); Glucose 116 mg/dL (74-106); Potassium 4.9 mmol/L (3.5-5.1); Protein, Total 7.6 g/dL (6.4-8.2); Sodium Level 138 mmol/L (136-145); Thyroid Stim Hormone (TSH) 0.27 uIU/mL (0.358-3.74)
[2019-11-29 13:36] LABS: Microalbumin,Random Urine 14.3 mg/L (NO RANGE EST.); Microalbumin:Creatinine Ratio 88.3 mg/g CRE (<30 mg/g CRE)
== END ==
PROVIDERS: PCP Family Medicine Geriatric Medicine; Visit Provider Internal Medicine Nephrology
DX: E11.65 Type 2 diabetes mellitus with hyperglycemia (principal); E11.22 Type 2 diabetes mellitus with diabetic chronic kidney disease; N18.4 Chronic kidney disease, stage 4 (severe); E55.9 Vitamin D deficiency, unspecified; R53.83 Other fatigue
CPT/HCPCS: 36415; 80053; 82043; 82306; 82570; 83970; 84443; 85025; 87086

== ENCOUNTER → 2019-12-11 | Outpatient (CLI) | payer MEDICARE, OTHER, SELFPAY ==
[2019-09-05 13:49] VITALS: BMI 25.6
--- NOTE | 2019-12-11 10:54 | US_ITS ---
STUDY: RENAL ULTRASOUND - COMPLETE REASON FOR EXAM: Female, 79 years old. CKD STAGE 4 TECHNIQUE: Ultrasound evaluation of the kidneys was performed with real-time and static gaspar-scale imaging. COMPARISON: None. FINDINGS: RIGHT KIDNEY: Normal location of the right kidney, which is normal in size. The right kidney measures 9.2 x 5.0 x 3.3 cm. There is a normal cortex of the right kidney. The renal cortex measures 1.0 cm. There is a 1.3 x 0.7 x 0.6 cm cyst. There are no right renal calculi. There is no right hydronephrosis. DISTAL RIGHT URETER: There is non-visualization of the distal right ureter. LEFT KIDNEY: Normal location of the left kidney, which is normal in size. The left kidney measures 9.3 x 3.8 x 4.0 cm. There is a normal cortex of the left kidney. The renal cortex measures 1.5 cm. There is no left renal mass or cyst. There are no left renal calculi. There is no left hydronephrosis. DISTAL LEFT URETER: There is non-visualization of the distal left ureter. BLADDER: The urinary bladder is not well-visualized. US/Kidney and Bladder IMPRESSION: Right renal cyst. Electronically Signed: Leno Harmon DO at 16:40 EDT Tel [phone], Service support ,
== END | disposition home or self-care (01) ==
LOC: OPUS 10:53
PROVIDERS: PCP Family Medicine Geriatric Medicine; Referring Provider Internal Medicine Nephrology; Visit Provider Internal Medicine Nephrology
DX: N18.4 Chronic kidney disease, stage 4 (severe) (principal)
CPT/HCPCS: 76770

== ENCOUNTER → 2020-02-16 18:18 | Outpatient (CLI) | payer MEDICARE, OTHER, SELFPAY ==
[2019-09-05 13:49] VITALS: BMI 25.6
== END ==
PROVIDERS: PCP Family Medicine Geriatric Medicine; Referring Provider Family Medicine Geriatric Medicine; Visit Provider Family Medicine Geriatric Medicine
DX: U07.1 COVID-19 (principal)
CPT/HCPCS: 87633; 87635; C9803; U0003

== ENCOUNTER 2020-03-29 12:44 | Outpatient (RCR) | payer MEDICARE, OTHER, SELFPAY ==
[2019-09-05 13:49] VITALS: BMI 25.6
== END 2020-03-29 23:59 ==
LOC: IMMUN 12:44
PROVIDERS: PCP Family Medicine Geriatric Medicine; Referring Provider Family Medicine; Visit Provider Family Medicine
DX: Z23 Encounter for immunization (principal)
CPT/HCPCS: 0011A; 0012A

== ENCOUNTER → 2020-05-09 13:32 | Outpatient (CLI) | payer MEDICARE, OTHER, SELFPAY ==
[2019-09-05 13:49] VITALS: BMI 25.6
[2020-05-09 16:13] LABS: Absolute Lymphocyte Count 1.77 X10^3/uL (0.83-4.51); Basophil# 0.04 X10^3/uL; Basophil% 0.7 % (0-1); Eosinophil# 0.11 X10^3/uL; Hematocrit 34.8 % (37-47); Lymphocyte # 1.77 X10^3/ul (4.0); Mean Corp Hgb Conc 31.6 g/dL (32-36); Mean Corpuscular Hgb 31.3 pg (27.0-32.0); Mean Corpuscular Volume 98.9 fL (81-99); Mean Platelet Vol. 10.2 fl (6.2-12.0); Monocyte# 0.44 X10^3/uL; Monocyte% 8.2 % (0-10); NRBC Flagged by Analyzer 0 % (0-5); Neutrophil # 2.98 X10^3/uL (2.7-7.7); Neutrophil % 55.5 % (47-70); Platelet Count 195 K/mm3 (150-450); RBC Distribution Width CV 13.2 % (11.6-14.6); RBC Distribution Width SD 47.8 fl (35.1-43.9); Red Blood Count 3.52 M/mm3 (4.2-5.4); White Blood Count 5.4 K/mm3 (4.4-11.0)
[2020-05-09 16:29] LABS: Vitamin D,25 Hydroxy 68.3 ng/mL
[2020-05-09 16:34] LABS: AST(SGOT) 22 U/L (15-37); Alanine Aminotransfer ALT/SGPT 26 U/L (13-56); Albumin, Serum 3.8 g/dL (3.2-5.0); Alkaline Phosphatase 68 U/L (45-117); Anion Gap 6 (5-15); BUN 49 mg/dL (7-18); BUN/Creat Ratio 25.4 RATIO (10-20); Calcium,Total 9.3 mg/dL (8.5-10.1); Chloride 103 mmol/L (98-107); Creatinine, Serum 1.93 mg/dL (0.55-1.02); EST Glomerular Filtration Rate 26 mL/min (>60); Est Glom Filt Rate - Afr Amer 32 mL/min (>60); Globulin 3.8 g/dL (2.2-4.2); Glucose 121 mg/dL (74-106); Potassium 5.1 mmol/L (3.5-5.1); Protein, Total 7.6 g/dL (6.4-8.2); Sodium Level 137 mmol/L (136-145); Thyroid Stim Hormone (TSH) 0.15 uIU/mL (0.358-3.74)
== END ==
PROVIDERS: PCP Family Medicine Geriatric Medicine; Visit Provider Family Medicine Geriatric Medicine
DX: E11.65 Type 2 diabetes mellitus with hyperglycemia (principal); E55.9 Vitamin D deficiency, unspecified; R53.83 Other fatigue
CPT/HCPCS: 36415; 80053; 82306; 84443; 85025

== ENCOUNTER → 2020-06-20 15:36 | Outpatient (CLI) | payer MEDICARE, OTHER, SELFPAY ==
[2020-06-20 14:54] VITALS: BMI 26.3
[2020-06-20 16:56] LABS: Hematocrit 34.3 % (37-47); Hemoglobin 10.8 g/dL (12.0-15.0)
== END ==
PROVIDERS: PCP Family Medicine Geriatric Medicine; Referring Provider Physician Assistant Medical; Visit Provider Physician Assistant Medical
DX: I25.10 Atherosclerotic heart disease of native coronary artery without angina pectoris (principal); I48.11 Longstanding persistent atrial fibrillation
CPT/HCPCS: 36415; 85014; 85018

== ENCOUNTER → 2020-07-01 13:00 | Outpatient (CLI) | payer MEDICARE, OTHER, SELFPAY ==
[2019-09-05 13:49] VITALS: BMI 25.6
[2020-06-20 14:54] VITALS: BMI 26.3
[2020-07-01 16:14] LABS: Thyroid Stim Hormone (TSH) 0.92 uIU/mL (0.358-3.74)
== END ==
PROVIDERS: PCP Family Medicine Geriatric Medicine; Visit Provider Family Medicine Geriatric Medicine
DX: E03.9 Hypothyroidism, unspecified (principal)
CPT/HCPCS: 36415; 84443

== ENCOUNTER → 2020-07-15 | Outpatient (CLI) | payer MEDICARE, OTHER, SELFPAY ==
[2020-06-20 14:54] VITALS: BMI 26.3
== END | disposition home or self-care (01) ==
PROVIDERS: PCP Family Medicine Geriatric Medicine; Visit Provider Podiatrist Foot & Ankle Surgery
DX: L03.032 Cellulitis of left toe (principal)
CPT/HCPCS: 87070; 87205